=== PATIENT | male | born 1980 | race African-American/Black ===

== ENCOUNTER 2018-05-16 09:26 | Observation (INO) ==
[2018-05-17 12:04] VITALS: BP 118/81
== END 2018-05-17 16:22 | disposition home or self-care (01) ==
LOC: N.EDINP 09:26 → N.ED 09:26 → N.5E 15:33
PROVIDERS: ADMIT Internal Medicine Nephrology; ATTEND Internal Medicine Nephrology

== ENCOUNTER 2018-11-05 22:25 | Inpatient (IN) ==
[2018-11-05] MEDS ORDERED: cefTRIAXone 1,000 MG in SODIUM CHLORIDE 0.9% 100 ML IV STA (22:57)
[2018-11-05] MEDS ORDERED: FUROSEMIDE 100 MG/10 ML VIAL IV STA (22:57)
[2018-11-05] MEDS ORDERED: ONDANSETRON 4 MG/2 ML VIAL IV STA (22:57)
[2018-11-05] MEDS ORDERED: MORPHINE 4 MG/1 ML VIAL IV STA (22:57)
[2018-11-05] MEDS ORDERED: methylPREDNISolone SOD SUC 125 MG/2 ML VIAL IV STA (22:57)
[2018-11-05] MEDS ORDERED: NITROGLYCERIN 2% OINT 1 INCH/GM PACK TOP STA (22:57)
[2018-11-05] MEDS ORDERED: ASPIRIN 325 MG TABLET PO STA (22:57)
[2018-11-05] MEDS ORDERED: DILTIAZEM 50 MG/10 ML VIAL IV STA (22:59)
[2018-11-05] MEDS ORDERED: ALBUTEROL 2.5 MG/3 ML NEB RESP TX SCH (23:00)
[2018-11-05 23:35] LABS: ABG Base Excess 4.2 MMOL/L (-2.5-2.5); ABG HCO3 28.1 MMOL/L (20-26); ABG Oxygen Saturation 95.8 % (95-100); ABG PCO2 43.1 MM HG (35-48); ABG PH 7.435 (7.35-7.45); ABG PO2 77.5 MM HG (80-95); ABG TCO2 25.7 MMOL/L (23-27); Pt O2 Delivery Device Room Air
[2018-11-05 23:38] LABS: PT Patient Result 10.5 SECS
[2018-11-05 23:41] LABS: Basophils # 0.1 10*3/uL (0.0-0.2); Basophils % 0.3 % (0.0-0.8); Immature Granulocytes % 1.2 %; Immature Granulocytes Absolute 0.17 #; Lymphocytes # 1.7 10*3/uL (1.4-4.0); Lymphocytes % 11.8 % (21.2-54.2); Mean Corpuscular HGB Conc 29.4 GM/DL (32-36); Mean Corpuscular Hemoglobin 22 PG (27-34); Mean Corpuscular Volume 75.3 FL (87-102); Mean Platelet Volume 10.1 FL (9.6-12.0); Monocytes # 1.3 10*3/uL (0.11-0.8); Monocytes % 8.5 % (1.7-12.7); Neutrophils # 11.4 10*3/uL (1.4-7.4); Neutrophils % 78.2 % (38.7-73.9); Platelet Count 289 T/CUMM (130-400); Red Blood Count 4.97 MC/CUMM (3.8-5.5); Red Cell Distribution Width 18.4 % (9.3-17.3); White Blood Count 14.6 T/CUMM (4-12)
[2018-11-05] MEDS ORDERED: DILTIAZEM 25 MG/5 ML VIAL IV ONE (23:42)
[2018-11-05 23:43] LABS: Hematocrit 37.4 VOL% (42.0-52.0)
[2018-11-05 23:59] LABS: Alanine Aminotransferase 43 U/L (16-61); Albumin 3.5 G/DL (3.4-5.0); Alkaline Phosphatase 127 U/L (45-117); Aspartate Amino Transferase 19 U/L (0-37); Bilirubin,Total < 0.39 MG/DL (0.2-1.0); Blood Urea Nitrogen 11 MG/DL (7-18); Calcium 8.5 MG/DL (8.5-10.1); Glucose 101 MG/DL (74-106); Osmolality,Calculated 284.8 MOS/KG (273-304); Potassium 3.4 MMOL/L (3.5-5.1); Sodium 144 MMOL/L (136-145)
[2018-11-06] MEDS ORDERED: MAGNESIUM SULF RIDER 2 GM in PREMIX 1 EACH IV STA (00:06)
[2018-11-06] MEDS ORDERED: guaiFENesin/DM ER 600-30 MG TABLET PO PRN (00:17)
[2018-11-06] MEDS ORDERED: NICOTINE 21 MG/24 HR PATCH TRANSDERM PRN (00:17)
[2018-11-06] MEDS ORDERED: MAGNESIUM SULF RIDER 4 GM in PREMIX 1 EACH IV PRN (00:17)
[2018-11-06] MEDS ORDERED: MAGNESIUM SULF RIDER 2 GM in PREMIX 1 EACH IV PRN (00:17)
[2018-11-06] MEDS ORDERED: ACETAMINOPHEN 325 MG TABLET PO PRN (00:17)
[2018-11-06 00:53] LABS: Apearance,Urine CLEAR (Clear); Bilirubin,Urine Negative (Negative); Blood, Urine Negative (Negative); Glucose,Urine (UA) Negative (Negative); Ketones,Urine Negative (Negative); Nitrite,Urine Negative (Negative); Protein,Urine Negative; RBC,Urine <1 /HPF (0-4); Urine Color Straw (Yellow); Urine Specific Gravity 1.008 (1.001-1.035); Urine Urobilinogen < 2.0 EU/DL (0.2-1.0); WBC,Urine <1 /HPF (0-6)
[2018-11-06] MEDS ORDERED: NON-FORMULARY MEDICATION (Albuterol Inhaler 2 PUFF) INH PRN ×2 (02:18)
[2018-11-06] MEDS ORDERED: MINERAL OIL/PETROLATUM OPH OINT 3.5 GM TUBE BOTH EYES PRN (02:18)
[2018-11-06] MEDS: hydrALAZINE 20 MG/1 ML VIAL IV PRN (02:50)
[2018-11-06] MEDS: POTASSIUM CHLORIDE 20 MEQ TABLET PO PRN ×3 (02:50→06:31)
[2018-11-06] MEDS: LEVOFLOXACIN INJ 750 MG in PREMIX 1 EACH IV SCH (03:10)
[2018-11-06] MEDS: MORPHINE IR 15 MG TABLET PO PRN (03:33)
[2018-11-06] MEDS: ALBUTEROL/IPRATROPIUM 3 ML NEB RESP TX SCH ×6 (03:47→23:37)
[2018-11-06 04:45] LABS: Barbiturates Screen,Urine Negative (Negative); Benzodiazepines Screen,Urine Negative (Negative); Cannabinoid Screen,Urine Positive (Negative); Opiate Screen,Urine Positive (Negative); Phencyclidine Screen,Urine Negative (Negative)
[2018-11-06 05:38] LABS: Calcium 8.6 MG/DL (8.5-10.1); Osmolality,Calculated 279.5 MOS/KG (273-304); Potassium 3.4 MMOL/L (3.5-5.1)
[2018-11-06 05:57] LABS: Basophils % 0.1 % (0.0-0.8); Hematocrit 39.4 VOL% (42.0-52.0); Immature Granulocytes % 1.2 %; Immature Granulocytes Absolute 0.16 #; Lymphocytes # 1.3 10*3/uL (1.4-4.0); Lymphocytes % 9.7 % (21.2-54.2); Mean Corpuscular HGB Conc 29.7 GM/DL (32-36); Mean Corpuscular Hemoglobin 22 PG (27-34); Mean Corpuscular Volume 74.6 FL (87-102); Mean Platelet Volume 10.7 FL (9.6-12.0); Monocytes # 0.3 10*3/uL (0.11-0.8); Monocytes % 1.8 % (1.7-12.7); Neutrophils % 87.2 % (38.7-73.9); Platelet Count 294 T/CUMM (130-400); Red Blood Count 5.28 MC/CUMM (3.8-5.5); Red Cell Distribution Width 18.8 % (9.3-17.3); White Blood Count 13.8 T/CUMM (4-12)
[2018-11-06 06:01] LABS: Hemoglobin 11.7 GM/DL (14.0-18.0)
[2018-11-06] MEDS ORDERED: methylPREDNISolone SOD SUC 40 MG/1 ML VIAL IV SCH (08:00)
[2018-11-06] MEDS ORDERED: DILTIAZEM CD 120 MG CAPSULE PO SCH (09:00)
[2018-11-06] MEDS ORDERED: LOSARTAN 50 MG TABLET PO SCH (09:00)
[2018-11-06] MEDS ORDERED: CARVEDILOL 12.5 MG TABLET PO SCH (09:00)
[2018-11-06] MEDS ORDERED: NON-FORMULARY MEDICATION (Budesonide/Formoterol 160-4.5 [Symbicort 160-4.5] 2 PUFF) INH SCH (09:00)
[2018-11-06] MEDS ORDERED: IBUPROFEN 600 MG TABLET PO SCH (09:00)
[2018-11-06] MEDS ORDERED: ENOXAPARIN 40 MG/0.4 ML SYRINGE SUBCUT SCH (09:00)
[2018-11-06] MEDS: SENNA 8.6 MG TABLET PO SCH (10:04)
[2018-11-06] MEDS: FERROUS SULFATE 325 MG TABLET PO SCH ×3 (10:05→21:18)
[2018-11-06] MEDS: MORPHINE ER 30 MG TABLET PO SCH ×3 (10:05→21:19)
[2018-11-06] MEDS: DULoxetine 30 MG CAPSULE PO SCH (10:05)
[2018-11-06] MEDS: COLCHICINE 0.6 MG TABLET PO SCH ×2 (10:05→21:19)
[2018-11-06] MEDS: MONTELUKAST 10 MG TABLET PO SCH (10:05)
[2018-11-06] MEDS: fentaNYL 100 MCG/HR PATCH TRANSDERM SCH (10:06)
[2018-11-06] MEDS: GABAPENTIN 300 MG CAPSULE PO SCH ×3 (10:09→21:18)
[2018-11-06] MEDS: methylPREDNISolone SOD SUC 40 MG/1 ML VIAL IV SCH ×3 (10:10→23:54)
[2018-11-06] MEDS: FUROSEMIDE 40 MG/4 ML VIAL IV SCH ×2 (10:10→15:11)
[2018-11-06] MEDS: PANTOPRAZOLE 40 MG TABLET PO SCH (10:10)
[2018-11-06] MEDS: LOSARTAN/HCTZ 50-12.5 MG TABLET PO SCH (10:10)
[2018-11-06] MEDS: hydrALAZINE 25 MG TABLET PO SCH ×3 (10:10→21:19)
[2018-11-06] MEDS ORDERED: DILTIAZEM CD 120 MG CAPSULE PO ONE (10:41)
[2018-11-06 11:02] LABS: % Iron Saturation 6.3 % (18-50); Ferritin 15.8 ng/ml (26-388)
[2018-11-06] MEDS: BUDESONIDE 0.5 MG/2 ML NEB RESP TX SCH ×2 (11:56→19:07)
[2018-11-06] MEDS ORDERED: cefTRIAXone 1,000 MG in SYRINGE 1 EACH IV SCH (12:00)
[2018-11-06 12:39] LABS: Basophils % 0.2 % (0.0-0.8); NRBC # 0.02 10*3/uL
[2018-11-06 12:43] LABS: Hematocrit 40.1 VOL% (42.0-52.0); Immature Granulocytes % 1.6 %; Immature Granulocytes Absolute 0.23 #; Lymphocytes # 1.4 10*3/uL (1.4-4.0); Lymphocytes % 9.2 % (21.2-54.2); Mean Corpuscular HGB Conc 29.9 GM/DL (32-36); Mean Corpuscular Hemoglobin 22 PG (27-34); Mean Corpuscular Volume 74.4 FL (87-102); Mean Platelet Volume 10.5 FL (9.6-12.0); Monocytes # 0.4 10*3/uL (0.11-0.8); Neutrophils # 12.7 10*3/uL (1.4-7.4); Platelet Count 307 T/CUMM (130-400); Red Blood Count 5.39 MC/CUMM (3.8-5.5); White Blood Count 14.7 T/CUMM (4-12)
[2018-11-06 12:44] LABS: Folate 5.5 NG/ML (5.4-24.0); Vitamin B12 300 PG/ML (211-911)
[2018-11-06] MEDS: ASPIRIN EC 81 MG TABLET PO SCH (12:54)
[2018-11-06 13:52] LABS: Sedimentation Rate-Westergren 8 MM/HR (0-15)
[2018-11-06] MEDS: RIVAROXABAN 20 MG TABLET PO SCH (16:02)
[2018-11-07] MEDS: ALBUTEROL/IPRATROPIUM 3 ML NEB RESP TX SCH ×6 (03:28→23:10)
[2018-11-07] MEDS: LEVOFLOXACIN INJ 750 MG in PREMIX 1 EACH IV SCH (03:30)
[2018-11-07] MEDS: diphenhydrAMINE CAP 25 MG CAPSULE PO PRN (03:50)
[2018-11-07 04:54] LABS: Calcium 8.2 MG/DL (8.5-10.1); Potassium 3.7 MMOL/L (3.5-5.1)
[2018-11-07 04:59] LABS: Risk Ratio 2.95; VLDL CHOLESTEROL 28.8 MG/DL
[2018-11-07] MEDS: POTASSIUM CHLORIDE 20 MEQ TABLET PO PRN (05:10)
[2018-11-07 05:50] LABS: Basophils % 0.1 % (0.0-0.8); Immature Granulocytes % 1.7 %; Immature Granulocytes Absolute 0.35 #; Lymphocytes # 2.1 10*3/uL (1.4-4.0); Lymphocytes % 10.1 % (21.2-54.2); Mean Corpuscular HGB Conc 28.8 GM/DL (32-36); Mean Corpuscular Hemoglobin 22 PG (27-34); Mean Corpuscular Volume 75.8 FL (87-102); Mean Platelet Volume 10.7 FL (9.6-12.0); Monocytes # 1.1 10*3/uL (0.11-0.8); Monocytes % 5.2 % (1.7-12.7); NRBC # 0.02 10*3/uL; Neutrophils # 17.4 10*3/uL (1.4-7.4); Neutrophils % 82.9 % (38.7-73.9); Platelet Count 346 T/CUMM (130-400); Red Blood Count 5.41 MC/CUMM (3.8-5.5); Red Cell Distribution Width 19.7 % (9.3-17.3)
[2018-11-07 05:52] LABS: Hemoglobin 11.8 GM/DL (14.0-18.0)
[2018-11-07 05:55] LABS: Lymphocytes 14 % (20-55); Platelet Estimate Normal; Segmented Neutrophils 84 % (50-85); Total Cells Counted 100
[2018-11-07 05:56] LABS: Anisocytosis 1+; Microcytosis 1+
[2018-11-07] MEDS: BUDESONIDE 0.5 MG/2 ML NEB RESP TX SCH ×2 (07:30→20:29)
[2018-11-07] MEDS: FUROSEMIDE 40 MG/4 ML VIAL IV SCH ×2 (09:07→16:16)
[2018-11-07] MEDS: methylPREDNISolone SOD SUC 40 MG/1 ML VIAL IV SCH ×2 (09:08→16:17)
[2018-11-07] MEDS: DILTIAZEM CD 240 MG CAPSULE PO SCH (09:09)
[2018-11-07] MEDS: hydrALAZINE 25 MG TABLET PO SCH ×3 (09:09→21:29)
[2018-11-07] MEDS: ASPIRIN EC 81 MG TABLET PO SCH (09:09)
[2018-11-07] MEDS: COLCHICINE 0.6 MG TABLET PO SCH ×2 (09:09→21:30)
[2018-11-07] MEDS: LOSARTAN/HCTZ 50-12.5 MG TABLET PO SCH (09:10)
[2018-11-07] MEDS: MONTELUKAST 10 MG TABLET PO SCH (09:10)
[2018-11-07] MEDS: SENNA 8.6 MG TABLET PO SCH (09:10)
[2018-11-07] MEDS: MORPHINE ER 30 MG TABLET PO SCH ×3 (09:10→21:29)
[2018-11-07] MEDS: FERROUS SULFATE 325 MG TABLET PO SCH ×3 (09:10→21:30)
[2018-11-07] MEDS: GABAPENTIN 300 MG CAPSULE PO SCH ×3 (09:10→21:29)
[2018-11-07] MEDS: PANTOPRAZOLE 40 MG TABLET PO SCH (09:10)
[2018-11-07] MEDS: DULoxetine 30 MG CAPSULE PO SCH (09:10)
[2018-11-07] MEDS: LOSARTAN 50 MG TABLET PO SCH (11:39)
[2018-11-07] MEDS: RIVAROXABAN 20 MG TABLET PO SCH (16:17)
[2018-11-08] MEDS: methylPREDNISolone SOD SUC 40 MG/1 ML VIAL IV SCH ×3 (00:20→16:05)
[2018-11-08] MEDS: ALBUTEROL/IPRATROPIUM 3 ML NEB RESP TX SCH ×6 (03:05→23:15)
[2018-11-08] MEDS: LEVOFLOXACIN INJ 750 MG in PREMIX 1 EACH IV SCH (04:00)
[2018-11-08] MEDS: diphenhydrAMINE CAP 25 MG CAPSULE PO PRN ×2 (05:21→22:14)
[2018-11-08 05:40] LABS: Calcium 7.4 MG/DL (8.5-10.1); Osmolality,Calculated 284.5 MOS/KG (273-304); Potassium 3.6 MMOL/L (3.5-5.1)
[2018-11-08 05:46] LABS: Basophils % 0.1 % (0.0-0.8); Hematocrit 40.3 VOL% (42.0-52.0); Hemoglobin 11.7 GM/DL (14.0-18.0); Immature Granulocytes % 2.9 %; Lymphocytes # 1.5 10*3/uL (1.4-4.0); Lymphocytes % 7.5 % (21.2-54.2); Mean Corpuscular Hemoglobin 22 PG (27-34); Mean Corpuscular Volume 75.3 FL (87-102); Mean Platelet Volume 10.3 FL (9.6-12.0); Monocytes # 0.9 10*3/uL (0.11-0.8); Monocytes % 4.2 % (1.7-12.7); NRBC # 0.02 10*3/uL; Neutrophils # 17.5 10*3/uL (1.4-7.4); Neutrophils % 85.3 % (38.7-73.9); Platelet Count 347 T/CUMM (130-400); Red Blood Count 5.35 MC/CUMM (3.8-5.5); Red Cell Distribution Width 19.4 % (9.3-17.3); White Blood Count 20.5 T/CUMM (4-12)
[2018-11-08 06:09] LABS: Lymphocytes 6 % (20-55); Segmented Neutrophils 91 % (50-85); Total Cells Counted 100
[2018-11-08 06:10] LABS: Hypochromasia 1+; Microcytosis 1+; Platelet Estimate Normal
[2018-11-08] MEDS: POTASSIUM CHLORIDE 20 MEQ TABLET PO PRN ×2 (06:11→08:56)
[2018-11-08] MEDS: BUDESONIDE 0.5 MG/2 ML NEB RESP TX SCH ×2 (08:19→20:05)
[2018-11-08] MEDS: MONTELUKAST 10 MG TABLET PO SCH (08:55)
[2018-11-08] MEDS: LOSARTAN 50 MG TABLET PO SCH (08:55)
[2018-11-08] MEDS: GABAPENTIN 300 MG CAPSULE PO SCH ×3 (08:55→22:10)
[2018-11-08] MEDS: COLCHICINE 0.6 MG TABLET PO SCH ×2 (08:55→22:10)
[2018-11-08] MEDS: PANTOPRAZOLE 40 MG TABLET PO SCH (08:56)
[2018-11-08] MEDS: FERROUS SULFATE 325 MG TABLET PO SCH ×3 (08:56→22:10)
[2018-11-08] MEDS: DILTIAZEM CD 240 MG CAPSULE PO SCH (08:56)
[2018-11-08] MEDS: hydrALAZINE 25 MG TABLET PO SCH ×3 (08:57→22:11)
[2018-11-08] MEDS: DULoxetine 30 MG CAPSULE PO SCH (08:57)
[2018-11-08] MEDS: ASPIRIN EC 81 MG TABLET PO SCH (08:57)
[2018-11-08] MEDS: MORPHINE ER 30 MG TABLET PO SCH ×3 (08:57→22:10)
[2018-11-08] MEDS: SENNA 8.6 MG TABLET PO SCH (08:58)
[2018-11-08] MEDS: NYSTATIN 500,000 UNIT/5 ML UDCUP SWISH/SWAL SCH ×4 (09:00→22:10)
[2018-11-08] MEDS: RIVAROXABAN 20 MG TABLET PO SCH (17:32)
[2018-11-09] MEDS: methylPREDNISolone SOD SUC 40 MG/1 ML VIAL IV SCH ×3 (00:33→16:33)
[2018-11-09] MEDS: ALBUTEROL/IPRATROPIUM 3 ML NEB RESP TX SCH ×5 (02:58→19:19)
[2018-11-09] MEDS: LEVOFLOXACIN INJ 750 MG in PREMIX 1 EACH IV SCH (04:00)
[2018-11-09] MEDS: diphenhydrAMINE CAP 25 MG CAPSULE PO PRN ×2 (04:00→18:35)
[2018-11-09 04:15] LABS: Basophils % 0.1 % (0.0-0.8); Hemoglobin 11.7 GM/DL (14.0-18.0); Immature Granulocytes % 2.4 %; Immature Granulocytes Absolute 0.43 #; Lymphocytes % 5.7 % (21.2-54.2); Mean Corpuscular HGB Conc 29.5 GM/DL (32-36); Mean Corpuscular Hemoglobin 22 PG (27-34); Mean Platelet Volume 10.3 FL (9.6-12.0); Monocytes # 0.7 10*3/uL (0.11-0.8); Monocytes % 4.1 % (1.7-12.7); Neutrophils # 15.4 10*3/uL (1.4-7.4); Neutrophils % 87.7 % (38.7-73.9); Platelet Count 356 T/CUMM (130-400); Red Blood Count 5.29 MC/CUMM (3.8-5.5); Red Cell Distribution Width 19.5 % (9.3-17.3); White Blood Count 17.6 T/CUMM (4-12)
[2018-11-09 04:18] LABS: Hematocrit 39.7 VOL% (42.0-52.0)
[2018-11-09 04:37] LABS: Calcium 7.7 MG/DL (8.5-10.1); Osmolality,Calculated 284.7 MOS/KG (273-304); Potassium 4.1 MMOL/L (3.5-5.1)
[2018-11-09] MEDS: MORPHINE IR 15 MG TABLET PO PRN (05:58)
[2018-11-09] MEDS: BUDESONIDE 0.5 MG/2 ML NEB RESP TX SCH ×2 (08:16→19:19)
[2018-11-09] MEDS: COLCHICINE 0.6 MG TABLET PO SCH (08:25)
[2018-11-09] MEDS: FERROUS SULFATE 325 MG TABLET PO SCH ×3 (08:25→21:16)
[2018-11-09] MEDS: LOSARTAN 50 MG TABLET PO SCH (08:25)
[2018-11-09] MEDS: DULoxetine 30 MG CAPSULE PO SCH (08:25)
[2018-11-09] MEDS: ASPIRIN EC 81 MG TABLET PO SCH (08:26)
[2018-11-09] MEDS: hydrALAZINE 25 MG TABLET PO SCH ×3 (08:26→21:18)
[2018-11-09] MEDS: DILTIAZEM CD 240 MG CAPSULE PO SCH (08:26)
[2018-11-09] MEDS: GABAPENTIN 300 MG CAPSULE PO SCH ×3 (08:26→21:17)
[2018-11-09] MEDS: PANTOPRAZOLE 40 MG TABLET PO SCH (08:26)
[2018-11-09] MEDS: SENNA 8.6 MG TABLET PO SCH (08:26)
[2018-11-09] MEDS: MONTELUKAST 10 MG TABLET PO SCH ×2 (08:26→21:16)
[2018-11-09] MEDS: NYSTATIN 500,000 UNIT/5 ML UDCUP SWISH/SWAL SCH ×4 (08:26→21:16)
[2018-11-09] MEDS: MORPHINE ER 30 MG TABLET PO SCH ×3 (08:26→21:17)
[2018-11-09] MEDS: fentaNYL 100 MCG/HR PATCH TRANSDERM SCH (08:32)
[2018-11-09] MEDS: RIVAROXABAN 20 MG TABLET PO SCH (16:33)
[2018-11-09] MEDS: guaiFENesin/DM ER 600-30 MG TABLET PO SCH (21:16)
[2018-11-10] MEDS: ALBUTEROL/IPRATROPIUM 3 ML NEB RESP TX SCH ×6 (00:54→20:16)
[2018-11-10] MEDS: methylPREDNISolone SOD SUC 40 MG/1 ML VIAL IV SCH ×3 (02:43→16:25)
[2018-11-10] MEDS: LEVOFLOXACIN INJ 750 MG in PREMIX 1 EACH IV SCH (03:03)
[2018-11-10 05:09] LABS: Basophils % 0.1 % (0.0-0.8); Hemoglobin 11.4 GM/DL (14.0-18.0); Immature Granulocytes % 2.8 %; Immature Granulocytes Absolute 0.47 #; Lymphocytes % 5.6 % (21.2-54.2); Mean Corpuscular HGB Conc 29.2 GM/DL (32-36); Mean Corpuscular Hemoglobin 22 PG (27-34); Mean Corpuscular Volume 75.6 FL (87-102); Mean Platelet Volume 10.3 FL (9.6-12.0); Monocytes # 0.6 10*3/uL (0.11-0.8); Monocytes % 3.7 % (1.7-12.7); Neutrophils # 14.8 10*3/uL (1.4-7.4); Neutrophils % 87.8 % (38.7-73.9); Platelet Count 343 T/CUMM (130-400); Red Blood Count 5.16 MC/CUMM (3.8-5.5); Red Cell Distribution Width 19.2 % (9.3-17.3); White Blood Count 16.8 T/CUMM (4-12)
[2018-11-10 05:23] LABS: Calcium 7.8 MG/DL (8.5-10.1); Osmolality,Calculated 282.5 MOS/KG (273-304); Potassium 4.1 MMOL/L (3.5-5.1)
[2018-11-10] MEDS: BUDESONIDE 0.5 MG/2 ML NEB RESP TX SCH ×2 (07:46→20:16)
[2018-11-10] MEDS: COLCHICINE 0.6 MG TABLET PO SCH (08:39)
[2018-11-10] MEDS: FERROUS SULFATE 325 MG TABLET PO SCH ×3 (08:39→22:21)
[2018-11-10] MEDS: GABAPENTIN 300 MG CAPSULE PO SCH ×2 (08:39→22:21)
[2018-11-10] MEDS: hydrALAZINE 25 MG TABLET PO SCH ×3 (08:40→22:20)
[2018-11-10] MEDS: SENNA 8.6 MG TABLET PO SCH (08:40)
[2018-11-10] MEDS: DILTIAZEM CD 240 MG CAPSULE PO SCH (08:40)
[2018-11-10] MEDS: PANTOPRAZOLE 40 MG TABLET PO SCH (08:40)
[2018-11-10] MEDS: LOSARTAN 50 MG TABLET PO SCH (08:40)
[2018-11-10] MEDS: ASPIRIN EC 81 MG TABLET PO SCH (08:40)
[2018-11-10] MEDS: MORPHINE ER 30 MG TABLET PO SCH ×3 (08:40→22:21)
[2018-11-10] MEDS: MONTELUKAST 10 MG TABLET PO SCH ×2 (08:40→22:21)
[2018-11-10] MEDS: DULoxetine 30 MG CAPSULE PO SCH (08:40)
[2018-11-10] MEDS: guaiFENesin/DM ER 600-30 MG TABLET PO SCH ×3 (08:40→22:21)
[2018-11-10] MEDS: NYSTATIN 500,000 UNIT/5 ML UDCUP SWISH/SWAL SCH ×4 (08:41→22:21)
[2018-11-10] MEDS ORDERED: ALBUTEROL 2.5 MG/3 ML NEB RESP TX PRN (12:00)
[2018-11-10] MEDS: ACETYLCYSTEINE 20% 800 MG/4 ML VIAL RESP TX SCH (15:18)
[2018-11-10] MEDS: RIVAROXABAN 20 MG TABLET PO SCH (16:25)
[2018-11-10] MEDS: LUBIPROSTONE 24 MCG CAPSULE PO SCH (22:20)
[2018-11-10] MEDS: DOXYCYCLINE HYCLATE 100 MG CAPSULE PO SCH (22:22)
[2018-11-11] MEDS: ALBUTEROL/IPRATROPIUM 3 ML NEB RESP TX SCH ×7 (00:09→22:30)
[2018-11-11] MEDS: ACETYLCYSTEINE 20% 800 MG/4 ML VIAL RESP TX SCH ×4 (00:09→22:39)
[2018-11-11] MEDS: FLUTICASONE/SALMETEROL 500-50 DISKUS 14 DOSE INH SCH ×3 (01:03→21:56)
[2018-11-11] MEDS: methylPREDNISolone SOD SUC 40 MG/1 ML VIAL IV SCH ×3 (01:03→17:22)
[2018-11-11 05:21] LABS: Calcium 8.3 MG/DL (8.5-10.1); Osmolality,Calculated 282.1 MOS/KG (273-304); Potassium 4.4 MMOL/L (3.5-5.1)
[2018-11-11 05:56] LABS: Basophils % 0.1 % (0.0-0.8); Hematocrit 38.5 VOL% (42.0-52.0); Hemoglobin 11.3 GM/DL (14.0-18.0); Immature Granulocytes % 2.9 %; Immature Granulocytes Absolute 0.45 #; Lymphocytes # 0.8 10*3/uL (1.4-4.0); Lymphocytes % 5.1 % (21.2-54.2); Mean Corpuscular HGB Conc 29.4 GM/DL (32-36); Mean Corpuscular Hemoglobin 22 PG (27-34); Mean Corpuscular Volume 75.9 FL (87-102); Mean Platelet Volume 10.8 FL (9.6-12.0); Monocytes # 0.6 10*3/uL (0.11-0.8); Monocytes % 3.7 % (1.7-12.7); Neutrophils # 13.7 10*3/uL (1.4-7.4); Neutrophils % 88.2 % (38.7-73.9); Platelet Count 314 T/CUMM (130-400); Red Blood Count 5.07 MC/CUMM (3.8-5.5); Red Cell Distribution Width 19.8 % (9.3-17.3); White Blood Count 15.6 T/CUMM (4-12)
[2018-11-11 06:02] LABS: Platelet Estimate Normal
[2018-11-11 06:03] LABS: Hypochromasia Slight
[2018-11-11] MEDS: BUDESONIDE 0.5 MG/2 ML NEB RESP TX SCH ×2 (07:28→19:40)
[2018-11-11] MEDS ORDERED: hydrALAZINE 25 MG TABLET PO ONE (09:27)
[2018-11-11] MEDS: FUROSEMIDE 40 MG TABLET PO SCH (09:29)
[2018-11-11] MEDS: NYSTATIN 500,000 UNIT/5 ML UDCUP SWISH/SWAL SCH ×4 (09:29→21:55)
[2018-11-11] MEDS: GABAPENTIN 300 MG CAPSULE PO SCH ×2 (09:29→21:56)
[2018-11-11] MEDS: SENNA 8.6 MG TABLET PO SCH (09:29)
[2018-11-11] MEDS: COLCHICINE 0.6 MG TABLET PO SCH (09:30)
[2018-11-11] MEDS: FERROUS SULFATE 325 MG TABLET PO SCH ×3 (09:30→21:56)
[2018-11-11] MEDS: DOXYCYCLINE HYCLATE 100 MG CAPSULE PO SCH ×2 (09:30→21:55)
[2018-11-11] MEDS: DILTIAZEM CD 240 MG CAPSULE PO SCH (09:30)
[2018-11-11] MEDS: ASPIRIN EC 81 MG TABLET PO SCH (09:30)
[2018-11-11] MEDS: LOSARTAN 50 MG TABLET PO SCH (09:30)
[2018-11-11] MEDS: MONTELUKAST 10 MG TABLET PO SCH ×2 (09:30→21:55)
[2018-11-11] MEDS: LUBIPROSTONE 24 MCG CAPSULE PO SCH ×2 (09:30→21:56)
[2018-11-11] MEDS: DULoxetine 30 MG CAPSULE PO SCH (09:30)
[2018-11-11] MEDS: PANTOPRAZOLE 40 MG TABLET PO SCH (09:31)
[2018-11-11] MEDS: MORPHINE ER 30 MG TABLET PO SCH ×3 (09:31→21:56)
[2018-11-11] MEDS: guaiFENesin/DM ER 600-30 MG TABLET PO SCH ×2 (09:31→14:22)
[2018-11-11] MEDS: RIVAROXABAN 20 MG TABLET PO SCH (17:22)
[2018-11-12] MEDS: methylPREDNISolone SOD SUC 40 MG/1 ML VIAL IV SCH ×4 (00:10→17:33)
[2018-11-12] MEDS: ALBUTEROL/IPRATROPIUM 3 ML NEB RESP TX SCH ×6 (02:39→23:48)
[2018-11-12 06:38] LABS: Calcium 8.4 MG/DL (8.5-10.1); Osmolality,Calculated 282.1 MOS/KG (273-304); Potassium 4.2 MMOL/L (3.5-5.1)
[2018-11-12 06:58] LABS: Basophils % 0.1 % (0.0-0.8); Hematocrit 37.3 VOL% (42.0-52.0); Immature Granulocytes Absolute 0.45 #; Lymphocytes # 0.7 10*3/uL (1.4-4.0); Lymphocytes % 4.4 % (21.2-54.2); Mean Corpuscular HGB Conc 29.2 GM/DL (32-36); Mean Corpuscular Hemoglobin 22 PG (27-34); Mean Corpuscular Volume 76.1 FL (87-102); Mean Platelet Volume 10.1 FL (9.6-12.0); Monocytes # 0.5 10*3/uL (0.11-0.8); Monocytes % 3.4 % (1.7-12.7); Neutrophils # 13.2 10*3/uL (1.4-7.4); Neutrophils % 89.1 % (38.7-73.9); Platelet Count 262 T/CUMM (130-400); Red Cell Distribution Width 19.7 % (9.3-17.3); White Blood Count 14.8 T/CUMM (4-12)
[2018-11-12 06:59] LABS: Hemoglobin 10.9 GM/DL (14.0-18.0)
[2018-11-12 07:08] LABS: Band Neutrophils 3 % (0-10); Lymphocytes 10 % (20-55); Platelet Estimate Normal; Segmented Neutrophils 81 % (50-85); Total Cells Counted 100
[2018-11-12 07:09] LABS: Anisocytosis 1+
[2018-11-12] MEDS: hydrALAZINE 25 MG TABLET PO SCH (08:02)
[2018-11-12] MEDS: BUDESONIDE 0.5 MG/2 ML NEB RESP TX SCH ×2 (08:34→21:16)
[2018-11-12] MEDS: ACETYLCYSTEINE 20% 800 MG/4 ML VIAL RESP TX SCH ×3 (08:40→23:48)
[2018-11-12] MEDS: DULoxetine 30 MG CAPSULE PO SCH (09:03)
[2018-11-12] MEDS: COLCHICINE 0.6 MG TABLET PO SCH (09:03)
[2018-11-12] MEDS: NYSTATIN 500,000 UNIT/5 ML UDCUP SWISH/SWAL SCH ×4 (09:03→22:16)
[2018-11-12] MEDS: FERROUS SULFATE 325 MG TABLET PO SCH ×3 (09:04→22:18)
[2018-11-12] MEDS: PANTOPRAZOLE 40 MG TABLET PO SCH (09:04)
[2018-11-12] MEDS: DOXYCYCLINE HYCLATE 100 MG CAPSULE PO SCH ×2 (09:04→22:20)
[2018-11-12] MEDS: LOSARTAN 50 MG TABLET PO SCH (09:04)
[2018-11-12] MEDS: SENNA 8.6 MG TABLET PO SCH (09:04)
[2018-11-12] MEDS: MORPHINE ER 30 MG TABLET PO SCH ×3 (09:04→22:17)
[2018-11-12] MEDS: FUROSEMIDE 40 MG TABLET PO SCH (09:05)
[2018-11-12] MEDS: GABAPENTIN 300 MG CAPSULE PO SCH ×2 (09:05→22:17)
[2018-11-12] MEDS: DILTIAZEM CD 240 MG CAPSULE PO SCH (09:05)
[2018-11-12] MEDS: ASPIRIN EC 81 MG TABLET PO SCH (09:05)
[2018-11-12] MEDS: MONTELUKAST 10 MG TABLET PO SCH ×2 (09:05→22:17)
[2018-11-12] MEDS: FLUTICASONE/SALMETEROL 500-50 DISKUS 14 DOSE INH SCH ×2 (09:06→22:18)
[2018-11-12] MEDS: LUBIPROSTONE 24 MCG CAPSULE PO SCH ×2 (09:21→22:18)
[2018-11-12] MEDS: fentaNYL 100 MCG/HR PATCH TRANSDERM SCH (10:04)
[2018-11-12] MEDS: RIVAROXABAN 20 MG TABLET PO SCH (17:25)
[2018-11-13] MEDS: methylPREDNISolone SOD SUC 40 MG/1 ML VIAL IV SCH ×4 (01:20→17:16)
[2018-11-13] MEDS: ALBUTEROL/IPRATROPIUM 3 ML NEB RESP TX SCH ×4 (02:58→14:55)
[2018-11-13 05:20] LABS: Basophils % 0.1 % (0.0-0.8); Eosinophils % 0.1 % (0.00-10.9); Hematocrit 38.5 VOL% (42.0-52.0); Immature Granulocytes % 3.3 %; Immature Granulocytes Absolute 0.59 #; Lymphocytes # 0.8 10*3/uL (1.4-4.0); Lymphocytes % 4.2 % (21.2-54.2); Mean Corpuscular HGB Conc 30.1 GM/DL (32-36); Mean Corpuscular Hemoglobin 22 PG (27-34); Mean Corpuscular Volume 74.2 FL (87-102); Mean Platelet Volume 9.9 FL (9.6-12.0); Monocytes # 0.9 10*3/uL (0.11-0.8); Monocytes % 4.9 % (1.7-12.7); Neutrophils # 15.8 10*3/uL (1.4-7.4); Neutrophils % 87.4 % (38.7-73.9); Platelet Count 244 T/CUMM (130-400); Red Blood Count 5.19 MC/CUMM (3.8-5.5); Red Cell Distribution Width 19.7 % (9.3-17.3); White Blood Count 18.1 T/CUMM (4-12)
[2018-11-13 05:21] LABS: Hemoglobin 11.6 GM/DL (14.0-18.0)
[2018-11-13 05:22] LABS: Calcium 8.1 MG/DL (8.5-10.1); Osmolality,Calculated 278.4 MOS/KG (273-304); Potassium 4.3 MMOL/L (3.5-5.1)
[2018-11-13 05:26] LABS: Anisocytosis 1+; Hypochromasia 1+; Lymphocytes 5 % (20-55); Segmented Neutrophils 90 % (50-85); Total Cells Counted 100
[2018-11-13 05:27] LABS: Platelet Estimate Adequate; Target Cells Few
[2018-11-13] MEDS: BUDESONIDE 0.5 MG/2 ML NEB RESP TX SCH ×2 (07:18→19:59)
[2018-11-13] MEDS: ACETYLCYSTEINE 20% 800 MG/4 ML VIAL RESP TX SCH ×3 (07:18→23:05)
[2018-11-13] MEDS: hydrALAZINE 20 MG/1 ML VIAL IV PRN (09:30)
[2018-11-13] MEDS: GABAPENTIN 300 MG CAPSULE PO SCH ×2 (09:31→20:57)
[2018-11-13] MEDS: DULoxetine 30 MG CAPSULE PO SCH (09:31)
[2018-11-13] MEDS: FUROSEMIDE 40 MG TABLET PO SCH (09:31)
[2018-11-13] MEDS: FERROUS SULFATE 325 MG TABLET PO SCH ×3 (09:31→20:59)
[2018-11-13] MEDS: LOSARTAN 50 MG TABLET PO SCH (09:32)
[2018-11-13] MEDS: PANTOPRAZOLE 40 MG TABLET PO SCH (09:32)
[2018-11-13] MEDS: DILTIAZEM CD 240 MG CAPSULE PO SCH (09:32)
[2018-11-13] MEDS: FLUTICASONE/SALMETEROL 500-50 DISKUS 14 DOSE INH SCH ×2 (09:34→22:16)
[2018-11-13] MEDS: ASPIRIN EC 81 MG TABLET PO SCH (10:18)
[2018-11-13] MEDS: COLCHICINE 0.6 MG TABLET PO SCH (10:18)
[2018-11-13] MEDS: MONTELUKAST 10 MG TABLET PO SCH ×2 (10:18→20:59)
[2018-11-13] MEDS: MORPHINE ER 30 MG TABLET PO SCH ×3 (10:19→22:16)
[2018-11-13] MEDS: DOXYCYCLINE HYCLATE 100 MG CAPSULE PO SCH ×2 (10:19→20:59)
[2018-11-13] MEDS: LUBIPROSTONE 24 MCG CAPSULE PO SCH ×2 (10:19→20:59)
[2018-11-13] MEDS: SENNA 8.6 MG TABLET PO SCH (10:19)
[2018-11-13] MEDS: NYSTATIN 500,000 UNIT/5 ML UDCUP SWISH/SWAL SCH ×4 (10:38→20:59)
[2018-11-13] MEDS: diphenhydrAMINE CAP 25 MG CAPSULE PO SCH ×2 (11:41→20:59)
[2018-11-13] MEDS: amLODIPine 10 MG TABLET PO SCH (11:45)
[2018-11-13] MEDS: RIVAROXABAN 20 MG TABLET PO SCH (17:16)
[2018-11-13] MEDS: ARFORMOTEROL 15 MCG/2 ML NEB RESP TX SCH (19:59)
[2018-11-14] MEDS: BUDESONIDE/FORMOTEROL 160-4.5 INHALER 6 GM INH SCH ×3 (01:30→21:44)
[2018-11-14] MEDS: methylPREDNISolone SOD SUC 40 MG/1 ML VIAL IV SCH ×3 (01:30→21:39)
[2018-11-14 05:27] LABS: Basophils % 0.1 % (0.0-0.8); Hematocrit 37.7 VOL% (42.0-52.0); Hemoglobin 11.3 GM/DL (14.0-18.0); Immature Granulocytes % 3.5 %; Immature Granulocytes Absolute 0.65 #; Lymphocytes # 1.1 10*3/uL (1.4-4.0); Mean Corpuscular Hemoglobin 22 PG (27-34); Mean Corpuscular Volume 74.8 FL (87-102); Mean Platelet Volume 10.3 FL (9.6-12.0); Monocytes # 1.2 10*3/uL (0.11-0.8); Monocytes % 6.3 % (1.7-12.7); Neutrophils # 15.5 10*3/uL (1.4-7.4); Neutrophils % 84.1 % (38.7-73.9); Platelet Count 270 T/CUMM (130-400); Red Blood Count 5.04 MC/CUMM (3.8-5.5); Red Cell Distribution Width 19.9 % (9.3-17.3); White Blood Count 18.4 T/CUMM (4-12)
[2018-11-14 05:56] LABS: Calcium 8.6 MG/DL (8.5-10.1); Osmolality,Calculated 273.5 MOS/KG (273-304); Potassium 4.5 MMOL/L (3.5-5.1)
[2018-11-14 06:04] LABS: Lymphocytes 13 % (20-55); Platelet Estimate Adequate; Polychromasia Few; Segmented Neutrophils 86 % (50-85); Total Cells Counted 100
[2018-11-14 06:05] LABS: Hypochromasia Slight
[2018-11-14] MEDS: ONDANSETRON 4 MG/2 ML VIAL IV PRN (08:10)
[2018-11-14] MEDS: ALBUTEROL/IPRATROPIUM 3 ML NEB RESP TX PRN (08:27)
[2018-11-14] MEDS: ARFORMOTEROL 15 MCG/2 ML NEB RESP TX SCH ×2 (08:27→19:39)
[2018-11-14] MEDS: BUDESONIDE 0.5 MG/2 ML NEB RESP TX SCH ×2 (08:27→19:39)
[2018-11-14] MEDS: NYSTATIN 500,000 UNIT/5 ML UDCUP SWISH/SWAL SCH ×4 (09:13→21:44)
[2018-11-14] MEDS: PANTOPRAZOLE 40 MG TABLET PO SCH (09:13)
[2018-11-14] MEDS: DILTIAZEM CD 240 MG CAPSULE PO SCH (09:13)
[2018-11-14] MEDS: amLODIPine 10 MG TABLET PO SCH (09:13)
[2018-11-14] MEDS: FERROUS SULFATE 325 MG TABLET PO SCH ×3 (09:14→21:36)
[2018-11-14] MEDS: DOXYCYCLINE HYCLATE 100 MG CAPSULE PO SCH ×2 (09:14→21:38)
[2018-11-14] MEDS: FUROSEMIDE 40 MG TABLET PO SCH (09:14)
[2018-11-14] MEDS: LUBIPROSTONE 24 MCG CAPSULE PO SCH ×2 (09:14→21:35)
[2018-11-14] MEDS: ASPIRIN EC 81 MG TABLET PO SCH (09:14)
[2018-11-14] MEDS: GABAPENTIN 300 MG CAPSULE PO SCH ×2 (09:14→21:37)
[2018-11-14] MEDS: COLCHICINE 0.6 MG TABLET PO SCH (09:14)
[2018-11-14] MEDS: LOSARTAN 50 MG TABLET PO SCH (09:14)
[2018-11-14] MEDS: diphenhydrAMINE CAP 25 MG CAPSULE PO SCH ×2 (09:14→21:36)
[2018-11-14] MEDS: MONTELUKAST 10 MG TABLET PO SCH ×2 (09:14→21:37)
[2018-11-14] MEDS: DULoxetine 30 MG CAPSULE PO SCH (09:14)
[2018-11-14] MEDS: SENNA 8.6 MG TABLET PO SCH (09:15)
[2018-11-14] MEDS: FLUTICASONE/SALMETEROL 500-50 DISKUS 14 DOSE INH SCH ×2 (09:16→21:44)
[2018-11-14] MEDS: MORPHINE ER 30 MG TABLET PO SCH ×3 (09:18→21:37)
[2018-11-14] MEDS: ACETYLCYSTEINE 20% 800 MG/4 ML VIAL RESP TX SCH ×2 (12:27→16:04)
[2018-11-14] MEDS: RIVAROXABAN 20 MG TABLET PO SCH (17:48)
[2018-11-15] MEDS: ACETYLCYSTEINE 20% 800 MG/4 ML VIAL RESP TX SCH ×3 (00:15→14:46)
[2018-11-15] MEDS: ALBUTEROL/IPRATROPIUM 3 ML NEB RESP TX PRN ×2 (04:07→07:38)
[2018-11-15 06:29] LABS: Basophils % 0.2 % (0.0-0.8); Hematocrit 37.1 VOL% (42.0-52.0); Immature Granulocytes % 4.2 %; Immature Granulocytes Absolute 0.75 #; Lymphocytes % 5.4 % (21.2-54.2); Mean Corpuscular HGB Conc 29.6 GM/DL (32-36); Mean Corpuscular Hemoglobin 22 PG (27-34); Mean Corpuscular Volume 75.1 FL (87-102); Mean Platelet Volume 10.1 FL (9.6-12.0); Monocytes # 1.2 10*3/uL (0.11-0.8); Monocytes % 6.9 % (1.7-12.7); Neutrophils % 83.3 % (38.7-73.9); Platelet Count 237 T/CUMM (130-400); Red Blood Count 4.94 MC/CUMM (3.8-5.5); Red Cell Distribution Width 19.7 % (9.3-17.3); White Blood Count 17.9 T/CUMM (4-12)
[2018-11-15 06:30] LABS: Osmolality,Calculated 280.2 MOS/KG (273-304); Potassium 4.4 MMOL/L (3.5-5.1)
[2018-11-15] MEDS: ARFORMOTEROL 15 MCG/2 ML NEB RESP TX SCH ×2 (07:37→19:44)
[2018-11-15] MEDS: BUDESONIDE 0.5 MG/2 ML NEB RESP TX SCH ×2 (07:38→19:44)
[2018-11-15] MEDS: ASPIRIN EC 81 MG TABLET PO SCH (08:14)
[2018-11-15] MEDS: FLUTICASONE/SALMETEROL 500-50 DISKUS 14 DOSE INH SCH ×2 (08:14→21:29)
[2018-11-15] MEDS: methylPREDNISolone SOD SUC 40 MG/1 ML VIAL IV SCH ×2 (08:14→21:25)
[2018-11-15] MEDS: BUDESONIDE/FORMOTEROL 160-4.5 INHALER 6 GM INH SCH ×2 (08:14→21:29)
[2018-11-15] MEDS: NYSTATIN 500,000 UNIT/5 ML UDCUP SWISH/SWAL SCH ×4 (08:14→21:25)
[2018-11-15] MEDS: DULoxetine 30 MG CAPSULE PO SCH (08:15)
[2018-11-15] MEDS: LOSARTAN 50 MG TABLET PO SCH (08:15)
[2018-11-15] MEDS: GABAPENTIN 300 MG CAPSULE PO SCH ×2 (08:15→21:26)
[2018-11-15] MEDS: SENNA 8.6 MG TABLET PO SCH (08:15)
[2018-11-15] MEDS: DOXYCYCLINE HYCLATE 100 MG CAPSULE PO SCH ×2 (08:15→21:26)
[2018-11-15] MEDS: diphenhydrAMINE CAP 25 MG CAPSULE PO SCH ×2 (08:15→21:26)
[2018-11-15] MEDS: amLODIPine 10 MG TABLET PO SCH (08:15)
[2018-11-15] MEDS: COLCHICINE 0.6 MG TABLET PO SCH (08:15)
[2018-11-15] MEDS: MONTELUKAST 10 MG TABLET PO SCH ×2 (08:15→21:26)
[2018-11-15] MEDS: LUBIPROSTONE 24 MCG CAPSULE PO SCH ×2 (08:16→21:26)
[2018-11-15] MEDS: PANTOPRAZOLE 40 MG TABLET PO SCH (08:16)
[2018-11-15] MEDS: MORPHINE ER 30 MG TABLET PO SCH ×3 (08:16→21:26)
[2018-11-15] MEDS: FERROUS SULFATE 325 MG TABLET PO SCH ×3 (08:16→21:26)
[2018-11-15] MEDS: FUROSEMIDE 40 MG TABLET PO SCH (08:16)
[2018-11-15] MEDS: DILTIAZEM CD 240 MG CAPSULE PO SCH (08:16)
[2018-11-15] MEDS: fentaNYL 100 MCG/HR PATCH TRANSDERM SCH (08:19)
[2018-11-15 08:23] LABS: Lymphocytes 3 % (20-55); Platelet Estimate Normal; Polychromasia Slight; Segmented Neutrophils 93 % (50-85); Total Cells Counted 100
[2018-11-15] MEDS: RIVAROXABAN 20 MG TABLET PO SCH (16:00)
[2018-11-15] MEDS: ONDANSETRON 4 MG/2 ML VIAL IV PRN (21:39)
[2018-11-16] MEDS: ACETYLCYSTEINE 20% 800 MG/4 ML VIAL RESP TX SCH ×3 (01:16→15:06)
[2018-11-16 06:04] LABS: Basophils % 0.2 % (0.0-0.8); Hematocrit 38.7 VOL% (42.0-52.0); Hemoglobin 11.4 GM/DL (14.0-18.0); Immature Granulocytes % 4.5 %; Immature Granulocytes Absolute 0.98 #; Lymphocytes % 4.7 % (21.2-54.2); Mean Corpuscular HGB Conc 29.5 GM/DL (32-36); Mean Corpuscular Hemoglobin 22 PG (27-34); Mean Corpuscular Volume 75.9 FL (87-102); Mean Platelet Volume 10.9 FL (9.6-12.0); Monocytes # 1.3 10*3/uL (0.11-0.8); Monocytes % 5.8 % (1.7-12.7); Neutrophils # 18.6 10*3/uL (1.4-7.4); Neutrophils % 84.8 % (38.7-73.9); Platelet Count 236 T/CUMM (130-400); Red Cell Distribution Width 19.6 % (9.3-17.3); White Blood Count 21.9 T/CUMM (4-12)
[2018-11-16 06:10] LABS: Albumin 3.3 G/DL (3.4-5.0); Calcium 8.3 MG/DL (8.5-10.1); Calcium 8.4 MG/DL (8.5-10.1); Osmolality,Calculated 276.5 MOS/KG (273-304); Osmolality,Calculated 278.4 MOS/KG (273-304); Potassium 4.2 MMOL/L (3.5-5.1); Potassium 4.3 MMOL/L (3.5-5.1); Total Protein 6.9 G/DL (6.4-8.3)
[2018-11-16 06:31] LABS: Band Neutrophils 2 % (0-10); Hypochromasia 1+; Lymphocytes 10 % (20-55); Microcytosis 1+; Segmented Neutrophils 85 % (50-85); Target Cells Slight; Total Cells Counted 100
[2018-11-16 06:32] LABS: Platelet Estimate Normal
[2018-11-16] MEDS ORDERED: MEPERIDINE 50 MG/1 ML VIAL IM ONE (07:00)
[2018-11-16] MEDS ORDERED: GLYCOPYRROLATE 0.4 MG/2 ML VIAL IM ONE (07:00)
[2018-11-16] MEDS ORDERED: PROMETHAZINE 25 MG/1 ML VIAL IM ONE (07:00)
[2018-11-16] MEDS ORDERED: MIDAZOLAM 2 MG/2 ML VIAL ONE (07:04)
[2018-11-16] MEDS ORDERED: LIDOCAINE 2% VISCOUS 100 ML BOTTLE SWISH/SPIT ONE (07:30)
[2018-11-16] MEDS ORDERED: LIDOCAINE 2% 20 ML VIAL RESP TX ONE (07:30)
[2018-11-16] MEDS ORDERED: LIDOCAINE 1% 20 ML VIAL MISC INJ ONE (07:30)
[2018-11-16] MEDS ORDERED: MIDAZOLAM 2 MG/2 ML VIAL IV ONE (07:30)
[2018-11-16] MEDS: ARFORMOTEROL 15 MCG/2 ML NEB RESP TX SCH ×2 (07:40→19:35)
[2018-11-16] MEDS: BUDESONIDE 0.5 MG/2 ML NEB RESP TX SCH ×2 (07:40→19:35)
[2018-11-16] MEDS: ALBUTEROL/IPRATROPIUM 3 ML NEB RESP TX PRN (07:40)
[2018-11-16] MEDS: PIPERACILLIN/TAZOBACTAM 3,375 MG in SODIUM CHLORIDE 0.9% 100 ML IV SCH ×2 (09:14→15:45)
[2018-11-16] MEDS: methylPREDNISolone SOD SUC 40 MG/1 ML VIAL IV SCH ×2 (09:14→21:29)
[2018-11-16] MEDS: FUROSEMIDE 40 MG TABLET PO SCH (11:21)
[2018-11-16] MEDS: GABAPENTIN 300 MG CAPSULE PO SCH ×2 (11:21→21:25)
[2018-11-16] MEDS: FERROUS SULFATE 325 MG TABLET PO SCH ×3 (11:21→21:26)
[2018-11-16] MEDS: diphenhydrAMINE CAP 25 MG CAPSULE PO SCH ×2 (11:21→21:26)
[2018-11-16] MEDS: SENNA 8.6 MG TABLET PO SCH (11:21)
[2018-11-16] MEDS: DULoxetine 30 MG CAPSULE PO SCH (11:21)
[2018-11-16] MEDS: LOSARTAN 50 MG TABLET PO SCH (11:22)
[2018-11-16] MEDS: LUBIPROSTONE 24 MCG CAPSULE PO SCH ×2 (11:22→21:27)
[2018-11-16] MEDS: COLCHICINE 0.6 MG TABLET PO SCH (11:22)
[2018-11-16] MEDS: amLODIPine 10 MG TABLET PO SCH (11:22)
[2018-11-16] MEDS: MONTELUKAST 10 MG TABLET PO SCH ×2 (11:22→21:26)
[2018-11-16] MEDS: DILTIAZEM CD 240 MG CAPSULE PO SCH (11:22)
[2018-11-16] MEDS: ASPIRIN EC 81 MG TABLET PO SCH (11:23)
[2018-11-16] MEDS: PANTOPRAZOLE 40 MG TABLET PO SCH (11:23)
[2018-11-16] MEDS: MORPHINE ER 30 MG TABLET PO SCH ×3 (11:23→21:26)
[2018-11-16] MEDS: FLUTICASONE/SALMETEROL 500-50 DISKUS 14 DOSE INH SCH ×2 (11:27→21:15)
[2018-11-16] MEDS: BUDESONIDE/FORMOTEROL 160-4.5 INHALER 6 GM INH SCH ×2 (11:28→21:31)
[2018-11-16] MEDS: NYSTATIN 500,000 UNIT/5 ML UDCUP SWISH/SWAL SCH ×4 (11:35→21:27)
[2018-11-16] MEDS ORDERED: DILTIAZEM CD 120 MG CAPSULE PO ONE (15:21)
[2018-11-16] MEDS: RIVAROXABAN 20 MG TABLET PO SCH (17:15)
[2018-11-16] MEDS: ONDANSETRON 4 MG/2 ML VIAL IV PRN (21:25)
[2018-11-17] MEDS: PIPERACILLIN/TAZOBACTAM 3,375 MG in SODIUM CHLORIDE 0.9% 100 ML IV SCH ×3 (00:32→15:41)
[2018-11-17] MEDS: ACETYLCYSTEINE 20% 800 MG/4 ML VIAL RESP TX SCH ×2 (01:14→07:28)
[2018-11-17 05:24] LABS: Calcium 8.2 MG/DL (8.5-10.1); Osmolality,Calculated 277.5 MOS/KG (273-304); Potassium 4.5 MMOL/L (3.5-5.1)
[2018-11-17 05:38] LABS: Albumin 3.4 G/DL (3.4-5.0); Bilirubin,Total 0.6 MG/DL (0.2-1.0); Calcium 7.9 MG/DL (8.5-10.1); Osmolality,Calculated 275.7 MOS/KG (273-304); Potassium 4.4 MMOL/L (3.5-5.1); Total Protein 6.9 G/DL (6.4-8.3)
[2018-11-17 05:39] LABS: Basophils # 0.1 10*3/uL (0.0-0.2); Basophils % 0.2 % (0.0-0.8); Hematocrit 37.7 VOL% (42.0-52.0); Lymphocytes # 0.9 10*3/uL (1.4-4.0); Lymphocytes % 4.2 % (21.2-54.2); Mean Corpuscular HGB Conc 28.9 GM/DL (32-36); Mean Corpuscular Hemoglobin 22 PG (27-34); Mean Corpuscular Volume 75.9 FL (87-102); Mean Platelet Volume 11.2 FL (9.6-12.0); Monocytes # 1.4 10*3/uL (0.11-0.8); Monocytes % 6.1 % (1.7-12.7); Neutrophils # 18.8 10*3/uL (1.4-7.4); Neutrophils % 84.5 % (38.7-73.9); Platelet Count 244 T/CUMM (130-400); Red Blood Count 4.97 MC/CUMM (3.8-5.5); Red Cell Distribution Width 19.8 % (9.3-17.3); White Blood Count 22.2 T/CUMM (4-12)
[2018-11-17 05:40] LABS: Hemoglobin 10.9 GM/DL (14.0-18.0)
[2018-11-17 05:50] LABS: Band Neutrophils 1 % (0-10); Hypochromasia 1+; Lymphocytes 4 % (20-55); Microcytosis Slight; Platelet Estimate Adequate; Segmented Neutrophils 89 % (50-85); Total Cells Counted 100
[2018-11-17] MEDS: ARFORMOTEROL 15 MCG/2 ML NEB RESP TX SCH ×2 (07:28→19:37)
[2018-11-17] MEDS: BUDESONIDE 0.5 MG/2 ML NEB RESP TX SCH ×2 (07:28→19:40)
[2018-11-17] MEDS ORDERED: methylPREDNISolone SOD SUC 40 MG/1 ML VIAL IV SCH (08:30)
[2018-11-17] MEDS: NYSTATIN 500,000 UNIT/5 ML UDCUP SWISH/SWAL SCH ×4 (09:30→21:33)
[2018-11-17] MEDS: diphenhydrAMINE CAP 25 MG CAPSULE PO SCH ×2 (09:31→20:49)
[2018-11-17] MEDS: FERROUS SULFATE 325 MG TABLET PO SCH ×3 (09:31→20:48)
[2018-11-17] MEDS: DULoxetine 30 MG CAPSULE PO SCH (09:31)
[2018-11-17] MEDS: predniSONE 20 MG TABLET PO SCH (09:31)
[2018-11-17] MEDS: FUROSEMIDE 40 MG TABLET PO SCH (09:31)
[2018-11-17] MEDS: GABAPENTIN 300 MG CAPSULE PO SCH ×2 (09:31→20:48)
[2018-11-17] MEDS: SENNA 8.6 MG TABLET PO SCH (09:31)
[2018-11-17] MEDS: MORPHINE ER 30 MG TABLET PO SCH ×3 (09:31→20:49)
[2018-11-17] MEDS: ASPIRIN EC 81 MG TABLET PO SCH (09:32)
[2018-11-17] MEDS: COLCHICINE 0.6 MG TABLET PO SCH (09:32)
[2018-11-17] MEDS: DILTIAZEM CD 180 MG CAPSULE PO SCH (09:32)
[2018-11-17] MEDS: MONTELUKAST 10 MG TABLET PO SCH ×2 (09:32→20:49)
[2018-11-17] MEDS: LUBIPROSTONE 24 MCG CAPSULE PO SCH ×2 (09:32→20:48)
[2018-11-17] MEDS: PANTOPRAZOLE 40 MG TABLET PO SCH (09:32)
[2018-11-17] MEDS: SODIUM CHLORIDE 0.9% 1,000 ML IV SCH (09:37)
[2018-11-17] MEDS: FLUTICASONE/SALMETEROL 500-50 DISKUS 14 DOSE INH SCH ×2 (11:12→20:44)
[2018-11-17] MEDS: LOSARTAN 50 MG TABLET PO SCH (12:28)
[2018-11-17] MEDS: ONDANSETRON 4 MG/2 ML VIAL IV PRN (15:48)
[2018-11-17] MEDS: RIVAROXABAN 20 MG TABLET PO SCH (17:36)
[2018-11-18] MEDS: PIPERACILLIN/TAZOBACTAM 3,375 MG in SODIUM CHLORIDE 0.9% 100 ML IV SCH ×3 (00:22→15:00)
[2018-11-18 05:15] LABS: Basophils % 0.2 % (0.0-0.8); Hematocrit 34.1 VOL% (42.0-52.0); Immature Granulocytes % 4.7 %; Immature Granulocytes Absolute 1.01 #; Lymphocytes # 1.4 10*3/uL (1.4-4.0); Lymphocytes % 6.3 % (21.2-54.2); Mean Corpuscular HGB Conc 29.9 GM/DL (32-36); Mean Corpuscular Hemoglobin 23 PG (27-34); Mean Corpuscular Volume 75.6 FL (87-102); Mean Platelet Volume 10.5 FL (9.6-12.0); Monocytes # 1.8 10*3/uL (0.11-0.8); Monocytes % 8.6 % (1.7-12.7); Neutrophils # 17.3 10*3/uL (1.4-7.4); Neutrophils % 80.2 % (38.7-73.9); Platelet Count 197 T/CUMM (130-400); Red Blood Count 4.51 MC/CUMM (3.8-5.5); Red Cell Distribution Width 19.4 % (9.3-17.3); White Blood Count 21.5 T/CUMM (4-12)
[2018-11-18 05:16] LABS: Hemoglobin 10.2 GM/DL (14.0-18.0)
[2018-11-18 05:18] LABS: Bilirubin,Total 0.5 MG/DL (0.2-1.0); Calcium 7.8 MG/DL (8.5-10.1); Osmolality,Calculated 277.5 MOS/KG (273-304); Potassium 3.9 MMOL/L (3.5-5.1); Total Protein 6.2 G/DL (6.4-8.3)
[2018-11-18 05:21] LABS: Calcium 7.7 MG/DL (8.5-10.1); Osmolality,Calculated 280.2 MOS/KG (273-304); Potassium 3.9 MMOL/L (3.5-5.1)
[2018-11-18 05:25] LABS: Hypochromasia Slight; Lymphocytes 13 % (20-55); Platelet Estimate Adequate; Segmented Neutrophils 85 % (50-85); Total Cells Counted 100
[2018-11-18] MEDS: BUDESONIDE 0.5 MG/2 ML NEB RESP TX SCH ×2 (07:02→20:11)
[2018-11-18] MEDS: ARFORMOTEROL 15 MCG/2 ML NEB RESP TX SCH ×2 (07:02→20:11)
[2018-11-18] MEDS: FERROUS SULFATE 325 MG TABLET PO SCH ×3 (08:35→21:27)
[2018-11-18] MEDS: GABAPENTIN 300 MG CAPSULE PO SCH ×2 (08:35→21:28)
[2018-11-18] MEDS: LUBIPROSTONE 24 MCG CAPSULE PO SCH ×2 (08:35→21:27)
[2018-11-18] MEDS: diphenhydrAMINE CAP 25 MG CAPSULE PO SCH ×2 (08:35→21:29)
[2018-11-18] MEDS: DILTIAZEM CD 180 MG CAPSULE PO SCH (08:35)
[2018-11-18] MEDS: DULoxetine 30 MG CAPSULE PO SCH (08:35)
[2018-11-18] MEDS: PANTOPRAZOLE 40 MG TABLET PO SCH (08:35)
[2018-11-18] MEDS: FUROSEMIDE 40 MG TABLET PO SCH (08:35)
[2018-11-18] MEDS: LOSARTAN 50 MG TABLET PO SCH (08:36)
[2018-11-18] MEDS: predniSONE 20 MG TABLET PO SCH (08:36)
[2018-11-18] MEDS: MONTELUKAST 10 MG TABLET PO SCH ×2 (08:36→21:28)
[2018-11-18] MEDS: ASPIRIN EC 81 MG TABLET PO SCH (08:36)
[2018-11-18] MEDS: MORPHINE ER 30 MG TABLET PO SCH ×3 (08:36→21:28)
[2018-11-18] MEDS: COLCHICINE 0.6 MG TABLET PO SCH (08:36)
[2018-11-18] MEDS: SENNA 8.6 MG TABLET PO SCH (08:36)
[2018-11-18] MEDS: fentaNYL 100 MCG/HR PATCH TRANSDERM SCH (08:36)
[2018-11-18] MEDS: NYSTATIN 500,000 UNIT/5 ML UDCUP SWISH/SWAL SCH ×3 (08:38→17:44)
[2018-11-18] MEDS: FLUTICASONE/SALMETEROL 500-50 DISKUS 14 DOSE INH SCH ×2 (08:40→21:30)
[2018-11-18] MEDS: SODIUM CHLORIDE 0.9% 1,000 ML IV SCH ×2 (14:59→15:01)
[2018-11-18] MEDS ORDERED: LOPERAMIDE 2 MG CAPSULE PO PRN (17:15)
[2018-11-18] MEDS: RIVAROXABAN 20 MG TABLET PO SCH (17:40)
[2018-11-18] MEDS: AMOXICILLIN/CLAV 875 MG TABLET PO SCH (17:40)
[2018-11-18] MEDS: CLOTRIMAZOLE 10 MG TROCHE PO SCH (21:29)
[2018-11-18] MEDS: LACTOBACILLUS RHAMNOSUS GG CAPSULE PO SCH (21:29)
[2018-11-19] MEDS ORDERED: MORPHINE 10 MG/1 ML VIAL IV ONE ×2 (04:04→04:30)
[2018-11-19 04:34] LABS: Basophils % 0.2 % (0.0-0.8); Eosinophils % 0.1 % (0.00-10.9); Hematocrit 35.2 VOL% (42.0-52.0); Hemoglobin 10.4 GM/DL (14.0-18.0); Immature Granulocytes % 4.5 %; Lymphocytes # 2.8 10*3/uL (1.4-4.0); Lymphocytes % 14.2 % (21.2-54.2); Mean Corpuscular HGB Conc 29.5 GM/DL (32-36); Mean Corpuscular Hemoglobin 22 PG (27-34); Mean Corpuscular Volume 75.9 FL (87-102); Mean Platelet Volume 10.3 FL (9.6-12.0); Monocytes # 1.9 10*3/uL (0.11-0.8); Monocytes % 9.5 % (1.7-12.7); Neutrophils # 14.4 10*3/uL (1.4-7.4); Neutrophils % 71.5 % (38.7-73.9); Platelet Count 183 T/CUMM (130-400); Red Blood Count 4.64 MC/CUMM (3.8-5.5); Red Cell Distribution Width 19.6 % (9.3-17.3); White Blood Count 20.1 T/CUMM (4-12)
[2018-11-19 05:01] LABS: Calcium 7.4 MG/DL (8.5-10.1); Osmolality,Calculated 272.5 MOS/KG (273-304); Potassium 3.9 MMOL/L (3.5-5.1)
[2018-11-19 05:04] LABS: Band Neutrophils 1 % (0-10); Lymphocytes 15 % (20-55); Segmented Neutrophils 77 % (50-85); Total Cells Counted 100
[2018-11-19] MEDS: AMOXICILLIN/CLAV 875 MG TABLET PO SCH (05:04)
[2018-11-19 05:06] LABS: Anisocytosis 1+; Hypochromasia 1+
[2018-11-19 05:07] LABS: Platelet Estimate Adequate; Target Cells Few
[2018-11-19] MEDS: BUDESONIDE 0.5 MG/2 ML NEB RESP TX SCH (07:18)
[2018-11-19] MEDS: ARFORMOTEROL 15 MCG/2 ML NEB RESP TX SCH (07:18)
[2018-11-19] MEDS: LOSARTAN 50 MG TABLET PO SCH (08:13)
[2018-11-19] MEDS: FERROUS SULFATE 325 MG TABLET PO SCH ×2 (08:14→15:24)
[2018-11-19] MEDS: MONTELUKAST 10 MG TABLET PO SCH (08:14)
[2018-11-19] MEDS: predniSONE 20 MG TABLET PO SCH (08:14)
[2018-11-19] MEDS: COLCHICINE 0.6 MG TABLET PO SCH (08:14)
[2018-11-19] MEDS: LUBIPROSTONE 24 MCG CAPSULE PO SCH (08:14)
[2018-11-19] MEDS: GABAPENTIN 300 MG CAPSULE PO SCH (08:14)
[2018-11-19] MEDS: LACTOBACILLUS RHAMNOSUS GG CAPSULE PO SCH (08:14)
[2018-11-19] MEDS: DILTIAZEM CD 180 MG CAPSULE PO SCH (08:14)
[2018-11-19] MEDS: CLOTRIMAZOLE 10 MG TROCHE PO SCH ×2 (08:14→13:50)
[2018-11-19] MEDS: diphenhydrAMINE CAP 25 MG CAPSULE PO SCH (08:14)
[2018-11-19] MEDS: FUROSEMIDE 40 MG TABLET PO SCH (08:15)
[2018-11-19] MEDS: DULoxetine 30 MG CAPSULE PO SCH (08:15)
[2018-11-19] MEDS: SENNA 8.6 MG TABLET PO SCH (08:15)
[2018-11-19] MEDS: MORPHINE ER 30 MG TABLET PO SCH ×2 (08:16→15:17)
[2018-11-19] MEDS: PANTOPRAZOLE 40 MG TABLET PO SCH (08:16)
[2018-11-19] MEDS: ASPIRIN EC 81 MG TABLET PO SCH (08:16)
[2018-11-19] MEDS: FLUTICASONE/SALMETEROL 500-50 DISKUS 14 DOSE INH SCH (08:17)
[2018-11-19 17:12] VITALS: BP 141/87
== END 2018-11-19 16:00 | disposition home or self-care (01) | DRG 202 ==
LOC: N.ED 22:25 → N.EDINP 11-06 00:09 → SUATTDRO 11-06 00:09 → N.TELEN 11-06 01:53 → N.5E 11-13 15:42
PROVIDERS: ADMIT Internal Medicine Cardiovascular Disease; ATTEND Internal Medicine

== ENCOUNTER 2019-01-24 18:42 | Inpatient (IN) ==
[2019-01-24] MEDS ORDERED: MAGNESIUM SULF RIDER 1 GM in PREMIX 1 EACH IV STA (19:04)
[2019-01-24] MEDS ORDERED: ALBUTEROL NEB SOLN 5 MG/ML 20 ML/BOTTLE CONT NEB STA (19:08)
[2019-01-24] MEDS ORDERED: methylPREDNISolone SOD SUC 125 MG/2 ML VIAL IV STA (19:10)
[2019-01-24 19:35] LABS: Allen Test Positive
[2019-01-24] MEDS ORDERED: KETOROLAC 30 MG/1 ML VIAL IV STA (19:36)
[2019-01-24 19:40] LABS: ABG Base Excess 3.5 MMOL/L (-2.5-2.5); ABG HCO3 27.5 MMOL/L (20-26); ABG Oxygen Saturation 97.7 % (95-100); ABG PCO2 39.5 MM HG (35-48); ABG PH 7.453 (7.35-7.45); ABG PO2 90.7 MM HG (80-95); ABG TCO2 24.3 MMOL/L (23-27)
[2019-01-24 19:55] LABS: Osmolality,Calculated 281.1 MOS/KG (273-304); Potassium 3.1 MMOL/L (3.5-5.1)
[2019-01-24 19:59] LABS: Basophils # 0.1 10*3/uL (0.0-0.2); Basophils % 0.6 % (0.0-0.8); Eosinophils # 0.2 10*3/uL (0.0-0.87); Hematocrit 39.5 VOL% (42.0-52.0); Hemoglobin 11.7 GM/DL (14.0-18.0); Immature Granulocytes Absolute 0.09 #; Lymphocytes # 1.7 10*3/uL (1.4-4.0); Lymphocytes % 19.4 % (21.2-54.2); Mean Corpuscular HGB Conc 29.6 GM/DL (32-36); Mean Corpuscular Hemoglobin 24 PG (27-34); Mean Corpuscular Volume 79.8 FL (87-102); Mean Platelet Volume 9.9 FL (9.6-12.0); Monocytes # 1.2 10*3/uL (0.11-0.8); Monocytes % 13.1 % (1.7-12.7); NRBC # 0.02 10*3/uL; Neutrophils # 5.7 10*3/uL (1.4-7.4); Neutrophils % 63.9 % (38.7-73.9); Platelet Count 193 T/CUMM (130-400); Red Blood Count 4.95 MC/CUMM (3.8-5.5); Red Cell Distribution Width 18.2 % (9.3-17.3)
[2019-01-24] MEDS ORDERED: FUROSEMIDE 40 MG/4 ML VIAL IV STA (20:06)
[2019-01-24] MEDS ORDERED: hydrALAZINE 20 MG/1 ML VIAL IV STA (20:08)
[2019-01-24] MEDS ORDERED: DILTIAZEM 60 MG TABLET PO STA (20:08)
[2019-01-24] MEDS ORDERED: NITROGLYCERIN SL 0.4 MG TABLET SL STA (20:11)
[2019-01-24] MEDS ORDERED: MORPHINE 4 MG/1 ML VIAL IV STA (20:16)
[2019-01-24] MEDS ORDERED: ALBUTEROL 2.5 MG/3 ML NEB RESP TX PRN (21:24)
[2019-01-24] MEDS ORDERED: NICOTINE 21 MG/24 HR PATCH TRANSDERM PRN (21:24)
[2019-01-24] MEDS ORDERED: DILTIAZEM 50 MG/10 ML VIAL IV STA ×2 (21:24→22:12)
[2019-01-24] MEDS ORDERED: BISACODYL 5 MG TABLET PO PRN (21:24)
[2019-01-24] MEDS ORDERED: MORPHINE 4 MG/1 ML VIAL IV PRN (21:24)
[2019-01-24] MEDS ORDERED: guaiFENesin/DM ER 600-30 MG TABLET PO PRN (21:24)
[2019-01-24 22:05] LABS: Risk Ratio 3.29; Thyroid Stimulating Hormone 0.505 uIU/ml (0.358-3.74); VLDL CHOLESTEROL 34.6 MG/DL
[2019-01-25] MEDS ORDERED: ALBUTEROL 2.5 MG/3 ML NEB RESP TX PRN (00:09)
[2019-01-25] MEDS: ALBUTEROL/IPRATROPIUM 3 ML NEB RESP TX SCH ×5 (00:29→22:59)
[2019-01-25] MEDS: ZALEPLON 5 MG CAPSULE PO PRN ×2 (01:20→21:06)
[2019-01-25] MEDS: MORPHINE IR 15 MG TABLET PO PRN ×2 (01:49→06:27)
[2019-01-25] MEDS ORDERED: LISINOPRIL 10 MG TABLET PO STA (03:28)
[2019-01-25] MEDS ORDERED: hydrALAZINE 20 MG/1 ML VIAL IV STA (03:29)
[2019-01-25 04:14] LABS: NRBC # 0.03 10*3/uL; Neutrophils # 8.5 10*3/uL (1.4-7.4)
[2019-01-25 04:26] LABS: Basophils % 0.3 % (0.0-0.8); Hemoglobin 12.7 GM/DL (14.0-18.0); Immature Granulocytes % 1.1 %; Immature Granulocytes Absolute 0.11 #; Lymphocytes % 10.2 % (21.2-54.2); Mean Corpuscular HGB Conc 30.2 GM/DL (32-36); Mean Corpuscular Hemoglobin 24 PG (27-34); Mean Corpuscular Volume 79.1 FL (87-102); Mean Platelet Volume 10.2 FL (9.6-12.0); Monocytes # 0.1 10*3/uL (0.11-0.8); Monocytes % 1.1 % (1.7-12.7); Neutrophils % 87.3 % (38.7-73.9); Platelet Count 259 T/CUMM (130-400); Red Blood Count 5.31 MC/CUMM (3.8-5.5); Red Cell Distribution Width 18.4 % (9.3-17.3); White Blood Count 9.8 T/CUMM (4-12)
[2019-01-25 04:33] LABS: Calcium 8.7 MG/DL (8.5-10.1); Osmolality,Calculated 280.5 MOS/KG (273-304); Potassium 3.1 MMOL/L (3.5-5.1)
[2019-01-25] MEDS: ACETAMINOPHEN 325 MG TABLET PO PRN (06:18)
[2019-01-25] MEDS ORDERED: FUROSEMIDE 40 MG/4 ML VIAL IV SCH (08:00)
[2019-01-25] MEDS: FUROSEMIDE 40 MG/4 ML VIAL IV SCH ×2 (08:41→15:02)
[2019-01-25] MEDS: POTASSIUM CHLORIDE 20 MEQ TABLET PO PRN ×2 (08:48→15:03)
[2019-01-25] MEDS ORDERED: LOSARTAN 50 MG TABLET PO SCH (09:00)
[2019-01-25] MEDS ORDERED: methylPREDNISolone SOD SUC 40 MG/1 ML VIAL IV SCH (09:00)
[2019-01-25] MEDS ORDERED: RIVAROXABAN 20 MG TABLET PO SCH (09:00)
[2019-01-25] MEDS ORDERED: DILTIAZEM CD 300 MG CAPSULE PO SCH (09:00)
[2019-01-25] MEDS ORDERED: DILTIAZEM 30 MG TABLET PO PRN (11:05)
[2019-01-25] MEDS ORDERED: MAGNESIUM SULF RIDER 4 GM in PREMIX 1 EACH IV PRN (11:06)
[2019-01-25] MEDS: DILTIAZEM CD 180 MG CAPSULE PO SCH (11:31)
[2019-01-25] MEDS: MORPHINE ER 30 MG TABLET PO SCH ×3 (11:32→21:06)
[2019-01-25] MEDS: GABAPENTIN 300 MG CAPSULE PO SCH ×3 (11:33→21:06)
[2019-01-25] MEDS: ALLOPURINOL 100 MG TABLET PO SCH (11:33)
[2019-01-25] MEDS: PANTOPRAZOLE 40 MG TABLET PO SCH (11:33)
[2019-01-25] MEDS: FERROUS SULFATE 325 MG TABLET PO SCH (11:33)
[2019-01-25] MEDS: DULoxetine 30 MG CAPSULE PO SCH (11:33)
[2019-01-25] MEDS: POTASSIUM CHLORIDE 20 MEQ TABLET PO SCH ×2 (11:33→21:06)
[2019-01-25] MEDS: LACTOBACILLUS RHAMNOSUS GG CAPSULE PO SCH ×2 (11:34→21:06)
[2019-01-25 11:41] LABS: CKMB % 2.5 %; Troponin I 0.03 NG/ML (0.00-0.045)
[2019-01-25] MEDS: diphenhydrAMINE CAP 25 MG CAPSULE PO PRN (11:45)
[2019-01-25] MEDS: MONTELUKAST 10 MG TABLET PO SCH (12:01)
[2019-01-25 12:15] LABS: Barbiturates Screen,Urine Negative (Negative); Benzodiazepines Screen,Urine Negative (Negative); Cannabinoid Screen,Urine Positive (Negative); Opiate Screen,Urine Positive (Negative); Phencyclidine Screen,Urine Negative (Negative)
[2019-01-25] MEDS ORDERED: INFLUENZA VIRUS VACCINE 0.5 ML SYRINGE IM ONE (13:06)
[2019-01-25 13:53] LABS: CKMB % 2.5 %; Troponin I 0.032 NG/ML (0.00-0.045)
[2019-01-25] MEDS: PROMETHAZINE 25 MG TABLET PO PRN (15:03)
[2019-01-25] MEDS: MAGNESIUM SULF RIDER 2 GM in PREMIX 1 EACH IV PRN (15:04)
[2019-01-25] MEDS ORDERED: hydrALAZINE 20 MG/1 ML VIAL IV PRN (15:40)
[2019-01-25] MEDS: RIVAROXABAN 20 MG TABLET PO SCH (18:11)
[2019-01-25] MEDS: DOXAZOSIN 1 MG TABLET PO SCH (21:06)
[2019-01-25] MEDS: methylPREDNISolone SOD SUC 40 MG/1 ML VIAL IV SCH (21:07)
[2019-01-26] MEDS: ALBUTEROL/IPRATROPIUM 3 ML NEB RESP TX SCH ×6 (02:47→22:36)
[2019-01-26] MEDS: MORPHINE IR 15 MG TABLET PO PRN ×2 (03:35→14:33)
[2019-01-26] MEDS: methylPREDNISolone SOD SUC 40 MG/1 ML VIAL IV SCH ×3 (04:30→20:40)
[2019-01-26 05:45] LABS: Calcium 8.3 MG/DL (8.5-10.1); Calcium 8.4 MG/DL (8.5-10.1); Osmolality,Calculated 283.8 MOS/KG (273-304); Osmolality,Calculated 285.8 MOS/KG (273-304); Potassium 3.7 MMOL/L (3.5-5.1); Potassium 3.9 MMOL/L (3.5-5.1)
[2019-01-26 06:35] LABS: Basophils % 0.1 % (0.0-0.8); Immature Granulocytes Absolute 0.17 #; Lymphocytes # 1.8 10*3/uL (1.4-4.0); Lymphocytes % 10.8 % (21.2-54.2); Mean Corpuscular HGB Conc 28.6 GM/DL (32-36); Mean Corpuscular Hemoglobin 24 PG (27-34); Mean Corpuscular Volume 82.4 FL (87-102); Mean Platelet Volume 10.6 FL (9.6-12.0); Monocytes # 0.8 10*3/uL (0.11-0.8); Monocytes % 4.9 % (1.7-12.7); Neutrophils # 13.6 10*3/uL (1.4-7.4); Neutrophils % 83.2 % (38.7-73.9); Platelet Count 259 T/CUMM (130-400); Red Blood Count 5.22 MC/CUMM (3.8-5.5); Red Cell Distribution Width 19.5 % (9.3-17.3); White Blood Count 16.4 T/CUMM (4-12)
[2019-01-26 06:37] LABS: Hemoglobin 12.3 GM/DL (14.0-18.0)
[2019-01-26 06:45] LABS: Platelet Estimate Normal
[2019-01-26 06:46] LABS: Polychromasia Few
[2019-01-26] MEDS: PANTOPRAZOLE 40 MG TABLET PO SCH (09:19)
[2019-01-26] MEDS: DOXAZOSIN 1 MG TABLET PO SCH (09:20)
[2019-01-26] MEDS: POTASSIUM CHLORIDE 20 MEQ TABLET PO SCH ×2 (09:20→20:42)
[2019-01-26] MEDS: FERROUS SULFATE 325 MG TABLET PO SCH (09:21)
[2019-01-26] MEDS: DULoxetine 30 MG CAPSULE PO SCH (09:21)
[2019-01-26] MEDS: MORPHINE ER 30 MG TABLET PO SCH ×3 (09:22→20:41)
[2019-01-26] MEDS: ALLOPURINOL 100 MG TABLET PO SCH (09:22)
[2019-01-26] MEDS: GABAPENTIN 300 MG CAPSULE PO SCH ×3 (09:22→20:42)
[2019-01-26] MEDS: DILTIAZEM CD 180 MG CAPSULE PO SCH (09:22)
[2019-01-26] MEDS: LACTOBACILLUS RHAMNOSUS GG CAPSULE PO SCH ×2 (09:23→20:41)
[2019-01-26] MEDS: FUROSEMIDE 40 MG/4 ML VIAL IV SCH (11:03)
[2019-01-26] MEDS: diphenhydrAMINE CAP 25 MG CAPSULE PO PRN (11:06)
[2019-01-26] MEDS: BUDESONIDE 0.5 MG/2 ML NEB RESP TX SCH ×2 (11:15→19:30)
[2019-01-26] MEDS: BUDESONIDE/FORMOTEROL 160-4.5 INHALER 6 GM INH SCH ×2 (12:49→20:43)
[2019-01-26] MEDS: MONTELUKAST 10 MG TABLET PO SCH (12:50)
[2019-01-26] MEDS: RIVAROXABAN 20 MG TABLET PO SCH (16:26)
[2019-01-26] MEDS: miSOPROStol 200 MCG TABLET PO SCH ×2 (16:27→20:41)
[2019-01-26] MEDS: RIVAROXABAN 15 MG TABLET PO SCH (17:48)
[2019-01-26] MEDS: TAMSULOSIN 0.4 MG CAPSULE PO SCH (17:52)
[2019-01-27] MEDS: ALBUTEROL/IPRATROPIUM 3 ML NEB RESP TX SCH ×7 (02:48→23:17)
[2019-01-27] MEDS: ONDANSETRON 4 MG/2 ML VIAL IV PRN ×2 (03:45→18:23)
[2019-01-27] MEDS: methylPREDNISolone SOD SUC 40 MG/1 ML VIAL IV SCH ×3 (03:46→23:31)
[2019-01-27 05:10] LABS: Calcium 7.5 MG/DL (8.5-10.1); Osmolality,Calculated 287.4 MOS/KG (273-304); Potassium 4.4 MMOL/L (3.5-5.1); Uric Acid 12.1 MG/DL (3.5-7.2)
[2019-01-27 05:50] LABS: Basophils % 0.2 % (0.0-0.8); Hematocrit 38.8 VOL% (42.0-52.0); Immature Granulocytes % 1.2 %; Immature Granulocytes Absolute 0.22 #; Lymphocytes # 1.1 10*3/uL (1.4-4.0); Lymphocytes % 5.7 % (21.2-54.2); Mean Corpuscular HGB Conc 29.1 GM/DL (32-36); Mean Corpuscular Hemoglobin 24 PG (27-34); Mean Platelet Volume 10.2 FL (9.6-12.0); Monocytes # 0.6 10*3/uL (0.11-0.8); Monocytes % 3.3 % (1.7-12.7); Neutrophils # 16.7 10*3/uL (1.4-7.4); Neutrophils % 89.6 % (38.7-73.9); Platelet Count 248 T/CUMM (130-400); Red Blood Count 4.73 MC/CUMM (3.8-5.5); Red Cell Distribution Width 19.8 % (9.3-17.3); White Blood Count 18.7 T/CUMM (4-12)
[2019-01-27 05:56] LABS: Hemoglobin 11.3 GM/DL (14.0-18.0)
[2019-01-27 05:59] LABS: Hypochromasia 1+; Microcytosis 1+; Platelet Estimate Normal
[2019-01-27] MEDS: BUDESONIDE 0.5 MG/2 ML NEB RESP TX SCH ×2 (07:25→20:24)
[2019-01-27] MEDS ORDERED: ALLOPURINOL 100 MG TABLET PO SCH (08:22)
[2019-01-27] MEDS ORDERED: MORPHINE ER 30 MG TABLET PO SCH (09:00)
[2019-01-27] MEDS ORDERED: fentaNYL 100 MCG/HR PATCH TRANSDERM SCH (09:00)
[2019-01-27] MEDS: miSOPROStol 200 MCG TABLET PO SCH ×4 (09:03→23:32)
[2019-01-27] MEDS: TAMSULOSIN 0.4 MG CAPSULE PO SCH (09:04)
[2019-01-27] MEDS: FERROUS SULFATE 325 MG TABLET PO SCH (09:04)
[2019-01-27] MEDS: DILTIAZEM CD 180 MG CAPSULE PO SCH (09:04)
[2019-01-27] MEDS: LACTOBACILLUS RHAMNOSUS GG CAPSULE PO SCH ×2 (09:05→23:32)
[2019-01-27] MEDS: hydrALAZINE 25 MG TABLET PO SCH ×2 (09:05→15:47)
[2019-01-27] MEDS: PANTOPRAZOLE 40 MG TABLET PO SCH (09:05)
[2019-01-27] MEDS: POTASSIUM CHLORIDE 20 MEQ TABLET PO SCH (09:05)
[2019-01-27] MEDS: DULoxetine 30 MG CAPSULE PO SCH (09:06)
[2019-01-27] MEDS: BUDESONIDE/FORMOTEROL 160-4.5 INHALER 6 GM INH SCH ×2 (09:15→23:32)
[2019-01-27] MEDS ORDERED: LIDOCAINE 2% TOP JELLY 20 ML VIAL INTRAURETH ONE (09:33)
[2019-01-27 10:17] LABS: Creatinine,Urine Random 229 MG/DL; Total Protein,Urine Random 23 MG/DL; Urea Nitrogen, Urine Random 397 MG/DL
[2019-01-27] MEDS: hydrOXYzine HCL 25 MG TABLET PO PRN (11:20)
[2019-01-27] MEDS: CALCIUM ACETATE 667 MG CAPSULE PO SCH ×2 (12:04→17:00)
[2019-01-27] MEDS: MONTELUKAST 10 MG TABLET PO SCH (12:04)
[2019-01-27] MEDS: ACETAMINOPHEN 325 MG TABLET PO PRN (12:11)
[2019-01-27] MEDS ORDERED: AZITHROMYCIN INJ 500 MG in SODIUM CHLORIDE 0.9% 250 ML IV SCH (16:30)
[2019-01-27] MEDS: RIVAROXABAN 15 MG TABLET PO SCH (17:00)
[2019-01-27] MEDS ORDERED: NALOXONE 0.4 MG/ML VIAL IV ONE ×3 (17:08→23:43)
[2019-01-27 17:22] LABS: ABG Base Excess -6.7 MMOL/L (-2.5-2.5); ABG HCO3 18.8 MMOL/L (20-26); ABG Oxygen Saturation 89.8 % (95-100); ABG PO2 73.7 MM HG (80-95); ABG TCO2 22.9 MMOL/L (23-27)
[2019-01-27 17:29] LABS: ABG PH 7.125 (7.35-7.45)
[2019-01-27 17:30] LABS: ABG PCO2 74.2 MM HG (35-48)
[2019-01-27 17:55] LABS: ABG Base Excess -7.6 MMOL/L (-2.5-2.5); ABG HCO3 18.3 MMOL/L (20-26); ABG PCO2 57.9 MM HG (35-48)
[2019-01-27 17:57] LABS: ABG PH 7.181 (7.35-7.45)
[2019-01-27] MEDS ORDERED: NALOXONE 0.4 MG/ML VIAL IV PRN (18:04)
[2019-01-27] MEDS ORDERED: SODIUM BICARBONATE 50 MEQ/50 ML VIAL IV ONE (22:23)
[2019-01-27 22:29] LABS: ABG Base Excess -6.9 MMOL/L (-2.5-2.5); ABG HCO3 18.8 MMOL/L (20-26); ABG PCO2 63.2 MM HG (35-48); ABG TCO2 21.2 MMOL/L (23-27); Allen Test Positive; Pt O2 Delivery Device BIPAP
[2019-01-27 22:31] LABS: ABG PH 7.166 (7.35-7.45)
[2019-01-28] MEDS ORDERED: PHENYLEPHRINE DRIP 40 MG/250 ML PREMIX IV ONE (01:16)
[2019-01-28] MEDS: PHENYLEPHRINE DRIP 40 MG/250 ML PREMIX IV PRN ×2 (01:21→05:28)
[2019-01-28] MEDS ORDERED: SODIUM BICARBONATE 50 MEQ/50 ML VIAL IV ONE (02:18)
[2019-01-28] MEDS ORDERED: NALOXONE 0.4 MG/ML VIAL IV ONE (02:18)
[2019-01-28] MEDS: ALBUTEROL/IPRATROPIUM 3 ML NEB RESP TX SCH ×6 (03:15→23:40)
[2019-01-28 04:54] LABS: Albumin 3.5 G/DL (3.4-5.0); Calcium 6.3 MG/DL (8.5-10.1); Osmolality,Calculated 292.7 MOS/KG (273-304)
[2019-01-28 04:58] LABS: ABG Base Excess -6.3 MMOL/L (-2.5-2.5); ABG HCO3 19.2 MMOL/L (20-26); ABG Oxygen Saturation 95.8 % (95-100); ABG PCO2 70.5 MM HG (35-48); ABG PH 7.143 (7.35-7.45); ABG TCO2 22.7 MMOL/L (23-27)
[2019-01-28 05:08] LABS: Basophils % 0.1 % (0.0-0.8); Hematocrit 36.8 VOL% (42.0-52.0); Hemoglobin 10.4 GM/DL (14.0-18.0); Immature Granulocytes % 1.1 %; Immature Granulocytes Absolute 0.21 #; Lymphocytes % 5.5 % (21.2-54.2); Mean Corpuscular HGB Conc 28.3 GM/DL (32-36); Mean Corpuscular Hemoglobin 24 PG (27-34); Mean Platelet Volume 10.4 FL (9.6-12.0); Monocytes # 0.8 10*3/uL (0.11-0.8); Monocytes % 4.1 % (1.7-12.7); Neutrophils # 16.4 10*3/uL (1.4-7.4); Neutrophils % 89.2 % (38.7-73.9); Platelet Count 229 T/CUMM (130-400); Red Blood Count 4.38 MC/CUMM (3.8-5.5); Red Cell Distribution Width 20.1 % (9.3-17.3); White Blood Count 18.4 T/CUMM (4-12)
[2019-01-28] MEDS ORDERED: SODIUM CHLORIDE 0.9% 500 ML IV ONE ×2 (05:34→07:19)
[2019-01-28] MEDS ORDERED: SODIUM POLYSTYRENE SULFATE 15 GM/60 ML BOTTLE PO ONE (06:02)
[2019-01-28] MEDS ORDERED: ETOMIDATE 20 MG/10 ML VIAL IV ONE (06:04)
[2019-01-28] MEDS ORDERED: ROCURONIUM 100 MG/10 ML VIAL IV ONE (06:12)
[2019-01-28] MEDS: PROPOFOL 1,000 MG/100 ML BOTTLE IV SCH ×5 (06:30→22:15)
[2019-01-28 06:38] LABS: Hypochromasia 1+; Microcytosis 1+; Polychromasia Slight
[2019-01-28 06:39] LABS: Platelet Estimate Normal; Target Cells Slight
[2019-01-28] MEDS: BUDESONIDE 0.5 MG/2 ML NEB RESP TX SCH ×2 (07:11→20:10)
[2019-01-28] MEDS ORDERED: PHENYLEPHRINE INJ 160 MG in SODIUM CHLORIDE 0.9% 234 ML IV PRN (07:14)
[2019-01-28 07:20] LABS: Apearance,Urine Cloudy (Clear); Urine Color Yellow (Yellow)
[2019-01-28 07:21] LABS: Bilirubin,Urine Negative (Negative); Blood, Urine Negative (Negative); Glucose,Urine (UA) Negative (Negative); Ketones,Urine Negative (Negative); Nitrite,Urine Negative (Negative); Protein,Urine Negative; RBC,Urine 3 /HPF (0-4); Urine Specific Gravity 1.013 (1.001-1.035); Urine Urobilinogen < 2.0 EU/DL (0.2-1.0); WBC,Urine 4 /HPF (0-6)
[2019-01-28 07:22] LABS: Bacteria,Urine Occasional /HPF (Few); Hyaline Casts,Urine 116 /LPF (0-3); Mucus,Urine Occasional /LPF (Occasional)
[2019-01-28] MEDS: SODIUM BICARB INJ 100 MEQ in DEXTROSE 5% 1,000 ML IV SCH ×2 (07:22→15:41)
[2019-01-28] MEDS: NOREPINEPHRINE 16 MG in SODIUM CHLORIDE 0.9% 234 ML IV PRN ×2 (08:10→21:27)
[2019-01-28 08:43] LABS: ABG Base Excess -5.9 MMOL/L (-2.5-2.5); ABG HCO3 19.6 MMOL/L (20-26); ABG PCO2 40.2 MM HG (35-48); ABG PH 7.305 (7.35-7.45); ABG TCO2 18.3 MMOL/L (23-27)
[2019-01-28 10:43] LABS: Hepatitis A Ab IgM Quant 0.17 Index; Hepatitis A Ab IgM Result Negative (Negative); Hepatitis B Core IgM Quant 0.25 Index; Hepatitis B Core IgM Result Negative (Negative); Hepatitis B Surface Ag Quant 0.19 Index; Hepatitis B Surface Ag Result Negative (Negative); Hepatitis C Virus Ab Quant 0.05 Index; Hepatitis C Virus Ab Result Negative (Negative)
[2019-01-28] MEDS: methylPREDNISolone SOD SUC 40 MG/1 ML VIAL IV SCH ×2 (10:55→21:50)
[2019-01-28] MEDS: HYDROmorphone 2 MG/1 ML VIAL IV PRN ×2 (11:01→14:26)
[2019-01-28] MEDS ORDERED: GLUCAGON 1 MG VIAL IM PRN (11:15)
[2019-01-28] MEDS ORDERED: DEXTROSE 50% 25 GM/50 ML SYRINGE IV PRN (11:15)
[2019-01-28] MEDS: HEPARIN 5,000 UNIT/1 ML VIAL SUBCUT SCH ×3 (11:36→21:56)
[2019-01-28] MEDS: PIPERACILLIN/TAZOBACTAM 3,375 MG in SODIUM CHLORIDE 0.9% 100 ML IV SCH ×2 (11:37→18:46)
[2019-01-28] MEDS: PANTOPRAZOLE 40 MG VIAL IV SCH (11:45)
[2019-01-28] MEDS: BUDESONIDE/FORMOTEROL 160-4.5 INHALER 6 GM INH SCH ×2 (11:52→21:59)
[2019-01-28] MEDS: TAMSULOSIN 0.4 MG CAPSULE PO SCH (11:54)
[2019-01-28] MEDS: INSULIN REGULAR 100 UNIT/ML SUBCUT SCH ×2 (13:05→18:09)
[2019-01-28] MEDS: miSOPROStol 200 MCG TABLET PO SCH ×4 (15:17→21:54)
[2019-01-28] MEDS: CALCIUM ACETATE 667 MG CAPSULE PO SCH ×3 (15:17→18:10)
[2019-01-28] MEDS: LACTOBACILLUS RHAMNOSUS GG CAPSULE PO SCH ×2 (15:18→21:55)
[2019-01-28] MEDS: ALLOPURINOL 100 MG TABLET PO SCH ×2 (15:19→21:55)
[2019-01-28] MEDS: MONTELUKAST 10 MG TABLET PO SCH (15:20)
[2019-01-28] MEDS ORDERED: HEPARIN 10,000 UNIT/10 ML VIAL IV SCH (16:00)
[2019-01-29] MEDS: SODIUM BICARB INJ 100 MEQ in DEXTROSE 5% 1,000 ML IV SCH ×4 (00:41→19:35)
[2019-01-29] MEDS: INSULIN REGULAR 100 UNIT/ML SUBCUT SCH ×4 (00:55→18:15)
[2019-01-29] MEDS: PROPOFOL 1,000 MG/100 ML BOTTLE IV SCH ×9 (01:15→23:01)
[2019-01-29] MEDS: HYDROmorphone 2 MG/1 ML VIAL IV PRN ×6 (01:36→22:28)
[2019-01-29] MEDS: ALBUTEROL/IPRATROPIUM 3 ML NEB RESP TX SCH ×6 (03:55→23:06)
[2019-01-29 05:11] LABS: Basophils % 0.1 % (0.0-0.8); Hematocrit 32.7 VOL% (42.0-52.0); Hemoglobin 10.1 GM/DL (14.0-18.0); Lymphocytes # 0.8 10*3/uL (1.4-4.0); Lymphocytes % 7.3 % (21.2-54.2); Mean Corpuscular HGB Conc 30.9 GM/DL (32-36); Mean Corpuscular Hemoglobin 24 PG (27-34); Mean Corpuscular Volume 77.9 FL (87-102); Mean Platelet Volume 10.1 FL (9.6-12.0); Monocytes # 0.6 10*3/uL (0.11-0.8); Monocytes % 5.4 % (1.7-12.7); Neutrophils # 8.9 10*3/uL (1.4-7.4); Neutrophils % 86.2 % (38.7-73.9); Platelet Count 182 T/CUMM (130-400); Red Cell Distribution Width 19.3 % (9.3-17.3); White Blood Count 10.3 T/CUMM (4-12)
[2019-01-29 05:12] LABS: ABG Base Excess 2.1 MMOL/L (-2.5-2.5); ABG HCO3 26.3 MMOL/L (20-26); ABG Oxygen Saturation 99.4 % (95-100); ABG PH 7.407 (7.35-7.45); ABG TCO2 24.5 MMOL/L (23-27)
[2019-01-29 05:57] LABS: Albumin 2.9 G/DL (3.4-5.0); Calcium 6.6 MG/DL (8.5-10.1); Osmolality,Calculated 290.5 MOS/KG (273-304); Potassium 3.7 MMOL/L (3.5-5.1)
[2019-01-29 06:08] LABS: Prealbumin 32.3 MG/DL (20-40)
[2019-01-29] MEDS: PIPERACILLIN/TAZOBACTAM 3,375 MG in SODIUM CHLORIDE 0.9% 100 ML IV SCH ×2 (06:15→18:14)
[2019-01-29] MEDS: HEPARIN 5,000 UNIT/1 ML VIAL SUBCUT SCH ×3 (06:15→21:53)
[2019-01-29] MEDS ORDERED: PROMETHAZINE 25 MG/1 ML VIAL IM ONE (07:00)
[2019-01-29] MEDS ORDERED: MEPERIDINE 50 MG/1 ML VIAL IM ONE (07:00)
[2019-01-29] MEDS ORDERED: GLYCOPYRROLATE 0.4 MG/2 ML VIAL IM ONE (07:00)
[2019-01-29] MEDS ORDERED: LIDOCAINE 2% 20 ML VIAL RESP TX ONE (07:30)
[2019-01-29] MEDS ORDERED: LIDOCAINE 1% 20 ML VIAL MISC INJ ONE (07:30)
[2019-01-29] MEDS ORDERED: LIDOCAINE 2% VISCOUS 100 ML BOTTLE SWISH/SPIT ONE (07:30)
[2019-01-29] MEDS ORDERED: MIDAZOLAM 2 MG/2 ML VIAL IV ONE (07:30)
[2019-01-29] MEDS: BUDESONIDE 0.5 MG/2 ML NEB RESP TX SCH ×2 (08:11→19:42)
[2019-01-29] MEDS ORDERED: LACTULOSE 20 GM/30 ML UDCUP PO ONE (09:00)
[2019-01-29] MEDS: PANTOPRAZOLE 40 MG VIAL IV SCH (09:43)
[2019-01-29] MEDS: methylPREDNISolone SOD SUC 40 MG/1 ML VIAL IV SCH (09:44)
[2019-01-29] MEDS: LACTOBACILLUS RHAMNOSUS GG CAPSULE PO SCH ×2 (09:51→21:53)
[2019-01-29] MEDS: ALLOPURINOL 100 MG TABLET PO SCH ×2 (09:52→21:53)
[2019-01-29] MEDS: TAMSULOSIN 0.4 MG CAPSULE PO SCH (09:53)
[2019-01-29] MEDS: BUDESONIDE/FORMOTEROL 160-4.5 INHALER 6 GM INH SCH ×2 (10:42→21:53)
[2019-01-29] MEDS: MONTELUKAST 10 MG TABLET PO SCH (14:17)
[2019-01-30] MEDS: INSULIN REGULAR 100 UNIT/ML SUBCUT SCH ×3 (00:56→12:42)
[2019-01-30] MEDS: PROPOFOL 1,000 MG/100 ML BOTTLE IV SCH ×3 (00:56→06:08)
[2019-01-30] MEDS: SODIUM BICARB INJ 100 MEQ in DEXTROSE 5% 1,000 ML IV SCH ×4 (02:28→20:47)
[2019-01-30] MEDS: ALBUTEROL/IPRATROPIUM 3 ML NEB RESP TX SCH ×6 (03:10→23:15)
[2019-01-30] MEDS: HYDROmorphone 2 MG/1 ML VIAL IV PRN ×5 (03:35→21:50)
[2019-01-30 04:21] LABS: ABG Base Excess 7.1 MMOL/L (-2.5-2.5); ABG HCO3 32.2 MMOL/L (20-26); ABG Oxygen Saturation 97.4 % (95-100); ABG PCO2 48.4 MM HG (35-48); ABG PH 7.441 (7.35-7.45); ABG PO2 107.6 MM HG (80-95); ABG TCO2 33.7 MMOL/L (23-27)
[2019-01-30 04:31] LABS: Basophils % 0.1 % (0.0-0.8); Hematocrit 33.6 VOL% (42.0-52.0); Hemoglobin 10.1 GM/DL (14.0-18.0); Immature Granulocytes % 1.5 %; Immature Granulocytes Absolute 0.17 #; Lymphocytes # 1.3 10*3/uL (1.4-4.0); Lymphocytes % 11.6 % (21.2-54.2); Mean Corpuscular HGB Conc 30.1 GM/DL (32-36); Mean Corpuscular Hemoglobin 24 PG (27-34); Mean Corpuscular Volume 78.1 FL (87-102); Monocytes # 1.2 10*3/uL (0.11-0.8); Monocytes % 11.1 % (1.7-12.7); Neutrophils # 8.4 10*3/uL (1.4-7.4); Neutrophils % 75.7 % (38.7-73.9); Platelet Count 163 T/CUMM (130-400); Red Cell Distribution Width 19.2 % (9.3-17.3)
[2019-01-30 05:02] LABS: Calcium 7.5 MG/DL (8.5-10.1); Osmolality,Calculated 303.7 MOS/KG (273-304); Potassium 3.5 MMOL/L (3.5-5.1)
[2019-01-30 05:06] LABS: Albumin 3.2 G/DL (3.4-5.0); Calcium 7.3 MG/DL (8.5-10.1); Osmolality,Calculated 300.8 MOS/KG (273-304); Potassium 3.4 MMOL/L (3.5-5.1)
[2019-01-30] MEDS: BUDESONIDE 0.5 MG/2 ML NEB RESP TX SCH ×2 (06:41→19:30)
[2019-01-30] MEDS: HEPARIN 5,000 UNIT/1 ML VIAL SUBCUT SCH ×3 (06:45→21:56)
[2019-01-30] MEDS: methylPREDNISolone SOD SUC 40 MG/1 ML VIAL IV SCH (08:34)
[2019-01-30] MEDS: PANTOPRAZOLE 40 MG VIAL IV SCH (08:35)
[2019-01-30] MEDS: PIPERACILLIN/TAZOBACTAM 3,375 MG in SODIUM CHLORIDE 0.9% 100 ML IV SCH ×3 (08:39→20:27)
[2019-01-30] MEDS: TAMSULOSIN 0.4 MG CAPSULE PO SCH (08:42)
[2019-01-30] MEDS: LACTOBACILLUS RHAMNOSUS GG CAPSULE PO SCH ×2 (08:45→21:56)
[2019-01-30] MEDS: ALLOPURINOL 100 MG TABLET PO SCH ×2 (08:45→21:56)
[2019-01-30] MEDS: BUDESONIDE/FORMOTEROL 160-4.5 INHALER 6 GM INH SCH ×2 (09:19→21:56)
[2019-01-30] MEDS: MONTELUKAST 10 MG TABLET PO SCH (15:35)
[2019-01-30] MEDS: SIMETHICONE CHEW 125 MG TABLET PO PRN (20:51)
[2019-01-31] MEDS: ALBUTEROL/IPRATROPIUM 3 ML NEB RESP TX SCH ×6 (02:35→23:41)
[2019-01-31] MEDS: HYDROmorphone 2 MG/1 ML VIAL IV PRN ×6 (03:23→23:10)
[2019-01-31 06:00] LABS: Albumin 3.2 G/DL (3.4-5.0); Calcium 8.2 MG/DL (8.5-10.1); Osmolality,Calculated 299.8 MOS/KG (273-304); Potassium 3.8 MMOL/L (3.5-5.1)
[2019-01-31 06:01] LABS: Calcium 8.2 MG/DL (8.5-10.1); Osmolality,Calculated 299.8 MOS/KG (273-304); Potassium 3.8 MMOL/L (3.5-5.1)
[2019-01-31 06:15] LABS: Basophils % 0.3 % (0.0-0.8); Hematocrit 37.3 VOL% (42.0-52.0); Immature Granulocytes Absolute 0.36 #; Lymphocytes # 2.5 10*3/uL (1.4-4.0); Lymphocytes % 20.4 % (21.2-54.2); Mean Corpuscular HGB Conc 29.5 GM/DL (32-36); Mean Corpuscular Hemoglobin 24 PG (27-34); Mean Corpuscular Volume 80.2 FL (87-102); Mean Platelet Volume 10.2 FL (9.6-12.0); Monocytes # 1.8 10*3/uL (0.11-0.8); Monocytes % 14.6 % (1.7-12.7); Neutrophils # 7.5 10*3/uL (1.4-7.4); Neutrophils % 61.7 % (38.7-73.9); Platelet Count 163 T/CUMM (130-400); Red Blood Count 4.65 MC/CUMM (3.8-5.5); White Blood Count 12.2 T/CUMM (4-12)
[2019-01-31] MEDS: HEPARIN 5,000 UNIT/1 ML VIAL SUBCUT SCH ×3 (06:18→23:50)
[2019-01-31] MEDS: BUDESONIDE 0.5 MG/2 ML NEB RESP TX SCH ×2 (06:42→18:55)
[2019-01-31] MEDS: PIPERACILLIN/TAZOBACTAM 3,375 MG in SODIUM CHLORIDE 0.9% 100 ML IV SCH (08:07)
[2019-01-31] MEDS: ALLOPURINOL 100 MG TABLET PO SCH ×2 (08:09→20:42)
[2019-01-31] MEDS: LACTOBACILLUS RHAMNOSUS GG CAPSULE PO SCH ×2 (08:09→20:41)
[2019-01-31] MEDS: TAMSULOSIN 0.4 MG CAPSULE PO SCH (08:09)
[2019-01-31] MEDS: ONDANSETRON 4 MG/2 ML VIAL IV PRN ×3 (08:21→18:14)
[2019-01-31] MEDS: methylPREDNISolone SOD SUC 40 MG/1 ML VIAL IV SCH (08:21)
[2019-01-31] MEDS: PANTOPRAZOLE 40 MG VIAL IV SCH (08:23)
[2019-01-31] MEDS: SIMETHICONE CHEW 125 MG TABLET PO PRN ×2 (08:48→18:29)
[2019-01-31] MEDS ORDERED: hydrALAZINE 25 MG TABLET PO SCH (09:30)
[2019-01-31] MEDS: ISOSORBIDE DINITRATE 20 MG TABLET PO SCH ×2 (10:30→20:42)
[2019-01-31] MEDS: BUDESONIDE/FORMOTEROL 160-4.5 INHALER 6 GM INH SCH ×2 (10:30→20:42)
[2019-01-31] MEDS: MONTELUKAST 10 MG TABLET PO SCH (13:23)
[2019-01-31] MEDS: DOXYCYCLINE HYCLATE 100 MG CAPSULE PO SCH (20:41)
[2019-02-01] MEDS: ALBUTEROL/IPRATROPIUM 3 ML NEB RESP TX SCH ×6 (03:26→23:36)
[2019-02-01] MEDS: BUDESONIDE 0.5 MG/2 ML NEB RESP TX SCH ×2 (06:54→19:20)
[2019-02-01] MEDS: HEPARIN 5,000 UNIT/1 ML VIAL SUBCUT SCH ×3 (07:24→22:16)
[2019-02-01 07:39] LABS: Prealbumin 34.1 MG/DL (20-40)
[2019-02-01 07:45] LABS: Calcium 8.5 MG/DL (8.5-10.1); Osmolality,Calculated 290.1 MOS/KG (273-304); Potassium 4.1 MMOL/L (3.5-5.1)
[2019-02-01] MEDS: PANTOPRAZOLE 40 MG VIAL IV SCH (08:33)
[2019-02-01] MEDS: methylPREDNISolone SOD SUC 40 MG/1 ML VIAL IV SCH (08:33)
[2019-02-01] MEDS: ISOSORBIDE DINITRATE 20 MG TABLET PO SCH ×2 (08:33→20:41)
[2019-02-01] MEDS: DOXYCYCLINE HYCLATE 100 MG CAPSULE PO SCH ×2 (08:33→20:45)
[2019-02-01] MEDS: ALLOPURINOL 100 MG TABLET PO SCH ×2 (08:34→20:41)
[2019-02-01] MEDS: FLUCONAZOLE 100 MG TABLET PO SCH (08:34)
[2019-02-01] MEDS: LACTOBACILLUS RHAMNOSUS GG CAPSULE PO SCH ×2 (08:34→20:41)
[2019-02-01] MEDS: BUDESONIDE/FORMOTEROL 160-4.5 INHALER 6 GM INH SCH ×2 (08:34→20:42)
[2019-02-01] MEDS: TAMSULOSIN 0.4 MG CAPSULE PO SCH (08:34)
[2019-02-01] MEDS: HYDROmorphone 2 MG/1 ML VIAL IV PRN ×5 (08:35→23:16)
[2019-02-01] MEDS ORDERED: LOSARTAN 50 MG TABLET PO SCH (09:00)
[2019-02-01] MEDS ORDERED: LISINOPRIL 10 MG TABLET PO SCH (09:30)
[2019-02-01] MEDS: SIMETHICONE CHEW 125 MG TABLET PO PRN ×2 (10:00→20:40)
[2019-02-01] MEDS: MONTELUKAST 10 MG TABLET PO SCH (12:54)
[2019-02-01] MEDS ORDERED: hydrALAZINE 20 MG/1 ML VIAL IV PRN (15:52)
[2019-02-02] MEDS: ALBUTEROL/IPRATROPIUM 3 ML NEB RESP TX SCH ×6 (03:44→23:11)
[2019-02-02] MEDS: HEPARIN 5,000 UNIT/1 ML VIAL SUBCUT SCH ×3 (06:04→22:09)
[2019-02-02] MEDS: HYDROmorphone 2 MG/1 ML VIAL IV PRN ×6 (06:04→22:16)
[2019-02-02] MEDS: BUDESONIDE 0.5 MG/2 ML NEB RESP TX SCH ×2 (07:05→19:28)
[2019-02-02] MEDS ORDERED: LOSARTAN 50 MG TABLET PO SCH (09:00)
[2019-02-02 09:28] LABS: Albumin 3.6 G/DL (3.4-5.0); Calcium 8.5 MG/DL (8.5-10.1); Osmolality,Calculated 281.5 MOS/KG (273-304); Potassium 4.6 MMOL/L (3.5-5.1)
[2019-02-02 09:34] LABS: Uric Acid 3.2 MG/DL (3.5-7.2)
[2019-02-02] MEDS: TAMSULOSIN 0.4 MG CAPSULE PO SCH (09:41)
[2019-02-02] MEDS: LACTOBACILLUS RHAMNOSUS GG CAPSULE PO SCH ×2 (09:41→20:15)
[2019-02-02] MEDS: FLUCONAZOLE 100 MG TABLET PO SCH (09:41)
[2019-02-02] MEDS: PANTOPRAZOLE 40 MG VIAL IV SCH (09:42)
[2019-02-02] MEDS: BUDESONIDE/FORMOTEROL 160-4.5 INHALER 6 GM INH SCH ×2 (09:42→20:16)
[2019-02-02] MEDS: ISOSORBIDE DINITRATE 20 MG TABLET PO SCH ×2 (09:42→20:15)
[2019-02-02] MEDS: methylPREDNISolone SOD SUC 40 MG/1 ML VIAL IV SCH (09:42)
[2019-02-02] MEDS: ALLOPURINOL 100 MG TABLET PO SCH ×2 (09:42→20:15)
[2019-02-02] MEDS: DOXYCYCLINE HYCLATE 100 MG CAPSULE PO SCH ×2 (09:42→20:15)
[2019-02-02] MEDS: OLMESARTAN 20 MG TABLET PO SCH (09:43)
[2019-02-02] MEDS: DILTIAZEM CD 120 MG CAPSULE PO SCH (09:43)
[2019-02-02] MEDS: MONTELUKAST 10 MG TABLET PO SCH (12:10)
[2019-02-02] MEDS: ERGOCALCIFEROL 50,000 UNIT CAPSULE PO SCH (14:17)
[2019-02-02] MEDS: ZINC OXIDE PASTE 113 GM TUBE TOP SCH ×2 (15:15→20:16)
[2019-02-03] MEDS: HYDROmorphone 2 MG/1 ML VIAL IV PRN ×8 (00:22→20:48)
[2019-02-03] MEDS: ALBUTEROL/IPRATROPIUM 3 ML NEB RESP TX SCH ×6 (04:22→23:49)
[2019-02-03 04:25] LABS: Basophils % 0.1 % (0.0-0.8); Eosinophils % 0.1 % (0.00-10.9); Hematocrit 36.3 VOL% (42.0-52.0); Hemoglobin 10.9 GM/DL (14.0-18.0); Immature Granulocytes % 2.9 %; Immature Granulocytes Absolute 0.48 #; Lymphocytes # 3.6 10*3/uL (1.4-4.0); Lymphocytes % 21.6 % (21.2-54.2); Mean Corpuscular Hemoglobin 24 PG (27-34); Mean Corpuscular Volume 80.5 FL (87-102); Mean Platelet Volume 9.8 FL (9.6-12.0); Monocytes # 1.7 10*3/uL (0.11-0.8); Monocytes % 10.2 % (1.7-12.7); Neutrophils # 10.8 10*3/uL (1.4-7.4); Neutrophils % 65.1 % (38.7-73.9); Platelet Count 192 T/CUMM (130-400); Red Blood Count 4.51 MC/CUMM (3.8-5.5); White Blood Count 16.5 T/CUMM (4-12)
[2019-02-03 04:54] LABS: Calcium 8.6 MG/DL (8.5-10.1); Potassium 4.6 MMOL/L (3.5-5.1)
[2019-02-03] MEDS: HEPARIN 5,000 UNIT/1 ML VIAL SUBCUT SCH ×3 (06:24→23:30)
[2019-02-03] MEDS: hydrOXYzine HCL 25 MG TABLET PO PRN (06:27)
[2019-02-03] MEDS: BUDESONIDE 0.5 MG/2 ML NEB RESP TX SCH ×2 (07:08→19:46)
[2019-02-03] MEDS: PANTOPRAZOLE 40 MG VIAL IV SCH (09:46)
[2019-02-03] MEDS: methylPREDNISolone SOD SUC 40 MG/1 ML VIAL IV SCH (09:47)
[2019-02-03] MEDS: DOXYCYCLINE HYCLATE 100 MG CAPSULE PO SCH ×2 (09:48→20:48)
[2019-02-03] MEDS: ISOSORBIDE DINITRATE 20 MG TABLET PO SCH ×2 (09:48→20:48)
[2019-02-03] MEDS: TAMSULOSIN 0.4 MG CAPSULE PO SCH (09:48)
[2019-02-03] MEDS: FLUCONAZOLE 100 MG TABLET PO SCH (09:48)
[2019-02-03] MEDS: LACTOBACILLUS RHAMNOSUS GG CAPSULE PO SCH ×2 (09:48→20:48)
[2019-02-03] MEDS: ALLOPURINOL 100 MG TABLET PO SCH ×2 (09:49→20:48)
[2019-02-03] MEDS: BUDESONIDE/FORMOTEROL 160-4.5 INHALER 6 GM INH SCH ×2 (10:15→20:52)
[2019-02-03] MEDS: ZINC OXIDE PASTE 113 GM TUBE TOP SCH ×2 (10:16→21:06)
[2019-02-03] MEDS: DILTIAZEM CD 120 MG CAPSULE PO SCH (11:56)
[2019-02-03] MEDS: ONDANSETRON 4 MG/2 ML VIAL IV PRN (12:51)
[2019-02-03] MEDS: MONTELUKAST 10 MG TABLET PO SCH (14:16)
[2019-02-03] MEDS ORDERED: hydrALAZINE 25 MG TABLET PO SCH (15:00)
[2019-02-03] MEDS: OLMESARTAN 20 MG TABLET PO SCH (17:02)
[2019-02-04] MEDS: ALBUTEROL/IPRATROPIUM 3 ML NEB RESP TX SCH ×5 (03:53→20:09)
[2019-02-04] MEDS: HYDROmorphone 2 MG/1 ML VIAL IV PRN ×6 (04:06→20:49)
[2019-02-04 04:35] LABS: Albumin 3.3 G/DL (3.4-5.0); Calcium 8.8 MG/DL (8.5-10.1); Osmolality,Calculated 277.2 MOS/KG (273-304); Potassium 4.8 MMOL/L (3.5-5.1)
[2019-02-04] MEDS: BUDESONIDE 0.5 MG/2 ML NEB RESP TX SCH ×2 (06:44→20:09)
[2019-02-04] MEDS: HEPARIN 5,000 UNIT/1 ML VIAL SUBCUT SCH ×3 (06:56→22:14)
[2019-02-04] MEDS: DILTIAZEM CD 120 MG CAPSULE PO SCH (09:03)
[2019-02-04] MEDS: ALLOPURINOL 100 MG TABLET PO SCH ×2 (09:03→20:49)
[2019-02-04] MEDS: ISOSORBIDE DINITRATE 20 MG TABLET PO SCH ×2 (09:03→20:39)
[2019-02-04] MEDS: TAMSULOSIN 0.4 MG CAPSULE PO SCH (09:03)
[2019-02-04] MEDS: DOXYCYCLINE HYCLATE 100 MG CAPSULE PO SCH ×2 (09:03→20:39)
[2019-02-04] MEDS: OLMESARTAN 20 MG TABLET PO SCH (09:04)
[2019-02-04] MEDS: FLUCONAZOLE 100 MG TABLET PO SCH (09:04)
[2019-02-04] MEDS: LACTOBACILLUS RHAMNOSUS GG CAPSULE PO SCH ×2 (09:04→20:38)
[2019-02-04] MEDS: ONDANSETRON 4 MG/2 ML VIAL IV PRN (09:07)
[2019-02-04] MEDS: PANTOPRAZOLE 40 MG VIAL IV SCH (09:10)
[2019-02-04] MEDS: methylPREDNISolone SOD SUC 40 MG/1 ML VIAL IV SCH (09:13)
[2019-02-04] MEDS: BUDESONIDE/FORMOTEROL 160-4.5 INHALER 6 GM INH SCH ×2 (10:45→20:40)
[2019-02-04] MEDS: ZINC OXIDE PASTE 113 GM TUBE TOP SCH ×2 (10:46→20:41)
[2019-02-04] MEDS: MONTELUKAST 10 MG TABLET PO SCH (12:59)
[2019-02-04] MEDS: hydrOXYzine HCL 25 MG TABLET PO PRN (22:19)
[2019-02-05] MEDS: ALBUTEROL/IPRATROPIUM 3 ML NEB RESP TX SCH ×7 (00:28→23:22)
[2019-02-05] MEDS: HYDROmorphone 2 MG/1 ML VIAL IV PRN ×6 (00:44→20:34)
[2019-02-05 05:40] LABS: Basophils # 0.1 10*3/uL (0.0-0.2); Basophils % 0.3 % (0.0-0.8); Immature Granulocytes Absolute 1.18 #; Lymphocytes # 3.7 10*3/uL (1.4-4.0); Lymphocytes % 12.7 % (21.2-54.2); Mean Corpuscular HGB Conc 29.4 GM/DL (32-36); Mean Corpuscular Hemoglobin 24 PG (27-34); Mean Corpuscular Volume 81.2 FL (87-102); Mean Platelet Volume 10.2 FL (9.6-12.0); Monocytes # 2.3 10*3/uL (0.11-0.8); Neutrophils # 21.9 10*3/uL (1.4-7.4); Platelet Count 211 T/CUMM (130-400); Red Blood Count 4.52 MC/CUMM (3.8-5.5); Red Cell Distribution Width 18.5 % (9.3-17.3); White Blood Count 29.2 T/CUMM (4-12)
[2019-02-05] MEDS: HEPARIN 5,000 UNIT/1 ML VIAL SUBCUT SCH ×3 (05:51→22:02)
[2019-02-05 06:04] LABS: Hematocrit 36.6 VOL% (42.0-52.0)
[2019-02-05 06:05] LABS: Hemoglobin 10.8 GM/DL (14.0-18.0)
[2019-02-05 06:06] LABS: Albumin 3.7 G/DL (3.4-5.0); Calcium 8.8 MG/DL (8.5-10.1); Potassium 4.7 MMOL/L (3.5-5.1)
[2019-02-05 06:12] LABS: Band Neutrophils 1 % (0-10); Hypochromasia 1+; Lymphocytes 7 % (20-55); Platelet Estimate Adequate; Segmented Neutrophils 87 % (50-85); Total Cells Counted 100
[2019-02-05] MEDS: BUDESONIDE 0.5 MG/2 ML NEB RESP TX SCH ×2 (07:40→19:10)
[2019-02-05] MEDS: MAGNESIUM SULF RIDER 2 GM in PREMIX 1 EACH IV PRN (08:01)
[2019-02-05] MEDS: methylPREDNISolone SOD SUC 40 MG/1 ML VIAL IV SCH (08:45)
[2019-02-05] MEDS: DOXYCYCLINE HYCLATE 100 MG CAPSULE PO SCH ×2 (08:46→20:35)
[2019-02-05] MEDS: TAMSULOSIN 0.4 MG CAPSULE PO SCH (08:46)
[2019-02-05] MEDS: PANTOPRAZOLE 40 MG VIAL IV SCH (08:46)
[2019-02-05] MEDS: ALLOPURINOL 100 MG TABLET PO SCH (08:47)
[2019-02-05] MEDS: ISOSORBIDE DINITRATE 20 MG TABLET PO SCH (08:47)
[2019-02-05] MEDS: DILTIAZEM CD 120 MG CAPSULE PO SCH (08:47)
[2019-02-05] MEDS: hydrOXYzine HCL 25 MG TABLET PO PRN (08:47)
[2019-02-05] MEDS: FLUCONAZOLE 100 MG TABLET PO SCH (08:47)
[2019-02-05] MEDS: LACTOBACILLUS RHAMNOSUS GG CAPSULE PO SCH ×2 (08:48→20:35)
[2019-02-05] MEDS: ZINC OXIDE PASTE 113 GM TUBE TOP SCH ×2 (08:49→20:35)
[2019-02-05] MEDS: BUDESONIDE/FORMOTEROL 160-4.5 INHALER 6 GM INH SCH ×2 (08:49→20:35)
[2019-02-05] MEDS: OLMESARTAN 20 MG TABLET PO SCH (09:50)
[2019-02-05] MEDS: DILTIAZEM CD 180 MG CAPSULE PO SCH (11:13)
[2019-02-05] MEDS ORDERED: MAGNESIUM HYDROXIDE SUSP 30 ML UDCUP PO PRN (11:17)
[2019-02-05] MEDS: PROMETHAZINE 25 MG TABLET PO PRN ×2 (12:39→19:50)
[2019-02-05] MEDS: BISACODYL 5 MG TABLET PO SCH (13:23)
[2019-02-05] MEDS: MONTELUKAST 10 MG TABLET PO SCH (13:24)
[2019-02-05 13:38] LABS: Apearance,Urine Slightly Hazy (Clear); Bacteria,Urine Occasional /HPF (Few); Bilirubin,Urine Negative (Negative); Blood, Urine Large mg/dL (Negative); Calcium Oxalate Crystals,Urine Occasional /HPF (Few); Glucose,Urine (UA) 50 mg/dL (Negative); Ketones,Urine Negative (Negative); Mucus,Urine Occasional /LPF (Occasional); Nitrite,Urine Negative (Negative); Protein,Urine Negative; RBC,Urine 132 /HPF (0-4); Urine Color Yellow (Yellow); Urine Specific Gravity 1.012 (1.001-1.035); Urine Urobilinogen < 2.0 EU/DL (0.2-1.0); WBC,Urine 70 /HPF (0-6)
[2019-02-05] MEDS: POLYETHYLENE GLYCOL POWDER 17 GM PACK PO SCH (20:34)
[2019-02-05] MEDS: DOCUSATE SODIUM 100 MG CAPSULE PO SCH (20:35)
[2019-02-06] MEDS: HYDROmorphone 2 MG/1 ML VIAL IV PRN ×3 (01:45→09:52)
[2019-02-06] MEDS: ALBUTEROL/IPRATROPIUM 3 ML NEB RESP TX SCH ×5 (02:53→19:34)
[2019-02-06 05:11] LABS: Albumin 3.7 G/DL (3.4-5.0); Calcium 8.5 MG/DL (8.5-10.1); Osmolality,Calculated 291.7 MOS/KG (273-304)
[2019-02-06 05:38] LABS: Basophils # 0.1 10*3/uL (0.0-0.2); Basophils % 0.3 % (0.0-0.8); Hematocrit 35.9 VOL% (42.0-52.0); Hemoglobin 10.5 GM/DL (14.0-18.0); Immature Granulocytes % 4.3 %; Immature Granulocytes Absolute 1.19 #; Lymphocytes # 2.6 10*3/uL (1.4-4.0); Lymphocytes % 9.5 % (21.2-54.2); Mean Corpuscular HGB Conc 29.2 GM/DL (32-36); Mean Corpuscular Hemoglobin 24 PG (27-34); Mean Corpuscular Volume 82.2 FL (87-102); Mean Platelet Volume 10.1 FL (9.6-12.0); Monocytes # 1.9 10*3/uL (0.11-0.8); Monocytes % 6.8 % (1.7-12.7); Neutrophils # 21.7 10*3/uL (1.4-7.4); Neutrophils % 79.1 % (38.7-73.9); Platelet Count 202 T/CUMM (130-400); Red Blood Count 4.37 MC/CUMM (3.8-5.5); Red Cell Distribution Width 18.7 % (9.3-17.3); White Blood Count 27.5 T/CUMM (4-12)
[2019-02-06] MEDS: HEPARIN 5,000 UNIT/1 ML VIAL SUBCUT SCH ×3 (05:43→23:40)
[2019-02-06] MEDS: PROMETHAZINE 25 MG TABLET PO PRN (06:24)
[2019-02-06] MEDS: hydrOXYzine HCL 25 MG TABLET PO PRN (06:27)
[2019-02-06 06:38] LABS: Lymphocytes 7 % (20-55); Platelet Estimate Adequate; Segmented Neutrophils 87 % (50-85); Total Cells Counted 100
[2019-02-06 06:39] LABS: Anisocytosis 1+; Hypochromasia Slight; Macrocytosis Slight; Microcytosis Slight
[2019-02-06] MEDS: BUDESONIDE 0.5 MG/2 ML NEB RESP TX SCH (07:04)
[2019-02-06] MEDS ORDERED: LINACLOTIDE 145 MCG CAPSULE PO SCH ×2 (07:30→15:32)
[2019-02-06] MEDS: methylPREDNISolone SOD SUC 40 MG/1 ML VIAL IV SCH (08:47)
[2019-02-06] MEDS: FLUCONAZOLE 100 MG TABLET PO SCH (08:47)
[2019-02-06] MEDS: ALLOPURINOL 100 MG TABLET PO SCH (08:48)
[2019-02-06] MEDS: PANTOPRAZOLE 40 MG VIAL IV SCH (08:48)
[2019-02-06] MEDS: DOXYCYCLINE HYCLATE 100 MG CAPSULE PO SCH ×2 (08:48→20:37)
[2019-02-06] MEDS: LACTOBACILLUS RHAMNOSUS GG CAPSULE PO SCH ×2 (08:49→20:37)
[2019-02-06] MEDS: DILTIAZEM CD 180 MG CAPSULE PO SCH (08:49)
[2019-02-06] MEDS: LOSARTAN 25 MG TABLET PO SCH (08:49)
[2019-02-06] MEDS: TAMSULOSIN 0.4 MG CAPSULE PO SCH (08:49)
[2019-02-06] MEDS: DOCUSATE SODIUM 100 MG CAPSULE PO SCH ×2 (08:49→20:38)
[2019-02-06] MEDS: ZINC OXIDE PASTE 113 GM TUBE TOP SCH ×2 (08:50→20:45)
[2019-02-06] MEDS: BUDESONIDE/FORMOTEROL 160-4.5 INHALER 6 GM INH SCH ×2 (08:50→20:43)
[2019-02-06] MEDS: POLYETHYLENE GLYCOL POWDER 17 GM PACK PO SCH ×2 (08:50→20:38)
[2019-02-06] MEDS: BISACODYL 5 MG TABLET PO SCH (08:50)
[2019-02-06] MEDS ORDERED: LACTULOSE 20 GM/30 ML UDCUP PO SCH (10:30)
[2019-02-06] MEDS: guaiFENesin/CODEINE 5 ML LIQUID PO SCH ×3 (11:41→20:37)
[2019-02-06] MEDS: prednisoLONE 15 MG/5 ML ORAL.SYR PO SCH (11:41)
[2019-02-06] MEDS: MORPHINE ER 30 MG TABLET PO SCH ×2 (13:46→23:39)
[2019-02-06] MEDS: MONTELUKAST 10 MG TABLET PO SCH (20:37)
[2019-02-07] MEDS: guaiFENesin/CODEINE 5 ML LIQUID PO SCH ×6 (00:04→19:21)
[2019-02-07] MEDS: ALBUTEROL/IPRATROPIUM 3 ML NEB RESP TX SCH ×4 (00:11→18:45)
[2019-02-07] MEDS: hydrOXYzine HCL 25 MG TABLET PO PRN ×3 (04:26→21:13)
[2019-02-07] MEDS: PROMETHAZINE 25 MG TABLET PO PRN ×2 (04:26→21:13)
[2019-02-07 05:26] LABS: Albumin 3.3 G/DL (3.4-5.0); Calcium 8.5 MG/DL (8.5-10.1); Potassium 4.9 MMOL/L (3.5-5.1)
[2019-02-07 05:54] LABS: Basophils # 0.1 10*3/uL (0.0-0.2); Basophils % 0.2 % (0.0-0.8); Hematocrit 35.1 VOL% (42.0-52.0); Hemoglobin 10.2 GM/DL (14.0-18.0); Immature Granulocytes % 4.8 %; Mean Corpuscular HGB Conc 29.1 GM/DL (32-36); Mean Corpuscular Hemoglobin 24 PG (27-34); Mean Corpuscular Volume 82.2 FL (87-102); Monocytes # 1.6 10*3/uL (0.11-0.8); Monocytes % 6.2 % (1.7-12.7); Neutrophils # 20.3 10*3/uL (1.4-7.4); Neutrophils % 80.8 % (38.7-73.9); Platelet Count 184 T/CUMM (130-400); Red Blood Count 4.27 MC/CUMM (3.8-5.5); Red Cell Distribution Width 18.8 % (9.3-17.3); White Blood Count 25.1 T/CUMM (4-12)
[2019-02-07 06:16] LABS: Lymphocytes 8 % (20-55); Platelet Estimate Adequate; Segmented Neutrophils 87 % (50-85); Total Cells Counted 100
[2019-02-07 06:17] LABS: Anisocytosis 1+; Hypochromasia Slight
[2019-02-07] MEDS: HEPARIN 5,000 UNIT/1 ML VIAL SUBCUT SCH ×2 (06:45→15:16)
[2019-02-07] MEDS: ACETAMINOPHEN 325 MG TABLET PO PRN ×3 (06:48→21:19)
[2019-02-07] MEDS: LOSARTAN 25 MG TABLET PO SCH (10:09)
[2019-02-07] MEDS: DOCUSATE SODIUM 100 MG CAPSULE PO SCH ×2 (10:09→21:07)
[2019-02-07] MEDS: DILTIAZEM CD 180 MG CAPSULE PO SCH (10:09)
[2019-02-07] MEDS: LACTOBACILLUS RHAMNOSUS GG CAPSULE PO SCH ×2 (10:11→21:07)
[2019-02-07] MEDS: ZINC OXIDE PASTE 113 GM TUBE TOP SCH (10:11)
[2019-02-07] MEDS: ALLOPURINOL 100 MG TABLET PO SCH (10:12)
[2019-02-07] MEDS: MONTELUKAST 10 MG TABLET PO SCH ×2 (10:13→21:06)
[2019-02-07] MEDS: FLUCONAZOLE 100 MG TABLET PO SCH (10:13)
[2019-02-07] MEDS: PANTOPRAZOLE 40 MG TABLET PO SCH (10:13)
[2019-02-07] MEDS: POLYETHYLENE GLYCOL POWDER 17 GM PACK PO SCH ×2 (10:14→21:07)
[2019-02-07] MEDS: BISACODYL 5 MG TABLET PO SCH (10:14)
[2019-02-07] MEDS: DOXYCYCLINE HYCLATE 100 MG CAPSULE PO SCH ×2 (10:14→21:06)
[2019-02-07] MEDS: prednisoLONE 15 MG/5 ML ORAL.SYR PO SCH (10:15)
[2019-02-07] MEDS: BUDESONIDE/FORMOTEROL 160-4.5 INHALER 6 GM INH SCH (10:17)
[2019-02-07] MEDS: oxyCODONE IR 5 MG TABLET PO PRN ×2 (11:30→19:20)
[2019-02-07] MEDS: TAMSULOSIN 0.4 MG CAPSULE PO SCH ×2 (13:27→21:06)
[2019-02-07] MEDS: MORPHINE ER 30 MG TABLET PO SCH (15:15)
[2019-02-08] MEDS: ALBUTEROL/IPRATROPIUM 3 ML NEB RESP TX SCH ×4 (00:20→19:48)
[2019-02-08] MEDS: guaiFENesin/CODEINE 5 ML LIQUID PO SCH ×7 (00:49→22:51)
[2019-02-08] MEDS: MORPHINE ER 30 MG TABLET PO SCH ×2 (00:50→12:45)
[2019-02-08] MEDS: BUDESONIDE/FORMOTEROL 160-4.5 INHALER 6 GM INH SCH ×3 (00:51→21:19)
[2019-02-08] MEDS: ZINC OXIDE PASTE 113 GM TUBE TOP SCH ×3 (00:51→21:05)
[2019-02-08] MEDS: HEPARIN 5,000 UNIT/1 ML VIAL SUBCUT SCH ×4 (00:55→22:51)
[2019-02-08] MEDS: oxyCODONE IR 5 MG TABLET PO PRN ×4 (04:36→21:17)
[2019-02-08] MEDS: hydrOXYzine HCL 25 MG TABLET PO PRN ×2 (04:43→21:18)
[2019-02-08 06:05] LABS: Albumin 3.3 G/DL (3.4-5.0); Basophils % 0.1 % (0.0-0.8); Calcium 8.4 MG/DL (8.5-10.1); Hemoglobin 10.7 GM/DL (14.0-18.0); Immature Granulocytes % 2.3 %; Immature Granulocytes Absolute 0.45 #; Lymphocytes # 2.4 10*3/uL (1.4-4.0); Lymphocytes % 12.5 % (21.2-54.2); Mean Corpuscular HGB Conc 29.7 GM/DL (32-36); Mean Corpuscular Hemoglobin 24 PG (27-34); Mean Corpuscular Volume 82.2 FL (87-102); Mean Platelet Volume 9.8 FL (9.6-12.0); Monocytes # 1.3 10*3/uL (0.11-0.8); Monocytes % 6.7 % (1.7-12.7); Neutrophils % 78.4 % (38.7-73.9); Osmolality,Calculated 283.8 MOS/KG (273-304); Platelet Count 161 T/CUMM (130-400); Potassium 4.3 MMOL/L (3.5-5.1); Red Blood Count 4.38 MC/CUMM (3.8-5.5); White Blood Count 19.2 T/CUMM (4-12)
[2019-02-08 06:18] LABS: Hypochromasia 1+; Microcytosis Slight; Platelet Estimate Adequate
[2019-02-08] MEDS: prednisoLONE 15 MG/5 ML ORAL.SYR PO SCH (08:28)
[2019-02-08] MEDS: PROMETHAZINE 25 MG TABLET PO PRN (08:29)
[2019-02-08] MEDS: LACTOBACILLUS RHAMNOSUS GG CAPSULE PO SCH ×2 (08:29→21:18)
[2019-02-08] MEDS: LOSARTAN 25 MG TABLET PO SCH (08:29)
[2019-02-08] MEDS: PANTOPRAZOLE 40 MG TABLET PO SCH (08:29)
[2019-02-08] MEDS: BISACODYL 5 MG TABLET PO SCH (08:29)
[2019-02-08] MEDS: ALLOPURINOL 100 MG TABLET PO SCH (08:29)
[2019-02-08] MEDS: MONTELUKAST 10 MG TABLET PO SCH ×2 (08:29→21:03)
[2019-02-08] MEDS: DOCUSATE SODIUM 100 MG CAPSULE PO SCH ×2 (08:29→21:03)
[2019-02-08] MEDS: FLUCONAZOLE 100 MG TABLET PO SCH (08:29)
[2019-02-08] MEDS: DILTIAZEM CD 180 MG CAPSULE PO SCH (08:29)
[2019-02-08] MEDS: POLYETHYLENE GLYCOL POWDER 17 GM PACK PO SCH ×2 (08:30→21:04)
[2019-02-08] MEDS: LINACLOTIDE 145 MCG CAPSULE PO SCH (08:30)
[2019-02-08] MEDS: ACETAMINOPHEN 325 MG TABLET PO PRN (15:38)
[2019-02-08] MEDS: AMPICILLIN 500 MG CAPSULE PO SCH ×2 (15:38→21:03)
[2019-02-08] MEDS: ONDANSETRON 4 MG/2 ML VIAL IV PRN (19:32)
[2019-02-08] MEDS: TAMSULOSIN 0.4 MG CAPSULE PO SCH (21:03)
[2019-02-09] MEDS: MORPHINE ER 30 MG TABLET PO SCH ×2 (00:31→11:56)
[2019-02-09] MEDS: ALBUTEROL/IPRATROPIUM 3 ML NEB RESP TX SCH ×6 (01:26→23:25)
[2019-02-09] MEDS: oxyCODONE IR 5 MG TABLET PO PRN ×4 (02:35→21:13)
[2019-02-09] MEDS: ONDANSETRON 4 MG/2 ML VIAL IV PRN ×2 (02:38→21:19)
[2019-02-09] MEDS: guaiFENesin/CODEINE 5 ML LIQUID PO SCH ×5 (03:16→21:12)
[2019-02-09] MEDS: hydrOXYzine HCL 25 MG TABLET PO PRN ×2 (03:19→10:33)
[2019-02-09] MEDS: HEPARIN 5,000 UNIT/1 ML VIAL SUBCUT SCH ×3 (05:42→21:36)
[2019-02-09 05:50] LABS: Uric Acid 4.8 MG/DL (3.5-7.2)
[2019-02-09 05:52] LABS: Albumin 3.4 G/DL (3.4-5.0); Calcium 8.2 MG/DL (8.5-10.1); Osmolality,Calculated 287.7 MOS/KG (273-304); Potassium 4.2 MMOL/L (3.5-5.1)
[2019-02-09 05:55] LABS: Basophils % 0.1 % (0.0-0.8); Eosinophils % 0.1 % (0.00-10.9); Hematocrit 34.1 VOL% (42.0-52.0); Hemoglobin 10.1 GM/DL (14.0-18.0); Immature Granulocytes % 1.3 %; Lymphocytes # 2.6 10*3/uL (1.4-4.0); Lymphocytes % 17.3 % (21.2-54.2); Mean Corpuscular HGB Conc 29.6 GM/DL (32-36); Mean Corpuscular Hemoglobin 24 PG (27-34); Mean Corpuscular Volume 82.2 FL (87-102); Mean Platelet Volume 10.1 FL (9.6-12.0); Monocytes # 1.2 10*3/uL (0.11-0.8); Monocytes % 7.8 % (1.7-12.7); Neutrophils # 10.9 10*3/uL (1.4-7.4); Neutrophils % 73.4 % (38.7-73.9); Platelet Count 155 T/CUMM (130-400); Red Blood Count 4.15 MC/CUMM (3.8-5.5); Red Cell Distribution Width 18.7 % (9.3-17.3); White Blood Count 14.9 T/CUMM (4-12)
[2019-02-09 05:57] LABS: Hypochromasia 1+; Microcytosis 1+; Platelet Estimate Adequate; Polychromasia Slight
[2019-02-09] MEDS: LINACLOTIDE 145 MCG CAPSULE PO SCH (08:06)
[2019-02-09] MEDS: PROMETHAZINE 25 MG TABLET PO PRN (08:06)
[2019-02-09] MEDS: AMPICILLIN 500 MG CAPSULE PO SCH ×3 (09:30→21:20)
[2019-02-09] MEDS: DOCUSATE SODIUM 100 MG CAPSULE PO SCH ×2 (09:30→21:13)
[2019-02-09] MEDS: MONTELUKAST 10 MG TABLET PO SCH ×2 (09:30→21:13)
[2019-02-09] MEDS: BISACODYL 5 MG TABLET PO SCH (09:30)
[2019-02-09] MEDS: ALLOPURINOL 100 MG TABLET PO SCH (09:30)
[2019-02-09] MEDS: LOSARTAN 25 MG TABLET PO SCH (09:30)
[2019-02-09] MEDS: DILTIAZEM CD 180 MG CAPSULE PO SCH (09:31)
[2019-02-09] MEDS: prednisoLONE 15 MG/5 ML ORAL.SYR PO SCH (09:31)
[2019-02-09] MEDS: LACTOBACILLUS RHAMNOSUS GG CAPSULE PO SCH ×2 (09:31→21:12)
[2019-02-09] MEDS: PANTOPRAZOLE 40 MG TABLET PO SCH (09:31)
[2019-02-09] MEDS: POLYETHYLENE GLYCOL POWDER 17 GM PACK PO SCH ×2 (09:32→21:13)
[2019-02-09] MEDS: BUDESONIDE/FORMOTEROL 160-4.5 INHALER 6 GM INH SCH ×2 (09:32→21:16)
[2019-02-09] MEDS: THEOPHYLLINE ER (24 HR) 400 MG CAPSULE PO SCH (10:29)
[2019-02-09] MEDS: ZINC OXIDE PASTE 113 GM TUBE TOP SCH ×2 (11:58→21:16)
[2019-02-09] MEDS: ERGOCALCIFEROL 50,000 UNIT CAPSULE PO SCH (13:54)
[2019-02-09] MEDS: ACETAMINOPHEN 325 MG TABLET PO PRN ×2 (13:54→21:36)
[2019-02-09] MEDS: TAMSULOSIN 0.4 MG CAPSULE PO SCH (21:12)
[2019-02-10] MEDS: guaiFENesin/CODEINE 5 ML LIQUID PO SCH ×6 (00:52→19:03)
[2019-02-10] MEDS: hydrOXYzine HCL 25 MG TABLET PO PRN (01:01)
[2019-02-10] MEDS: MORPHINE ER 30 MG TABLET PO SCH ×2 (01:01→13:06)
[2019-02-10] MEDS: ALBUTEROL/IPRATROPIUM 3 ML NEB RESP TX SCH ×6 (03:10→23:48)
[2019-02-10 05:40] LABS: Basophils % 0.1 % (0.0-0.8); Hematocrit 33.9 VOL% (42.0-52.0); Hemoglobin 10.1 GM/DL (14.0-18.0); Immature Granulocytes % 1.8 %; Immature Granulocytes Absolute 0.31 #; Lymphocytes % 17.2 % (21.2-54.2); Mean Corpuscular HGB Conc 29.8 GM/DL (32-36); Mean Corpuscular Hemoglobin 24 PG (27-34); Mean Corpuscular Volume 80.3 FL (87-102); Mean Platelet Volume 10.2 FL (9.6-12.0); Monocytes # 1.2 10*3/uL (0.11-0.8); Monocytes % 6.6 % (1.7-12.7); Neutrophils # 12.9 10*3/uL (1.4-7.4); Neutrophils % 74.3 % (38.7-73.9); Platelet Count 154 T/CUMM (130-400); Red Blood Count 4.22 MC/CUMM (3.8-5.5); Red Cell Distribution Width 18.7 % (9.3-17.3); White Blood Count 17.4 T/CUMM (4-12)
[2019-02-10 05:57] LABS: Albumin 3.4 G/DL (3.4-5.0); Calcium 8.5 MG/DL (8.5-10.1); Osmolality,Calculated 279.8 MOS/KG (273-304); Potassium 3.9 MMOL/L (3.5-5.1)
[2019-02-10] MEDS: HEPARIN 5,000 UNIT/1 ML VIAL SUBCUT SCH ×2 (06:01→16:25)
[2019-02-10] MEDS: FLUTICASONE 50 MCG NASAL SPRAY 16 GM BOTTLE BOTH NARES SCH ×2 (08:20→21:32)
[2019-02-10] MEDS: AMPICILLIN 500 MG CAPSULE PO SCH ×3 (08:21→21:32)
[2019-02-10] MEDS: BUDESONIDE/FORMOTEROL 160-4.5 INHALER 6 GM INH SCH ×2 (08:21→21:30)
[2019-02-10] MEDS: THEOPHYLLINE ER (24 HR) 400 MG CAPSULE PO SCH (08:22)
[2019-02-10] MEDS: prednisoLONE 15 MG/5 ML ORAL.SYR PO SCH (08:22)
[2019-02-10] MEDS: BISACODYL 5 MG TABLET PO SCH (08:23)
[2019-02-10] MEDS: DILTIAZEM CD 180 MG CAPSULE PO SCH (08:24)
[2019-02-10] MEDS: PANTOPRAZOLE 40 MG TABLET PO SCH (08:24)
[2019-02-10] MEDS: ALLOPURINOL 100 MG TABLET PO SCH (08:25)
[2019-02-10] MEDS: PROMETHAZINE 25 MG TABLET PO PRN (08:26)
[2019-02-10] MEDS: LACTOBACILLUS RHAMNOSUS GG CAPSULE PO SCH ×2 (08:26→21:32)
[2019-02-10] MEDS: DOCUSATE SODIUM 100 MG CAPSULE PO SCH ×2 (08:26→21:31)
[2019-02-10] MEDS: LOSARTAN 25 MG TABLET PO SCH (08:26)
[2019-02-10] MEDS: MONTELUKAST 10 MG TABLET PO SCH ×2 (08:26→21:31)
[2019-02-10] MEDS: oxyCODONE IR 5 MG TABLET PO PRN ×3 (08:27→21:30)
[2019-02-10] MEDS: POLYETHYLENE GLYCOL POWDER 17 GM PACK PO SCH ×2 (08:28→21:32)
[2019-02-10] MEDS: LINACLOTIDE 145 MCG CAPSULE PO SCH (08:28)
[2019-02-10] MEDS: ZINC OXIDE PASTE 113 GM TUBE TOP SCH ×2 (08:32→21:32)
[2019-02-10] MEDS: ACETAMINOPHEN 325 MG TABLET PO PRN (16:32)
[2019-02-10] MEDS: TAMSULOSIN 0.4 MG CAPSULE PO SCH (21:32)
[2019-02-11] MEDS: MORPHINE ER 30 MG TABLET PO SCH (00:08)
[2019-02-11] MEDS: HEPARIN 5,000 UNIT/1 ML VIAL SUBCUT SCH ×4 (00:09→22:29)
[2019-02-11] MEDS: guaiFENesin/CODEINE 5 ML LIQUID PO SCH ×3 (00:09→08:00)
[2019-02-11] MEDS: hydrOXYzine HCL 25 MG TABLET PO PRN (00:12)
[2019-02-11] MEDS: ALBUTEROL/IPRATROPIUM 3 ML NEB RESP TX SCH ×6 (03:10→23:06)
[2019-02-11] MEDS: PROMETHAZINE 25 MG TABLET PO PRN (04:34)
[2019-02-11] MEDS: oxyCODONE IR 5 MG TABLET PO PRN (04:34)
[2019-02-11] MEDS: ACETAMINOPHEN 325 MG TABLET PO PRN ×2 (07:24→21:23)
[2019-02-11] MEDS: LINACLOTIDE 145 MCG CAPSULE PO SCH (07:24)
[2019-02-11] MEDS: ONDANSETRON 4 MG/2 ML VIAL IV PRN (07:30)
[2019-02-11] MEDS ORDERED: guaiFENesin/CODEINE 5 ML LIQUID PO PRN (08:00)
[2019-02-11] MEDS: POLYETHYLENE GLYCOL POWDER 17 GM PACK PO SCH ×2 (09:27→21:23)
[2019-02-11] MEDS: BUDESONIDE/FORMOTEROL 160-4.5 INHALER 6 GM INH SCH ×2 (09:28→21:23)
[2019-02-11] MEDS: FLUTICASONE 50 MCG NASAL SPRAY 16 GM BOTTLE BOTH NARES SCH ×2 (09:28→21:23)
[2019-02-11] MEDS: prednisoLONE 15 MG/5 ML ORAL.SYR PO SCH (09:28)
[2019-02-11] MEDS: LOSARTAN 25 MG TABLET PO SCH (09:29)
[2019-02-11] MEDS: MONTELUKAST 10 MG TABLET PO SCH ×2 (09:29→21:22)
[2019-02-11] MEDS: LACTOBACILLUS RHAMNOSUS GG CAPSULE PO SCH ×2 (09:29→21:23)
[2019-02-11] MEDS: AMPICILLIN 500 MG CAPSULE PO SCH ×3 (09:29→21:22)
[2019-02-11] MEDS: BISACODYL 5 MG TABLET PO SCH (09:29)
[2019-02-11] MEDS: ALLOPURINOL 100 MG TABLET PO SCH (09:30)
[2019-02-11] MEDS: THEOPHYLLINE ER (24 HR) 400 MG CAPSULE PO SCH (09:30)
[2019-02-11] MEDS: PANTOPRAZOLE 40 MG TABLET PO SCH (09:30)
[2019-02-11] MEDS: ZINC OXIDE PASTE 113 GM TUBE TOP SCH ×2 (09:30→21:28)
[2019-02-11] MEDS: DILTIAZEM CD 180 MG CAPSULE PO SCH (09:40)
[2019-02-11] MEDS: oxyCODONE/ACETAMINOPHEN 5-325 MG TABLET PO PRN ×3 (09:40→22:29)
[2019-02-11] MEDS: DOCUSATE SODIUM 100 MG CAPSULE PO SCH ×2 (09:40→21:22)
[2019-02-11 11:21] LABS: Calcium 8.4 MG/DL (8.5-10.1); Potassium 3.8 MMOL/L (3.5-5.1)
[2019-02-11] MEDS: TAMSULOSIN 0.4 MG CAPSULE PO SCH (21:22)
[2019-02-12] MEDS: ALBUTEROL/IPRATROPIUM 3 ML NEB RESP TX SCH ×3 (02:33→11:00)
[2019-02-12 05:05] LABS: Calcium 8.3 MG/DL (8.5-10.1); Osmolality,Calculated 280.8 MOS/KG (273-304); Potassium 3.6 MMOL/L (3.5-5.1)
[2019-02-12] MEDS: HEPARIN 5,000 UNIT/1 ML VIAL SUBCUT SCH (06:16)
[2019-02-12] MEDS: oxyCODONE/ACETAMINOPHEN 5-325 MG TABLET PO PRN ×2 (06:16→12:14)
[2019-02-12] MEDS: PROMETHAZINE 25 MG TABLET PO PRN (06:17)
[2019-02-12] MEDS: LINACLOTIDE 145 MCG CAPSULE PO SCH (08:23)
[2019-02-12] MEDS: LACTOBACILLUS RHAMNOSUS GG CAPSULE PO SCH (09:27)
[2019-02-12] MEDS: BISACODYL 5 MG TABLET PO SCH (09:27)
[2019-02-12] MEDS: PANTOPRAZOLE 40 MG TABLET PO SCH (09:27)
[2019-02-12] MEDS: ALLOPURINOL 100 MG TABLET PO SCH (09:28)
[2019-02-12] MEDS: prednisoLONE 15 MG/5 ML ORAL.SYR PO SCH (09:29)
[2019-02-12] MEDS: DOCUSATE SODIUM 100 MG CAPSULE PO SCH (09:30)
[2019-02-12] MEDS: ACETAMINOPHEN 325 MG TABLET PO PRN (09:30)
[2019-02-12] MEDS: DILTIAZEM CD 180 MG CAPSULE PO SCH (09:31)
[2019-02-12] MEDS: AMPICILLIN 500 MG CAPSULE PO SCH (09:31)
[2019-02-12] MEDS: LOSARTAN 25 MG TABLET PO SCH (09:33)
[2019-02-12] MEDS: MONTELUKAST 10 MG TABLET PO SCH (09:33)
[2019-02-12] MEDS: POLYETHYLENE GLYCOL POWDER 17 GM PACK PO SCH (09:35)
[2019-02-12] MEDS: ZINC OXIDE PASTE 113 GM TUBE TOP SCH (09:35)
[2019-02-12] MEDS: FLUTICASONE 50 MCG NASAL SPRAY 16 GM BOTTLE BOTH NARES SCH (09:35)
[2019-02-12] MEDS: THEOPHYLLINE ER (24 HR) 400 MG CAPSULE PO SCH (09:37)
[2019-02-12 11:39] VITALS: BP 109/69
[2019-02-12] MEDS: BUDESONIDE/FORMOTEROL 160-4.5 INHALER 6 GM INH SCH (12:13)
== END 2019-02-12 13:57 | disposition home or self-care (01) | DRG 208 ==
LOC: N.ED 18:42 → N.EDINP 21:24 → SUATTDRO 21:24 → N.TELEN 01-25 08:30 → N.CC 01-27 20:16 → N.2E 02-04 17:05
PROVIDERS: ADMIT Hospitalist; ATTEND Hospitalist

== ENCOUNTER 2019-03-17 21:46 | Inpatient (IN) ==
[2019-03-17 22:20] LABS: Basophils # 0.1 10*3/uL (0.0-0.2); Basophils % 0.6 % (0.0-0.8); Eosinophils # 0.2 10*3/uL (0.0-0.87); Eosinophils % 2.2 % (0.00-10.9); Hematocrit 39.7 VOL% (42.0-52.0); Hemoglobin 11.8 GM/DL (14.0-18.0); Immature Granulocytes % 0.8 %; Immature Granulocytes Absolute 0.07 #; Lymphocytes # 2.7 10*3/uL (1.4-4.0); Lymphocytes % 30.8 % (21.2-54.2); Mean Corpuscular HGB Conc 29.7 GM/DL (32-36); Mean Corpuscular Volume 82.5 FL (87-102); Monocytes % 12.6 % (1.7-12.7); NRBC # 0.05 10*3/uL; Platelet Count 344 T/CUMM (130-400); Red Blood Count 4.81 MC/CUMM (3.8-5.5); Red Cell Distribution Width 19.5 % (9.3-17.3); White Blood Count 8.8 T/CUMM (4-12)
[2019-03-17 22:33] LABS: Albumin 4.2 G/DL (3.4-5.0); Bilirubin,Total 0.4 MG/DL (0.2-1.0); Calcium 9.4 MG/DL (8.5-10.1); Osmolality,Calculated 277.4 MOS/KG (273-304)
[2019-03-17] MEDS ORDERED: FUROSEMIDE 100 MG/10 ML VIAL IV STA (22:48)
[2019-03-17] MEDS ORDERED: ASPIRIN 325 MG TABLET PO STA (22:48)
[2019-03-17] MEDS ORDERED: NITROGLYCERIN 2% OINT 1 INCH/GM PACK TOP STA (22:48)
[2019-03-17] MEDS ORDERED: MORPHINE 4 MG/1 ML VIAL IV STA (22:48)
[2019-03-17] MEDS ORDERED: ONDANSETRON 4 MG/2 ML VIAL IV STA (22:48)
[2019-03-17] MEDS ORDERED: methylPREDNISolone SOD SUC 125 MG/2 ML VIAL IV STA (22:48)
[2019-03-17] MEDS ORDERED: MAGNESIUM SULF RIDER 2 GM in PREMIX 1 EACH IV STA (22:48)
[2019-03-17] MEDS ORDERED: ALBUTEROL 2.5 MG/3 ML NEB RESP TX SCH (23:00)
[2019-03-18] MEDS ORDERED: POTASSIUM CHLORIDE 20 MEQ TABLET PO STA (00:28)
[2019-03-18 02:32] LABS: Apearance,Urine CLEAR (Clear); Bilirubin,Urine Negative (Negative); Blood, Urine Negative (Negative); Glucose,Urine (UA) Negative (Negative); Ketones,Urine Negative (Negative); Mucus,Urine Occasional /LPF (Occasional); Nitrite,Urine Negative (Negative); Protein,Urine Negative; RBC,Urine <1 /HPF (0-4); Urine Color Straw (Yellow); Urine Specific Gravity 1.008 (1.001-1.035); Urine Urobilinogen < 2.0 EU/DL (0.2-1.0); WBC,Urine <1 /HPF (0-6)
[2019-03-18] MEDS ORDERED: ACETAMINOPHEN 325 MG TABLET PO PRN (03:46)
[2019-03-18] MEDS ORDERED: MORPHINE 4 MG/1 ML VIAL IV PRN (03:46)
[2019-03-18] MEDS ORDERED: SIMETHICONE CHEW 125 MG TABLET PO PRN (03:58)
[2019-03-18] MEDS ORDERED: ENOXAPARIN 40 MG/0.4 ML SYRINGE SUBCUT SCH (04:00)
[2019-03-18] MEDS: methylPREDNISolone SOD SUC 125 MG/2 ML VIAL IV SCH ×4 (04:30→21:29)
[2019-03-18] MEDS: LEVALBUTEROL 0.63 MG/3 ML NEB RESP TX PRN ×2 (05:12→23:25)
[2019-03-18 08:04] LABS: Albumin 3.8 G/DL (3.4-5.0); Bilirubin,Total 0.4 MG/DL (0.2-1.0); Calcium 8.8 MG/DL (8.5-10.1); Osmolality,Calculated 281.4 MOS/KG (273-304); Total Protein 7.7 G/DL (6.4-8.3)
[2019-03-18 08:05] LABS: Basophils % 0.2 % (0.0-0.8); Hematocrit 38.1 VOL% (42.0-52.0); Hemoglobin 11.3 GM/DL (14.0-18.0); Immature Granulocytes % 1.1 %; Lymphocytes # 0.9 10*3/uL (1.4-4.0); Lymphocytes % 10.1 % (21.2-54.2); Mean Corpuscular HGB Conc 29.7 GM/DL (32-36); Mean Corpuscular Volume 83.9 FL (87-102); Mean Platelet Volume 9.8 FL (9.6-12.0); Monocytes % 0.9 % (1.7-12.7); NRBC # 0.03 10*3/uL; Neutrophils % 87.7 % (38.7-73.9); Platelet Count 347 T/CUMM (130-400); Red Blood Count 4.54 MC/CUMM (3.8-5.5); Red Cell Distribution Width 19.5 % (9.3-17.3)
[2019-03-18] MEDS ORDERED: ERGOCALCIFEROL 50,000 UNIT CAPSULE PO SCH (09:00)
[2019-03-18] MEDS ORDERED: AMPICILLIN 500 MG CAPSULE PO SCH (09:00)
[2019-03-18] MEDS: LEVALBUTEROL 1.25 MG/3 ML NEB RESP TX SCH ×3 (09:01→18:57)
[2019-03-18] MEDS: DOCUSATE SODIUM 100 MG CAPSULE PO SCH ×2 (09:10→21:29)
[2019-03-18] MEDS: ALLOPURINOL 100 MG TABLET PO SCH (09:10)
[2019-03-18] MEDS: FERROUS SULFATE 325 MG TABLET PO SCH (09:10)
[2019-03-18] MEDS: BUDESONIDE/FORMOTEROL 160-4.5 INHALER 6 GM INH SCH ×2 (09:10→21:38)
[2019-03-18] MEDS: DILTIAZEM CD 180 MG CAPSULE PO SCH (09:10)
[2019-03-18] MEDS: RIVAROXABAN 20 MG TABLET PO SCH (09:10)
[2019-03-18] MEDS: oxyCODONE/ACETAMINOPHEN 5-325 MG TABLET PO SCH ×3 (09:10→21:29)
[2019-03-18] MEDS: PANTOPRAZOLE 40 MG TABLET PO SCH (09:10)
[2019-03-18] MEDS: LINACLOTIDE 145 MCG CAPSULE PO SCH (09:10)
[2019-03-18] MEDS: FUROSEMIDE 40 MG TABLET PO SCH (09:10)
[2019-03-18] MEDS: LOSARTAN 25 MG TABLET PO SCH (09:10)
[2019-03-18] MEDS: THEOPHYLLINE ER (24 HR) 400 MG CAPSULE PO SCH (09:10)
[2019-03-18] MEDS: DULoxetine 30 MG CAPSULE PO SCH (09:10)
[2019-03-18] MEDS: LACTOBACILLUS RHAMNOSUS GG CAPSULE PO SCH ×2 (09:10→17:31)
[2019-03-18] MEDS: MONTELUKAST 10 MG TABLET PO SCH (12:37)
[2019-03-18] MEDS ORDERED: METOPROLOL TARTRATE 5 MG/5 ML VIAL IV PRN (16:17)
[2019-03-18] MEDS: ONDANSETRON 4 MG/2 ML VIAL IV PRN (17:28)
[2019-03-18] MEDS: TAMSULOSIN 0.4 MG CAPSULE PO SCH (21:29)
[2019-03-19] MEDS: LEVALBUTEROL 1.25 MG/3 ML NEB RESP TX SCH ×4 (02:00→18:50)
[2019-03-19] MEDS: methylPREDNISolone SOD SUC 125 MG/2 ML VIAL IV SCH ×3 (04:03→20:26)
[2019-03-19 07:33] LABS: Basophils % 0.2 % (0.0-0.8); Hematocrit 36.8 VOL% (42.0-52.0); Hemoglobin 10.8 GM/DL (14.0-18.0); Immature Granulocytes % 1.8 %; Immature Granulocytes Absolute 0.36 #; Lymphocytes # 1.4 10*3/uL (1.4-4.0); Lymphocytes % 6.9 % (21.2-54.2); Mean Corpuscular HGB Conc 29.3 GM/DL (32-36); Mean Corpuscular Volume 84.8 FL (87-102); Mean Platelet Volume 9.9 FL (9.6-12.0); Monocytes % 5.6 % (1.7-12.7); Neutrophils % 85.5 % (38.7-73.9); Platelet Count 367 T/CUMM (130-400); Red Blood Count 4.34 MC/CUMM (3.8-5.5); Red Cell Distribution Width 19.4 % (9.3-17.3)
[2019-03-19 07:47] LABS: Calcium 9.1 MG/DL (8.5-10.1); Osmolality,Calculated 275.2 MOS/KG (273-304)
[2019-03-19 07:50] LABS: Anisocytosis 1+; Hypochromasia 1+; Microcytosis 1+; Platelet Estimate Normal; Spherocytes Slight
[2019-03-19] MEDS: THEOPHYLLINE ER (24 HR) 400 MG CAPSULE PO SCH (09:01)
[2019-03-19] MEDS: DILTIAZEM CD 180 MG CAPSULE PO SCH ×2 (09:01→20:36)
[2019-03-19] MEDS: DULoxetine 30 MG CAPSULE PO SCH (09:01)
[2019-03-19] MEDS: LACTOBACILLUS RHAMNOSUS GG CAPSULE PO SCH ×2 (09:02→16:43)
[2019-03-19] MEDS: ALLOPURINOL 100 MG TABLET PO SCH (09:02)
[2019-03-19] MEDS: FERROUS SULFATE 325 MG TABLET PO SCH (09:02)
[2019-03-19] MEDS: oxyCODONE/ACETAMINOPHEN 5-325 MG TABLET PO SCH ×3 (09:02→20:25)
[2019-03-19] MEDS: PANTOPRAZOLE 40 MG TABLET PO SCH (09:02)
[2019-03-19] MEDS: FUROSEMIDE 40 MG TABLET PO SCH (09:03)
[2019-03-19] MEDS: RIVAROXABAN 20 MG TABLET PO SCH (09:03)
[2019-03-19] MEDS: LOSARTAN 25 MG TABLET PO SCH (09:03)
[2019-03-19] MEDS: BUDESONIDE/FORMOTEROL 160-4.5 INHALER 6 GM INH SCH ×2 (09:07→20:27)
[2019-03-19] MEDS: DOCUSATE SODIUM 100 MG CAPSULE PO SCH ×3 (09:14→20:44)
[2019-03-19] MEDS: LINACLOTIDE 145 MCG CAPSULE PO SCH (09:57)
[2019-03-19] MEDS: MONTELUKAST 10 MG TABLET PO SCH (12:11)
[2019-03-19] MEDS: ONDANSETRON 4 MG/2 ML VIAL IV PRN ×2 (12:19→20:36)
[2019-03-19] MEDS: TAMSULOSIN 0.4 MG CAPSULE PO SCH (20:26)
[2019-03-20] MEDS: LEVALBUTEROL 1.25 MG/3 ML NEB RESP TX SCH ×4 (00:47→19:50)
[2019-03-20] MEDS: ONDANSETRON 4 MG/2 ML VIAL IV PRN ×3 (04:37→20:13)
[2019-03-20] MEDS ORDERED: diphenhydrAMINE CAP 50 MG CAPSULE PO ONE (05:32)
[2019-03-20] MEDS: methylPREDNISolone SOD SUC 125 MG/2 ML VIAL IV SCH ×3 (06:05→20:13)
[2019-03-20 07:21] LABS: Basophils % 0.1 % (0.0-0.8); Hematocrit 37.3 VOL% (42.0-52.0); Hemoglobin 11.1 GM/DL (14.0-18.0); Immature Granulocytes % 2.6 %; Immature Granulocytes Absolute 0.59 #; Lymphocytes # 1.5 10*3/uL (1.4-4.0); Lymphocytes % 6.6 % (21.2-54.2); Mean Corpuscular HGB Conc 29.8 GM/DL (32-36); Mean Corpuscular Volume 84.4 FL (87-102); Mean Platelet Volume 9.8 FL (9.6-12.0); Monocytes % 3.6 % (1.7-12.7); NRBC # 0.02 10*3/uL; Neutrophils % 87.1 % (38.7-73.9); Platelet Count 385 T/CUMM (130-400); Red Blood Count 4.42 MC/CUMM (3.8-5.5); Red Cell Distribution Width 19.4 % (9.3-17.3); White Blood Count 22.5 T/CUMM (4-12)
[2019-03-20 07:45] LABS: Anisocytosis 1+; Band Neutrophils 6 % (0-10); Lymphocytes 9 % (20-55); Platelet Estimate Normal; Segmented Neutrophils 80 % (50-85); Total Cells Counted 100
[2019-03-20 07:46] LABS: Macrocytosis Slight; Poikilocytosis Slight; Polychromasia Slight
[2019-03-20] MEDS: THEOPHYLLINE ER (24 HR) 400 MG CAPSULE PO SCH (08:46)
[2019-03-20] MEDS: LINACLOTIDE 145 MCG CAPSULE PO SCH (08:46)
[2019-03-20] MEDS: DULoxetine 30 MG CAPSULE PO SCH (08:46)
[2019-03-20] MEDS: LACTOBACILLUS RHAMNOSUS GG CAPSULE PO SCH ×2 (08:47→18:41)
[2019-03-20] MEDS: PANTOPRAZOLE 40 MG TABLET PO SCH (08:47)
[2019-03-20] MEDS: FERROUS SULFATE 325 MG TABLET PO SCH (08:47)
[2019-03-20] MEDS: DILTIAZEM CD 180 MG CAPSULE PO SCH ×2 (08:47→20:13)
[2019-03-20] MEDS: oxyCODONE/ACETAMINOPHEN 5-325 MG TABLET PO SCH ×3 (08:47→20:14)
[2019-03-20] MEDS: FUROSEMIDE 40 MG TABLET PO SCH (08:47)
[2019-03-20] MEDS: RIVAROXABAN 20 MG TABLET PO SCH (08:48)
[2019-03-20] MEDS: LOSARTAN 25 MG TABLET PO SCH (08:48)
[2019-03-20] MEDS: ALLOPURINOL 100 MG TABLET PO SCH (08:48)
[2019-03-20] MEDS: BUDESONIDE/FORMOTEROL 160-4.5 INHALER 6 GM INH SCH ×2 (08:51→20:12)
[2019-03-20] MEDS: DOCUSATE SODIUM 100 MG CAPSULE PO SCH (08:51)
[2019-03-20] MEDS: AZITHROMYCIN 250 MG TABLET PO SCH (10:21)
[2019-03-20] MEDS: MONTELUKAST 10 MG TABLET PO SCH (14:23)
[2019-03-20] MEDS ORDERED: ALBUTEROL 2.5 MG/3 ML NEB RESP TX PRN (15:00)
[2019-03-20] MEDS: TAMSULOSIN 0.4 MG CAPSULE PO SCH (20:13)
[2019-03-20] MEDS: THEOPHYLLINE ER (24 HR) 300 MG CAPSULE PO SCH (20:16)
[2019-03-21] MEDS: LEVALBUTEROL 1.25 MG/3 ML NEB RESP TX SCH ×4 (01:25→19:05)
[2019-03-21] MEDS: DOCUSATE SODIUM 100 MG CAPSULE PO SCH ×3 (06:25→23:22)
[2019-03-21] MEDS: methylPREDNISolone SOD SUC 125 MG/2 ML VIAL IV SCH ×3 (06:47→21:19)
[2019-03-21 08:04] LABS: Basophils % 0.1 % (0.0-0.8); Hematocrit 34.5 VOL% (42.0-52.0); Hemoglobin 10.4 GM/DL (14.0-18.0); Immature Granulocytes % 3.1 %; Immature Granulocytes Absolute 0.54 #; Lymphocytes # 1.1 10*3/uL (1.4-4.0); Lymphocytes % 6.5 % (21.2-54.2); Mean Corpuscular HGB Conc 30.1 GM/DL (32-36); Mean Corpuscular Volume 83.3 FL (87-102); NRBC # 0.02 10*3/uL; Neutrophils % 86.3 % (38.7-73.9); Platelet Count 316 T/CUMM (130-400); Red Blood Count 4.14 MC/CUMM (3.8-5.5); Red Cell Distribution Width 19.3 % (9.3-17.3); White Blood Count 17.6 T/CUMM (4-12)
[2019-03-21 08:28] LABS: Anisocytosis 1+; Band Neutrophils 7 % (0-10); Lymphocytes 7 % (20-55); Platelet Estimate Normal; Segmented Neutrophils 81 % (50-85); Total Cells Counted 100
[2019-03-21] MEDS: FUROSEMIDE 40 MG TABLET PO SCH (08:36)
[2019-03-21] MEDS: RIVAROXABAN 20 MG TABLET PO SCH (08:37)
[2019-03-21] MEDS: oxyCODONE/ACETAMINOPHEN 5-325 MG TABLET PO SCH ×3 (08:37→21:16)
[2019-03-21] MEDS: LOSARTAN 25 MG TABLET PO SCH (08:37)
[2019-03-21] MEDS: DILTIAZEM CD 180 MG CAPSULE PO SCH ×2 (08:37→21:17)
[2019-03-21] MEDS: DULoxetine 30 MG CAPSULE PO SCH (08:37)
[2019-03-21] MEDS: ASPIRIN EC 81 MG TABLET PO SCH (08:37)
[2019-03-21] MEDS: LACTOBACILLUS RHAMNOSUS GG CAPSULE PO SCH ×2 (08:37→16:03)
[2019-03-21] MEDS: FERROUS SULFATE 325 MG TABLET PO SCH (08:37)
[2019-03-21] MEDS: PANTOPRAZOLE 40 MG TABLET PO SCH ×2 (08:38→10:27)
[2019-03-21] MEDS: BUDESONIDE/FORMOTEROL 160-4.5 INHALER 6 GM INH SCH ×2 (08:38→21:15)
[2019-03-21 08:44] LABS: Osmolality,Calculated 283.1 MOS/KG (273-304)
[2019-03-21] MEDS: ALLOPURINOL 100 MG TABLET PO SCH (08:45)
[2019-03-21] MEDS: THEOPHYLLINE ER (24 HR) 300 MG CAPSULE PO SCH ×2 (08:45→23:34)
[2019-03-21] MEDS: AZITHROMYCIN 250 MG TABLET PO SCH (08:46)
[2019-03-21] MEDS: ONDANSETRON 4 MG/2 ML VIAL IV PRN ×3 (08:49→21:26)
[2019-03-21] MEDS: LINACLOTIDE 145 MCG CAPSULE PO SCH (08:54)
[2019-03-21] MEDS ORDERED: THEOPHYLLINE ER (24 HR) 300 MG CAPSULE PO SCH (09:00)
[2019-03-21] MEDS: FLUTICASONE 50 MCG NASAL SPRAY 16 GM BOTTLE BOTH NARES SCH (12:50)
[2019-03-21] MEDS: FEBUXOSTAT 80 MG TABLET PO SCH (12:50)
[2019-03-21] MEDS: diphenhydrAMINE CAP 50 MG CAPSULE PO PRN ×2 (12:50→21:26)
[2019-03-21] MEDS: MONTELUKAST 10 MG TABLET PO SCH (12:51)
[2019-03-21] MEDS ORDERED: DEXTROSE 50% 25 GM/50 ML SYRINGE IV PRN (14:00)
[2019-03-21] MEDS ORDERED: GLUCAGON 1 MG VIAL IM PRN (14:00)
[2019-03-21] MEDS ORDERED: INSULIN GLARGINE 100 UNIT/ML SUBCUT SCH (21:00)
[2019-03-21] MEDS: TAMSULOSIN 0.4 MG CAPSULE PO SCH (21:18)
[2019-03-21] MEDS: INSULIN LISPRO 100 UNIT/ML SUBCUT SCH (21:25)
[2019-03-22] MEDS: LEVALBUTEROL 1.25 MG/3 ML NEB RESP TX SCH ×2 (00:20→07:51)
[2019-03-22] MEDS: diphenhydrAMINE CAP 50 MG CAPSULE PO PRN (05:15)
[2019-03-22] MEDS: methylPREDNISolone SOD SUC 125 MG/2 ML VIAL IV SCH ×3 (05:16→12:04)
[2019-03-22] MEDS: ONDANSETRON 4 MG/2 ML VIAL IV PRN ×2 (05:16→11:46)
[2019-03-22 05:59] LABS: Basophils % 0.2 % (0.0-0.8); Eosinophils % 0.1 % (0.00-10.9); Hematocrit 34.7 VOL% (42.0-52.0); Hemoglobin 10.4 GM/DL (14.0-18.0); Immature Granulocytes % 3.4 %; Immature Granulocytes Absolute 0.57 #; Lymphocytes # 1.3 10*3/uL (1.4-4.0); Lymphocytes % 7.6 % (21.2-54.2); Mean Platelet Volume 10.1 FL (9.6-12.0); Monocytes % 4.5 % (1.7-12.7); NRBC # 0.02 10*3/uL; Neutrophils % 84.2 % (38.7-73.9); Platelet Count 294 T/CUMM (130-400); Red Blood Count 4.13 MC/CUMM (3.8-5.5); Red Cell Distribution Width 18.9 % (9.3-17.3); White Blood Count 16.6 T/CUMM (4-12)
[2019-03-22 06:20] LABS: Osmolality,Calculated 283.2 MOS/KG (273-304)
[2019-03-22 06:25] LABS: Anisocytosis 1+; Lymphocytes 9 % (20-55); Nucleated Red Blood Cells 1 (0-5); Segmented Neutrophils 88 % (50-85); Total Cells Counted 100
[2019-03-22 06:26] LABS: Microcytosis 1+; Stomatocytes Slight
[2019-03-22 06:27] LABS: Polychromasia Slight
[2019-03-22 06:28] LABS: Hypochromasia Slight
[2019-03-22 06:29] LABS: Platelet Estimate Normal
[2019-03-22] MEDS: INSULIN LISPRO 100 UNIT/ML SUBCUT SCH (09:37)
[2019-03-22] MEDS: FLUTICASONE 50 MCG NASAL SPRAY 16 GM BOTTLE BOTH NARES SCH (09:38)
[2019-03-22] MEDS: BUDESONIDE/FORMOTEROL 160-4.5 INHALER 6 GM INH SCH (09:38)
[2019-03-22] MEDS: AZITHROMYCIN 250 MG TABLET PO SCH (09:39)
[2019-03-22] MEDS: DULoxetine 30 MG CAPSULE PO SCH (09:39)
[2019-03-22] MEDS: PANTOPRAZOLE 40 MG TABLET PO SCH ×2 (09:39→09:41)
[2019-03-22] MEDS: LINACLOTIDE 145 MCG CAPSULE PO SCH (09:39)
[2019-03-22] MEDS: oxyCODONE/ACETAMINOPHEN 5-325 MG TABLET PO SCH (09:39)
[2019-03-22] MEDS: LACTOBACILLUS RHAMNOSUS GG CAPSULE PO SCH (09:39)
[2019-03-22] MEDS: FUROSEMIDE 40 MG TABLET PO SCH (09:40)
[2019-03-22] MEDS: FERROUS SULFATE 325 MG TABLET PO SCH (09:40)
[2019-03-22] MEDS: DOCUSATE SODIUM 100 MG CAPSULE PO SCH (09:40)
[2019-03-22] MEDS: DILTIAZEM CD 180 MG CAPSULE PO SCH (09:40)
[2019-03-22] MEDS: ASPIRIN EC 81 MG TABLET PO SCH (09:40)
[2019-03-22] MEDS: RIVAROXABAN 20 MG TABLET PO SCH (09:41)
[2019-03-22] MEDS: FEBUXOSTAT 80 MG TABLET PO SCH (11:47)
[2019-03-22] MEDS: THEOPHYLLINE ER (24 HR) 300 MG CAPSULE PO SCH (11:48)
[2019-03-22] MEDS: MONTELUKAST 10 MG TABLET PO SCH ×2 (11:48→12:04)
[2019-03-22 11:52] VITALS: BP 133/84
== END 2019-03-22 12:37 | disposition home or self-care (01) | DRG 190 ==
LOC: N.EDINP 21:46 → N.ED 21:46 → N.2E 03-18 11:09
PROVIDERS: ADMIT Internal Medicine; ATTEND Internal Medicine

== ENCOUNTER 2019-03-25 07:48 | Inpatient (IN) ==
[2019-03-25] MEDS ORDERED: LOPERAMIDE 2 MG CAPSULE PO STA (08:12)
[2019-03-25] MEDS ORDERED: SODIUM CHLORIDE 0.9% 1,000 ML IV STA (08:12)
[2019-03-25] MEDS ORDERED: ONDANSETRON ODT 4 MG TABLET PO STA (08:12)
[2019-03-25] MEDS ORDERED: DILTIAZEM 50 MG/10 ML VIAL IV STA (08:23)
[2019-03-25] MEDS ORDERED: NYSTATIN 500,000 UNIT/5 ML UDCUP SWISH/SWAL STA (08:24)
[2019-03-25] MEDS ORDERED: DILTIAZEM INJ 100 MG in SODIUM CHLORIDE 0.9% 100 ML IV SCH (08:30)
[2019-03-25] MEDS ORDERED: dilTIAZem Drip 125 MG/125 ML PREMIX IV ONE (08:42)
[2019-03-25] MEDS ORDERED: HYDROmorphone 2 MG/1 ML VIAL IV STA (08:45)
[2019-03-25] MEDS ORDERED: HYDROmorphone 2 MG/1 ML VIAL ONE (08:46)
[2019-03-25 08:47] LABS: Basophils % 0.2 % (0.0-0.8); Hemoglobin 12.9 GM/DL (14.0-18.0); Immature Granulocytes % 2.1 %; Immature Granulocytes Absolute 0.36 #; Lymphocytes # 1.3 10*3/uL (1.4-4.0); Lymphocytes % 7.7 % (21.2-54.2); Mean Corpuscular HGB Conc 30.7 GM/DL (32-36); Mean Corpuscular Volume 80.5 FL (87-102); Mean Platelet Volume 9.5 FL (9.6-12.0); Monocytes % 14.4 % (1.7-12.7); Neutrophils % 75.6 % (38.7-73.9); Platelet Count 231 T/CUMM (130-400); Red Blood Count 5.22 MC/CUMM (3.8-5.5); Red Cell Distribution Width 19.1 % (9.3-17.3); White Blood Count 16.8 T/CUMM (4-12)
[2019-03-25] MEDS ORDERED: PIPERACILLIN/TAZOBACTAM 3,375 MG in SODIUM CHLORIDE 0.9% 100 ML IV STA (09:03)
[2019-03-25 09:05] LABS: Albumin 3.4 G/DL (3.4-5.0); Bilirubin,Total 0.6 MG/DL (0.2-1.0); Calcium 8.4 MG/DL (8.5-10.1); Osmolality,Calculated 266.5 MOS/KG (273-304); Total Protein 6.9 G/DL (6.4-8.3)
[2019-03-25] MEDS ORDERED: ACETAMINOPHEN 500 MG TABLET PO STA (09:05)
[2019-03-25] MEDS ORDERED: ACETAMINOPHEN 500 MG TABLET ONE (09:05)
[2019-03-25] MEDS ORDERED: POTASSIUM CHLORIDE 20 MEQ TABLET PO STA (10:02)
[2019-03-25 10:22] LABS: Barbiturates Screen,Urine Negative (Negative); Benzodiazepines Screen,Urine Negative (Negative); Cannabinoid Screen,Urine Positive (Negative); Opiate Screen,Urine Positive (Negative); Phencyclidine Screen,Urine Negative (Negative)
[2019-03-25 10:23] LABS: Apearance,Urine CLEAR (Clear); Bilirubin,Urine Negative (Negative); Blood, Urine Negative (Negative); Glucose,Urine (UA) Negative (Negative); Ketones,Urine Negative (Negative); Mucus,Urine Occasional /LPF (Occasional); Nitrite,Urine Negative (Negative); Protein,Urine 30 MG/DL; RBC,Urine <1 /HPF (0-4); Sperm,Urine Occasional /HPF (Negative); Urine Color Yellow (Yellow); Urine Urobilinogen < 2.0 EU/DL (0.2-1.0); WBC,Urine 5 /HPF (0-6)
[2019-03-25] MEDS ORDERED: ACETAMINOPHEN 325 MG TABLET PO PRN (11:52)
[2019-03-25] MEDS ORDERED: ZALEPLON 5 MG CAPSULE PO PRN (11:52)
[2019-03-25] MEDS ORDERED: PROMETHAZINE 25 MG/1 ML VIAL IM PRN (11:52)
[2019-03-25] MEDS ORDERED: SIMETHICONE CHEW 125 MG TABLET PO PRN (11:56)
[2019-03-25] MEDS: MONTELUKAST 10 MG TABLET PO SCH (13:10)
[2019-03-25] MEDS: ERGOCALCIFEROL 50,000 UNIT CAPSULE PO SCH (13:10)
[2019-03-25] MEDS: SODIUM CHLORIDE 0.45% 1,000 ML IV SCH (13:10)
[2019-03-25] MEDS ORDERED: VANCOMYCIN INJ 2,500 MG in SODIUM CHLORIDE 0.9% 500 ML IV SCH (14:00)
[2019-03-25] MEDS: ALBUTEROL 2.5 MG/3 ML NEB RESP TX SCH ×2 (14:11→18:55)
[2019-03-25] MEDS: oxyCODONE/ACETAMINOPHEN 5-325 MG TABLET PO SCH ×2 (14:53→21:26)
[2019-03-25] MEDS ORDERED: dilTIAZem Drip 125 MG/125 ML PREMIX IV SCH ×2 (16:30→17:00)
[2019-03-25] MEDS: PIPERACILLIN/TAZOBACTAM 3,375 MG in SODIUM CHLORIDE 0.9% 100 ML IV SCH (17:47)
[2019-03-25] MEDS: TAMSULOSIN 0.4 MG CAPSULE PO SCH (21:26)
[2019-03-25] MEDS: DOCUSATE SODIUM 100 MG CAPSULE PO SCH (21:36)
[2019-03-25] MEDS: ALUMINUM/MAGNES/SIMETH MAX STR 30 ML UDCUP PO PRN (21:55)
[2019-03-25] MEDS: BUDESONIDE/FORMOTEROL 160-4.5 INHALER 6 GM INH SCH (21:55)
[2019-03-26] MEDS: ALBUTEROL 2.5 MG/3 ML NEB RESP TX SCH ×4 (01:05→20:13)
[2019-03-26] MEDS: dilTIAZem Drip 125 MG/125 ML PREMIX IV SCH (01:07)
[2019-03-26] MEDS: PIPERACILLIN/TAZOBACTAM 3,375 MG in SODIUM CHLORIDE 0.9% 100 ML IV SCH ×3 (02:33→17:50)
[2019-03-26 07:11] LABS: Basophils % 0.1 % (0.0-0.8); Eosinophils % 0.1 % (0.00-10.9); Hematocrit 37.8 VOL% (42.0-52.0); Hemoglobin 11.3 GM/DL (14.0-18.0); Immature Granulocytes % 1.6 %; Immature Granulocytes Absolute 0.26 #; Lymphocytes # 1.5 10*3/uL (1.4-4.0); Lymphocytes % 9.6 % (21.2-54.2); Mean Corpuscular HGB Conc 29.9 GM/DL (32-36); Mean Corpuscular Volume 83.4 FL (87-102); Mean Platelet Volume 10.3 FL (9.6-12.0); Neutrophils % 72.6 % (38.7-73.9); Red Blood Count 4.53 MC/CUMM (3.8-5.5); Red Cell Distribution Width 18.9 % (9.3-17.3)
[2019-03-26 07:18] LABS: Platelet Count 177 T/CUMM (130-400)
[2019-03-26 07:34] LABS: Band Neutrophils 2 % (0-10); Hypochromasia 1+; Lymphocytes 12 % (20-55); Platelet Estimate Adequate; Segmented Neutrophils 77 % (50-85); Total Cells Counted 100
[2019-03-26 07:35] LABS: Microcytosis Slight
[2019-03-26 07:43] LABS: Albumin 2.9 G/DL (3.4-5.0); Bilirubin,Total 0.6 MG/DL (0.2-1.0); Calcium 8.4 MG/DL (8.5-10.1); Osmolality,Calculated 265.5 MOS/KG (273-304); Risk Ratio 3.15; Total Protein 6.6 G/DL (6.4-8.3); VLDL CHOLESTEROL 37.8 MG/DL
[2019-03-26] MEDS ORDERED: FUROSEMIDE 40 MG TABLET PO SCH (09:00)
[2019-03-26] MEDS: DILTIAZEM CD 180 MG CAPSULE PO SCH (10:05)
[2019-03-26] MEDS: prednisoLONE 15 MG/5 ML ORAL.SYR PO SCH (10:35)
[2019-03-26] MEDS: DULoxetine 30 MG CAPSULE PO SCH (10:36)
[2019-03-26] MEDS: POTASSIUM CHLORIDE 20 MEQ TABLET PO PRN ×2 (10:38→16:41)
[2019-03-26] MEDS: FEBUXOSTAT 80 MG TABLET PO SCH (10:39)
[2019-03-26] MEDS: THEOPHYLLINE ER (24 HR) 400 MG CAPSULE PO SCH (10:39)
[2019-03-26] MEDS: PANTOPRAZOLE 40 MG TABLET PO SCH (10:39)
[2019-03-26] MEDS: FERROUS SULFATE 325 MG TABLET PO SCH (10:39)
[2019-03-26] MEDS: ASPIRIN EC 81 MG TABLET PO SCH (10:39)
[2019-03-26] MEDS: RIVAROXABAN 20 MG TABLET PO SCH (10:39)
[2019-03-26] MEDS: oxyCODONE/ACETAMINOPHEN 5-325 MG TABLET PO SCH ×3 (10:40→23:07)
[2019-03-26] MEDS: BUDESONIDE/FORMOTEROL 160-4.5 INHALER 6 GM INH SCH ×2 (10:41→23:21)
[2019-03-26] MEDS: FLUTICASONE 50 MCG NASAL SPRAY 16 GM BOTTLE BOTH NARES SCH (10:41)
[2019-03-26] MEDS: ONDANSETRON 4 MG/2 ML VIAL IV PRN ×2 (10:42→16:42)
[2019-03-26] MEDS: DOCUSATE SODIUM 100 MG CAPSULE PO SCH ×2 (10:48→23:07)
[2019-03-26] MEDS: LINACLOTIDE 145 MCG CAPSULE PO SCH (10:49)
[2019-03-26] MEDS ORDERED: POTASSIUM CHLORIDE 20 MEQ TABLET PO ONE (11:03)
[2019-03-26] MEDS: NYSTATIN 500,000 UNIT/5 ML UDCUP SWISH/SWAL SCH ×3 (13:51→23:10)
[2019-03-26] MEDS: MONTELUKAST 10 MG TABLET PO SCH (14:16)
[2019-03-26] MEDS: SODIUM CHLORIDE 0.45% 1,000 ML IV SCH (17:51)
[2019-03-26] MEDS: TAMSULOSIN 0.4 MG CAPSULE PO SCH (23:07)
[2019-03-26] MEDS: NAFCILLIN 2,000 MG in SODIUM CHLORIDE 0.9% 100 ML IV SCH (23:10)
[2019-03-27] MEDS: ALBUTEROL 2.5 MG/3 ML NEB RESP TX SCH ×4 (01:10→19:00)
[2019-03-27] MEDS: diphenhydrAMINE CAP 25 MG CAPSULE PO PRN ×3 (01:18→21:29)
[2019-03-27] MEDS: ONDANSETRON 4 MG/2 ML VIAL IV PRN ×3 (01:27→21:29)
[2019-03-27] MEDS: NAFCILLIN 2,000 MG in SODIUM CHLORIDE 0.9% 100 ML IV SCH ×6 (01:33→21:18)
[2019-03-27 05:05] LABS: Basophils % 0.1 % (0.0-0.8); Hematocrit 32.3 VOL% (42.0-52.0); Hemoglobin 9.9 GM/DL (14.0-18.0); Immature Granulocytes % 2.1 %; Immature Granulocytes Absolute 0.35 #; Lymphocytes # 1.1 10*3/uL (1.4-4.0); Lymphocytes % 6.5 % (21.2-54.2); Mean Corpuscular HGB Conc 30.7 GM/DL (32-36); Mean Corpuscular Volume 81.4 FL (87-102); Mean Platelet Volume 10.6 FL (9.6-12.0); Monocytes % 12.2 % (1.7-12.7); Neutrophils % 79.1 % (38.7-73.9); Platelet Count 155 T/CUMM (130-400); Red Blood Count 3.97 MC/CUMM (3.8-5.5); Red Cell Distribution Width 18.3 % (9.3-17.3); White Blood Count 16.8 T/CUMM (4-12)
[2019-03-27 05:34] LABS: Albumin 2.7 G/DL (3.4-5.0); Bilirubin,Total 0.5 MG/DL (0.2-1.0); Calcium 8.5 MG/DL (8.5-10.1); Osmolality,Calculated 268.4 MOS/KG (273-304); Total Protein 6.3 G/DL (6.4-8.3)
[2019-03-27] MEDS: dilTIAZem Drip 125 MG/125 ML PREMIX IV SCH (09:29)
[2019-03-27] MEDS: LINACLOTIDE 145 MCG CAPSULE PO SCH (09:30)
[2019-03-27] MEDS: FERROUS SULFATE 325 MG TABLET PO SCH (09:30)
[2019-03-27] MEDS: NYSTATIN 500,000 UNIT/5 ML UDCUP SWISH/SWAL SCH ×4 (09:31→21:18)
[2019-03-27] MEDS: prednisoLONE 15 MG/5 ML ORAL.SYR PO SCH (09:31)
[2019-03-27] MEDS: oxyCODONE/ACETAMINOPHEN 5-325 MG TABLET PO SCH ×3 (09:31→21:16)
[2019-03-27] MEDS: DILTIAZEM CD 180 MG CAPSULE PO SCH (09:32)
[2019-03-27] MEDS: PANTOPRAZOLE 40 MG TABLET PO SCH (09:33)
[2019-03-27] MEDS: RIVAROXABAN 20 MG TABLET PO SCH (09:33)
[2019-03-27] MEDS: DULoxetine 30 MG CAPSULE PO SCH (09:33)
[2019-03-27] MEDS: THEOPHYLLINE ER (24 HR) 400 MG CAPSULE PO SCH (09:33)
[2019-03-27] MEDS: BUDESONIDE/FORMOTEROL 160-4.5 INHALER 6 GM INH SCH ×2 (09:34→21:37)
[2019-03-27] MEDS: DOCUSATE SODIUM 100 MG CAPSULE PO SCH ×2 (09:34→20:02)
[2019-03-27] MEDS: ASPIRIN EC 81 MG TABLET PO SCH (09:34)
[2019-03-27] MEDS: FLUTICASONE 50 MCG NASAL SPRAY 16 GM BOTTLE BOTH NARES SCH (09:34)
[2019-03-27] MEDS: POTASSIUM CHLORIDE 20 MEQ TABLET PO PRN ×2 (09:37→13:05)
[2019-03-27] MEDS: FEBUXOSTAT 80 MG TABLET PO SCH (09:38)
[2019-03-27] MEDS: MONTELUKAST 10 MG TABLET PO SCH (13:05)
[2019-03-27] MEDS: SODIUM CHLORIDE 0.45% 1,000 ML IV SCH ×2 (13:10→13:11)
[2019-03-27] MEDS: ALUMINUM/MAGNES/SIMETH MAX STR 30 ML UDCUP PO PRN (18:12)
[2019-03-27] MEDS ORDERED: NITROGLYCERIN SL 0.4 MG TABLET SL ONE (18:20)
[2019-03-27] MEDS ORDERED: NITROGLYCERIN SL 0.4 MG TABLET SL PRN (18:26)
[2019-03-27] MEDS ORDERED: MORPHINE 4 MG/1 ML VIAL IV PRN (18:27)
[2019-03-27] MEDS: TAMSULOSIN 0.4 MG CAPSULE PO SCH (21:16)
[2019-03-28] MEDS: ALBUTEROL 2.5 MG/3 ML NEB RESP TX SCH ×4 (01:14→19:21)
[2019-03-28] MEDS: NAFCILLIN 2,000 MG in SODIUM CHLORIDE 0.9% 100 ML IV SCH ×6 (01:14→20:04)
[2019-03-28] MEDS: SODIUM CHLORIDE 0.45% 1,000 ML IV SCH ×3 (01:48→20:04)
[2019-03-28 05:15] LABS: Basophils % 0.1 % (0.0-0.8); Hematocrit 30.5 VOL% (42.0-52.0); Hemoglobin 9.2 GM/DL (14.0-18.0); Immature Granulocytes % 2.7 %; Immature Granulocytes Absolute 0.42 #; Lymphocytes # 1.7 10*3/uL (1.4-4.0); Lymphocytes % 10.7 % (21.2-54.2); Mean Corpuscular HGB Conc 30.2 GM/DL (32-36); Mean Corpuscular Volume 82.4 FL (87-102); Mean Platelet Volume 10.7 FL (9.6-12.0); Monocytes % 7.9 % (1.7-12.7); Neutrophils % 78.6 % (38.7-73.9); Platelet Count 163 T/CUMM (130-400); Red Cell Distribution Width 18.7 % (9.3-17.3); White Blood Count 15.6 T/CUMM (4-12)
[2019-03-28 05:28] LABS: Albumin 2.5 G/DL (3.4-5.0); Bilirubin,Total 0.7 MG/DL (0.2-1.0); Calcium 8.5 MG/DL (8.5-10.1); Osmolality,Calculated 273.1 MOS/KG (273-304); Total Protein 6.1 G/DL (6.4-8.3)
[2019-03-28] MEDS: prednisoLONE 15 MG/5 ML ORAL.SYR PO SCH (08:27)
[2019-03-28] MEDS: PANTOPRAZOLE 40 MG TABLET PO SCH (08:29)
[2019-03-28] MEDS: POTASSIUM CHLORIDE 20 MEQ TABLET PO PRN ×3 (08:29→13:46)
[2019-03-28] MEDS: oxyCODONE/ACETAMINOPHEN 5-325 MG TABLET PO SCH ×3 (08:29→20:02)
[2019-03-28] MEDS: FERROUS SULFATE 325 MG TABLET PO SCH (08:30)
[2019-03-28] MEDS: RIVAROXABAN 20 MG TABLET PO SCH (08:30)
[2019-03-28] MEDS: DULoxetine 30 MG CAPSULE PO SCH (08:30)
[2019-03-28] MEDS: FEBUXOSTAT 80 MG TABLET PO SCH (08:31)
[2019-03-28] MEDS: DILTIAZEM CD 180 MG CAPSULE PO SCH (08:31)
[2019-03-28] MEDS: ASPIRIN EC 81 MG TABLET PO SCH (08:31)
[2019-03-28] MEDS: NYSTATIN 500,000 UNIT/5 ML UDCUP SWISH/SWAL SCH ×4 (08:31→20:03)
[2019-03-28] MEDS: BUDESONIDE/FORMOTEROL 160-4.5 INHALER 6 GM INH SCH ×2 (08:41→20:05)
[2019-03-28] MEDS: FLUTICASONE 50 MCG NASAL SPRAY 16 GM BOTTLE BOTH NARES SCH (08:41)
[2019-03-28] MEDS: ONDANSETRON 4 MG/2 ML VIAL IV PRN ×2 (08:41→20:02)
[2019-03-28] MEDS: DOCUSATE SODIUM 100 MG CAPSULE PO SCH ×2 (08:42→20:02)
[2019-03-28] MEDS: LINACLOTIDE 145 MCG CAPSULE PO SCH (08:42)
[2019-03-28] MEDS: THEOPHYLLINE ER (24 HR) 400 MG CAPSULE PO SCH (09:13)
[2019-03-28] MEDS: dilTIAZem Drip 125 MG/125 ML PREMIX IV SCH (11:23)
[2019-03-28] MEDS ORDERED: POTASSIUM CHLORIDE 20 MEQ TABLET PO ONE (11:32)
[2019-03-28] MEDS: NIFEdipine 10 MG CAPSULE PO PRN (11:44)
[2019-03-28] MEDS: MONTELUKAST 10 MG TABLET PO SCH (13:46)
[2019-03-28] MEDS: TAMSULOSIN 0.4 MG CAPSULE PO SCH (20:03)
[2019-03-28] MEDS: diphenhydrAMINE CAP 25 MG CAPSULE PO PRN (20:03)
[2019-03-29] MEDS: NAFCILLIN 2,000 MG in SODIUM CHLORIDE 0.9% 100 ML IV SCH ×6 (01:15→20:41)
[2019-03-29] MEDS: ALBUTEROL 2.5 MG/3 ML NEB RESP TX SCH ×4 (01:18→19:17)
[2019-03-29 04:35] LABS: Basophils % 0.2 % (0.0-0.8); Hematocrit 31.7 VOL% (42.0-52.0); Hemoglobin 9.6 GM/DL (14.0-18.0); Immature Granulocytes % 4.2 %; Lymphocytes # 2.6 10*3/uL (1.4-4.0); Lymphocytes % 17.8 % (21.2-54.2); Mean Corpuscular HGB Conc 30.3 GM/DL (32-36); Mean Platelet Volume 10.8 FL (9.6-12.0); Monocytes % 10.1 % (1.7-12.7); Neutrophils % 67.7 % (38.7-73.9); Platelet Count 180 T/CUMM (130-400); Red Blood Count 3.82 MC/CUMM (3.8-5.5); Red Cell Distribution Width 19.2 % (9.3-17.3); White Blood Count 14.4 T/CUMM (4-12)
[2019-03-29 04:47] LABS: Alanine Aminotransferase 20 U/L (16-61); Albumin 2.8 G/DL (3.4-5.0); Alkaline Phosphatase 61 U/L (45-117); Aspartate Amino Transferase 7 U/L (0-37); Bilirubin,Total < 0.39 MG/DL (0.2-1.0); Blood Urea Nitrogen 8 MG/DL (7-18); Calcium 8.8 MG/DL (8.5-10.1); Glucose 116 MG/DL (74-106); Osmolality,Calculated 273.7 MOS/KG (273-304); Total Protein 6.8 G/DL (6.4-8.3)
[2019-03-29 04:59] LABS: Band Neutrophils 1 % (0-10); Hypochromasia 1+; Lymphocytes 17 % (20-55); Platelet Estimate Adequate; Segmented Neutrophils 74 % (50-85); Total Cells Counted 100
[2019-03-29] MEDS: ONDANSETRON 4 MG/2 ML VIAL IV PRN ×2 (08:10→17:18)
[2019-03-29] MEDS: ASPIRIN EC 81 MG TABLET PO SCH (08:11)
[2019-03-29] MEDS: FEBUXOSTAT 80 MG TABLET PO SCH (08:11)
[2019-03-29] MEDS: NIFEdipine 10 MG CAPSULE PO PRN ×2 (08:12→20:05)
[2019-03-29] MEDS: DILTIAZEM CD 180 MG CAPSULE PO SCH (08:12)
[2019-03-29] MEDS: DULoxetine 30 MG CAPSULE PO SCH (08:12)
[2019-03-29] MEDS: THEOPHYLLINE ER (24 HR) 400 MG CAPSULE PO SCH (08:12)
[2019-03-29] MEDS: oxyCODONE/ACETAMINOPHEN 5-325 MG TABLET PO SCH ×3 (08:13→20:40)
[2019-03-29] MEDS: FERROUS SULFATE 325 MG TABLET PO SCH (08:13)
[2019-03-29] MEDS: LINACLOTIDE 145 MCG CAPSULE PO SCH (08:13)
[2019-03-29] MEDS: POTASSIUM CHLORIDE 20 MEQ TABLET PO PRN ×2 (08:15→11:00)
[2019-03-29] MEDS: RIVAROXABAN 20 MG TABLET PO SCH (08:15)
[2019-03-29] MEDS: PANTOPRAZOLE 40 MG TABLET PO SCH (08:15)
[2019-03-29] MEDS: NYSTATIN 500,000 UNIT/5 ML UDCUP SWISH/SWAL SCH ×4 (08:16→20:43)
[2019-03-29] MEDS: DOCUSATE SODIUM 100 MG CAPSULE PO SCH ×2 (08:16→20:46)
[2019-03-29] MEDS: BUDESONIDE/FORMOTEROL 160-4.5 INHALER 6 GM INH SCH ×2 (08:17→20:46)
[2019-03-29] MEDS: FLUTICASONE 50 MCG NASAL SPRAY 16 GM BOTTLE BOTH NARES SCH (08:17)
[2019-03-29] MEDS: prednisoLONE 15 MG/5 ML ORAL.SYR PO SCH (08:17)
[2019-03-29] MEDS: MONTELUKAST 10 MG TABLET PO SCH (13:28)
[2019-03-29] MEDS: SODIUM CHLORIDE 0.45% 1,000 ML IV SCH (13:28)
[2019-03-29] MEDS ORDERED: POTASSIUM CHLORIDE 10 MEQ TABLET PO ONE (14:14)
[2019-03-29] MEDS: TAMSULOSIN 0.4 MG CAPSULE PO SCH (20:39)
[2019-03-29] MEDS: diphenhydrAMINE CAP 25 MG CAPSULE PO PRN (23:11)
[2019-03-30] MEDS: ALBUTEROL 2.5 MG/3 ML NEB RESP TX SCH ×4 (00:23→19:37)
[2019-03-30] MEDS: NAFCILLIN 2,000 MG in SODIUM CHLORIDE 0.9% 100 ML IV SCH ×6 (00:42→21:54)
[2019-03-30 04:53] LABS: Calcium 8.9 MG/DL (8.5-10.1); Osmolality,Calculated 273.8 MOS/KG (273-304)
[2019-03-30] MEDS: ONDANSETRON 4 MG/2 ML VIAL IV PRN (07:26)
[2019-03-30] MEDS: NYSTATIN 500,000 UNIT/5 ML UDCUP SWISH/SWAL SCH ×4 (09:00→21:54)
[2019-03-30] MEDS: THEOPHYLLINE ER (24 HR) 400 MG CAPSULE PO SCH (09:00)
[2019-03-30] MEDS: oxyCODONE/ACETAMINOPHEN 5-325 MG TABLET PO SCH ×3 (09:00→21:54)
[2019-03-30] MEDS: FERROUS SULFATE 325 MG TABLET PO SCH (09:00)
[2019-03-30] MEDS: DULoxetine 30 MG CAPSULE PO SCH (09:00)
[2019-03-30] MEDS: RIVAROXABAN 20 MG TABLET PO SCH (09:00)
[2019-03-30] MEDS: PANTOPRAZOLE 40 MG TABLET PO SCH (09:01)
[2019-03-30] MEDS: FEBUXOSTAT 80 MG TABLET PO SCH (09:01)
[2019-03-30] MEDS: DOCUSATE SODIUM 100 MG CAPSULE PO SCH ×2 (09:01→21:53)
[2019-03-30] MEDS: ASPIRIN EC 81 MG TABLET PO SCH (09:01)
[2019-03-30] MEDS: FLUTICASONE 50 MCG NASAL SPRAY 16 GM BOTTLE BOTH NARES SCH (09:02)
[2019-03-30] MEDS: LINACLOTIDE 145 MCG CAPSULE PO SCH (09:02)
[2019-03-30] MEDS: BUDESONIDE/FORMOTEROL 160-4.5 INHALER 6 GM INH SCH ×2 (09:02→21:54)
[2019-03-30] MEDS: DILTIAZEM CD 240 MG CAPSULE PO SCH (09:04)
[2019-03-30] MEDS: prednisoLONE 15 MG/5 ML ORAL.SYR PO SCH (09:13)
[2019-03-30] MEDS ORDERED: hydrALAZINE 20 MG/1 ML VIAL IV PRN (10:28)
[2019-03-30] MEDS: SODIUM CHLORIDE 0.45% 1,000 ML IV SCH ×2 (13:13→13:17)
[2019-03-30] MEDS: LOSARTAN 25 MG TABLET PO SCH ×2 (13:20→21:53)
[2019-03-30] MEDS: MONTELUKAST 10 MG TABLET PO SCH (13:27)
[2019-03-30] MEDS ORDERED: POTASSIUM CHLORIDE 10 MEQ TABLET PO ONE (14:36)
[2019-03-30] MEDS: TAMSULOSIN 0.4 MG CAPSULE PO SCH (21:53)
[2019-03-31] MEDS: NIFEdipine 10 MG CAPSULE PO PRN (00:07)
[2019-03-31] MEDS: ALBUTEROL 2.5 MG/3 ML NEB RESP TX SCH ×4 (00:19→19:01)
[2019-03-31] MEDS: NAFCILLIN 2,000 MG in SODIUM CHLORIDE 0.9% 100 ML IV SCH ×6 (02:00→21:14)
[2019-03-31 06:16] LABS: Calcium 8.7 MG/DL (8.5-10.1); Osmolality,Calculated 280.4 MOS/KG (273-304)
[2019-03-31] MEDS: POTASSIUM CHLORIDE 20 MEQ TABLET PO PRN ×3 (06:27→18:49)
[2019-03-31 09:15] LABS: Basophils % 0.2 % (0.0-0.8); Eosinophils % 0.1 % (0.00-10.9); Hematocrit 33.1 VOL% (42.0-52.0); Hemoglobin 9.8 GM/DL (14.0-18.0); Immature Granulocytes % 4.5 %; Immature Granulocytes Absolute 0.71 #; Lymphocytes # 3.5 10*3/uL (1.4-4.0); Lymphocytes % 21.9 % (21.2-54.2); Mean Corpuscular HGB Conc 29.6 GM/DL (32-36); Mean Platelet Volume 9.2 FL (9.6-12.0); Monocytes % 7.2 % (1.7-12.7); NRBC # 0.03 10*3/uL; Neutrophils % 66.1 % (38.7-73.9); Platelet Count 165 T/CUMM (130-400); Red Blood Count 3.94 MC/CUMM (3.8-5.5); Red Cell Distribution Width 20.1 % (9.3-17.3); White Blood Count 15.9 T/CUMM (4-12)
[2019-03-31 09:36] LABS: Anisocytosis 1+; Band Neutrophils 1 % (0-10); Hypersegmented Neutrophil Few; Lymphocytes 29 % (20-55); Platelet Estimate Normal; Segmented Neutrophils 62 % (50-85); Total Cells Counted 100
[2019-03-31 09:37] LABS: Atypical Lymphocytes Few; Macrocytosis Slight
[2019-03-31] MEDS: SODIUM CHLORIDE 0.45% 1,000 ML IV SCH (10:26)
[2019-03-31] MEDS: LINACLOTIDE 145 MCG CAPSULE PO SCH (10:30)
[2019-03-31] MEDS: DILTIAZEM CD 240 MG CAPSULE PO SCH (10:32)
[2019-03-31] MEDS: DOCUSATE SODIUM 100 MG CAPSULE PO SCH ×3 (10:32→21:12)
[2019-03-31] MEDS: ASPIRIN EC 81 MG TABLET PO SCH (10:32)
[2019-03-31] MEDS: LOSARTAN 25 MG TABLET PO SCH ×2 (10:33→21:11)
[2019-03-31] MEDS: DULoxetine 30 MG CAPSULE PO SCH (10:33)
[2019-03-31] MEDS: FERROUS SULFATE 325 MG TABLET PO SCH (10:33)
[2019-03-31] MEDS: POTASSIUM CHLORIDE 20 MEQ TABLET PO SCH (10:34)
[2019-03-31] MEDS: hydroCHLOROthiazide 25 MG TABLET PO SCH (10:34)
[2019-03-31] MEDS: FLUTICASONE 50 MCG NASAL SPRAY 16 GM BOTTLE BOTH NARES SCH (10:34)
[2019-03-31] MEDS: oxyCODONE/ACETAMINOPHEN 5-325 MG TABLET PO SCH ×3 (10:34→21:12)
[2019-03-31] MEDS: NYSTATIN 500,000 UNIT/5 ML UDCUP SWISH/SWAL SCH ×4 (10:34→21:10)
[2019-03-31] MEDS: prednisoLONE 15 MG/5 ML ORAL.SYR PO SCH (10:35)
[2019-03-31] MEDS: THEOPHYLLINE ER (24 HR) 400 MG CAPSULE PO SCH (10:35)
[2019-03-31] MEDS: BUDESONIDE/FORMOTEROL 160-4.5 INHALER 6 GM INH SCH ×2 (10:35→21:41)
[2019-03-31] MEDS: FEBUXOSTAT 80 MG TABLET PO SCH (10:35)
[2019-03-31] MEDS: PANTOPRAZOLE 40 MG TABLET PO SCH (10:35)
[2019-03-31] MEDS: RIVAROXABAN 20 MG TABLET PO SCH (10:36)
[2019-03-31] MEDS: ONDANSETRON 4 MG/2 ML VIAL IV PRN ×2 (10:45→21:40)
[2019-03-31] MEDS: MONTELUKAST 10 MG TABLET PO SCH (15:14)
[2019-03-31] MEDS: TAMSULOSIN 0.4 MG CAPSULE PO SCH (21:10)
[2019-04-01] MEDS: SODIUM CHLORIDE 0.45% 1,000 ML IV SCH ×3 (00:03→10:19)
[2019-04-01] MEDS: ALBUTEROL/IPRATROPIUM 3 ML NEB RESP TX PRN (00:27)
[2019-04-01] MEDS: ALBUTEROL 2.5 MG/3 ML NEB RESP TX SCH ×4 (00:33→19:51)
[2019-04-01] MEDS: NAFCILLIN 2,000 MG in SODIUM CHLORIDE 0.9% 100 ML IV SCH ×6 (02:39→20:51)
[2019-04-01 04:55] LABS: Basophils % 0.2 % (0.0-0.8); Eosinophils % 0.1 % (0.00-10.9); Hematocrit 33.3 VOL% (42.0-52.0); Immature Granulocytes % 3.8 %; Immature Granulocytes Absolute 0.68 #; Lymphocytes # 2.8 10*3/uL (1.4-4.0); Lymphocytes % 15.3 % (21.2-54.2); Mean Corpuscular Volume 83.3 FL (87-102); Monocytes % 5.4 % (1.7-12.7); NRBC # 0.02 10*3/uL; Neutrophils % 75.2 % (38.7-73.9); Platelet Count 160 T/CUMM (130-400); Red Cell Distribution Width 20.2 % (9.3-17.3); White Blood Count 18.1 T/CUMM (4-12)
[2019-04-01 05:02] LABS: Calcium 8.6 MG/DL (8.5-10.1); Osmolality,Calculated 275.8 MOS/KG (273-304)
[2019-04-01 05:19] LABS: Band Neutrophils 1 % (0-10); Hypochromasia 1+; Lymphocytes 15 % (20-55); Platelet Estimate Adequate; Segmented Neutrophils 80 % (50-85); Total Cells Counted 100
[2019-04-01 05:20] LABS: Macrocytosis Slight
[2019-04-01] MEDS: POTASSIUM CHLORIDE 20 MEQ TABLET PO PRN ×2 (06:09→14:55)
[2019-04-01] MEDS: LINACLOTIDE 145 MCG CAPSULE PO SCH ×2 (10:21→10:45)
[2019-04-01] MEDS: ASPIRIN EC 81 MG TABLET PO SCH (10:23)
[2019-04-01] MEDS: DOCUSATE SODIUM 100 MG CAPSULE PO SCH ×2 (10:24→23:34)
[2019-04-01] MEDS: DILTIAZEM CD 300 MG CAPSULE PO SCH (10:26)
[2019-04-01] MEDS: LOSARTAN 25 MG TABLET PO SCH ×2 (10:28→20:46)
[2019-04-01] MEDS: DULoxetine 30 MG CAPSULE PO SCH (10:28)
[2019-04-01] MEDS: FLUTICASONE 50 MCG NASAL SPRAY 16 GM BOTTLE BOTH NARES SCH (10:29)
[2019-04-01] MEDS: FERROUS SULFATE 325 MG TABLET PO SCH (10:29)
[2019-04-01] MEDS: oxyCODONE/ACETAMINOPHEN 5-325 MG TABLET PO SCH ×3 (10:30→20:47)
[2019-04-01] MEDS: hydroCHLOROthiazide 25 MG TABLET PO SCH (10:30)
[2019-04-01] MEDS: NYSTATIN 500,000 UNIT/5 ML UDCUP SWISH/SWAL SCH ×4 (10:30→20:45)
[2019-04-01] MEDS: prednisoLONE 15 MG/5 ML ORAL.SYR PO SCH (10:34)
[2019-04-01] MEDS: PANTOPRAZOLE 40 MG TABLET PO SCH (10:34)
[2019-04-01] MEDS: BUDESONIDE/FORMOTEROL 160-4.5 INHALER 6 GM INH SCH ×2 (10:34→20:58)
[2019-04-01] MEDS: RIVAROXABAN 20 MG TABLET PO SCH (10:35)
[2019-04-01] MEDS: THEOPHYLLINE ER (24 HR) 400 MG CAPSULE PO SCH (10:35)
[2019-04-01] MEDS: FEBUXOSTAT 80 MG TABLET PO SCH (10:38)
[2019-04-01] MEDS: POTASSIUM CHLORIDE 20 MEQ TABLET PO SCH (11:03)
[2019-04-01] MEDS: ERGOCALCIFEROL 50,000 UNIT CAPSULE PO SCH (11:18)
[2019-04-01] MEDS ORDERED: POTASSIUM CHLORIDE 20 MEQ TABLET PO ONE (11:31)
[2019-04-01] MEDS: MONTELUKAST 10 MG TABLET PO SCH (12:59)
[2019-04-01] MEDS ORDERED: HYDROmorphone 2 MG/1 ML VIAL IM ONE (19:06)
[2019-04-01] MEDS: TAMSULOSIN 0.4 MG CAPSULE PO SCH (20:46)
[2019-04-01] MEDS: diphenhydrAMINE CAP 25 MG CAPSULE PO PRN (21:24)
[2019-04-02] MEDS: ALBUTEROL 2.5 MG/3 ML NEB RESP TX SCH ×4 (00:32→20:48)
[2019-04-02] MEDS: NAFCILLIN 2,000 MG in SODIUM CHLORIDE 0.9% 100 ML IV SCH ×6 (01:39→22:03)
[2019-04-02 03:56] LABS: Basophils % 0.2 % (0.0-0.8); Hematocrit 33.3 VOL% (42.0-52.0); Hemoglobin 9.8 GM/DL (14.0-18.0); Immature Granulocytes % 3.2 %; Immature Granulocytes Absolute 0.52 #; Lymphocytes # 2.6 10*3/uL (1.4-4.0); Lymphocytes % 15.6 % (21.2-54.2); Mean Corpuscular HGB Conc 29.4 GM/DL (32-36); Mean Corpuscular Volume 85.2 FL (87-102); Monocytes % 5.1 % (1.7-12.7); NRBC # 0.02 10*3/uL; Neutrophils % 75.9 % (38.7-73.9); Platelet Count 169 T/CUMM (130-400); Red Blood Count 3.91 MC/CUMM (3.8-5.5); Red Cell Distribution Width 20.5 % (9.3-17.3); White Blood Count 16.4 T/CUMM (4-12)
[2019-04-02 04:14] LABS: Calcium 8.5 MG/DL (8.5-10.1); Osmolality,Calculated 278.7 MOS/KG (273-304)
[2019-04-02 04:36] LABS: Band Neutrophils 1 % (0-10); Lymphocytes 16 % (20-55); Metamyelocytes 1 %; Myelocytes 2 %; Segmented Neutrophils 75 % (50-85); Total Cells Counted 100
[2019-04-02 04:37] LABS: Acanthocytes Few; Anisocytosis 1+; Platelet Estimate Adequate
[2019-04-02] MEDS ORDERED: MAGNESIUM SULF RIDER 4 GM in PREMIX 1 EACH IV PRN (09:39)
[2019-04-02] MEDS ORDERED: MAGNESIUM SULF RIDER 2 GM in PREMIX 1 EACH IV PRN (09:39)
[2019-04-02] MEDS: FLUTICASONE 50 MCG NASAL SPRAY 16 GM BOTTLE BOTH NARES SCH (10:06)
[2019-04-02] MEDS: BUDESONIDE/FORMOTEROL 160-4.5 INHALER 6 GM INH SCH ×2 (10:07→22:06)
[2019-04-02] MEDS: SODIUM CHLORIDE 0.45% 1,000 ML IV SCH ×3 (10:07→19:57)
[2019-04-02] MEDS ORDERED: PROPOFOL 200 MG/20 ML VIAL IV ONE (12:32)
[2019-04-02] MEDS ORDERED: MIDAZOLAM 2 MG/2 ML VIAL ONE (12:33)
[2019-04-02] MEDS ORDERED: ONDANSETRON 4 MG/2 ML VIAL ONE (12:34)
[2019-04-02] MEDS ORDERED: ETOMIDATE 40 MG/20 ML VIAL IV ONE (12:34)
[2019-04-02] MEDS ORDERED: SODIUM CHLORIDE 0.9% 1,000 ML IV SCH (14:30)
[2019-04-02] MEDS: LINACLOTIDE 145 MCG CAPSULE PO SCH (14:56)
[2019-04-02] MEDS: DILTIAZEM CD 300 MG CAPSULE PO SCH (14:57)
[2019-04-02] MEDS: ASPIRIN EC 81 MG TABLET PO SCH (14:57)
[2019-04-02] MEDS: LOSARTAN 25 MG TABLET PO SCH ×2 (14:58→22:01)
[2019-04-02] MEDS: DULoxetine 30 MG CAPSULE PO SCH (14:58)
[2019-04-02] MEDS: DOCUSATE SODIUM 100 MG CAPSULE PO SCH ×2 (14:58→22:07)
[2019-04-02] MEDS: hydroCHLOROthiazide 25 MG TABLET PO SCH (14:59)
[2019-04-02] MEDS: FERROUS SULFATE 325 MG TABLET PO SCH (14:59)
[2019-04-02] MEDS: POTASSIUM CHLORIDE 20 MEQ TABLET PO SCH (14:59)
[2019-04-02] MEDS: NYSTATIN 500,000 UNIT/5 ML UDCUP SWISH/SWAL SCH ×4 (15:00→22:02)
[2019-04-02] MEDS: prednisoLONE 15 MG/5 ML ORAL.SYR PO SCH (15:00)
[2019-04-02] MEDS: THEOPHYLLINE ER (24 HR) 400 MG CAPSULE PO SCH (15:02)
[2019-04-02] MEDS: PANTOPRAZOLE 40 MG TABLET PO SCH (15:02)
[2019-04-02] MEDS: FEBUXOSTAT 80 MG TABLET PO SCH (15:03)
[2019-04-02] MEDS: RIVAROXABAN 20 MG TABLET PO SCH (15:04)
[2019-04-02] MEDS: MONTELUKAST 10 MG TABLET PO SCH (15:10)
[2019-04-02] MEDS: oxyCODONE/ACETAMINOPHEN 5-325 MG TABLET PO SCH ×2 (15:45→22:01)
[2019-04-02] MEDS: TAMSULOSIN 0.4 MG CAPSULE PO SCH (22:00)
[2019-04-03] MEDS: ALBUTEROL 2.5 MG/3 ML NEB RESP TX SCH ×4 (00:12→19:20)
[2019-04-03] MEDS: ONDANSETRON 4 MG/2 ML VIAL IV PRN (01:22)
[2019-04-03] MEDS: NAFCILLIN 2,000 MG in SODIUM CHLORIDE 0.9% 100 ML IV SCH ×5 (02:38→22:00)
[2019-04-03 04:17] LABS: Calcium 8.7 MG/DL (8.5-10.1); Osmolality,Calculated 276.8 MOS/KG (273-304)
[2019-04-03 04:40] LABS: Basophils % 0.2 % (0.0-0.8); Hematocrit 33.2 VOL% (42.0-52.0); Hemoglobin 9.6 GM/DL (14.0-18.0); Immature Granulocytes % 4.4 %; Immature Granulocytes Absolute 0.63 #; Lymphocytes # 1.9 10*3/uL (1.4-4.0); Lymphocytes % 13.5 % (21.2-54.2); Mean Corpuscular HGB Conc 28.9 GM/DL (32-36); Mean Corpuscular Volume 85.3 FL (87-102); Mean Platelet Volume 9.8 FL (9.6-12.0); Monocytes % 5.4 % (1.7-12.7); Neutrophils % 76.5 % (38.7-73.9); Platelet Count 165 T/CUMM (130-400); Red Blood Count 3.89 MC/CUMM (3.8-5.5); Red Cell Distribution Width 20.6 % (9.3-17.3); White Blood Count 14.4 T/CUMM (4-12)
[2019-04-03 06:01] LABS: Anisocytosis 1+; Lymphocytes 17 % (20-55); Segmented Neutrophils 77 % (50-85); Total Cells Counted 100
[2019-04-03 06:02] LABS: Hypochromasia Slight; Platelet Estimate Adequate
[2019-04-03] MEDS: SODIUM CHLORIDE 0.45% 1,000 ML IV SCH ×3 (06:31→23:48)
[2019-04-03] MEDS: DILTIAZEM CD 300 MG CAPSULE PO SCH (10:15)
[2019-04-03] MEDS: NYSTATIN 500,000 UNIT/5 ML UDCUP SWISH/SWAL SCH ×4 (10:15→22:00)
[2019-04-03] MEDS: THEOPHYLLINE ER (24 HR) 400 MG CAPSULE PO SCH (10:16)
[2019-04-03] MEDS: hydroCHLOROthiazide 25 MG TABLET PO SCH (10:17)
[2019-04-03] MEDS: FEBUXOSTAT 80 MG TABLET PO SCH (10:17)
[2019-04-03] MEDS: prednisoLONE 15 MG/5 ML ORAL.SYR PO SCH (10:17)
[2019-04-03] MEDS: LINACLOTIDE 145 MCG CAPSULE PO SCH (10:17)
[2019-04-03] MEDS: PANTOPRAZOLE 40 MG TABLET PO SCH (10:18)
[2019-04-03] MEDS: POTASSIUM CHLORIDE 20 MEQ TABLET PO SCH (10:18)
[2019-04-03] MEDS: RIVAROXABAN 20 MG TABLET PO SCH (10:18)
[2019-04-03] MEDS: DULoxetine 30 MG CAPSULE PO SCH (10:18)
[2019-04-03] MEDS: FERROUS SULFATE 325 MG TABLET PO SCH (10:18)
[2019-04-03] MEDS: DOCUSATE SODIUM 100 MG CAPSULE PO SCH ×2 (10:18→23:46)
[2019-04-03] MEDS: ASPIRIN EC 81 MG TABLET PO SCH (10:18)
[2019-04-03] MEDS: LOSARTAN 25 MG TABLET PO SCH ×2 (10:18→22:00)
[2019-04-03] MEDS: oxyCODONE/ACETAMINOPHEN 5-325 MG TABLET PO SCH ×3 (10:19→23:47)
[2019-04-03] MEDS: BUDESONIDE/FORMOTEROL 160-4.5 INHALER 6 GM INH SCH ×2 (10:19→22:00)
[2019-04-03] MEDS: FLUTICASONE 50 MCG NASAL SPRAY 16 GM BOTTLE BOTH NARES SCH (10:20)
[2019-04-03] MEDS: MONTELUKAST 10 MG TABLET PO SCH (12:48)
[2019-04-03] MEDS: diphenhydrAMINE CAP 25 MG CAPSULE PO PRN (18:40)
[2019-04-03] MEDS: TAMSULOSIN 0.4 MG CAPSULE PO SCH (22:00)
[2019-04-04] MEDS: NAFCILLIN 2,000 MG in SODIUM CHLORIDE 0.9% 100 ML IV SCH ×6 (01:39→20:48)
[2019-04-04] MEDS: diphenhydrAMINE CAP 25 MG CAPSULE PO PRN ×2 (01:40→20:57)
[2019-04-04] MEDS: ALBUTEROL 2.5 MG/3 ML NEB RESP TX SCH ×4 (01:50→19:54)
[2019-04-04] MEDS: SODIUM CHLORIDE 0.45% 1,000 ML IV SCH ×2 (05:54→12:22)
[2019-04-04 06:17] LABS: Calcium 8.9 MG/DL (8.5-10.1); Osmolality,Calculated 277.8 MOS/KG (273-304)
[2019-04-04 07:17] LABS: Basophils # 0.1 10*3/uL (0.0-0.2); Basophils % 0.3 % (0.0-0.8); Eosinophils % 0.1 % (0.00-10.9); Hematocrit 34.2 VOL% (42.0-52.0); Hemoglobin 9.9 GM/DL (14.0-18.0); Immature Granulocytes % 4.3 %; Immature Granulocytes Absolute 0.68 #; Lymphocytes # 3.5 10*3/uL (1.4-4.0); Lymphocytes % 22.4 % (21.2-54.2); Mean Corpuscular HGB Conc 28.9 GM/DL (32-36); Mean Corpuscular Volume 85.5 FL (87-102); Monocytes % 5.9 % (1.7-12.7); Platelet Count 171 T/CUMM (130-400); Red Cell Distribution Width 20.9 % (9.3-17.3); White Blood Count 15.8 T/CUMM (4-12)
[2019-04-04] MEDS: FEBUXOSTAT 80 MG TABLET PO SCH (08:24)
[2019-04-04] MEDS: prednisoLONE 15 MG/5 ML ORAL.SYR PO SCH (08:33)
[2019-04-04] MEDS: hydroCHLOROthiazide 25 MG TABLET PO SCH (08:34)
[2019-04-04] MEDS: LINACLOTIDE 145 MCG CAPSULE PO SCH (08:34)
[2019-04-04] MEDS: POTASSIUM CHLORIDE 20 MEQ TABLET PO SCH (08:34)
[2019-04-04] MEDS: FERROUS SULFATE 325 MG TABLET PO SCH (08:34)
[2019-04-04] MEDS: oxyCODONE/ACETAMINOPHEN 5-325 MG TABLET PO SCH ×3 (08:34→20:44)
[2019-04-04] MEDS: RIVAROXABAN 20 MG TABLET PO SCH (08:34)
[2019-04-04] MEDS: LOSARTAN 25 MG TABLET PO SCH ×2 (08:34→20:44)
[2019-04-04] MEDS: DOCUSATE SODIUM 100 MG CAPSULE PO SCH ×2 (08:35→20:45)
[2019-04-04] MEDS: DILTIAZEM CD 300 MG CAPSULE PO SCH (08:35)
[2019-04-04] MEDS: PANTOPRAZOLE 40 MG TABLET PO SCH (08:35)
[2019-04-04] MEDS: THEOPHYLLINE ER (24 HR) 400 MG CAPSULE PO SCH (08:35)
[2019-04-04] MEDS: DULoxetine 30 MG CAPSULE PO SCH (08:35)
[2019-04-04] MEDS: ASPIRIN EC 81 MG TABLET PO SCH (08:35)
[2019-04-04] MEDS: BUDESONIDE/FORMOTEROL 160-4.5 INHALER 6 GM INH SCH ×2 (08:36→20:49)
[2019-04-04] MEDS: FLUTICASONE 50 MCG NASAL SPRAY 16 GM BOTTLE BOTH NARES SCH (08:36)
[2019-04-04] MEDS: NYSTATIN 500,000 UNIT/5 ML UDCUP SWISH/SWAL SCH ×4 (08:36→20:46)
[2019-04-04] MEDS: ONDANSETRON 4 MG/2 ML VIAL IV PRN ×2 (08:45→21:01)
[2019-04-04 09:19] LABS: Hypochromasia 1+; Microcytosis 3+
[2019-04-04 09:20] LABS: Platelet Estimate Adequate; Spherocytes 2+
[2019-04-04] MEDS: MONTELUKAST 10 MG TABLET PO SCH (12:25)
[2019-04-04] MEDS: NIFEdipine 10 MG CAPSULE PO PRN (16:32)
[2019-04-04] MEDS: TAMSULOSIN 0.4 MG CAPSULE PO SCH (20:43)
[2019-04-05] MEDS: NAFCILLIN 2,000 MG in SODIUM CHLORIDE 0.9% 100 ML IV SCH ×6 (00:29→21:15)
[2019-04-05] MEDS: SODIUM CHLORIDE 0.45% 1,000 ML IV SCH ×2 (01:39→05:51)
[2019-04-05] MEDS: ALBUTEROL/IPRATROPIUM 3 ML NEB RESP TX PRN (01:54)
[2019-04-05] MEDS: ALBUTEROL 2.5 MG/3 ML NEB RESP TX SCH ×4 (01:55→19:28)
[2019-04-05 04:53] LABS: Basophils % 0.2 % (0.0-0.8); Hematocrit 34.7 VOL% (42.0-52.0); Immature Granulocytes % 3.6 %; Immature Granulocytes Absolute 0.57 #; Lymphocytes % 25.1 % (21.2-54.2); Mean Corpuscular HGB Conc 29.1 GM/DL (32-36); Mean Corpuscular Volume 85.7 FL (87-102); Mean Platelet Volume 9.1 FL (9.6-12.0); Monocytes % 5.3 % (1.7-12.7); Neutrophils % 65.8 % (38.7-73.9); Platelet Count 173 T/CUMM (130-400); Red Blood Count 4.05 MC/CUMM (3.8-5.5); Red Cell Distribution Width 20.8 % (9.3-17.3)
[2019-04-05 05:19] LABS: Osmolality,Calculated 279.7 MOS/KG (273-304)
[2019-04-05 05:27] LABS: Hemoglobin 10.1 GM/DL (14.0-18.0)
[2019-04-05 05:40] LABS: Band Neutrophils 2 % (0-10); Hypochromasia Slight; Lymphocytes 17 % (20-55); Microcytosis 1+; Nucleated Red Blood Cells 1 (0-5); Platelet Estimate Adequate; Segmented Neutrophils 77 % (50-85); Total Cells Counted 100
[2019-04-05] MEDS: ONDANSETRON 4 MG/2 ML VIAL IV PRN ×2 (09:13→21:14)
[2019-04-05] MEDS: THEOPHYLLINE ER (24 HR) 400 MG CAPSULE PO SCH (09:13)
[2019-04-05] MEDS: LINACLOTIDE 145 MCG CAPSULE PO SCH (09:14)
[2019-04-05] MEDS: hydroCHLOROthiazide 25 MG TABLET PO SCH (09:14)
[2019-04-05] MEDS: DULoxetine 30 MG CAPSULE PO SCH (09:14)
[2019-04-05] MEDS: DILTIAZEM CD 300 MG CAPSULE PO SCH (09:15)
[2019-04-05] MEDS: FEBUXOSTAT 80 MG TABLET PO SCH (09:15)
[2019-04-05] MEDS: PANTOPRAZOLE 40 MG TABLET PO SCH (09:15)
[2019-04-05] MEDS: LOSARTAN 25 MG TABLET PO SCH ×2 (09:16→21:18)
[2019-04-05] MEDS: oxyCODONE/ACETAMINOPHEN 5-325 MG TABLET PO SCH ×3 (09:16→21:17)
[2019-04-05] MEDS: ASPIRIN EC 81 MG TABLET PO SCH (09:16)
[2019-04-05] MEDS: DOCUSATE SODIUM 100 MG CAPSULE PO SCH ×2 (09:16→21:19)
[2019-04-05] MEDS: POTASSIUM CHLORIDE 20 MEQ TABLET PO SCH (09:16)
[2019-04-05] MEDS: NYSTATIN 500,000 UNIT/5 ML UDCUP SWISH/SWAL SCH ×4 (09:17→21:17)
[2019-04-05] MEDS: RIVAROXABAN 20 MG TABLET PO SCH (09:17)
[2019-04-05] MEDS: FLUTICASONE 50 MCG NASAL SPRAY 16 GM BOTTLE BOTH NARES SCH (09:17)
[2019-04-05] MEDS: FERROUS SULFATE 325 MG TABLET PO SCH (09:17)
[2019-04-05] MEDS: BUDESONIDE/FORMOTEROL 160-4.5 INHALER 6 GM INH SCH ×2 (09:19→21:48)
[2019-04-05] MEDS: prednisoLONE 15 MG/5 ML ORAL.SYR PO SCH (09:19)
[2019-04-05] MEDS: MONTELUKAST 10 MG TABLET PO SCH (12:21)
[2019-04-05] MEDS: diphenhydrAMINE CAP 25 MG CAPSULE PO PRN (18:31)
[2019-04-05] MEDS: TAMSULOSIN 0.4 MG CAPSULE PO SCH (21:18)
[2019-04-06] MEDS: ALBUTEROL 2.5 MG/3 ML NEB RESP TX SCH ×4 (00:44→19:08)
[2019-04-06] MEDS: NAFCILLIN 2,000 MG in SODIUM CHLORIDE 0.9% 100 ML IV SCH ×6 (00:46→20:49)
[2019-04-06] MEDS: SODIUM CHLORIDE 0.45% 1,000 ML IV SCH ×2 (00:46→06:32)
[2019-04-06] MEDS: ONDANSETRON 4 MG/2 ML VIAL IV PRN (07:20)
[2019-04-06] MEDS: DULoxetine 30 MG CAPSULE PO SCH (08:53)
[2019-04-06] MEDS: hydroCHLOROthiazide 25 MG TABLET PO SCH (08:53)
[2019-04-06] MEDS: oxyCODONE/ACETAMINOPHEN 5-325 MG TABLET PO SCH ×3 (08:53→20:44)
[2019-04-06] MEDS: PANTOPRAZOLE 40 MG TABLET PO SCH (08:54)
[2019-04-06] MEDS: FEBUXOSTAT 80 MG TABLET PO SCH (08:54)
[2019-04-06] MEDS: DILTIAZEM CD 300 MG CAPSULE PO SCH (08:54)
[2019-04-06] MEDS: THEOPHYLLINE ER (24 HR) 400 MG CAPSULE PO SCH (08:54)
[2019-04-06] MEDS: POTASSIUM CHLORIDE 20 MEQ TABLET PO SCH (08:55)
[2019-04-06] MEDS: LOSARTAN 25 MG TABLET PO SCH ×2 (08:55→20:46)
[2019-04-06] MEDS: FERROUS SULFATE 325 MG TABLET PO SCH (08:55)
[2019-04-06] MEDS: BUDESONIDE/FORMOTEROL 160-4.5 INHALER 6 GM INH SCH ×2 (08:55→22:23)
[2019-04-06] MEDS: FLUTICASONE 50 MCG NASAL SPRAY 16 GM BOTTLE BOTH NARES SCH (08:55)
[2019-04-06] MEDS: RIVAROXABAN 20 MG TABLET PO SCH (08:55)
[2019-04-06] MEDS: DOCUSATE SODIUM 100 MG CAPSULE PO SCH (08:56)
[2019-04-06] MEDS: ASPIRIN EC 81 MG TABLET PO SCH (08:56)
[2019-04-06] MEDS: NYSTATIN 500,000 UNIT/5 ML UDCUP SWISH/SWAL SCH ×4 (08:56→20:45)
[2019-04-06] MEDS: LINACLOTIDE 145 MCG CAPSULE PO SCH (08:56)
[2019-04-06] MEDS: prednisoLONE 15 MG/5 ML ORAL.SYR PO SCH (08:56)
[2019-04-06] MEDS: MONTELUKAST 10 MG TABLET PO SCH (12:32)
[2019-04-06] MEDS: ALUMINUM/MAGNES/SIMETH MAX STR 30 ML UDCUP PO PRN (20:43)
[2019-04-06] MEDS: TAMSULOSIN 0.4 MG CAPSULE PO SCH (20:45)
[2019-04-06] MEDS: diphenhydrAMINE CAP 25 MG CAPSULE PO PRN (22:25)
[2019-04-07] MEDS: ALBUTEROL 2.5 MG/3 ML NEB RESP TX SCH ×5 (00:22→19:41)
[2019-04-07] MEDS: DOCUSATE SODIUM 100 MG CAPSULE PO SCH ×3 (00:23→21:27)
[2019-04-07] MEDS: SODIUM CHLORIDE 0.45% 1,000 ML IV SCH ×2 (00:50→16:55)
[2019-04-07] MEDS: NAFCILLIN 2,000 MG in SODIUM CHLORIDE 0.9% 100 ML IV SCH ×6 (00:55→23:25)
[2019-04-07] MEDS: ONDANSETRON 4 MG/2 ML VIAL IV PRN (08:02)
[2019-04-07] MEDS: LINACLOTIDE 145 MCG CAPSULE PO SCH (09:18)
[2019-04-07] MEDS: DILTIAZEM CD 300 MG CAPSULE PO SCH (09:19)
[2019-04-07] MEDS: NYSTATIN 500,000 UNIT/5 ML UDCUP SWISH/SWAL SCH ×4 (09:20→21:29)
[2019-04-07] MEDS: ASPIRIN EC 81 MG TABLET PO SCH (09:20)
[2019-04-07] MEDS: RIVAROXABAN 20 MG TABLET PO SCH (09:20)
[2019-04-07] MEDS: LOSARTAN 25 MG TABLET PO SCH ×2 (09:20→21:27)
[2019-04-07] MEDS: FEBUXOSTAT 80 MG TABLET PO SCH (09:20)
[2019-04-07] MEDS: THEOPHYLLINE ER (24 HR) 400 MG CAPSULE PO SCH (09:20)
[2019-04-07] MEDS: prednisoLONE 15 MG/5 ML ORAL.SYR PO SCH (09:21)
[2019-04-07] MEDS: PANTOPRAZOLE 40 MG TABLET PO SCH (09:21)
[2019-04-07] MEDS: DULoxetine 30 MG CAPSULE PO SCH (09:21)
[2019-04-07] MEDS: hydroCHLOROthiazide 25 MG TABLET PO SCH (09:21)
[2019-04-07] MEDS: FERROUS SULFATE 325 MG TABLET PO SCH (09:21)
[2019-04-07] MEDS: POTASSIUM CHLORIDE 20 MEQ TABLET PO SCH (09:21)
[2019-04-07] MEDS: FLUTICASONE 50 MCG NASAL SPRAY 16 GM BOTTLE BOTH NARES SCH (09:22)
[2019-04-07] MEDS: BUDESONIDE/FORMOTEROL 160-4.5 INHALER 6 GM INH SCH ×2 (09:23→23:24)
[2019-04-07] MEDS: oxyCODONE/ACETAMINOPHEN 5-325 MG TABLET PO SCH ×3 (09:27→21:29)
[2019-04-07] MEDS: MONTELUKAST 10 MG TABLET PO SCH (14:50)
[2019-04-07] MEDS: TAMSULOSIN 0.4 MG CAPSULE PO SCH (21:28)
[2019-04-08] MEDS: ALBUTEROL 2.5 MG/3 ML NEB RESP TX SCH ×4 (00:20→19:15)
[2019-04-08] MEDS: NAFCILLIN 2,000 MG in SODIUM CHLORIDE 0.9% 100 ML IV SCH ×6 (03:57→23:15)
[2019-04-08] MEDS: ONDANSETRON 4 MG/2 ML VIAL IV PRN (07:10)
[2019-04-08] MEDS ORDERED: DIAZEPAM 5 MG TABLET PO ONE ×2 (08:00→14:45)
[2019-04-08] MEDS: hydroCHLOROthiazide 25 MG TABLET PO SCH (09:00)
[2019-04-08] MEDS: oxyCODONE/ACETAMINOPHEN 5-325 MG TABLET PO SCH ×3 (09:01→21:26)
[2019-04-08] MEDS: DULoxetine 30 MG CAPSULE PO SCH (09:02)
[2019-04-08] MEDS: FEBUXOSTAT 80 MG TABLET PO SCH (09:03)
[2019-04-08] MEDS: PANTOPRAZOLE 40 MG TABLET PO SCH (09:04)
[2019-04-08] MEDS: RIVAROXABAN 20 MG TABLET PO SCH (09:05)
[2019-04-08] MEDS: prednisoLONE 15 MG/5 ML ORAL.SYR PO SCH (09:05)
[2019-04-08] MEDS: LOSARTAN 25 MG TABLET PO SCH ×2 (09:09→21:28)
[2019-04-08] MEDS: DOCUSATE SODIUM 100 MG CAPSULE PO SCH ×2 (09:09→21:27)
[2019-04-08] MEDS: FERROUS SULFATE 325 MG TABLET PO SCH (09:09)
[2019-04-08] MEDS: ASPIRIN EC 81 MG TABLET PO SCH (09:09)
[2019-04-08] MEDS: NYSTATIN 500,000 UNIT/5 ML UDCUP SWISH/SWAL SCH ×4 (09:10→21:29)
[2019-04-08] MEDS: POTASSIUM CHLORIDE 20 MEQ TABLET PO SCH (09:10)
[2019-04-08] MEDS: LINACLOTIDE 145 MCG CAPSULE PO SCH (09:11)
[2019-04-08] MEDS: FLUTICASONE 50 MCG NASAL SPRAY 16 GM BOTTLE BOTH NARES SCH (09:12)
[2019-04-08] MEDS: BUDESONIDE/FORMOTEROL 160-4.5 INHALER 6 GM INH SCH ×2 (09:12→21:33)
[2019-04-08] MEDS: THEOPHYLLINE ER (24 HR) 400 MG CAPSULE PO SCH (09:15)
[2019-04-08] MEDS: DILTIAZEM CD 300 MG CAPSULE PO SCH (09:15)
[2019-04-08] MEDS: MORPHINE ER 15 MG TABLET PO SCH ×2 (10:37→23:15)
[2019-04-08] MEDS: PREGABALIN 100 MG CAPSULE PO SCH ×2 (10:37→21:27)
[2019-04-08] MEDS ORDERED: HYDROmorphone 2 MG/1 ML VIAL IV ONE ×2 (10:48→14:45)
[2019-04-08] MEDS: ERGOCALCIFEROL 50,000 UNIT CAPSULE PO SCH (12:14)
[2019-04-08] MEDS: MONTELUKAST 10 MG TABLET PO SCH (12:14)
[2019-04-08] MEDS: CARVEDILOL 6.25 MG TABLET PO SCH ×2 (14:18→21:27)
[2019-04-08 15:25] LABS: Basophils # 0.1 10*3/uL (0.0-0.2); Basophils % 0.3 % (0.0-0.8); Calcium 9.3 MG/DL (8.5-10.1); Hematocrit 39.7 VOL% (42.0-52.0); Immature Granulocytes % 2.5 %; Immature Granulocytes Absolute 0.39 #; Lymphocytes # 1.3 10*3/uL (1.4-4.0); Lymphocytes % 8.1 % (21.2-54.2); Mean Corpuscular HGB Conc 28.7 GM/DL (32-36); Mean Corpuscular Volume 85.6 FL (87-102); Mean Platelet Volume 9.8 FL (9.6-12.0); Monocytes % 2.8 % (1.7-12.7); NRBC # 0.05 10*3/uL; Neutrophils % 86.3 % (38.7-73.9); Osmolality,Calculated 278.1 MOS/KG (273-304); Platelet Count 292 T/CUMM (130-400); Red Blood Count 4.64 MC/CUMM (3.8-5.5); Red Cell Distribution Width 21.2 % (9.3-17.3); White Blood Count 15.7 T/CUMM (4-12)
[2019-04-08 15:27] LABS: Hemoglobin 11.4 GM/DL (14.0-18.0)
[2019-04-08] MEDS: TAMSULOSIN 0.4 MG CAPSULE PO SCH (21:28)
[2019-04-08] MEDS: diphenhydrAMINE CAP 25 MG CAPSULE PO PRN (23:22)
[2019-04-09] MEDS: ALBUTEROL 2.5 MG/3 ML NEB RESP TX SCH ×4 (01:43→19:19)
[2019-04-09] MEDS: NAFCILLIN 2,000 MG in SODIUM CHLORIDE 0.9% 100 ML IV SCH ×6 (03:56→22:42)
[2019-04-09] MEDS: POTASSIUM CHLORIDE 20 MEQ TABLET PO PRN (08:46)
[2019-04-09] MEDS: RIVAROXABAN 20 MG TABLET PO SCH (08:47)
[2019-04-09] MEDS: FEBUXOSTAT 80 MG TABLET PO SCH (08:47)
[2019-04-09] MEDS: POTASSIUM CHLORIDE 20 MEQ TABLET PO SCH (08:47)
[2019-04-09] MEDS: DULoxetine 30 MG CAPSULE PO SCH (08:47)
[2019-04-09] MEDS: THEOPHYLLINE ER (24 HR) 400 MG CAPSULE PO SCH (08:48)
[2019-04-09] MEDS: NYSTATIN 500,000 UNIT/5 ML UDCUP SWISH/SWAL SCH ×4 (08:48→21:31)
[2019-04-09] MEDS: ASPIRIN EC 81 MG TABLET PO SCH (08:48)
[2019-04-09] MEDS: LOSARTAN 25 MG TABLET PO SCH ×2 (08:49→21:31)
[2019-04-09] MEDS: hydroCHLOROthiazide 25 MG TABLET PO SCH (08:49)
[2019-04-09] MEDS: PANTOPRAZOLE 40 MG TABLET PO SCH (08:49)
[2019-04-09] MEDS: PREGABALIN 100 MG CAPSULE PO SCH ×2 (08:49→21:31)
[2019-04-09] MEDS: DOCUSATE SODIUM 100 MG CAPSULE PO SCH ×2 (08:49→21:32)
[2019-04-09] MEDS: CARVEDILOL 6.25 MG TABLET PO SCH ×2 (08:49→21:30)
[2019-04-09] MEDS: FERROUS SULFATE 325 MG TABLET PO SCH (08:49)
[2019-04-09] MEDS: LINACLOTIDE 145 MCG CAPSULE PO SCH (08:50)
[2019-04-09] MEDS: oxyCODONE/ACETAMINOPHEN 5-325 MG TABLET PO SCH ×3 (08:51→21:30)
[2019-04-09] MEDS: prednisoLONE 15 MG/5 ML ORAL.SYR PO SCH (09:06)
[2019-04-09] MEDS: DILTIAZEM CD 300 MG CAPSULE PO SCH (09:07)
[2019-04-09] MEDS: BUDESONIDE/FORMOTEROL 160-4.5 INHALER 6 GM INH SCH ×2 (09:07→21:31)
[2019-04-09] MEDS: ONDANSETRON 4 MG/2 ML VIAL IV PRN ×2 (09:11→22:36)
[2019-04-09] MEDS: MORPHINE ER 15 MG TABLET PO SCH ×2 (10:43→22:35)
[2019-04-09] MEDS: FLUTICASONE 50 MCG NASAL SPRAY 16 GM BOTTLE BOTH NARES SCH (12:22)
[2019-04-09] MEDS: MONTELUKAST 10 MG TABLET PO SCH (12:30)
[2019-04-09] MEDS: TAMSULOSIN 0.4 MG CAPSULE PO SCH (21:29)
[2019-04-09] MEDS: diphenhydrAMINE CAP 25 MG CAPSULE PO PRN (22:35)
[2019-04-10] MEDS: ALBUTEROL 2.5 MG/3 ML NEB RESP TX SCH ×4 (00:38→19:50)
[2019-04-10] MEDS: NAFCILLIN 2,000 MG in SODIUM CHLORIDE 0.9% 100 ML IV SCH ×6 (03:40→22:42)
[2019-04-10 04:35] LABS: Albumin 3.2 G/DL (3.4-5.0); Bilirubin,Total 0.4 MG/DL (0.2-1.0); Calcium 8.8 MG/DL (8.5-10.1); Total Protein 6.8 G/DL (6.4-8.3)
[2019-04-10 05:06] LABS: Basophils # 0.1 10*3/uL (0.0-0.2); Basophils % 0.4 % (0.0-0.8); Eosinophils % 0.2 % (0.00-10.9); Hematocrit 36.1 VOL% (42.0-52.0); Hemoglobin 10.8 GM/DL (14.0-18.0); Immature Granulocytes % 2.8 %; Lymphocytes # 3.4 10*3/uL (1.4-4.0); Lymphocytes % 24.1 % (21.2-54.2); Mean Corpuscular HGB Conc 29.9 GM/DL (32-36); Mean Corpuscular Volume 85.3 FL (87-102); Mean Platelet Volume 9.8 FL (9.6-12.0); Monocytes % 9.4 % (1.7-12.7); NRBC # 0.03 10*3/uL; Neutrophils % 63.1 % (38.7-73.9); Platelet Count 279 T/CUMM (130-400); Red Blood Count 4.23 MC/CUMM (3.8-5.5); Red Cell Distribution Width 21.2 % (9.3-17.3); White Blood Count 14.2 T/CUMM (4-12)
[2019-04-10] MEDS: ONDANSETRON 4 MG/2 ML VIAL IV PRN ×3 (06:55→22:40)
[2019-04-10] MEDS: ALUMINUM/MAGNES/SIMETH MAX STR 30 ML UDCUP PO PRN ×2 (07:46→17:04)
[2019-04-10] MEDS: THEOPHYLLINE ER (24 HR) 400 MG CAPSULE PO SCH (09:00)
[2019-04-10] MEDS: DILTIAZEM CD 300 MG CAPSULE PO SCH (09:00)
[2019-04-10] MEDS: prednisoLONE 15 MG/5 ML ORAL.SYR PO SCH (09:00)
[2019-04-10] MEDS: hydroCHLOROthiazide 25 MG TABLET PO SCH (09:00)
[2019-04-10] MEDS: NYSTATIN 500,000 UNIT/5 ML UDCUP SWISH/SWAL SCH ×4 (09:00→21:16)
[2019-04-10] MEDS: oxyCODONE/ACETAMINOPHEN 5-325 MG TABLET PO SCH ×3 (09:01→21:15)
[2019-04-10] MEDS: FERROUS SULFATE 325 MG TABLET PO SCH (09:02)
[2019-04-10] MEDS: RIVAROXABAN 20 MG TABLET PO SCH (09:02)
[2019-04-10] MEDS: POTASSIUM CHLORIDE 20 MEQ TABLET PO SCH (09:02)
[2019-04-10] MEDS: PANTOPRAZOLE 40 MG TABLET PO SCH (09:02)
[2019-04-10] MEDS: DULoxetine 30 MG CAPSULE PO SCH (09:02)
[2019-04-10] MEDS: DOCUSATE SODIUM 100 MG CAPSULE PO SCH ×2 (09:02→21:17)
[2019-04-10] MEDS: PREGABALIN 100 MG CAPSULE PO SCH ×2 (09:03→21:16)
[2019-04-10] MEDS: ASPIRIN EC 81 MG TABLET PO SCH (09:03)
[2019-04-10] MEDS: LOSARTAN 25 MG TABLET PO SCH ×2 (09:03→21:17)
[2019-04-10] MEDS: FEBUXOSTAT 80 MG TABLET PO SCH (09:03)
[2019-04-10] MEDS: CARVEDILOL 6.25 MG TABLET PO SCH ×2 (09:03→21:16)
[2019-04-10] MEDS: POTASSIUM CHLORIDE 20 MEQ TABLET PO PRN ×3 (09:04→13:49)
[2019-04-10] MEDS: BUDESONIDE/FORMOTEROL 160-4.5 INHALER 6 GM INH SCH ×2 (09:07→21:18)
[2019-04-10] MEDS: FLUTICASONE 50 MCG NASAL SPRAY 16 GM BOTTLE BOTH NARES SCH (09:07)
[2019-04-10] MEDS: LINACLOTIDE 145 MCG CAPSULE PO SCH (09:08)
[2019-04-10] MEDS: MORPHINE ER 15 MG TABLET PO SCH ×2 (10:39→22:40)
[2019-04-10] MEDS: MONTELUKAST 10 MG TABLET PO SCH (13:49)
[2019-04-10] MEDS: TAMSULOSIN 0.4 MG CAPSULE PO SCH (21:16)
[2019-04-10] MEDS: diphenhydrAMINE CAP 25 MG CAPSULE PO PRN (22:40)
[2019-04-11] MEDS: ALBUTEROL 2.5 MG/3 ML NEB RESP TX SCH ×4 (00:38→18:52)
[2019-04-11] MEDS: NAFCILLIN 2,000 MG in SODIUM CHLORIDE 0.9% 100 ML IV SCH ×6 (03:35→22:40)
[2019-04-11 05:44] LABS: Albumin 3.4 G/DL (3.4-5.0); Bilirubin,Total 0.6 MG/DL (0.2-1.0); Calcium 8.7 MG/DL (8.5-10.1); Total Protein 6.8 G/DL (6.4-8.3)
[2019-04-11 05:54] LABS: Basophils # 0.1 10*3/uL (0.0-0.2); Basophils % 0.5 % (0.0-0.8); Eosinophils # 0.2 10*3/uL (0.0-0.87); Eosinophils % 2.1 % (0.00-10.9); Hematocrit 35.1 VOL% (42.0-52.0); Immature Granulocytes % 3.5 %; Lymphocytes # 2.9 10*3/uL (1.4-4.0); Mean Corpuscular HGB Conc 28.8 GM/DL (32-36); Mean Corpuscular Volume 85.2 FL (87-102); Mean Platelet Volume 9.5 FL (9.6-12.0); Monocytes % 10.5 % (1.7-12.7); NRBC # 0.05 10*3/uL; Neutrophils % 58.4 % (38.7-73.9); Platelet Count 290 T/CUMM (130-400); Red Blood Count 4.12 MC/CUMM (3.8-5.5); Red Cell Distribution Width 21.2 % (9.3-17.3); White Blood Count 11.5 T/CUMM (4-12)
[2019-04-11 05:58] LABS: Hemoglobin 10.1 GM/DL (14.0-18.0)
[2019-04-11] MEDS: ONDANSETRON 4 MG/2 ML VIAL IV PRN ×2 (06:58→22:38)
[2019-04-11] MEDS: POTASSIUM CHLORIDE 20 MEQ TABLET PO PRN ×2 (07:12→08:07)
[2019-04-11] MEDS: THEOPHYLLINE ER (24 HR) 400 MG CAPSULE PO SCH (08:05)
[2019-04-11] MEDS: PREGABALIN 100 MG CAPSULE PO SCH ×2 (08:06→21:27)
[2019-04-11] MEDS: hydroCHLOROthiazide 25 MG TABLET PO SCH (08:06)
[2019-04-11] MEDS: NYSTATIN 500,000 UNIT/5 ML UDCUP SWISH/SWAL SCH ×4 (08:06→21:23)
[2019-04-11] MEDS: FEBUXOSTAT 80 MG TABLET PO SCH (08:06)
[2019-04-11] MEDS: DILTIAZEM CD 300 MG CAPSULE PO SCH (08:06)
[2019-04-11] MEDS: DULoxetine 30 MG CAPSULE PO SCH (08:06)
[2019-04-11] MEDS: FERROUS SULFATE 325 MG TABLET PO SCH (08:07)
[2019-04-11] MEDS: LOSARTAN 25 MG TABLET PO SCH ×2 (08:07→21:27)
[2019-04-11] MEDS: POTASSIUM CHLORIDE 20 MEQ TABLET PO SCH (08:07)
[2019-04-11] MEDS: CARVEDILOL 6.25 MG TABLET PO SCH ×2 (08:07→21:27)
[2019-04-11] MEDS: RIVAROXABAN 20 MG TABLET PO SCH (08:08)
[2019-04-11] MEDS: PANTOPRAZOLE 40 MG TABLET PO SCH (08:08)
[2019-04-11] MEDS: DOCUSATE SODIUM 100 MG CAPSULE PO SCH ×2 (08:08→23:03)
[2019-04-11] MEDS: ASPIRIN EC 81 MG TABLET PO SCH (08:08)
[2019-04-11] MEDS: oxyCODONE/ACETAMINOPHEN 5-325 MG TABLET PO SCH ×3 (08:08→21:23)
[2019-04-11] MEDS: prednisoLONE 15 MG/5 ML ORAL.SYR PO SCH (08:09)
[2019-04-11] MEDS: BUDESONIDE/FORMOTEROL 160-4.5 INHALER 6 GM INH SCH ×2 (08:10→21:28)
[2019-04-11] MEDS: FLUTICASONE 50 MCG NASAL SPRAY 16 GM BOTTLE BOTH NARES SCH (08:10)
[2019-04-11] MEDS: LINACLOTIDE 145 MCG CAPSULE PO SCH (08:11)
[2019-04-11] MEDS: MORPHINE ER 15 MG TABLET PO SCH ×2 (10:18→23:04)
[2019-04-11] MEDS: MONTELUKAST 10 MG TABLET PO SCH (14:25)
[2019-04-11] MEDS: TAMSULOSIN 0.4 MG CAPSULE PO SCH (21:24)
[2019-04-11] MEDS: diphenhydrAMINE CAP 25 MG CAPSULE PO PRN (22:40)
[2019-04-12] MEDS: ALBUTEROL 2.5 MG/3 ML NEB RESP TX SCH ×4 (00:49→19:59)
[2019-04-12] MEDS: NAFCILLIN 2,000 MG in SODIUM CHLORIDE 0.9% 100 ML IV SCH ×6 (03:30→23:37)
[2019-04-12 05:47] LABS: Basophils # 0.1 10*3/uL (0.0-0.2); Basophils % 0.5 % (0.0-0.8); Eosinophils # 0.2 10*3/uL (0.0-0.87); Eosinophils % 2.2 % (0.00-10.9); Hematocrit 34.2 VOL% (42.0-52.0); Hemoglobin 10.1 GM/DL (14.0-18.0); Immature Granulocytes % 4.6 %; Immature Granulocytes Absolute 0.46 #; Lymphocytes # 2.9 10*3/uL (1.4-4.0); Lymphocytes % 28.6 % (21.2-54.2); Mean Corpuscular HGB Conc 29.5 GM/DL (32-36); Mean Corpuscular Volume 86.4 FL (87-102); Mean Platelet Volume 9.5 FL (9.6-12.0); Monocytes % 10.4 % (1.7-12.7); NRBC # 0.08 10*3/uL; Neutrophils % 53.7 % (38.7-73.9); Platelet Count 273 T/CUMM (130-400); Red Blood Count 3.96 MC/CUMM (3.8-5.5); Red Cell Distribution Width 21.2 % (9.3-17.3)
[2019-04-12 05:56] LABS: Albumin 3.3 G/DL (3.4-5.0); Bilirubin,Total 0.6 MG/DL (0.2-1.0); Calcium 8.8 MG/DL (8.5-10.1); Osmolality,Calculated 276.8 MOS/KG (273-304); Total Protein 6.5 G/DL (6.4-8.3)
[2019-04-12 06:11] LABS: Hypochromasia 1+; Microcytosis 1+; Platelet Estimate Normal; Polychromasia Slight
[2019-04-12] MEDS: diphenhydrAMINE CAP 25 MG CAPSULE PO PRN (06:35)
[2019-04-12] MEDS: POTASSIUM CHLORIDE 20 MEQ TABLET PO PRN ×4 (06:57→14:13)
[2019-04-12] MEDS: POTASSIUM CHLORIDE 20 MEQ TABLET PO SCH (09:30)
[2019-04-12] MEDS: LINACLOTIDE 145 MCG CAPSULE PO SCH (09:32)
[2019-04-12] MEDS: oxyCODONE/ACETAMINOPHEN 5-325 MG TABLET PO SCH ×3 (09:34→20:56)
[2019-04-12] MEDS: FERROUS SULFATE 325 MG TABLET PO SCH (09:34)
[2019-04-12] MEDS: FEBUXOSTAT 80 MG TABLET PO SCH (09:35)
[2019-04-12] MEDS: DILTIAZEM CD 300 MG CAPSULE PO SCH (09:35)
[2019-04-12] MEDS: THEOPHYLLINE ER (24 HR) 400 MG CAPSULE PO SCH (09:36)
[2019-04-12] MEDS: DULoxetine 30 MG CAPSULE PO SCH (09:36)
[2019-04-12] MEDS: DOCUSATE SODIUM 100 MG CAPSULE PO SCH ×2 (09:36→20:55)
[2019-04-12] MEDS: hydroCHLOROthiazide 25 MG TABLET PO SCH (09:37)
[2019-04-12] MEDS: ASPIRIN EC 81 MG TABLET PO SCH (09:37)
[2019-04-12] MEDS: RIVAROXABAN 20 MG TABLET PO SCH (09:37)
[2019-04-12] MEDS: CARVEDILOL 6.25 MG TABLET PO SCH ×2 (09:37→20:55)
[2019-04-12] MEDS: PREGABALIN 100 MG CAPSULE PO SCH ×2 (09:38→20:55)
[2019-04-12] MEDS: NYSTATIN 500,000 UNIT/5 ML UDCUP SWISH/SWAL SCH ×4 (09:38→20:55)
[2019-04-12] MEDS: prednisoLONE 15 MG/5 ML ORAL.SYR PO SCH (09:38)
[2019-04-12] MEDS: PANTOPRAZOLE 40 MG TABLET PO SCH (09:39)
[2019-04-12] MEDS: FLUTICASONE 50 MCG NASAL SPRAY 16 GM BOTTLE BOTH NARES SCH (09:39)
[2019-04-12] MEDS: LOSARTAN 25 MG TABLET PO SCH ×2 (09:39→20:55)
[2019-04-12] MEDS: BUDESONIDE/FORMOTEROL 160-4.5 INHALER 6 GM INH SCH ×2 (09:40→20:55)
[2019-04-12] MEDS: MORPHINE ER 15 MG TABLET PO SCH ×2 (10:39→22:58)
[2019-04-12] MEDS: MONTELUKAST 10 MG TABLET PO SCH (14:13)
[2019-04-12] MEDS: TAMSULOSIN 0.4 MG CAPSULE PO SCH (20:55)
[2019-04-13] MEDS: ALBUTEROL 2.5 MG/3 ML NEB RESP TX SCH ×4 (00:15→19:15)
[2019-04-13] MEDS: NAFCILLIN 2,000 MG in SODIUM CHLORIDE 0.9% 100 ML IV SCH ×6 (03:47→23:29)
[2019-04-13] MEDS: ONDANSETRON 4 MG/2 ML VIAL IV PRN (04:11)
[2019-04-13 06:04] LABS: Basophils # 0.1 10*3/uL (0.0-0.2); Basophils % 0.5 % (0.0-0.8); Eosinophils # 0.2 10*3/uL (0.0-0.87); Eosinophils % 2.4 % (0.00-10.9); Hematocrit 34.3 VOL% (42.0-52.0); Hemoglobin 10.1 GM/DL (14.0-18.0); Immature Granulocytes % 5.6 %; Immature Granulocytes Absolute 0.57 #; Lymphocytes # 2.8 10*3/uL (1.4-4.0); Lymphocytes % 27.1 % (21.2-54.2); Mean Corpuscular HGB Conc 29.4 GM/DL (32-36); Mean Corpuscular Volume 86.6 FL (87-102); Mean Platelet Volume 9.3 FL (9.6-12.0); Monocytes % 10.8 % (1.7-12.7); NRBC # 0.09 10*3/uL; Neutrophils % 53.6 % (38.7-73.9); Platelet Count 269 T/CUMM (130-400); Red Blood Count 3.96 MC/CUMM (3.8-5.5); Red Cell Distribution Width 21.3 % (9.3-17.3); White Blood Count 10.2 T/CUMM (4-12)
[2019-04-13 06:11] LABS: Albumin 3.1 G/DL (3.4-5.0); Bilirubin,Total 0.7 MG/DL (0.2-1.0); Calcium 8.9 MG/DL (8.5-10.1); Osmolality,Calculated 277.7 MOS/KG (273-304); Total Protein 6.5 G/DL (6.4-8.3)
[2019-04-13] MEDS: ALUMINUM/MAGNES/SIMETH MAX STR 30 ML UDCUP PO PRN ×3 (06:12→18:10)
[2019-04-13 06:23] LABS: Eosinophils 3 % (0-10); Hypochromasia 1+; Lymphocytes 33 % (20-55); Microcytosis 1+; Nucleated Red Blood Cells 1 (0-5); Ovalocytes Slight; Platelet Estimate Adequate; Segmented Neutrophils 53 % (50-85); Total Cells Counted 100
[2019-04-13] MEDS ORDERED: POTASSIUM BICARB EFFERVESCENT 25 MEQ TABLET PO ONE (07:49)
[2019-04-13] MEDS: DILTIAZEM CD 300 MG CAPSULE PO SCH (08:32)
[2019-04-13] MEDS: LINACLOTIDE 145 MCG CAPSULE PO SCH (08:34)
[2019-04-13] MEDS: THEOPHYLLINE ER (24 HR) 400 MG CAPSULE PO SCH (08:35)
[2019-04-13] MEDS: FEBUXOSTAT 80 MG TABLET PO SCH (08:35)
[2019-04-13] MEDS: DULoxetine 30 MG CAPSULE PO SCH (08:35)
[2019-04-13] MEDS: FERROUS SULFATE 325 MG TABLET PO SCH (08:36)
[2019-04-13] MEDS: hydroCHLOROthiazide 25 MG TABLET PO SCH (08:37)
[2019-04-13] MEDS: oxyCODONE/ACETAMINOPHEN 5-325 MG TABLET PO SCH ×3 (08:37→22:21)
[2019-04-13] MEDS: POTASSIUM CHLORIDE 20 MEQ TABLET PO SCH (08:37)
[2019-04-13] MEDS: ASPIRIN EC 81 MG TABLET PO SCH (08:38)
[2019-04-13] MEDS: RIVAROXABAN 20 MG TABLET PO SCH (08:39)
[2019-04-13] MEDS: PREGABALIN 100 MG CAPSULE PO SCH ×2 (08:39→22:21)
[2019-04-13] MEDS: DOCUSATE SODIUM 100 MG CAPSULE PO SCH ×2 (08:39→22:21)
[2019-04-13] MEDS: PANTOPRAZOLE 40 MG TABLET PO SCH (08:40)
[2019-04-13] MEDS: LOSARTAN 25 MG TABLET PO SCH ×2 (08:40→22:21)
[2019-04-13] MEDS: CARVEDILOL 6.25 MG TABLET PO SCH ×2 (08:40→22:21)
[2019-04-13] MEDS: NYSTATIN 500,000 UNIT/5 ML UDCUP SWISH/SWAL SCH ×4 (08:41→22:21)
[2019-04-13] MEDS: prednisoLONE 15 MG/5 ML ORAL.SYR PO SCH (08:41)
[2019-04-13] MEDS: BUDESONIDE/FORMOTEROL 160-4.5 INHALER 6 GM INH SCH ×2 (08:47→22:21)
[2019-04-13] MEDS: FLUTICASONE 50 MCG NASAL SPRAY 16 GM BOTTLE BOTH NARES SCH (08:47)
[2019-04-13] MEDS: MORPHINE ER 15 MG TABLET PO SCH ×2 (10:44→23:28)
[2019-04-13] MEDS: MONTELUKAST 10 MG TABLET PO SCH (12:57)
[2019-04-13] MEDS: NIFEdipine 10 MG CAPSULE PO PRN (19:35)
[2019-04-13] MEDS: TAMSULOSIN 0.4 MG CAPSULE PO SCH (22:21)
[2019-04-14] MEDS: ONDANSETRON 4 MG/2 ML VIAL IV PRN ×3 (00:14→19:10)
[2019-04-14] MEDS: diphenhydrAMINE CAP 25 MG CAPSULE PO PRN (00:15)
[2019-04-14] MEDS: ALBUTEROL 2.5 MG/3 ML NEB RESP TX SCH ×4 (01:13→19:46)
[2019-04-14] MEDS: NAFCILLIN 2,000 MG in SODIUM CHLORIDE 0.9% 100 ML IV SCH ×5 (03:17→18:45)
[2019-04-14] MEDS: LINACLOTIDE 145 MCG CAPSULE PO SCH (07:56)
[2019-04-14] MEDS: FERROUS SULFATE 325 MG TABLET PO SCH (09:48)
[2019-04-14] MEDS: DOCUSATE SODIUM 100 MG CAPSULE PO SCH ×2 (09:48→20:35)
[2019-04-14] MEDS: THEOPHYLLINE ER (24 HR) 400 MG CAPSULE PO SCH (09:49)
[2019-04-14] MEDS: POTASSIUM CHLORIDE 20 MEQ TABLET PO SCH (09:49)
[2019-04-14] MEDS: hydroCHLOROthiazide 25 MG TABLET PO SCH (09:49)
[2019-04-14] MEDS: DULoxetine 30 MG CAPSULE PO SCH (09:49)
[2019-04-14] MEDS: DILTIAZEM CD 300 MG CAPSULE PO SCH (09:49)
[2019-04-14] MEDS: FEBUXOSTAT 80 MG TABLET PO SCH (09:50)
[2019-04-14] MEDS: oxyCODONE/ACETAMINOPHEN 5-325 MG TABLET PO SCH ×3 (09:50→20:07)
[2019-04-14] MEDS: ASPIRIN EC 81 MG TABLET PO SCH (09:50)
[2019-04-14] MEDS: NYSTATIN 500,000 UNIT/5 ML UDCUP SWISH/SWAL SCH ×4 (09:50→20:07)
[2019-04-14] MEDS: CARVEDILOL 6.25 MG TABLET PO SCH ×2 (09:50→20:08)
[2019-04-14] MEDS: LOSARTAN 25 MG TABLET PO SCH (09:50)
[2019-04-14] MEDS: PANTOPRAZOLE 40 MG TABLET PO SCH (09:50)
[2019-04-14] MEDS: PREGABALIN 100 MG CAPSULE PO SCH (09:50)
[2019-04-14] MEDS: RIVAROXABAN 20 MG TABLET PO SCH (09:50)
[2019-04-14] MEDS: FLUTICASONE 50 MCG NASAL SPRAY 16 GM BOTTLE BOTH NARES SCH (09:57)
[2019-04-14] MEDS: BUDESONIDE/FORMOTEROL 160-4.5 INHALER 6 GM INH SCH ×2 (09:58→20:08)
[2019-04-14] MEDS: prednisoLONE 15 MG/5 ML ORAL.SYR PO SCH (09:58)
[2019-04-14] MEDS: POTASSIUM CHLORIDE 20 MEQ TABLET PO PRN (11:34)
[2019-04-14] MEDS: MORPHINE ER 15 MG TABLET PO SCH (11:34)
[2019-04-14] MEDS: NIFEdipine 10 MG CAPSULE PO PRN (11:46)
[2019-04-14] MEDS: MONTELUKAST 10 MG TABLET PO SCH (14:41)
[2019-04-14 19:31] VITALS: BP 152/92
[2019-04-14] MEDS: TAMSULOSIN 0.4 MG CAPSULE PO SCH (20:07)
== END 2019-04-14 20:15 | disposition home or self-care (01) | DRG 872 ==
LOC: EDUNIT# → EDBD → N.ED 07:48 → N.EDINP 10:17 → SUATTDRO 10:17 → N.TELES 12:18
PROVIDERS: ADMIT Internal Medicine; ATTEND Internal Medicine

== ENCOUNTER 2019-04-19 10:33 | Observation (INO) ==
[2019-04-19] MEDS ORDERED: ASPIRIN 325 MG TABLET PO STA (11:01)
[2019-04-19] MEDS ORDERED: MORPHINE 4 MG/1 ML VIAL IV STA ×2 (11:01→13:50)
[2019-04-19] MEDS ORDERED: FUROSEMIDE 40 MG/4 ML VIAL IV STA (11:01)
[2019-04-19] MEDS ORDERED: ONDANSETRON 4 MG/2 ML VIAL IV STA ×2 (11:01→13:50)
[2019-04-19] MEDS ORDERED: NITROGLYCERIN 2% OINT 1 INCH/GM PACK TOP STA (11:01)
[2019-04-19 11:32] LABS: Basophils % 0.4 % (0.0-0.8); Eosinophils # 0.1 10*3/uL (0.0-0.87); Eosinophils % 0.6 % (0.00-10.9); Hemoglobin 10.2 GM/DL (14.0-18.0); Immature Granulocytes % 0.6 %; Immature Granulocytes Absolute 0.05 #; Lymphocytes # 1.8 10*3/uL (1.4-4.0); Lymphocytes % 21.9 % (21.2-54.2); Mean Corpuscular Volume 86.1 FL (87-102); Mean Platelet Volume 9.3 FL (9.6-12.0); Monocytes % 9.3 % (1.7-12.7); NRBC # 0.03 10*3/uL; Neutrophils % 67.2 % (38.7-73.9); Platelet Count 185 T/CUMM (130-400); Red Blood Count 3.95 MC/CUMM (3.8-5.5); Red Cell Distribution Width 20.7 % (9.3-17.3); White Blood Count 8.1 T/CUMM (4-12)
[2019-04-19 11:37] LABS: PT Patient Result 11.1 SECS
[2019-04-19 11:44] LABS: Apearance,Urine CLEAR (Clear); Bilirubin,Urine Negative (Negative); Blood, Urine Negative (Negative); Glucose,Urine (UA) Negative (Negative); Ketones,Urine Negative (Negative); Nitrite,Urine Negative (Negative); Protein,Urine Negative; RBC,Urine <1 /HPF (0-4); Urine Color Colorless (Yellow); Urine Specific Gravity 1.002 (1.001-1.035); Urine Urobilinogen < 2.0 EU/DL (0.2-1.0); WBC,Urine <1 /HPF (0-6)
[2019-04-19 11:50] LABS: Alanine Aminotransferase 21 U/L (16-61); Albumin 3.7 G/DL (3.4-5.0); Alkaline Phosphatase 72 U/L (45-117); Aspartate Amino Transferase 12 U/L (0-37); Blood Urea Nitrogen 7 MG/DL (7-18); Calcium 9.2 MG/DL (8.5-10.1); Glucose 115 MG/DL (74-106); Osmolality,Calculated 273.7 MOS/KG (273-304); Total Protein 7.5 G/DL (6.4-8.3); Troponin I 0.033 NG/ML (0.00-0.045)
[2019-04-19 12:08] LABS: Barbiturates Screen,Urine Negative (Negative); Benzodiazepines Screen,Urine Negative (Negative); Cannabinoid Screen,Urine Positive (Negative); Opiate Screen,Urine Negative (Negative); Phencyclidine Screen,Urine Negative (Negative)
[2019-04-19] MEDS ORDERED: hydrALAZINE 20 MG/1 ML VIAL IV STA (13:50)
[2019-04-19] MEDS ORDERED: diphenhydrAMINE CAP 50 MG CAPSULE PO PRN (14:53)
[2019-04-19] MEDS ORDERED: ALBUTEROL 2.5 MG/3 ML NEB RESP TX PRN (14:53)
[2019-04-19] MEDS ORDERED: ALBUTEROL/IPRATROPIUM 3 ML NEB RESP TX PRN (14:53)
[2019-04-19] MEDS ORDERED: SIMETHICONE CHEW 125 MG TABLET PO PRN (14:53)
[2019-04-19] MEDS ORDERED: ENOXAPARIN 30 MG/0.3 ML SYRINGE SUBCUT SCH (15:00)
[2019-04-19] MEDS ORDERED: HYDROmorphone 2 MG/1 ML VIAL IV ONE (16:07)
[2019-04-19] MEDS ORDERED: HYDROmorphone 2 MG/1 ML VIAL ONE (16:08)
[2019-04-19] MEDS: LEVALBUTEROL 1.25 MG/3 ML NEB RESP TX SCH (19:04)
[2019-04-19] MEDS ORDERED: CARVEDILOL 6.25 MG TABLET PO SCH (21:00)
[2019-04-19] MEDS: DOCUSATE SODIUM 100 MG CAPSULE PO SCH (21:42)
[2019-04-19] MEDS: CARVEDILOL 12.5 MG TABLET PO SCH (21:44)
[2019-04-19] MEDS: LOSARTAN 25 MG TABLET PO SCH (21:45)
[2019-04-19] MEDS: PREGABALIN 100 MG CAPSULE PO SCH (21:46)
[2019-04-19] MEDS: LACTOBACILLUS RHAMNOSUS GG CAPSULE PO SCH (21:46)
[2019-04-19] MEDS: TAMSULOSIN 0.4 MG CAPSULE PO SCH (21:46)
[2019-04-19] MEDS: ONDANSETRON 4 MG/2 ML VIAL IV PRN (22:26)
[2019-04-20] MEDS: BUDESONIDE/FORMOTEROL 160-4.5 INHALER 6 GM INH SCH ×3 (01:11→20:53)
[2019-04-20] MEDS: LEVALBUTEROL 1.25 MG/3 ML NEB RESP TX SCH ×4 (01:18→19:48)
[2019-04-20] MEDS: oxyCODONE/ACETAMINOPHEN 5-325 MG TABLET PO PRN ×3 (03:41→23:24)
[2019-04-20 04:34] LABS: Basophils % 0.5 % (0.0-0.8); Eosinophils # 0.2 10*3/uL (0.0-0.87); Eosinophils % 2.8 % (0.00-10.9); Hematocrit 35.8 VOL% (42.0-52.0); Hemoglobin 10.7 GM/DL (14.0-18.0); Immature Granulocytes % 0.6 %; Immature Granulocytes Absolute 0.05 #; Lymphocytes # 2.4 10*3/uL (1.4-4.0); Lymphocytes % 30.8 % (21.2-54.2); Mean Corpuscular HGB Conc 29.9 GM/DL (32-36); Mean Corpuscular Volume 87.5 FL (87-102); Mean Platelet Volume 9.7 FL (9.6-12.0); Monocytes % 11.4 % (1.7-12.7); NRBC # 0.04 10*3/uL; Neutrophils % 53.9 % (38.7-73.9); Platelet Count 202 T/CUMM (130-400); Red Blood Count 4.09 MC/CUMM (3.8-5.5); Red Cell Distribution Width 21.1 % (9.3-17.3); White Blood Count 7.7 T/CUMM (4-12)
[2019-04-20 04:44] LABS: Calcium 9.2 MG/DL (8.5-10.1); Osmolality,Calculated 274.7 MOS/KG (273-304)
[2019-04-20 06:03] LABS: Anisocytosis 1+; Microcytosis 1+
[2019-04-20 06:04] LABS: Polychromasia Few; Stomatocytes Slight
[2019-04-20 06:05] LABS: Platelet Estimate Normal
[2019-04-20] MEDS ORDERED: FUROSEMIDE 40 MG/4 ML VIAL IV SCH (09:00)
[2019-04-20] MEDS ORDERED: DAPTOmycin 500 MG VIAL IV SCH (09:00)
[2019-04-20] MEDS: LINACLOTIDE 145 MCG CAPSULE PO SCH ×2 (09:42→09:53)
[2019-04-20] MEDS: LOSARTAN 25 MG TABLET PO SCH ×2 (09:42→20:44)
[2019-04-20] MEDS: DOCUSATE SODIUM 100 MG CAPSULE PO SCH ×2 (09:42→20:43)
[2019-04-20] MEDS: ASPIRIN EC 81 MG TABLET PO SCH (09:43)
[2019-04-20] MEDS: LACTOBACILLUS RHAMNOSUS GG CAPSULE PO SCH ×2 (09:43→20:43)
[2019-04-20] MEDS: DULoxetine 30 MG CAPSULE PO SCH (09:43)
[2019-04-20] MEDS: THEOPHYLLINE ER (24 HR) 400 MG CAPSULE PO SCH (09:43)
[2019-04-20] MEDS: prednisoLONE 15 MG/5 ML ORAL.SYR PO SCH (09:43)
[2019-04-20] MEDS: DILTIAZEM CD 300 MG CAPSULE PO SCH (09:43)
[2019-04-20] MEDS: PANTOPRAZOLE 40 MG TABLET PO SCH (09:43)
[2019-04-20] MEDS: PREGABALIN 100 MG CAPSULE PO SCH ×2 (09:44→20:44)
[2019-04-20] MEDS: FERROUS SULFATE 325 MG TABLET PO SCH (09:44)
[2019-04-20] MEDS: CARVEDILOL 12.5 MG TABLET PO SCH ×2 (09:44→20:44)
[2019-04-20] MEDS: RIVAROXABAN 20 MG TABLET PO SCH (09:44)
[2019-04-20] MEDS: FLUTICASONE 50 MCG NASAL SPRAY 16 GM BOTTLE BOTH NARES SCH (09:44)
[2019-04-20] MEDS: MORPHINE 4 MG/1 ML VIAL IV PRN ×2 (10:03→17:51)
[2019-04-20] MEDS: FEBUXOSTAT 80 MG TABLET PO SCH (10:04)
[2019-04-20] MEDS: hydroCHLOROthiazide 25 MG TABLET PO SCH (10:04)
[2019-04-20] MEDS ORDERED: REGADENOSON 0.4 MG/5 ML SYRINGE IV ONE (10:38)
[2019-04-20] MEDS: MONTELUKAST 10 MG TABLET PO SCH (12:39)
[2019-04-20] MEDS: ONDANSETRON 4 MG/2 ML VIAL IV PRN (13:01)
[2019-04-20] MEDS: AZITHROMYCIN 250 MG TABLET PO SCH (15:51)
[2019-04-20] MEDS ORDERED: NITROGLYCERIN 2% OINT 1 INCH/GM PACK TOP ONE (17:47)
[2019-04-20] MEDS ORDERED: NITROGLYCERIN 0.1 MG/HR PATCH TRANSDERM ONE (19:00)
[2019-04-20] MEDS: TAMSULOSIN 0.4 MG CAPSULE PO SCH (20:43)
[2019-04-21] MEDS: LEVALBUTEROL 1.25 MG/3 ML NEB RESP TX SCH ×3 (03:21→14:45)
[2019-04-21] MEDS: MORPHINE 4 MG/1 ML VIAL IV PRN ×2 (08:50→16:40)
[2019-04-21] MEDS: prednisoLONE 15 MG/5 ML ORAL.SYR PO SCH (08:50)
[2019-04-21] MEDS: LINACLOTIDE 145 MCG CAPSULE PO SCH (08:51)
[2019-04-21] MEDS: FERROUS SULFATE 325 MG TABLET PO SCH (08:51)
[2019-04-21] MEDS: THEOPHYLLINE ER (24 HR) 400 MG CAPSULE PO SCH (08:51)
[2019-04-21] MEDS: PANTOPRAZOLE 40 MG TABLET PO SCH (08:51)
[2019-04-21] MEDS: FEBUXOSTAT 80 MG TABLET PO SCH (08:51)
[2019-04-21] MEDS: ASPIRIN EC 81 MG TABLET PO SCH (08:52)
[2019-04-21] MEDS: AZITHROMYCIN 250 MG TABLET PO SCH (08:52)
[2019-04-21] MEDS: LOSARTAN 25 MG TABLET PO SCH (08:52)
[2019-04-21] MEDS: DILTIAZEM CD 300 MG CAPSULE PO SCH (08:52)
[2019-04-21] MEDS: CARVEDILOL 12.5 MG TABLET PO SCH (08:52)
[2019-04-21] MEDS: DOCUSATE SODIUM 100 MG CAPSULE PO SCH (08:52)
[2019-04-21] MEDS: DULoxetine 30 MG CAPSULE PO SCH (08:53)
[2019-04-21] MEDS: LACTOBACILLUS RHAMNOSUS GG CAPSULE PO SCH (08:53)
[2019-04-21] MEDS: hydroCHLOROthiazide 25 MG TABLET PO SCH (08:53)
[2019-04-21] MEDS: PREGABALIN 100 MG CAPSULE PO SCH (08:53)
[2019-04-21] MEDS: RIVAROXABAN 20 MG TABLET PO SCH (08:53)
[2019-04-21] MEDS ORDERED: FUROSEMIDE 40 MG TABLET PO SCH (09:00)
[2019-04-21] MEDS: BUDESONIDE/FORMOTEROL 160-4.5 INHALER 6 GM INH SCH (09:27)
[2019-04-21] MEDS: FLUTICASONE 50 MCG NASAL SPRAY 16 GM BOTTLE BOTH NARES SCH (09:27)
[2019-04-21] MEDS: MONTELUKAST 10 MG TABLET PO SCH (13:55)
[2019-04-21] MEDS: oxyCODONE/ACETAMINOPHEN 5-325 MG TABLET PO PRN (13:56)
[2019-04-21 16:10] VITALS: BP 108/56
[2019-04-21] MEDS: ONDANSETRON 4 MG/2 ML VIAL IV PRN (16:40)
[2019-04-22] MEDS ORDERED: ERGOCALCIFEROL 50,000 UNIT CAPSULE PO SCH (09:00)
== END 2019-04-21 18:55 | disposition home or self-care (01) ==
LOC: N.EDINP 10:33 → N.ED 10:33 → SUATTDRO 14:46 → N.TELEN 04-20 00:13
PROVIDERS: ADMIT Internal Medicine; ATTEND Family Medicine

== ENCOUNTER 2019-11-24 08:10 | Inpatient (IN) ==
[2019-11-24] MEDS ORDERED: methylPREDNISolone SOD SUC 125 MG/2 ML VIAL IV STA (08:37)
[2019-11-24] MEDS ORDERED: ALBUTEROL 2.5 MG/3 ML NEB RESP TX SCH (09:00)
[2019-11-24 09:21] LABS: Basophils # 0.1 10*3/uL (0.0-0.2); Basophils % 0.8 % (0.0-0.8); Eosinophils # 0.2 10*3/uL (0.0-0.87); Eosinophils % 1.9 % (0.00-10.9); Hematocrit 42.2 VOL% (42.0-52.0); Hemoglobin 12.9 GM/DL (14.0-18.0); Immature Granulocytes % 0.6 %; Immature Granulocytes Absolute 0.05 #; Lymphocytes % 37.8 % (21.2-54.2); Mean Corpuscular HGB Conc 30.6 GM/DL (32-36); Mean Corpuscular Volume 80.5 FL (87-102); Mean Platelet Volume 10.4 FL (9.6-12.0); Monocytes % 9.5 % (1.7-12.7); Neutrophils % 49.4 % (38.7-73.9); Platelet Count 226 T/CUMM (130-400); Red Blood Count 5.24 MC/CUMM (3.8-5.5); Red Cell Distribution Width 18.1 % (9.3-17.3); White Blood Count 7.9 T/CUMM (4-12)
[2019-11-24 09:29] LABS: INR 0.9; Partial Thromboplastin Time 24.4 SECS (20.8-36.0)
[2019-11-24 09:46] LABS: Alanine Aminotransferase 21 U/L (16-61); Albumin 3.7 G/DL (3.4-5.0); Alkaline Phosphatase 117 U/L (45-117); Aspartate Amino Transferase 11 U/L (0-37); Bilirubin,Total < 0.39 MG/DL (0.2-1.0); Blood Urea Nitrogen 16 MG/DL (7-18); Calcium 8.9 MG/DL (8.5-10.1); Estimated Glom Filtration Rate 139 ML/MIN; Glucose 104 MG/DL (74-106); Osmolality,Calculated 273.8 MOS/KG (273-304); Total Protein 7.7 G/DL (6.4-8.3)
[2019-11-24] MEDS ORDERED: guaiFENesin/DM ER 600-30 MG TABLET PO PRN (11:30)
[2019-11-24] MEDS ORDERED: ACETAMINOPHEN 325 MG TABLET PO PRN (11:30)
[2019-11-24] MEDS ORDERED: ENOXAPARIN 40 MG/0.4 ML SYRINGE SUBCUT SCH (11:30)
[2019-11-24 11:44] LABS: Apearance,Urine CLEAR (Clear); Bilirubin,Urine Negative (Negative); Blood, Urine Negative (Negative); Glucose,Urine (UA) Negative (Negative); Ketones,Urine Negative (Negative); Mucus,Urine Occasional /LPF (Occasional); Nitrite,Urine Negative (Negative); Protein,Urine Negative; RBC,Urine 1 /HPF (0-4); Urine Color Straw (Yellow); Urine Urobilinogen < 2.0 EU/DL (0.2-1.0)
[2019-11-24 12:01] LABS: Barbiturates Screen,Urine Negative (Negative); Benzodiazepines Screen,Urine Negative (Negative); Cannabinoid Screen,Urine Positive (Negative); Opiate Screen,Urine Negative (Negative); Phencyclidine Screen,Urine Negative (Negative)
[2019-11-24] MEDS: methylPREDNISolone SOD SUC 125 MG/2 ML VIAL IV SCH ×2 (13:46→17:33)
[2019-11-24] MEDS ORDERED: MORPHINE 4 MG/1 ML VIAL ONE (14:28)
[2019-11-24] MEDS ORDERED: MORPHINE 4 MG/1 ML VIAL IV STA (14:30)
[2019-11-24] MEDS ORDERED: INFLUENZA VIRUS VACCINE 0.5 ML SYRINGE IM ONE (16:29)
[2019-11-24] MEDS: ALBUTEROL 2.5 MG/3 ML NEB RESP TX PRN ×3 (16:45→22:42)
[2019-11-24] MEDS: BUDESONIDE/FORMOTEROL 160-4.5 INHALER 6 GM INH SCH (21:55)
[2019-11-24] MEDS: LOSARTAN 25 MG TABLET PO SCH (21:55)
[2019-11-24] MEDS: TAMSULOSIN 0.4 MG CAPSULE PO SCH (21:55)
[2019-11-24] MEDS: RIVAROXABAN 20 MG TABLET PO SCH (21:55)
[2019-11-24] MEDS: carvediloL 6.25 MG TABLET PO SCH (21:55)
[2019-11-24] MEDS: FERROUS SULFATE 325 MG TABLET PO SCH (21:55)
[2019-11-24] MEDS: PANTOPRAZOLE 40 MG TABLET PO SCH (22:16)
[2019-11-25] MEDS: oxyCODONE/ACETAMINOPHEN 5-325 MG TABLET PO PRN ×5 (00:39→20:54)
[2019-11-25] MEDS: methylPREDNISolone SOD SUC 125 MG/2 ML VIAL IV SCH ×4 (00:40→20:53)
[2019-11-25] MEDS: ALBUTEROL 2.5 MG/3 ML NEB RESP TX PRN ×2 (02:16→07:34)
[2019-11-25] MEDS ORDERED: cloNIDine 0.1 MG TABLET PO ONE (04:57)
[2019-11-25 06:37] LABS: Basophils % 0.1 % (0.0-0.8); Hematocrit 43.8 VOL% (42.0-52.0); Hemoglobin 13.4 GM/DL (14.0-18.0); Immature Granulocytes % 1.1 %; Immature Granulocytes Absolute 0.16 #; Lymphocytes # 1.9 10*3/uL (1.4-4.0); Lymphocytes % 13.5 % (21.2-54.2); Mean Corpuscular HGB Conc 30.6 GM/DL (32-36); Mean Corpuscular Volume 79.5 FL (87-102); Mean Platelet Volume 10.7 FL (9.6-12.0); Monocytes % 2.1 % (1.7-12.7); Neutrophils % 83.2 % (38.7-73.9); Platelet Count 261 T/CUMM (130-400); Red Blood Count 5.51 MC/CUMM (3.8-5.5); Red Cell Distribution Width 18.6 % (9.3-17.3); White Blood Count 14.3 T/CUMM (4-12)
[2019-11-25 07:19] LABS: Albumin 3.6 G/DL (3.4-5.0); Bilirubin,Total 0.8 MG/DL (0.2-1.0); Calcium 9.2 MG/DL (8.5-10.1); Osmolality,Calculated 280.5 MOS/KG (273-304); Risk Ratio 3.89; Thyroid Stimulating Hormone 0.091 uIU/ml (0.358-3.74); VLDL CHOLESTEROL 19.2 MG/DL
[2019-11-25] MEDS: BUDESONIDE/FORMOTEROL 160-4.5 INHALER 6 GM INH SCH ×2 (09:26→20:53)
[2019-11-25] MEDS: POTASSIUM CHLORIDE 20 MEQ TABLET PO SCH (09:27)
[2019-11-25] MEDS: ASPIRIN EC 81 MG TABLET PO SCH (09:27)
[2019-11-25] MEDS: FUROSEMIDE 40 MG TABLET PO SCH (09:27)
[2019-11-25] MEDS: FERROUS SULFATE 325 MG TABLET PO SCH ×2 (09:27→20:52)
[2019-11-25] MEDS: PREGABALIN 100 MG CAPSULE PO SCH (09:28)
[2019-11-25] MEDS: carvediloL 6.25 MG TABLET PO SCH ×2 (09:28→20:52)
[2019-11-25] MEDS: DULoxetine 30 MG CAPSULE PO SCH (09:28)
[2019-11-25] MEDS: hydroCHLOROthiazide 25 MG TABLET PO SCH (09:28)
[2019-11-25] MEDS: LOSARTAN 25 MG TABLET PO SCH ×2 (09:28→20:52)
[2019-11-25] MEDS: SKIN HEALING OINT (AQUAPHOR) 50 GM TUBE TOP SCH ×2 (12:27→20:57)
[2019-11-25] MEDS: MONTELUKAST 10 MG TABLET PO SCH (12:27)
[2019-11-25] MEDS ORDERED: diphenhydrAMINE CAP 50 MG CAPSULE PO PRN (12:29)
[2019-11-25] MEDS: diphenhydrAMINE CAP 25 MG CAPSULE PO PRN (12:53)
[2019-11-25] MEDS ORDERED: MAGNESIUM SULF RIDER 4 GM in PREMIX 1 EACH IV ONE (14:00)
[2019-11-25] MEDS: ALBUTEROL/IPRATROPIUM 3 ML NEB RESP TX SCH ×2 (14:45→20:00)
[2019-11-25] MEDS: THEOPHYLLINE ER (24 HR) 400 MG CAPSULE PO SCH (17:19)
[2019-11-25] MEDS: COLCHICINE 0.6 MG CAPSULE PO SCH (20:52)
[2019-11-25] MEDS: TAMSULOSIN 0.4 MG CAPSULE PO SCH (20:52)
[2019-11-25] MEDS: PANTOPRAZOLE 40 MG TABLET PO SCH (20:52)
[2019-11-25] MEDS: RIVAROXABAN 20 MG TABLET PO SCH (20:53)
[2019-11-26] MEDS: ALBUTEROL/IPRATROPIUM 3 ML NEB RESP TX SCH ×6 (00:02→20:27)
[2019-11-26] MEDS: ONDANSETRON 4 MG/2 ML VIAL IV PRN ×2 (01:43→14:18)
[2019-11-26] MEDS: methylPREDNISolone SOD SUC 125 MG/2 ML VIAL IV SCH ×4 (03:38→21:17)
[2019-11-26 05:03] LABS: Basophils % 0.1 % (0.0-0.8); Eosinophils % 0.1 % (0.00-10.9); Hematocrit 41.4 VOL% (42.0-52.0); Hemoglobin 12.7 GM/DL (14.0-18.0); Immature Granulocytes % 0.9 %; Immature Granulocytes Absolute 0.15 #; Lymphocytes # 1.8 10*3/uL (1.4-4.0); Lymphocytes % 10.7 % (21.2-54.2); Mean Corpuscular HGB Conc 30.7 GM/DL (32-36); Mean Corpuscular Volume 80.4 FL (87-102); Mean Platelet Volume 10.6 FL (9.6-12.0); Monocytes % 3.8 % (1.7-12.7); Neutrophils % 84.4 % (38.7-73.9); Platelet Count 252 T/CUMM (130-400); Red Blood Count 5.15 MC/CUMM (3.8-5.5); Red Cell Distribution Width 18.5 % (9.3-17.3); White Blood Count 16.8 T/CUMM (4-12)
[2019-11-26 05:36] LABS: Albumin 3.6 G/DL (3.4-5.0); Bilirubin,Total 0.5 MG/DL (0.2-1.0); Calcium 8.7 MG/DL (8.5-10.1); Osmolality,Calculated 273.2 MOS/KG (273-304); Total Protein 7.6 G/DL (6.4-8.3)
[2019-11-26] MEDS: oxyCODONE/ACETAMINOPHEN 5-325 MG TABLET PO PRN ×5 (05:55→22:27)
[2019-11-26] MEDS: diphenhydrAMINE CAP 25 MG CAPSULE PO PRN ×3 (05:55→22:27)
[2019-11-26] MEDS: BUDESONIDE/FORMOTEROL 160-4.5 INHALER 6 GM INH SCH ×2 (08:48→21:29)
[2019-11-26] MEDS: DULoxetine 30 MG CAPSULE PO SCH (08:51)
[2019-11-26] MEDS: POTASSIUM CHLORIDE 20 MEQ TABLET PO SCH (08:51)
[2019-11-26] MEDS: carvediloL 6.25 MG TABLET PO SCH ×2 (08:52→21:19)
[2019-11-26] MEDS: FERROUS SULFATE 325 MG TABLET PO SCH ×2 (08:52→21:19)
[2019-11-26] MEDS: THEOPHYLLINE ER (24 HR) 400 MG CAPSULE PO SCH (08:52)
[2019-11-26] MEDS: FUROSEMIDE 40 MG TABLET PO SCH (08:52)
[2019-11-26] MEDS: ASPIRIN EC 81 MG TABLET PO SCH (08:53)
[2019-11-26] MEDS: PREGABALIN 100 MG CAPSULE PO SCH (08:53)
[2019-11-26] MEDS: hydroCHLOROthiazide 25 MG TABLET PO SCH (08:53)
[2019-11-26] MEDS: LOSARTAN 25 MG TABLET PO SCH ×2 (08:53→21:19)
[2019-11-26] MEDS: FEBUXOSTAT 80 MG TABLET PO SCH (08:54)
[2019-11-26] MEDS: COLCHICINE 0.6 MG CAPSULE PO SCH ×2 (08:55→21:19)
[2019-11-26] MEDS: SKIN HEALING OINT (AQUAPHOR) 50 GM TUBE TOP SCH ×2 (09:01→21:21)
[2019-11-26] MEDS: MONTELUKAST 10 MG TABLET PO SCH (14:05)
[2019-11-26] MEDS: TAMSULOSIN 0.4 MG CAPSULE PO SCH (21:17)
[2019-11-26] MEDS: PANTOPRAZOLE 40 MG TABLET PO SCH (21:19)
[2019-11-26] MEDS: RIVAROXABAN 20 MG TABLET PO SCH (21:19)
[2019-11-27] MEDS: oxyCODONE/ACETAMINOPHEN 5-325 MG TABLET PO PRN ×5 (02:46→21:22)
[2019-11-27] MEDS: methylPREDNISolone SOD SUC 125 MG/2 ML VIAL IV SCH ×2 (02:47→08:51)
[2019-11-27] MEDS: ALBUTEROL/IPRATROPIUM 3 ML NEB RESP TX SCH ×7 (04:06→23:35)
[2019-11-27 04:27] LABS: Basophils % 0.1 % (0.0-0.8); Hematocrit 43.5 VOL% (42.0-52.0); Hemoglobin 13.2 GM/DL (14.0-18.0); Immature Granulocytes % 1.1 %; Immature Granulocytes Absolute 0.18 #; Lymphocytes # 1.4 10*3/uL (1.4-4.0); Lymphocytes % 8.8 % (21.2-54.2); Mean Corpuscular HGB Conc 30.3 GM/DL (32-36); Mean Corpuscular Volume 80.7 FL (87-102); Mean Platelet Volume 10.6 FL (9.6-12.0); Monocytes % 4.5 % (1.7-12.7); Neutrophils % 85.5 % (38.7-73.9); Platelet Count 253 T/CUMM (130-400); Red Blood Count 5.39 MC/CUMM (3.8-5.5); Red Cell Distribution Width 18.6 % (9.3-17.3); White Blood Count 15.7 T/CUMM (4-12)
[2019-11-27 04:51] LABS: Albumin 3.7 G/DL (3.4-5.0); Bilirubin,Total 1.2 MG/DL (0.2-1.0); Calcium 8.3 MG/DL (8.5-10.1); Osmolality,Calculated 272.5 MOS/KG (273-304); Total Protein 7.7 G/DL (6.4-8.3)
[2019-11-27] MEDS: FUROSEMIDE 40 MG TABLET PO SCH (08:50)
[2019-11-27] MEDS: POTASSIUM CHLORIDE 20 MEQ TABLET PO SCH (08:50)
[2019-11-27] MEDS: PREGABALIN 100 MG CAPSULE PO SCH (08:50)
[2019-11-27] MEDS: hydroCHLOROthiazide 25 MG TABLET PO SCH (08:50)
[2019-11-27] MEDS: carvediloL 6.25 MG TABLET PO SCH ×2 (08:51→21:21)
[2019-11-27] MEDS: DULoxetine 30 MG CAPSULE PO SCH (08:51)
[2019-11-27] MEDS: COLCHICINE 0.6 MG CAPSULE PO SCH ×2 (08:51→21:22)
[2019-11-27] MEDS: LOSARTAN 25 MG TABLET PO SCH ×2 (08:51→21:22)
[2019-11-27] MEDS: FERROUS SULFATE 325 MG TABLET PO SCH ×2 (08:51→21:21)
[2019-11-27] MEDS: ASPIRIN EC 81 MG TABLET PO SCH (08:51)
[2019-11-27] MEDS: ONDANSETRON 4 MG/2 ML VIAL IV PRN ×2 (08:52→21:18)
[2019-11-27] MEDS: FEBUXOSTAT 80 MG TABLET PO SCH (08:58)
[2019-11-27] MEDS: BUDESONIDE/FORMOTEROL 160-4.5 INHALER 6 GM INH SCH ×2 (08:58→21:27)
[2019-11-27] MEDS: THEOPHYLLINE ER (24 HR) 400 MG CAPSULE PO SCH (08:58)
[2019-11-27] MEDS: SKIN HEALING OINT (AQUAPHOR) 50 GM TUBE TOP SCH ×2 (10:21→21:27)
[2019-11-27] MEDS: POTASSIUM CHLORIDE 20 MEQ TABLET PO PRN ×3 (10:54→19:01)
[2019-11-27] MEDS: MONTELUKAST 10 MG TABLET PO SCH (13:01)
[2019-11-27] MEDS: SODIUM CHLORIDE 3% 4 ML NEB RESP TX SCH ×2 (13:37→21:07)
[2019-11-27] MEDS: predniSONE 20 MG TABLET PO SCH (14:02)
[2019-11-27] MEDS: DOXYCYCLINE HYCLATE 100 MG CAPSULE PO SCH ×2 (14:02→21:21)
[2019-11-27] MEDS: TAMSULOSIN 0.4 MG CAPSULE PO SCH (21:21)
[2019-11-27] MEDS: PANTOPRAZOLE 40 MG TABLET PO SCH (21:22)
[2019-11-27] MEDS: RIVAROXABAN 20 MG TABLET PO SCH (21:22)
[2019-11-28] MEDS: ALBUTEROL/IPRATROPIUM 3 ML NEB RESP TX SCH ×6 (03:35→23:03)
[2019-11-28] MEDS: oxyCODONE/ACETAMINOPHEN 5-325 MG TABLET PO PRN ×5 (03:50→21:26)
[2019-11-28 05:11] LABS: Basophils % 0.1 % (0.0-0.8); Hematocrit 45.5 VOL% (42.0-52.0); Immature Granulocytes % 1.1 %; Immature Granulocytes Absolute 0.16 #; Lymphocytes # 1.9 10*3/uL (1.4-4.0); Lymphocytes % 13.5 % (21.2-54.2); Mean Corpuscular HGB Conc 30.8 GM/DL (32-36); Mean Corpuscular Volume 80.4 FL (87-102); Mean Platelet Volume 10.2 FL (9.6-12.0); Monocytes % 10.4 % (1.7-12.7); Neutrophils % 74.9 % (38.7-73.9); Platelet Count 271 T/CUMM (130-400); Red Blood Count 5.66 MC/CUMM (3.8-5.5); Red Cell Distribution Width 18.3 % (9.3-17.3); White Blood Count 14.2 T/CUMM (4-12)
[2019-11-28 05:29] LABS: Calcium 8.6 MG/DL (8.5-10.1); Osmolality,Calculated 269.5 MOS/KG (273-304)
[2019-11-28] MEDS: SODIUM CHLORIDE 3% 4 ML NEB RESP TX SCH ×2 (07:27→19:43)
[2019-11-28] MEDS: carvediloL 6.25 MG TABLET PO SCH ×2 (08:51→21:24)
[2019-11-28] MEDS: predniSONE 20 MG TABLET PO SCH (08:51)
[2019-11-28] MEDS: DOXYCYCLINE HYCLATE 100 MG CAPSULE PO SCH ×2 (08:51→21:23)
[2019-11-28] MEDS: DULoxetine 30 MG CAPSULE PO SCH (08:51)
[2019-11-28] MEDS: COLCHICINE 0.6 MG CAPSULE PO SCH ×2 (08:52→21:23)
[2019-11-28] MEDS: LOSARTAN 25 MG TABLET PO SCH ×2 (08:52→21:24)
[2019-11-28] MEDS: FERROUS SULFATE 325 MG TABLET PO SCH ×2 (08:52→21:24)
[2019-11-28] MEDS: guaiFENesin/DM ER 600-30 MG TABLET PO SCH ×2 (08:52→21:23)
[2019-11-28] MEDS: hydroCHLOROthiazide 25 MG TABLET PO SCH (08:52)
[2019-11-28] MEDS: FUROSEMIDE 40 MG TABLET PO SCH (08:52)
[2019-11-28] MEDS: ASPIRIN EC 81 MG TABLET PO SCH (08:52)
[2019-11-28] MEDS: POTASSIUM CHLORIDE 20 MEQ TABLET PO SCH (08:53)
[2019-11-28] MEDS: PREGABALIN 100 MG CAPSULE PO SCH (08:54)
[2019-11-28] MEDS: diphenhydrAMINE CAP 25 MG CAPSULE PO PRN ×2 (08:54→17:49)
[2019-11-28] MEDS: BUDESONIDE/FORMOTEROL 160-4.5 INHALER 6 GM INH SCH ×2 (08:57→21:23)
[2019-11-28] MEDS: POTASSIUM CHLORIDE 20 MEQ TABLET PO PRN ×3 (08:57→15:01)
[2019-11-28] MEDS: THEOPHYLLINE ER (24 HR) 400 MG CAPSULE PO SCH (08:58)
[2019-11-28] MEDS: FEBUXOSTAT 80 MG TABLET PO SCH (08:58)
[2019-11-28] MEDS: SKIN HEALING OINT (AQUAPHOR) 50 GM TUBE TOP SCH ×2 (08:59→21:25)
[2019-11-28] MEDS: MONTELUKAST 10 MG TABLET PO SCH (13:19)
[2019-11-28] MEDS: methylPREDNISolone SOD SUC 125 MG/2 ML VIAL IV SCH ×2 (15:01→22:48)
[2019-11-28] MEDS: ONDANSETRON 4 MG/2 ML VIAL IV PRN ×2 (17:42→21:25)
[2019-11-28] MEDS: TAMSULOSIN 0.4 MG CAPSULE PO SCH (21:23)
[2019-11-28] MEDS: PANTOPRAZOLE 40 MG TABLET PO SCH (21:24)
[2019-11-28] MEDS: RIVAROXABAN 20 MG TABLET PO SCH (21:25)
[2019-11-28] MEDS: FLUTICASONE 50 MCG NASAL SPRAY 16 GM BOTTLE BOTH NARES SCH (22:30)
[2019-11-29] MEDS: ALBUTEROL/IPRATROPIUM 3 ML NEB RESP TX SCH ×6 (03:04→23:29)
[2019-11-29] MEDS: oxyCODONE/ACETAMINOPHEN 5-325 MG TABLET PO PRN ×4 (04:57→21:22)
[2019-11-29 05:06] LABS: Basophils % 0.1 % (0.0-0.8); Hematocrit 46.8 VOL% (42.0-52.0); Hemoglobin 14.5 GM/DL (14.0-18.0); Immature Granulocytes % 1.3 %; Immature Granulocytes Absolute 0.16 #; Lymphocytes # 1.3 10*3/uL (1.4-4.0); Lymphocytes % 10.7 % (21.2-54.2); Mean Corpuscular Volume 80.1 FL (87-102); Mean Platelet Volume 10.1 FL (9.6-12.0); Monocytes % 3.9 % (1.7-12.7); Platelet Count 255 T/CUMM (130-400); Red Blood Count 5.84 MC/CUMM (3.8-5.5); Red Cell Distribution Width 18.5 % (9.3-17.3); White Blood Count 12.2 T/CUMM (4-12)
[2019-11-29 05:27] LABS: Calcium 8.3 MG/DL (8.5-10.1); Osmolality,Calculated 275.4 MOS/KG (273-304)
[2019-11-29] MEDS: methylPREDNISolone SOD SUC 125 MG/2 ML VIAL IV SCH ×2 (06:39→17:08)
[2019-11-29] MEDS ORDERED: MIDAZOLAM 2 MG/2 ML VIAL ONE (08:08)
[2019-11-29] MEDS: SODIUM CHLORIDE 3% 4 ML NEB RESP TX SCH ×2 (09:00→23:29)
[2019-11-29] MEDS: carvediloL 6.25 MG TABLET PO SCH ×2 (10:43→21:23)
[2019-11-29] MEDS: LOSARTAN 25 MG TABLET PO SCH ×2 (10:46→21:23)
[2019-11-29] MEDS: NYSTATIN 500,000 UNIT/5 ML UDCUP SWISH/SWAL SCH ×4 (10:46→21:22)
[2019-11-29] MEDS: DOXYCYCLINE HYCLATE 100 MG CAPSULE PO SCH ×2 (10:46→21:23)
[2019-11-29] MEDS: diphenhydrAMINE CAP 25 MG CAPSULE PO PRN (10:47)
[2019-11-29] MEDS: POTASSIUM CHLORIDE 20 MEQ TABLET PO SCH (10:48)
[2019-11-29] MEDS: hydroCHLOROthiazide 25 MG TABLET PO SCH (10:51)
[2019-11-29] MEDS: FEBUXOSTAT 80 MG TABLET PO SCH (10:51)
[2019-11-29] MEDS: ASPIRIN EC 81 MG TABLET PO SCH (10:52)
[2019-11-29] MEDS: guaiFENesin/DM ER 600-30 MG TABLET PO SCH ×2 (10:52→21:22)
[2019-11-29] MEDS: DULoxetine 30 MG CAPSULE PO SCH (10:52)
[2019-11-29] MEDS: FUROSEMIDE 40 MG TABLET PO SCH (10:52)
[2019-11-29] MEDS: COLCHICINE 0.6 MG CAPSULE PO SCH ×2 (10:52→21:22)
[2019-11-29] MEDS: PREGABALIN 100 MG CAPSULE PO SCH (10:53)
[2019-11-29] MEDS: THEOPHYLLINE ER (24 HR) 400 MG CAPSULE PO SCH (10:53)
[2019-11-29] MEDS: BUDESONIDE/FORMOTEROL 160-4.5 INHALER 6 GM INH SCH ×2 (10:54→21:24)
[2019-11-29] MEDS: FERROUS SULFATE 325 MG TABLET PO SCH ×2 (10:56→21:23)
[2019-11-29] MEDS: FLUTICASONE 50 MCG NASAL SPRAY 16 GM BOTTLE BOTH NARES SCH (10:56)
[2019-11-29] MEDS: SKIN HEALING OINT (AQUAPHOR) 50 GM TUBE TOP SCH ×2 (10:56→21:23)
[2019-11-29] MEDS: ONDANSETRON 4 MG/2 ML VIAL IV PRN ×2 (10:58→17:15)
[2019-11-29] MEDS: MONTELUKAST 10 MG TABLET PO SCH (14:00)
[2019-11-29] MEDS: RIVAROXABAN 20 MG TABLET PO SCH (21:21)
[2019-11-29] MEDS: PANTOPRAZOLE 40 MG TABLET PO SCH (21:22)
[2019-11-29] MEDS: TAMSULOSIN 0.4 MG CAPSULE PO SCH (21:23)
[2019-11-30] MEDS: ONDANSETRON 4 MG/2 ML VIAL IV PRN ×4 (00:15→20:14)
[2019-11-30] MEDS: methylPREDNISolone SOD SUC 125 MG/2 ML VIAL IV SCH ×2 (00:15→08:59)
[2019-11-30] MEDS: oxyCODONE/ACETAMINOPHEN 5-325 MG TABLET PO PRN ×3 (02:02→12:54)
[2019-11-30] MEDS: ALBUTEROL/IPRATROPIUM 3 ML NEB RESP TX SCH ×6 (03:25→23:45)
[2019-11-30 05:57] LABS: Calcium 8.4 MG/DL (8.5-10.1); Osmolality,Calculated 270.9 MOS/KG (273-304)
[2019-11-30] MEDS: SODIUM CHLORIDE 3% 4 ML NEB RESP TX SCH ×2 (08:00→19:19)
[2019-11-30] MEDS: NYSTATIN 500,000 UNIT/5 ML UDCUP SWISH/SWAL SCH ×4 (08:55→21:27)
[2019-11-30] MEDS: ASPIRIN EC 81 MG TABLET PO SCH (08:55)
[2019-11-30] MEDS: DULoxetine 30 MG CAPSULE PO SCH (08:56)
[2019-11-30] MEDS: guaiFENesin/DM ER 600-30 MG TABLET PO SCH ×2 (08:56→21:27)
[2019-11-30] MEDS: DOXYCYCLINE HYCLATE 100 MG CAPSULE PO SCH ×2 (08:56→21:27)
[2019-11-30] MEDS: hydroCHLOROthiazide 25 MG TABLET PO SCH (08:57)
[2019-11-30] MEDS: LOSARTAN 25 MG TABLET PO SCH ×2 (08:57→21:27)
[2019-11-30] MEDS: COLCHICINE 0.6 MG CAPSULE PO SCH ×2 (08:57→21:27)
[2019-11-30] MEDS: POTASSIUM CHLORIDE 20 MEQ TABLET PO SCH (08:58)
[2019-11-30] MEDS: diphenhydrAMINE CAP 25 MG CAPSULE PO PRN ×2 (08:58→16:04)
[2019-11-30] MEDS: PREGABALIN 100 MG CAPSULE PO SCH (08:58)
[2019-11-30] MEDS: FUROSEMIDE 40 MG TABLET PO SCH (08:58)
[2019-11-30] MEDS: FERROUS SULFATE 325 MG TABLET PO SCH ×2 (08:58→21:27)
[2019-11-30] MEDS: carvediloL 6.25 MG TABLET PO SCH ×2 (08:58→21:27)
[2019-11-30] MEDS: BUDESONIDE/FORMOTEROL 160-4.5 INHALER 6 GM INH SCH ×2 (08:59→21:25)
[2019-11-30] MEDS: FLUTICASONE 50 MCG NASAL SPRAY 16 GM BOTTLE BOTH NARES SCH (08:59)
[2019-11-30] MEDS: FEBUXOSTAT 80 MG TABLET PO SCH (09:05)
[2019-11-30] MEDS: THEOPHYLLINE ER (24 HR) 400 MG CAPSULE PO SCH (09:05)
[2019-11-30] MEDS: SKIN HEALING OINT (AQUAPHOR) 50 GM TUBE TOP SCH ×2 (09:55→21:27)
[2019-11-30] MEDS ORDERED: SIMETHICONE CHEW 125 MG TABLET PO PRN (11:37)
[2019-11-30] MEDS: MONTELUKAST 10 MG TABLET PO SCH (12:54)
[2019-11-30] MEDS: methylPREDNISolone SOD SUC 40 MG/1 ML VIAL IV SCH (16:04)
[2019-11-30] MEDS: TAMSULOSIN 0.4 MG CAPSULE PO SCH (21:27)
[2019-11-30] MEDS: DOCUSATE SODIUM 100 MG CAPSULE PO SCH (21:27)
[2019-11-30] MEDS: PANTOPRAZOLE 40 MG TABLET PO SCH (21:27)
[2019-11-30] MEDS: RIVAROXABAN 20 MG TABLET PO SCH (21:27)
[2019-11-30] MEDS ORDERED: PROMETHAZINE 25 MG/1 ML VIAL IM ONE (22:11)
[2019-12-01] MEDS: methylPREDNISolone SOD SUC 40 MG/1 ML VIAL IV SCH ×2 (03:02→16:24)
[2019-12-01] MEDS: ALBUTEROL/IPRATROPIUM 3 ML NEB RESP TX SCH ×6 (03:50→23:20)
[2019-12-01] MEDS: oxyCODONE/ACETAMINOPHEN 5-325 MG TABLET PO PRN ×5 (04:31→21:58)
[2019-12-01] MEDS: ONDANSETRON 4 MG/2 ML VIAL IV PRN ×4 (04:35→16:27)
[2019-12-01 05:37] LABS: Basophils % 0.2 % (0.0-0.8); Hematocrit 48.7 VOL% (42.0-52.0); Hemoglobin 15.3 GM/DL (14.0-18.0); Lymphocytes # 1.9 10*3/uL (1.4-4.0); Lymphocytes % 9.7 % (21.2-54.2); Mean Corpuscular HGB Conc 31.4 GM/DL (32-36); Mean Corpuscular Volume 79.2 FL (87-102); Mean Platelet Volume 9.6 FL (9.6-12.0); Monocytes % 7.1 % (1.7-12.7); Platelet Count 283 T/CUMM (130-400); Red Blood Count 6.15 MC/CUMM (3.8-5.5); Red Cell Distribution Width 18.8 % (9.3-17.3); White Blood Count 19.4 T/CUMM (4-12)
[2019-12-01 05:47] LABS: Calcium 8.7 MG/DL (8.5-10.1); Osmolality,Calculated 270.9 MOS/KG (273-304)
[2019-12-01] MEDS: SODIUM CHLORIDE 3% 4 ML NEB RESP TX SCH ×2 (07:02→20:16)
[2019-12-01] MEDS: POTASSIUM CHLORIDE 20 MEQ TABLET PO SCH (08:24)
[2019-12-01] MEDS: FEBUXOSTAT 80 MG TABLET PO SCH (08:24)
[2019-12-01] MEDS: FERROUS SULFATE 325 MG TABLET PO SCH ×2 (08:24→21:02)
[2019-12-01] MEDS: NYSTATIN 500,000 UNIT/5 ML UDCUP SWISH/SWAL SCH ×4 (08:24→21:00)
[2019-12-01] MEDS: DOCUSATE SODIUM 100 MG CAPSULE PO SCH ×2 (08:24→21:01)
[2019-12-01] MEDS: carvediloL 6.25 MG TABLET PO SCH ×2 (08:24→21:01)
[2019-12-01] MEDS: LOSARTAN 25 MG TABLET PO SCH ×2 (08:25→21:02)
[2019-12-01] MEDS: FUROSEMIDE 40 MG TABLET PO SCH (08:25)
[2019-12-01] MEDS: COLCHICINE 0.6 MG CAPSULE PO SCH ×2 (08:25→22:37)
[2019-12-01] MEDS: ASPIRIN EC 81 MG TABLET PO SCH (08:25)
[2019-12-01] MEDS: DULoxetine 30 MG CAPSULE PO SCH (08:25)
[2019-12-01] MEDS: LINACLOTIDE 145 MCG CAPSULE PO SCH (08:25)
[2019-12-01] MEDS: DOXYCYCLINE HYCLATE 100 MG CAPSULE PO SCH (08:25)
[2019-12-01] MEDS: THEOPHYLLINE ER (24 HR) 400 MG CAPSULE PO SCH (08:25)
[2019-12-01] MEDS: hydroCHLOROthiazide 25 MG TABLET PO SCH (08:25)
[2019-12-01] MEDS: PREGABALIN 100 MG CAPSULE PO SCH (08:26)
[2019-12-01] MEDS: SKIN HEALING OINT (AQUAPHOR) 50 GM TUBE TOP SCH ×2 (08:26→22:00)
[2019-12-01] MEDS: FLUTICASONE 50 MCG NASAL SPRAY 16 GM BOTTLE BOTH NARES SCH (08:26)
[2019-12-01] MEDS: guaiFENesin/DM ER 600-30 MG TABLET PO SCH ×2 (08:26→21:05)
[2019-12-01] MEDS: BUDESONIDE/FORMOTEROL 160-4.5 INHALER 6 GM INH SCH ×2 (08:26→20:57)
[2019-12-01] MEDS: MONTELUKAST 10 MG TABLET PO SCH (12:12)
[2019-12-01] MEDS: cephALEXin 500 MG CAPSULE PO SCH ×2 (16:24→21:02)
[2019-12-01] MEDS: POTASSIUM CHLORIDE 20 MEQ TABLET PO PRN (16:47)
[2019-12-01] MEDS: PANTOPRAZOLE 40 MG TABLET PO SCH (21:01)
[2019-12-01] MEDS: RIVAROXABAN 20 MG TABLET PO SCH (21:01)
[2019-12-01] MEDS: TAMSULOSIN 0.4 MG CAPSULE PO SCH (21:01)
[2019-12-02] MEDS: ALBUTEROL/IPRATROPIUM 3 ML NEB RESP TX SCH ×5 (03:10→19:19)
[2019-12-02] MEDS: methylPREDNISolone SOD SUC 40 MG/1 ML VIAL IV SCH ×2 (03:25→15:29)
[2019-12-02] MEDS: oxyCODONE/ACETAMINOPHEN 5-325 MG TABLET PO PRN ×2 (03:27→08:08)
[2019-12-02 05:25] LABS: Basophils % 0.2 % (0.0-0.8); Eosinophils % 0.1 % (0.00-10.9); Hematocrit 49.3 VOL% (42.0-52.0); Hemoglobin 15.7 GM/DL (14.0-18.0); Immature Granulocytes % 1.4 %; Immature Granulocytes Absolute 0.27 #; Lymphocytes # 2.5 10*3/uL (1.4-4.0); Lymphocytes % 12.8 % (21.2-54.2); Mean Corpuscular HGB Conc 31.8 GM/DL (32-36); Mean Corpuscular Volume 78.5 FL (87-102); Mean Platelet Volume 9.6 FL (9.6-12.0); Monocytes % 8.5 % (1.7-12.7); Platelet Count 285 T/CUMM (130-400); Red Blood Count 6.28 MC/CUMM (3.8-5.5); Red Cell Distribution Width 18.6 % (9.3-17.3); White Blood Count 19.8 T/CUMM (4-12)
[2019-12-02 06:01] LABS: Calcium 8.5 MG/DL (8.5-10.1); Osmolality,Calculated 266.9 MOS/KG (273-304)
[2019-12-02] MEDS: SODIUM CHLORIDE 3% 4 ML NEB RESP TX SCH ×2 (07:14→19:19)
[2019-12-02] MEDS: FLUTICASONE 50 MCG NASAL SPRAY 16 GM BOTTLE BOTH NARES SCH (08:07)
[2019-12-02] MEDS: BUDESONIDE/FORMOTEROL 160-4.5 INHALER 6 GM INH SCH ×2 (08:07→20:40)
[2019-12-02] MEDS: THEOPHYLLINE ER (24 HR) 400 MG CAPSULE PO SCH (08:08)
[2019-12-02] MEDS: DOCUSATE SODIUM 100 MG CAPSULE PO SCH ×2 (08:08→20:41)
[2019-12-02] MEDS: guaiFENesin/DM ER 600-30 MG TABLET PO SCH ×2 (08:09→20:41)
[2019-12-02] MEDS: LOSARTAN 25 MG TABLET PO SCH ×2 (08:09→20:41)
[2019-12-02] MEDS: DULoxetine 30 MG CAPSULE PO SCH (08:09)
[2019-12-02] MEDS: cephALEXin 500 MG CAPSULE PO SCH ×4 (08:09→20:42)
[2019-12-02] MEDS: PREGABALIN 100 MG CAPSULE PO SCH (08:09)
[2019-12-02] MEDS: FUROSEMIDE 40 MG TABLET PO SCH (08:09)
[2019-12-02] MEDS: carvediloL 6.25 MG TABLET PO SCH ×2 (08:09→20:42)
[2019-12-02] MEDS: FERROUS SULFATE 325 MG TABLET PO SCH ×2 (08:10→20:41)
[2019-12-02] MEDS: hydroCHLOROthiazide 25 MG TABLET PO SCH (08:10)
[2019-12-02] MEDS: COLCHICINE 0.6 MG CAPSULE PO SCH ×2 (08:10→20:41)
[2019-12-02] MEDS: ASPIRIN EC 81 MG TABLET PO SCH (08:10)
[2019-12-02] MEDS: FEBUXOSTAT 80 MG TABLET PO SCH (08:10)
[2019-12-02] MEDS: NYSTATIN 500,000 UNIT/5 ML UDCUP SWISH/SWAL SCH ×4 (08:11→20:42)
[2019-12-02] MEDS: LINACLOTIDE 145 MCG CAPSULE PO SCH (08:11)
[2019-12-02] MEDS: ONDANSETRON 4 MG/2 ML VIAL IV PRN ×2 (08:15→15:38)
[2019-12-02] MEDS ORDERED: SODIUM CHLORIDE 0.9% 1,000 ML IV SCH (08:30)
[2019-12-02] MEDS: SKIN HEALING OINT (AQUAPHOR) 50 GM TUBE TOP SCH ×2 (09:54→21:46)
[2019-12-02] MEDS: POTASSIUM CHLORIDE 20 MEQ TABLET PO SCH (13:39)
[2019-12-02] MEDS: MONTELUKAST 10 MG TABLET PO SCH (13:39)
[2019-12-02] MEDS ORDERED: HydrOXYzine PAMOATE 25 MG CAPSULE PO PRN (14:03)
[2019-12-02] MEDS: ACETAMINOPHEN 325 MG TABLET PO PRN (15:29)
[2019-12-02] MEDS: diphenhydrAMINE CAP 25 MG CAPSULE PO PRN (15:38)
[2019-12-02] MEDS: SODIUM CHLORIDE 0.9% 1,000 ML IV SCH (15:40)
[2019-12-02] MEDS: PANTOPRAZOLE 40 MG TABLET PO SCH (20:41)
[2019-12-02] MEDS: TAMSULOSIN 0.4 MG CAPSULE PO SCH (20:42)
[2019-12-02] MEDS: RIVAROXABAN 20 MG TABLET PO SCH (20:42)
[2019-12-03] MEDS: ALBUTEROL/IPRATROPIUM 3 ML NEB RESP TX SCH ×4 (00:20→11:26)
[2019-12-03] MEDS: ONDANSETRON 4 MG/2 ML VIAL IV PRN ×2 (03:05→10:53)
[2019-12-03] MEDS: methylPREDNISolone SOD SUC 40 MG/1 ML VIAL IV SCH (03:07)
[2019-12-03] MEDS: SODIUM CHLORIDE 0.9% 1,000 ML IV SCH (04:53)
[2019-12-03 05:12] LABS: Basophils % 0.2 % (0.0-0.8); Hematocrit 50.2 VOL% (42.0-52.0); Hemoglobin 15.9 GM/DL (14.0-18.0); Immature Granulocytes % 1.7 %; Immature Granulocytes Absolute 0.31 #; Lymphocytes # 3.3 10*3/uL (1.4-4.0); Lymphocytes % 17.3 % (21.2-54.2); Mean Corpuscular HGB Conc 31.7 GM/DL (32-36); Mean Corpuscular Volume 78.7 FL (87-102); Mean Platelet Volume 9.6 FL (9.6-12.0); Monocytes % 9.1 % (1.7-12.7); Neutrophils % 71.7 % (38.7-73.9); Platelet Count 288 T/CUMM (130-400); Red Blood Count 6.38 MC/CUMM (3.8-5.5); Red Cell Distribution Width 18.6 % (9.3-17.3); White Blood Count 18.8 T/CUMM (4-12)
[2019-12-03 05:33] LABS: Calcium 8.5 MG/DL (8.5-10.1); Osmolality,Calculated 268.8 MOS/KG (273-304)
[2019-12-03 05:43] LABS: Free T4 (Free Thyroxine) 1.22 NG/DL (0.76-1.46)
[2019-12-03] MEDS: SODIUM CHLORIDE 3% 4 ML NEB RESP TX SCH (07:31)
[2019-12-03] MEDS: PREGABALIN 100 MG CAPSULE PO SCH (08:44)
[2019-12-03] MEDS: FERROUS SULFATE 325 MG TABLET PO SCH (08:44)
[2019-12-03] MEDS: ASPIRIN EC 81 MG TABLET PO SCH (08:44)
[2019-12-03] MEDS: DULoxetine 30 MG CAPSULE PO SCH (08:44)
[2019-12-03] MEDS: hydroCHLOROthiazide 25 MG TABLET PO SCH (08:44)
[2019-12-03] MEDS: ACETAMINOPHEN 325 MG TABLET PO PRN (08:44)
[2019-12-03] MEDS: THEOPHYLLINE ER (24 HR) 400 MG CAPSULE PO SCH (08:44)
[2019-12-03] MEDS: POTASSIUM CHLORIDE 20 MEQ TABLET PO SCH (08:45)
[2019-12-03] MEDS: guaiFENesin/DM ER 600-30 MG TABLET PO SCH (08:45)
[2019-12-03] MEDS: carvediloL 6.25 MG TABLET PO SCH (08:45)
[2019-12-03] MEDS: LINACLOTIDE 145 MCG CAPSULE PO SCH (08:45)
[2019-12-03] MEDS: FEBUXOSTAT 80 MG TABLET PO SCH (08:45)
[2019-12-03] MEDS: LOSARTAN 25 MG TABLET PO SCH (08:45)
[2019-12-03] MEDS: DOCUSATE SODIUM 100 MG CAPSULE PO SCH (08:45)
[2019-12-03] MEDS: NYSTATIN 500,000 UNIT/5 ML UDCUP SWISH/SWAL SCH (08:46)
[2019-12-03] MEDS: cephALEXin 500 MG CAPSULE PO SCH (08:46)
[2019-12-03] MEDS: FUROSEMIDE 40 MG TABLET PO SCH (08:46)
[2019-12-03] MEDS: FLUTICASONE 50 MCG NASAL SPRAY 16 GM BOTTLE BOTH NARES SCH (08:47)
[2019-12-03] MEDS: BUDESONIDE/FORMOTEROL 160-4.5 INHALER 6 GM INH SCH (08:47)
[2019-12-03] MEDS: SKIN HEALING OINT (AQUAPHOR) 50 GM TUBE TOP SCH (08:47)
[2019-12-03] MEDS: COLCHICINE 0.6 MG CAPSULE PO SCH (08:54)
[2019-12-03 12:03] VITALS: BP 126/82
[2019-12-03] MEDS ORDERED: PREGABALIN 100 MG CAPSULE PO SCH (21:00)
== END 2019-12-03 13:06 | disposition home or self-care (01) | DRG 202 ==
LOC: N.ED 08:10 → SUATTDRO 11:30 → N.EDINP 11:30 → N.2E 14:38
PROVIDERS: ADMIT Internal Medicine; ATTEND Internal Medicine Cardiovascular Disease

== ENCOUNTER 2020-05-19 09:09 | Inpatient (IN) ==
[2020-05-20] MEDS ORDERED: AMITRIPTYLINE 25 MG TABLET PO PRN (05:41)
[2020-05-20] MEDS ORDERED: guaiFENesin/DM ER 600-30 MG TABLET PO PRN (05:43)
[2020-05-20] MEDS ORDERED: GLUCAGON 1 MG VIAL IM PRN (05:43)
[2020-05-20] MEDS ORDERED: CALCIUM CARBONATE CHEW 500 MG TABLET PO PRN (05:43)
[2020-05-20] MEDS ORDERED: diphenhydrAMINE CAP 25 MG CAPSULE PO PRN (05:43)
[2020-05-20] MEDS ORDERED: ONDANSETRON 4 MG/2 ML VIAL IV PRN (05:43)
[2020-05-20] MEDS ORDERED: ALUMINUM/MAGNES/SIMETH MAX STR 30 ML UDCUP PO PRN (05:43)
[2020-05-20] MEDS ORDERED: NICOTINE 21 MG/24 HR PATCH TRANSDERM PRN (05:43)
[2020-05-20] MEDS ORDERED: DEXTROSE 50% 25 GM/50 ML VIAL IV PRN (05:43)
[2020-05-20] MEDS ORDERED: SIMETHICONE CHEW 125 MG TABLET PO PRN (05:43)
[2020-05-20] MEDS: ceFAZolin 1,000 MG in SYRINGE 1 EACH IV SCH ×3 (06:37→18:10)
[2020-05-20 07:12] LABS: Basophils % 0.5 % (0.0-0.8); Eosinophils # 0.3 10*3/uL (0.0-0.87); Eosinophils % 5.1 % (0.00-10.9); Hematocrit 25.9 VOL% (42.0-52.0); Hemoglobin 7.8 GM/DL (14.0-18.0); Immature Granulocytes Absolute 0.06 #; Lymphocytes # 1.7 10*3/uL (1.4-4.0); Lymphocytes % 27.7 % (21.2-54.2); Mean Corpuscular HGB Conc 30.1 GM/DL (32-36); Mean Corpuscular Volume 85.2 FL (87-102); Mean Platelet Volume 9.6 FL (9.6-12.0); Monocytes % 11.9 % (1.7-12.7); Neutrophils % 53.8 % (38.7-73.9); Platelet Count 166 T/CUMM (130-400); Red Blood Count 3.04 MC/CUMM (3.8-5.5); Red Cell Distribution Width 16.9 % (9.3-17.3); White Blood Count 6.2 T/CUMM (4-12)
[2020-05-20 07:38] LABS: Alanine Aminotransferase 10 U/L (16-61); Albumin 3.2 G/DL (3.4-5.0); Alkaline Phosphatase 98 U/L (45-117); Aspartate Amino Transferase 12 U/L (0-37); Bilirubin,Total < 0.39 MG/DL (0.2-1.0); Blood Urea Nitrogen 16 MG/DL (7-18); Calcium 8.4 MG/DL (8.5-10.1); Estimated Glom Filtration Rate 133 ML/MIN; Glucose 96 MG/DL (74-106); HDL Cholesterol 34 MG/DL (40-60); Osmolality,Calculated 279.4 MOS/KG (273-304); Risk Ratio 4.15; Total Protein 7.1 G/DL (6.4-8.3); Triglycerides 160 MG/DL (2-150)
[2020-05-20] MEDS ORDERED: hydrALAZINE 25 MG TABLET PO SCH (09:00)
[2020-05-20] MEDS: DILTIAZEM CD 180 MG CAPSULE PO SCH (09:57)
[2020-05-20] MEDS: RIVAROXABAN 20 MG TABLET PO SCH (09:57)
[2020-05-20] MEDS: DOCUSATE SODIUM 100 MG CAPSULE PO SCH ×2 (09:58→20:30)
[2020-05-20] MEDS: GABAPENTIN 400 MG CAPSULE PO SCH ×3 (09:58→20:30)
[2020-05-20] MEDS: PANTOPRAZOLE 40 MG TABLET PO SCH (09:58)
[2020-05-20] MEDS: hydrALAZINE 25 MG TABLET PO SCH ×2 (15:53→20:30)
[2020-05-20] MEDS: ALBUTEROL/IPRATROPIUM 3 ML NEB RESP TX PRN (17:25)
[2020-05-20] MEDS: TAMSULOSIN 0.4 MG CAPSULE PO SCH (20:30)
[2020-05-20] MEDS: ZALEPLON 5 MG CAPSULE PO PRN (21:27)
[2020-05-20] MEDS: MORPHINE 4 MG/1 ML VIAL IV PRN (21:28)
[2020-05-21] MEDS: ceFAZolin 1,000 MG in SYRINGE 1 EACH IV SCH ×4 (00:11→17:23)
[2020-05-21] MEDS: hydrALAZINE 20 MG/1 ML VIAL IV PRN (04:33)
[2020-05-21] MEDS: MORPHINE 4 MG/1 ML VIAL IV PRN ×4 (04:42→22:11)
[2020-05-21 05:54] LABS: Calcium 8.4 MG/DL (8.5-10.1); Osmolality,Calculated 282.1 MOS/KG (273-304)
[2020-05-21] MEDS: DOCUSATE SODIUM 100 MG CAPSULE PO SCH ×2 (09:17→20:37)
[2020-05-21] MEDS: RIVAROXABAN 20 MG TABLET PO SCH (09:18)
[2020-05-21] MEDS: DILTIAZEM CD 180 MG CAPSULE PO SCH (09:18)
[2020-05-21] MEDS: GABAPENTIN 400 MG CAPSULE PO SCH ×3 (09:19→20:36)
[2020-05-21] MEDS: PANTOPRAZOLE 40 MG TABLET PO SCH (09:19)
[2020-05-21] MEDS: FLUTICASONE 50 MCG NASAL SPRAY 16 GM BOTTLE BOTH NARES SCH (09:20)
[2020-05-21] MEDS: hydrALAZINE 25 MG TABLET PO SCH ×2 (09:25→15:13)
[2020-05-21] MEDS: FLUTICASONE/SALMETEROL 250-50 DISKUS 14 DOSE INH SCH (09:25)
[2020-05-21] MEDS: ACETAMINOPHEN 325 MG TABLET PO PRN (10:45)
[2020-05-21] MEDS: ALBUTEROL/IPRATROPIUM 3 ML NEB RESP TX PRN ×2 (11:05→19:47)
[2020-05-21] MEDS: fentaNYL 100 MCG/HR PATCH TRANSDERM SCH (12:54)
[2020-05-21] MEDS: ZALEPLON 5 MG CAPSULE PO PRN (20:36)
[2020-05-21] MEDS: TAMSULOSIN 0.4 MG CAPSULE PO SCH (20:37)
[2020-05-22] MEDS: ceFAZolin 1,000 MG in SYRINGE 1 EACH IV SCH ×2 (00:22→05:40)
[2020-05-22] MEDS: hydrALAZINE 20 MG/1 ML VIAL IV PRN (02:14)
[2020-05-22] MEDS: MORPHINE 4 MG/1 ML VIAL IV PRN ×2 (02:18→08:18)
[2020-05-22 05:25] LABS: Basophils % 0.5 % (0.0-0.8); Eosinophils # 0.3 10*3/uL (0.0-0.87); Eosinophils % 4.5 % (0.00-10.9); Hematocrit 27.1 VOL% (42.0-52.0); Hemoglobin 8.5 GM/DL (14.0-18.0); Immature Granulocytes % 0.5 %; Immature Granulocytes Absolute 0.03 #; Lymphocytes # 1.8 10*3/uL (1.4-4.0); Lymphocytes % 27.2 % (21.2-54.2); Mean Corpuscular HGB Conc 31.4 GM/DL (32-36); Mean Corpuscular Volume 82.1 FL (87-102); Mean Platelet Volume 10.4 FL (9.6-12.0); Monocytes % 11.4 % (1.7-12.7); NRBC # 0.02 10*3/uL; Neutrophils % 55.9 % (38.7-73.9); Platelet Count 178 T/CUMM (130-400); Red Cell Distribution Width 16.7 % (9.3-17.3); White Blood Count 6.5 T/CUMM (4-12)
[2020-05-22 06:22] LABS: Calcium 8.7 MG/DL (8.5-10.1); Osmolality,Calculated 279.3 MOS/KG (273-304)
[2020-05-22 06:33] LABS: Folate 6.5 NG/ML (5.4-24.0); Vitamin B12 254 PG/ML (211-911)
[2020-05-22 06:39] LABS: % Iron Saturation 16.1 % (18-50)
[2020-05-22 07:31] LABS: Sedimentation Rate-Westergren 51 MM/HR (0-15)
[2020-05-22] MEDS: PANTOPRAZOLE 40 MG TABLET PO SCH (08:19)
[2020-05-22] MEDS: GABAPENTIN 400 MG CAPSULE PO SCH ×3 (08:19→20:30)
[2020-05-22] MEDS: DOCUSATE SODIUM 100 MG CAPSULE PO SCH ×2 (08:20→20:30)
[2020-05-22] MEDS: RIVAROXABAN 20 MG TABLET PO SCH (08:20)
[2020-05-22] MEDS: DILTIAZEM CD 180 MG CAPSULE PO SCH (08:20)
[2020-05-22] MEDS: FLUTICASONE 50 MCG NASAL SPRAY 16 GM BOTTLE BOTH NARES SCH (08:20)
[2020-05-22] MEDS: FLUTICASONE/SALMETEROL 250-50 DISKUS 14 DOSE INH SCH (08:21)
[2020-05-22] MEDS ORDERED: ALBUTEROL/IPRATROPIUM 3 ML NEB RESP TX SCH (09:30)
[2020-05-22] MEDS: ALBUTEROL/IPRATROPIUM 3 ML NEB RESP TX SCH ×2 (10:06→13:23)
[2020-05-22] MEDS ORDERED: CHOLECALCIFEROL 1,000 UNIT TABLET PO ONE (10:06)
[2020-05-22] MEDS: oxyCODONE IR 5 MG TABLET PO PRN ×2 (10:19→20:30)
[2020-05-22] MEDS: POLYETHYLENE GLYCOL POWDER 17 GM PACK PO SCH (10:19)
[2020-05-22 12:43] LABS: Hemoglobin A1 (Alkaline) 97.1 % (96.5-98.5); Hemoglobin A2 (Alkaline) 2.9 % (1.5-3.5)
[2020-05-22] MEDS: MENTHOL/ZINC OXIDE OINT 71 GM JAR TOP SCH ×2 (13:50→20:45)
[2020-05-22] MEDS: ACETAMINOPHEN 325 MG TABLET PO PRN (13:53)
[2020-05-22] MEDS: ceFAZolin 2,000 MG in PREMIX 1 EACH IV SCH ×2 (13:53→21:18)
[2020-05-22] MEDS: predniSONE 20 MG TABLET PO SCH (15:42)
[2020-05-22] MEDS: HYDROmorphone 2 MG/1 ML VIAL IV PRN ×2 (17:13→22:22)
[2020-05-22] MEDS ORDERED: ALBUTEROL 1.25 MG/3 ML NEB RESP TX SCH (19:00)
[2020-05-22] MEDS: ALBUTEROL 1.25 MG/3 ML NEB RESP TX SCH (19:06)
[2020-05-22] MEDS: TAMSULOSIN 0.4 MG CAPSULE PO SCH (20:30)
[2020-05-22] MEDS: LOSARTAN 50 MG TABLET PO SCH (20:30)
[2020-05-22] MEDS: MELATONIN 3 MG TABLET PO PRN (22:23)
[2020-05-23] MEDS: hydrALAZINE 20 MG/1 ML VIAL IV PRN ×2 (00:07→22:44)
[2020-05-23] MEDS: ALBUTEROL 1.25 MG/3 ML NEB RESP TX SCH ×4 (00:40→18:40)
[2020-05-23] MEDS: HYDROmorphone 2 MG/1 ML VIAL IV PRN ×4 (02:38→20:45)
[2020-05-23] MEDS: oxyCODONE IR 5 MG TABLET PO PRN (04:55)
[2020-05-23] MEDS: ceFAZolin 2,000 MG in PREMIX 1 EACH IV SCH ×3 (05:08→22:50)
[2020-05-23 06:57] LABS: Basophils % 0.4 % (0.0-0.8); Hematocrit 28.6 VOL% (42.0-52.0); Hemoglobin 8.7 GM/DL (14.0-18.0); Immature Granulocytes % 0.8 %; Immature Granulocytes Absolute 0.06 #; Lymphocytes # 1.2 10*3/uL (1.4-4.0); Lymphocytes % 15.3 % (21.2-54.2); Mean Corpuscular HGB Conc 30.4 GM/DL (32-36); Mean Corpuscular Volume 81.9 FL (87-102); Mean Platelet Volume 10.2 FL (9.6-12.0); Monocytes % 9.6 % (1.7-12.7); Neutrophils % 73.9 % (38.7-73.9); Platelet Count 211 T/CUMM (130-400); Red Blood Count 3.49 MC/CUMM (3.8-5.5); Red Cell Distribution Width 16.8 % (9.3-17.3)
[2020-05-23 07:14] LABS: Alanine Aminotransferase 12 U/L (16-61); Albumin 3.3 G/DL (3.4-5.0); Alkaline Phosphatase 105 U/L (45-117); Aspartate Amino Transferase 13 U/L (0-37); Bilirubin,Total < 0.39 MG/DL (0.2-1.0); Blood Urea Nitrogen 15 MG/DL (7-18); Calcium 8.7 MG/DL (8.5-10.1); Estimated Glom Filtration Rate 131 ML/MIN; Glucose 134 MG/DL (74-106); Osmolality,Calculated 275.8 MOS/KG (273-304); Total Protein 7.8 G/DL (6.4-8.3)
[2020-05-23] MEDS: predniSONE 20 MG TABLET PO SCH (10:01)
[2020-05-23] MEDS: LOSARTAN 50 MG TABLET PO SCH ×2 (10:01→20:44)
[2020-05-23] MEDS: DILTIAZEM CD 180 MG CAPSULE PO SCH (10:01)
[2020-05-23] MEDS: DOCUSATE SODIUM 100 MG CAPSULE PO SCH ×2 (10:01→20:44)
[2020-05-23] MEDS: METHOCARBAMOL 750 MG TABLET PO PRN (10:02)
[2020-05-23] MEDS: GABAPENTIN 400 MG CAPSULE PO SCH ×3 (10:02→20:44)
[2020-05-23] MEDS: FLUTICASONE 50 MCG NASAL SPRAY 16 GM BOTTLE BOTH NARES SCH (10:02)
[2020-05-23] MEDS: MENTHOL/ZINC OXIDE OINT 71 GM JAR TOP SCH (10:02)
[2020-05-23] MEDS: POLYETHYLENE GLYCOL POWDER 17 GM PACK PO SCH (10:02)
[2020-05-23] MEDS: RIVAROXABAN 20 MG TABLET PO SCH (10:02)
[2020-05-23] MEDS: PANTOPRAZOLE 40 MG TABLET PO SCH (11:40)
[2020-05-23] MEDS: ACETAMINOPHEN 325 MG TABLET PO PRN (16:53)
[2020-05-23] MEDS: TAMSULOSIN 0.4 MG CAPSULE PO SCH (20:43)
[2020-05-23] MEDS: MONTELUKAST 10 MG TABLET PO SCH (22:53)
[2020-05-23] MEDS: MELATONIN 3 MG TABLET PO PRN (23:34)
[2020-05-24] MEDS: ALBUTEROL 1.25 MG/3 ML NEB RESP TX SCH ×4 (00:43→20:34)
[2020-05-24] MEDS: MENTHOL/ZINC OXIDE OINT 71 GM JAR TOP SCH ×3 (02:22→20:35)
[2020-05-24] MEDS: HYDROmorphone 2 MG/1 ML VIAL IV PRN ×4 (04:18→20:37)
[2020-05-24] MEDS: ACETAMINOPHEN 325 MG TABLET PO PRN ×2 (04:31→22:56)
[2020-05-24 06:09] LABS: Basophils # 0.1 10*3/uL (0.0-0.2); Basophils % 0.5 % (0.0-0.8); Eosinophils % 0.3 % (0.00-10.9); Hematocrit 32.1 VOL% (42.0-52.0); Hemoglobin 9.5 GM/DL (14.0-18.0); Immature Granulocytes % 0.6 %; Immature Granulocytes Absolute 0.06 #; Lymphocytes # 3.1 10*3/uL (1.4-4.0); Lymphocytes % 29.8 % (21.2-54.2); Mean Corpuscular HGB Conc 29.6 GM/DL (32-36); Mean Platelet Volume 9.6 FL (9.6-12.0); Monocytes % 9.8 % (1.7-12.7); Platelet Count 247 T/CUMM (130-400); Red Blood Count 3.82 MC/CUMM (3.8-5.5); Red Cell Distribution Width 17.1 % (9.3-17.3); White Blood Count 10.3 T/CUMM (4-12)
[2020-05-24] MEDS: ceFAZolin 2,000 MG in PREMIX 1 EACH IV SCH ×3 (06:25→22:48)
[2020-05-24 06:50] LABS: Albumin 3.8 G/DL (3.4-5.0); Bilirubin,Total 0.5 MG/DL (0.2-1.0); Calcium 9.1 MG/DL (8.5-10.1); Osmolality,Calculated 277.7 MOS/KG (273-304); Total Protein 8.6 G/DL (6.4-8.3)
[2020-05-24] MEDS: PANTOPRAZOLE 40 MG TABLET PO SCH (09:09)
[2020-05-24] MEDS: LOSARTAN 50 MG TABLET PO SCH ×2 (09:09→20:33)
[2020-05-24] MEDS: DOCUSATE SODIUM 100 MG CAPSULE PO SCH ×2 (09:09→20:34)
[2020-05-24] MEDS: DILTIAZEM CD 180 MG CAPSULE PO SCH (09:10)
[2020-05-24] MEDS: predniSONE 20 MG TABLET PO SCH (09:10)
[2020-05-24] MEDS: GABAPENTIN 400 MG CAPSULE PO SCH ×3 (09:10→20:34)
[2020-05-24] MEDS: FLUTICASONE 50 MCG NASAL SPRAY 16 GM BOTTLE BOTH NARES SCH (09:11)
[2020-05-24] MEDS: POLYETHYLENE GLYCOL POWDER 17 GM PACK PO SCH (09:11)
[2020-05-24] MEDS: RIVAROXABAN 20 MG TABLET PO SCH (09:17)
[2020-05-24] MEDS: oxyCODONE IR 5 MG TABLET PO PRN ×2 (12:28→18:10)
[2020-05-24] MEDS: fentaNYL 100 MCG/HR PATCH TRANSDERM SCH (12:29)
[2020-05-24] MEDS: METHOCARBAMOL 750 MG TABLET PO PRN ×2 (12:39→22:47)
[2020-05-24] MEDS: MONTELUKAST 10 MG TABLET PO SCH (20:33)
[2020-05-24] MEDS: TAMSULOSIN 0.4 MG CAPSULE PO SCH (20:34)
[2020-05-25] MEDS: HYDROmorphone 2 MG/1 ML VIAL IV PRN ×3 (01:28→14:41)
[2020-05-25] MEDS: MELATONIN 3 MG TABLET PO PRN (01:29)
[2020-05-25] MEDS: ALBUTEROL 1.25 MG/3 ML NEB RESP TX SCH ×4 (01:50→18:11)
[2020-05-25] MEDS: oxyCODONE IR 5 MG TABLET PO PRN ×3 (04:37→18:05)
[2020-05-25 06:23] LABS: Basophils % 0.4 % (0.0-0.8); Eosinophils % 0.4 % (0.00-10.9); Hematocrit 30.4 VOL% (42.0-52.0); Immature Granulocytes % 0.5 %; Immature Granulocytes Absolute 0.05 #; Lymphocytes # 2.9 10*3/uL (1.4-4.0); Lymphocytes % 29.6 % (21.2-54.2); Mean Corpuscular HGB Conc 29.6 GM/DL (32-36); Mean Corpuscular Volume 85.2 FL (87-102); Mean Platelet Volume 10.1 FL (9.6-12.0); Monocytes % 10.5 % (1.7-12.7); Neutrophils % 58.6 % (38.7-73.9); Platelet Count 206 T/CUMM (130-400); Red Blood Count 3.57 MC/CUMM (3.8-5.5); Red Cell Distribution Width 17.1 % (9.3-17.3); White Blood Count 9.7 T/CUMM (4-12)
[2020-05-25 06:45] LABS: Albumin 3.5 G/DL (3.4-5.0); Bilirubin,Total 0.5 MG/DL (0.2-1.0); Calcium 8.4 MG/DL (8.5-10.1); Osmolality,Calculated 276.8 MOS/KG (273-304); Total Protein 7.9 G/DL (6.4-8.3)
[2020-05-25] MEDS: ceFAZolin 2,000 MG in PREMIX 1 EACH IV SCH ×3 (06:45→21:34)
[2020-05-25] MEDS: RIVAROXABAN 20 MG TABLET PO SCH (09:22)
[2020-05-25] MEDS: predniSONE 20 MG TABLET PO SCH (09:22)
[2020-05-25] MEDS: LOSARTAN 50 MG TABLET PO SCH ×2 (09:22→20:33)
[2020-05-25] MEDS: DOCUSATE SODIUM 100 MG CAPSULE PO SCH ×2 (09:22→20:33)
[2020-05-25] MEDS: PANTOPRAZOLE 40 MG TABLET PO SCH (09:22)
[2020-05-25] MEDS: GABAPENTIN 400 MG CAPSULE PO SCH ×3 (09:22→20:33)
[2020-05-25] MEDS: DILTIAZEM CD 180 MG CAPSULE PO SCH (09:22)
[2020-05-25] MEDS: FLUTICASONE 50 MCG NASAL SPRAY 16 GM BOTTLE BOTH NARES SCH (09:25)
[2020-05-25] MEDS: POLYETHYLENE GLYCOL POWDER 17 GM PACK PO SCH (09:25)
[2020-05-25] MEDS: MENTHOL/ZINC OXIDE OINT 71 GM JAR TOP SCH ×2 (09:25→20:35)
[2020-05-25] MEDS: METHOCARBAMOL 750 MG TABLET PO PRN ×2 (11:29→18:05)
[2020-05-25] MEDS: TAMSULOSIN 0.4 MG CAPSULE PO SCH (20:33)
[2020-05-25] MEDS: MONTELUKAST 10 MG TABLET PO SCH (20:33)
[2020-05-26] MEDS: oxyCODONE IR 5 MG TABLET PO PRN (00:27)
[2020-05-26] MEDS: ALBUTEROL 1.25 MG/3 ML NEB RESP TX SCH ×4 (02:25→18:34)
[2020-05-26 05:52] LABS: Basophils % 0.4 % (0.0-0.8); Eosinophils % 0.4 % (0.00-10.9); Hematocrit 29.7 VOL% (42.0-52.0); Immature Granulocytes % 0.4 %; Immature Granulocytes Absolute 0.04 #; Lymphocytes # 2.7 10*3/uL (1.4-4.0); Lymphocytes % 27.7 % (21.2-54.2); Mean Corpuscular HGB Conc 30.3 GM/DL (32-36); Mean Corpuscular Volume 83.2 FL (87-102); Mean Platelet Volume 10.2 FL (9.6-12.0); Neutrophils % 59.1 % (38.7-73.9); Red Blood Count 3.57 MC/CUMM (3.8-5.5); Red Cell Distribution Width 16.8 % (9.3-17.3); White Blood Count 9.7 T/CUMM (4-12)
[2020-05-26 05:53] LABS: Platelet Count 120 T/CUMM (130-400)
[2020-05-26 06:09] LABS: Hypochromasia 1+; Microcytosis 1+
[2020-05-26] MEDS: METHOCARBAMOL 750 MG TABLET PO PRN (06:31)
[2020-05-26] MEDS: HYDROmorphone 2 MG/1 ML VIAL IV PRN ×2 (06:31→17:28)
[2020-05-26] MEDS: ceFAZolin 2,000 MG in PREMIX 1 EACH IV SCH ×3 (06:31→21:20)
[2020-05-26 06:33] LABS: Alanine Aminotransferase 14 U/L (16-61); Albumin 3.6 G/DL (3.4-5.0); Alkaline Phosphatase 107 U/L (45-117); Aspartate Amino Transferase 10 U/L (0-37); Bilirubin,Total < 0.39 MG/DL (0.2-1.0); Blood Urea Nitrogen 18 MG/DL (7-18); Calcium 8.7 MG/DL (8.5-10.1); Estimated Glom Filtration Rate 142 ML/MIN; Glucose 104 MG/DL (74-106); Osmolality,Calculated 278.5 MOS/KG (273-304); Total Protein 7.8 G/DL (6.4-8.3)
[2020-05-26] MEDS: MENTHOL/ZINC OXIDE OINT 71 GM JAR TOP SCH ×2 (08:42→20:50)
[2020-05-26] MEDS: LOSARTAN 50 MG TABLET PO SCH ×2 (08:43→20:48)
[2020-05-26] MEDS: DILTIAZEM CD 180 MG CAPSULE PO SCH (08:43)
[2020-05-26] MEDS: RIVAROXABAN 20 MG TABLET PO SCH (08:43)
[2020-05-26] MEDS: predniSONE 20 MG TABLET PO SCH (08:43)
[2020-05-26] MEDS: POLYETHYLENE GLYCOL POWDER 17 GM PACK PO SCH (08:43)
[2020-05-26] MEDS: DOCUSATE SODIUM 100 MG CAPSULE PO SCH ×2 (08:44→20:48)
[2020-05-26] MEDS: GABAPENTIN 400 MG CAPSULE PO SCH ×3 (08:44→20:48)
[2020-05-26] MEDS: PANTOPRAZOLE 40 MG TABLET PO SCH (08:47)
[2020-05-26] MEDS: FLUTICASONE 50 MCG NASAL SPRAY 16 GM BOTTLE BOTH NARES SCH (08:48)
[2020-05-26] MEDS: oxyCODONE/ACETAMINOPHEN 5-325 MG TABLET PO PRN ×2 (10:22→16:01)
[2020-05-26] MEDS: ACETAMINOPHEN 325 MG TABLET PO PRN (16:11)
[2020-05-26] MEDS: TAMSULOSIN 0.4 MG CAPSULE PO SCH (20:48)
[2020-05-26] MEDS: MONTELUKAST 10 MG TABLET PO SCH (20:48)
[2020-05-27] MEDS: ALBUTEROL 1.25 MG/3 ML NEB RESP TX SCH ×2 (00:50→07:30)
[2020-05-27] MEDS: HYDROmorphone 2 MG/1 ML VIAL IV PRN ×2 (05:47→17:39)
[2020-05-27] MEDS: ceFAZolin 2,000 MG in PREMIX 1 EACH IV SCH ×3 (05:59→21:45)
[2020-05-27] MEDS: METHOCARBAMOL 750 MG TABLET PO PRN (06:00)
[2020-05-27] MEDS: ACETAMINOPHEN 325 MG TABLET PO PRN ×2 (06:00→15:10)
[2020-05-27 06:22] LABS: Basophils % 0.4 % (0.0-0.8); Eosinophils % 0.3 % (0.00-10.9); Hematocrit 31.2 VOL% (42.0-52.0); Hemoglobin 9.3 GM/DL (14.0-18.0); Immature Granulocytes % 0.7 %; Immature Granulocytes Absolute 0.07 #; Lymphocytes # 3.4 10*3/uL (1.4-4.0); Lymphocytes % 34.3 % (21.2-54.2); Mean Corpuscular HGB Conc 29.8 GM/DL (32-36); Mean Corpuscular Volume 84.8 FL (87-102); Mean Platelet Volume 9.7 FL (9.6-12.0); Monocytes % 10.2 % (1.7-12.7); Neutrophils % 54.1 % (38.7-73.9); Platelet Count 208 T/CUMM (130-400); Red Blood Count 3.68 MC/CUMM (3.8-5.5); Red Cell Distribution Width 16.8 % (9.3-17.3)
[2020-05-27 06:56] LABS: Alanine Aminotransferase 14 U/L (16-61); Albumin 3.4 G/DL (3.4-5.0); Alkaline Phosphatase 108 U/L (45-117); Aspartate Amino Transferase 9 U/L (0-37); Bilirubin,Total < 0.39 MG/DL (0.2-1.0); Blood Urea Nitrogen 18 MG/DL (7-18); Calcium 8.7 MG/DL (8.5-10.1); Estimated Glom Filtration Rate 129 ML/MIN; Glucose 109 MG/DL (74-106); Osmolality,Calculated 279.5 MOS/KG (273-304); Total Protein 7.7 G/DL (6.4-8.3)
[2020-05-27] MEDS: RIVAROXABAN 20 MG TABLET PO SCH (09:38)
[2020-05-27] MEDS: PANTOPRAZOLE 40 MG TABLET PO SCH (09:38)
[2020-05-27] MEDS: GABAPENTIN 400 MG CAPSULE PO SCH ×3 (09:38→21:42)
[2020-05-27] MEDS: MENTHOL/ZINC OXIDE OINT 71 GM JAR TOP SCH ×2 (09:38→21:53)
[2020-05-27] MEDS: oxyCODONE/ACETAMINOPHEN 5-325 MG TABLET PO PRN ×3 (09:38→21:56)
[2020-05-27] MEDS: FLUTICASONE 50 MCG NASAL SPRAY 16 GM BOTTLE BOTH NARES SCH (09:38)
[2020-05-27] MEDS: LOSARTAN 50 MG TABLET PO SCH ×2 (09:38→21:42)
[2020-05-27] MEDS: DILTIAZEM CD 180 MG CAPSULE PO SCH (09:38)
[2020-05-27] MEDS: DOCUSATE SODIUM 100 MG CAPSULE PO SCH ×2 (09:38→21:42)
[2020-05-27] MEDS: predniSONE 20 MG TABLET PO SCH (09:38)
[2020-05-27] MEDS: POLYETHYLENE GLYCOL POWDER 17 GM PACK PO SCH (10:25)
[2020-05-27] MEDS ORDERED: ALBUTEROL 1.25 MG/3 ML NEB RESP TX PRN (10:43)
[2020-05-27] MEDS: ALBUTEROL/IPRATROPIUM 3 ML NEB RESP TX SCH ×2 (13:06→19:13)
[2020-05-27] MEDS: MONTELUKAST 10 MG TABLET PO SCH (21:41)
[2020-05-27] MEDS: TAMSULOSIN 0.4 MG CAPSULE PO SCH (21:42)
[2020-05-28] MEDS: ALBUTEROL/IPRATROPIUM 3 ML NEB RESP TX SCH ×4 (00:06→19:17)
[2020-05-28] MEDS: HYDROmorphone 2 MG/1 ML VIAL IV PRN (06:25)
[2020-05-28] MEDS: ceFAZolin 2,000 MG in PREMIX 1 EACH IV SCH ×3 (06:29→21:39)
[2020-05-28] MEDS: DILTIAZEM CD 180 MG CAPSULE PO SCH (08:27)
[2020-05-28] MEDS: LOSARTAN 50 MG TABLET PO SCH ×2 (08:27→21:35)
[2020-05-28] MEDS: predniSONE 20 MG TABLET PO SCH (08:27)
[2020-05-28] MEDS: RIVAROXABAN 20 MG TABLET PO SCH (08:27)
[2020-05-28] MEDS: DOCUSATE SODIUM 100 MG CAPSULE PO SCH ×2 (08:27→21:35)
[2020-05-28] MEDS: PANTOPRAZOLE 40 MG TABLET PO SCH (08:27)
[2020-05-28] MEDS: MENTHOL/ZINC OXIDE OINT 71 GM JAR TOP SCH ×2 (08:28→21:35)
[2020-05-28] MEDS: POLYETHYLENE GLYCOL POWDER 17 GM PACK PO SCH (08:28)
[2020-05-28] MEDS: GABAPENTIN 400 MG CAPSULE PO SCH ×3 (08:28→21:35)
[2020-05-28] MEDS: FLUTICASONE 50 MCG NASAL SPRAY 16 GM BOTTLE BOTH NARES SCH (08:28)
[2020-05-28] MEDS: oxyCODONE/ACETAMINOPHEN 5-325 MG TABLET PO PRN ×3 (08:55→23:20)
[2020-05-28] MEDS: oxyCODONE ER 20 MG TABLET PO SCH ×2 (10:44→21:36)
[2020-05-28] MEDS: TAMSULOSIN 0.4 MG CAPSULE PO SCH (21:35)
[2020-05-28] MEDS: MONTELUKAST 10 MG TABLET PO SCH (21:36)
[2020-05-28] MEDS: METHOCARBAMOL 750 MG TABLET PO PRN (23:19)
[2020-05-29] MEDS: ALBUTEROL/IPRATROPIUM 3 ML NEB RESP TX SCH ×4 (00:42→19:39)
[2020-05-29] MEDS: ceFAZolin 2,000 MG in PREMIX 1 EACH IV SCH ×2 (06:01→15:12)
[2020-05-29] MEDS: oxyCODONE/ACETAMINOPHEN 5-325 MG TABLET PO PRN ×3 (06:04→18:33)
[2020-05-29] MEDS: RIVAROXABAN 20 MG TABLET PO SCH (08:55)
[2020-05-29] MEDS: LOSARTAN 50 MG TABLET PO SCH ×2 (08:56→21:59)
[2020-05-29] MEDS: FLUTICASONE 50 MCG NASAL SPRAY 16 GM BOTTLE BOTH NARES SCH (08:56)
[2020-05-29] MEDS: DOCUSATE SODIUM 100 MG CAPSULE PO SCH ×2 (08:56→21:59)
[2020-05-29] MEDS: DILTIAZEM CD 180 MG CAPSULE PO SCH (08:56)
[2020-05-29] MEDS: GABAPENTIN 400 MG CAPSULE PO SCH ×3 (08:57→22:00)
[2020-05-29] MEDS: oxyCODONE ER 20 MG TABLET PO SCH ×2 (08:57→21:59)
[2020-05-29] MEDS: MENTHOL/ZINC OXIDE OINT 71 GM JAR TOP SCH (08:57)
[2020-05-29] MEDS: predniSONE 20 MG TABLET PO SCH (08:58)
[2020-05-29] MEDS: PANTOPRAZOLE 40 MG TABLET PO SCH (08:58)
[2020-05-29] MEDS: METHOCARBAMOL 750 MG TABLET PO PRN ×2 (09:36→18:34)
[2020-05-29] MEDS: POLYETHYLENE GLYCOL POWDER 17 GM PACK PO SCH (13:24)
[2020-05-29] MEDS: MELATONIN 3 MG TABLET PO PRN (21:57)
[2020-05-29] MEDS: TAMSULOSIN 0.4 MG CAPSULE PO SCH (21:59)
[2020-05-29] MEDS: MONTELUKAST 10 MG TABLET PO SCH (22:00)
[2020-05-29] MEDS: ACETAMINOPHEN 325 MG TABLET PO PRN (22:06)
[2020-05-29] MEDS: PROMETHAZINE 25 MG TABLET PO PRN (22:06)
[2020-05-30] MEDS: ALBUTEROL/IPRATROPIUM 3 ML NEB RESP TX SCH ×4 (00:10→19:52)
[2020-05-30] MEDS: ceFAZolin 2,000 MG in PREMIX 1 EACH IV SCH ×4 (01:16→23:04)
[2020-05-30] MEDS: oxyCODONE/ACETAMINOPHEN 5-325 MG TABLET PO PRN ×4 (01:17→18:51)
[2020-05-30] MEDS: MENTHOL/ZINC OXIDE OINT 71 GM JAR TOP SCH ×2 (01:22→10:10)
[2020-05-30] MEDS: ACETAMINOPHEN 325 MG TABLET PO PRN ×2 (06:06→20:53)
[2020-05-30] MEDS: DILTIAZEM CD 180 MG CAPSULE PO SCH (10:08)
[2020-05-30] MEDS: DOCUSATE SODIUM 100 MG CAPSULE PO SCH ×2 (10:08→20:53)
[2020-05-30] MEDS: RIVAROXABAN 20 MG TABLET PO SCH (10:08)
[2020-05-30] MEDS: LOSARTAN 50 MG TABLET PO SCH ×2 (10:09→20:52)
[2020-05-30] MEDS: oxyCODONE ER 20 MG TABLET PO SCH ×2 (10:09→20:53)
[2020-05-30] MEDS: GABAPENTIN 400 MG CAPSULE PO SCH ×3 (10:09→20:53)
[2020-05-30] MEDS: FLUTICASONE 50 MCG NASAL SPRAY 16 GM BOTTLE BOTH NARES SCH (10:10)
[2020-05-30] MEDS: CHOLECALCIFEROL 1,000 UNIT TABLET PO SCH (10:10)
[2020-05-30] MEDS: PANTOPRAZOLE 40 MG TABLET PO SCH (10:10)
[2020-05-30] MEDS: CYANOCOBALAMIN 500 MCG TABLET PO SCH (10:10)
[2020-05-30 10:50] LABS: Basophils # 0.1 10*3/uL (0.0-0.2); Basophils % 0.7 % (0.0-0.8); Eosinophils % 0.4 % (0.00-10.9); Hematocrit 32.8 VOL% (42.0-52.0); Hemoglobin 9.7 GM/DL (14.0-18.0); Immature Granulocytes % 0.6 %; Immature Granulocytes Absolute 0.06 #; Lymphocytes # 4.1 10*3/uL (1.4-4.0); Lymphocytes % 39.5 % (21.2-54.2); Mean Corpuscular HGB Conc 29.6 GM/DL (32-36); Mean Corpuscular Volume 84.8 FL (87-102); Monocytes % 10.6 % (1.7-12.7); Neutrophils % 48.2 % (38.7-73.9); Platelet Count 221 T/CUMM (130-400); Red Blood Count 3.87 MC/CUMM (3.8-5.5); Red Cell Distribution Width 16.5 % (9.3-17.3); White Blood Count 10.3 T/CUMM (4-12)
[2020-05-30 11:08] LABS: Eosinophils 1 % (0-10); Lymphocytes 46 % (20-55); Platelet Estimate Adequate; Segmented Neutrophils 40 % (50-85); Total Cells Counted 100
[2020-05-30 11:09] LABS: Atypical Lymphocytes Few; Hypochromasia 1+; Microcytosis 1+
[2020-05-30 11:10] LABS: Alanine Aminotransferase 18 U/L (16-61); Albumin 3.7 G/DL (3.4-5.0); Alkaline Phosphatase 111 U/L (45-117); Aspartate Amino Transferase 13 U/L (0-37); Bilirubin,Total < 0.39 MG/DL (0.2-1.0); Blood Urea Nitrogen 21 MG/DL (7-18); Calcium 8.7 MG/DL (8.5-10.1); Estimated Glom Filtration Rate 117 ML/MIN; Glucose 111 MG/DL (74-106); Osmolality,Calculated 276.8 MOS/KG (273-304); Total Protein 7.9 G/DL (6.4-8.3)
[2020-05-30] MEDS ORDERED: POTASSIUM CHLORIDE 20 MEQ TABLET PO ONE (12:30)
[2020-05-30] MEDS ORDERED: DILTIAZEM 60 MG TABLET PO ONE (13:00)
[2020-05-30] MEDS: METHOCARBAMOL 750 MG TABLET PO PRN ×2 (13:05→20:52)
[2020-05-30] MEDS: POLYETHYLENE GLYCOL POWDER 17 GM PACK PO SCH (15:27)
[2020-05-30 15:59] LABS: Apearance,Urine CLEAR (Clear); Bilirubin,Urine Negative (Negative); Blood, Urine Negative (Negative); Glucose,Urine (UA) Negative (Negative); Hyaline Casts,Urine 1 /LPF (0-3); Ketones,Urine Negative (Negative); Mucus,Urine Occasional /LPF (Occasional); Nitrite,Urine Negative (Negative); Protein,Urine Negative; RBC,Urine 1 /HPF (0-4); Squamous Epithelial Cell,Urine Occasional /HPF (0-10); Urine Color Yellow (Yellow); Urine Specific Gravity 1.016 (1.001-1.035); Urine Urobilinogen < 2.0 EU/DL (0.2-1.0); WBC,Urine 1 /HPF (0-6)
[2020-05-30] MEDS: TAMSULOSIN 0.4 MG CAPSULE PO SCH (20:52)
[2020-05-30] MEDS: ZALEPLON 5 MG CAPSULE PO PRN (20:53)
[2020-05-30] MEDS: MONTELUKAST 10 MG TABLET PO SCH (20:53)
[2020-05-31] MEDS: oxyCODONE/ACETAMINOPHEN 5-325 MG TABLET PO PRN ×2 (00:50→08:11)
[2020-05-31] MEDS: PROMETHAZINE 25 MG TABLET PO PRN (00:50)
[2020-05-31] MEDS: MENTHOL/ZINC OXIDE OINT 71 GM JAR TOP SCH ×2 (02:53→09:59)
[2020-05-31] MEDS: ALBUTEROL/IPRATROPIUM 3 ML NEB RESP TX SCH ×2 (02:57→07:22)
[2020-05-31] MEDS: METHOCARBAMOL 750 MG TABLET PO PRN (05:09)
[2020-05-31] MEDS: ceFAZolin 2,000 MG in PREMIX 1 EACH IV SCH (05:10)
[2020-05-31] MEDS ORDERED: DILTIAZEM CD 240 MG CAPSULE PO SCH (09:00)
[2020-05-31] MEDS ORDERED: predniSONE 20 MG TABLET PO SCH (09:00)
[2020-05-31 09:02] LABS: Calcium 8.6 MG/DL (8.5-10.1); Osmolality,Calculated 275.7 MOS/KG (273-304)
[2020-05-31] MEDS: oxyCODONE ER 20 MG TABLET PO SCH (09:58)
[2020-05-31] MEDS: CHOLECALCIFEROL 1,000 UNIT TABLET PO SCH (09:58)
[2020-05-31] MEDS: DOCUSATE SODIUM 100 MG CAPSULE PO SCH (09:58)
[2020-05-31] MEDS: RIVAROXABAN 20 MG TABLET PO SCH (09:58)
[2020-05-31] MEDS: LOSARTAN 50 MG TABLET PO SCH (09:58)
[2020-05-31] MEDS: PANTOPRAZOLE 40 MG TABLET PO SCH (09:59)
[2020-05-31] MEDS: CYANOCOBALAMIN 500 MCG TABLET PO SCH (09:59)
[2020-05-31] MEDS: POLYETHYLENE GLYCOL POWDER 17 GM PACK PO SCH (09:59)
[2020-05-31] MEDS: FLUTICASONE 50 MCG NASAL SPRAY 16 GM BOTTLE BOTH NARES SCH (09:59)
[2020-05-31] MEDS: GABAPENTIN 400 MG CAPSULE PO SCH ×2 (09:59→15:34)
[2020-05-31 11:27] VITALS: BP 122/43
[2020-05-31] MEDS: ACETAMINOPHEN 325 MG TABLET PO PRN (11:38)
== END 2020-05-31 15:21 | disposition home or self-care (01) | DRG 548 ==
LOC: SUATTDRO 05-20 04:10 → N.3E 05-20 04:10
PROVIDERS: ADMIT Internal Medicine; ATTEND Internal Medicine

== ENCOUNTER 2020-09-20 19:35 | Observation (INO) ==
[2020-09-20] MEDS ORDERED: ONDANSETRON 4 MG/2 ML VIAL IV STA (20:41)
[2020-09-20] MEDS ORDERED: methylPREDNISolone SOD SUC 125 MG/2 ML VIAL IV STA (20:41)
[2020-09-20] MEDS ORDERED: SODIUM CHLORIDE 0.9% 1,000 ML IV STA (20:41)
[2020-09-20 20:56] LABS: Basophils # 0.1 10*3/uL (0.0-0.2); Basophils % 0.7 % (0.0-0.8); Eosinophils # 0.2 10*3/uL (0.0-0.87); Hematocrit 44.3 VOL% (42.0-52.0); Hemoglobin 13.7 GM/DL (14.0-18.0); Immature Granulocytes % 0.5 %; Immature Granulocytes Absolute 0.04 #; Lymphocytes # 3.3 10*3/uL (1.4-4.0); Lymphocytes % 38.9 % (21.2-54.2); Mean Corpuscular HGB Conc 30.9 GM/DL (32-36); Mean Corpuscular Volume 75.9 FL (87-102); Mean Platelet Volume 9.4 FL (9.6-12.0); Monocytes % 10.5 % (1.7-12.7); Neutrophils % 47.4 % (38.7-73.9); Platelet Count 396 T/CUMM (130-400); Red Blood Count 5.84 MC/CUMM (3.8-5.5); Red Cell Distribution Width 19.9 % (9.3-17.3); White Blood Count 8.5 T/CUMM (4-12)
[2020-09-20 21:07] LABS: Bilirubin,Total 0.4 MG/DL (0.2-1.0); Calcium 9.4 MG/DL (8.5-10.1); Osmolality,Calculated 272.8 MOS/KG (273-304); Total Protein 8.5 G/DL (6.4-8.3)
[2020-09-20 21:20] LABS: Anisocytosis 1+; Eosinophils 1 % (0-10); Lymphocytes 45 % (20-55); Platelet Estimate Adequate; Segmented Neutrophils 49 % (50-85); Total Cells Counted 100
[2020-09-20] MEDS ORDERED: ALBUTEROL/IPRATROPIUM 3 ML NEB RESP TX STA (21:49)
[2020-09-20] MEDS ORDERED: POLYETHYLENE GLYCOL POWDER 17 GM PACK PO PRN (22:38)
[2020-09-20] MEDS ORDERED: PROMETHAZINE 25 MG TABLET PO PRN (22:38)
[2020-09-20] MEDS ORDERED: guaiFENesin/DM ER 600-30 MG TABLET PO PRN (22:43)
[2020-09-20] MEDS ORDERED: DEXTROSE 50% 25 GM/50 ML VIAL IV PRN (22:43)
[2020-09-20] MEDS ORDERED: ACETAMINOPHEN 325 MG TABLET PO PRN (22:43)
[2020-09-20] MEDS ORDERED: diphenhydrAMINE CAP 25 MG CAPSULE PO PRN (22:43)
[2020-09-20] MEDS ORDERED: ONDANSETRON 4 MG/2 ML VIAL IV PRN (22:43)
[2020-09-20] MEDS ORDERED: hydrALAZINE 20 MG/1 ML VIAL IV PRN (22:43)
[2020-09-20] MEDS ORDERED: NICOTINE 21 MG/24 HR PATCH TRANSDERM PRN (22:43)
[2020-09-20] MEDS ORDERED: MORPHINE 4 MG/1 ML VIAL IV PRN (22:43)
[2020-09-20] MEDS ORDERED: GLUCAGON 1 MG VIAL IM PRN (22:43)
[2020-09-20] MEDS ORDERED: LACTULOSE 20 GM/30 ML UDCUP PO PRN (22:43)
[2020-09-20] MEDS ORDERED: ALBUTEROL 2.5 MG/3 ML NEB RESP TX PRN (22:43)
[2020-09-21] MEDS: ALBUTEROL/IPRATROPIUM 3 ML NEB RESP TX SCH ×4 (01:00→18:56)
[2020-09-21] MEDS ORDERED: MELATONIN 3 MG TABLET PO PRN (01:40)
[2020-09-21 05:48] LABS: Basophils % 0.2 % (0.0-0.8); Hematocrit 43.2 VOL% (42.0-52.0); Hemoglobin 13.2 GM/DL (14.0-18.0); Immature Granulocytes % 0.7 %; Immature Granulocytes Absolute 0.06 #; Lymphocytes # 1.2 10*3/uL (1.4-4.0); Lymphocytes % 14.1 % (21.2-54.2); Mean Corpuscular HGB Conc 30.6 GM/DL (32-36); Mean Corpuscular Volume 76.1 FL (87-102); Platelet Count 374 T/CUMM (130-400); Red Blood Count 5.68 MC/CUMM (3.8-5.5); Red Cell Distribution Width 19.8 % (9.3-17.3); White Blood Count 8.4 T/CUMM (4-12)
[2020-09-21 06:05] LABS: Calcium 9.3 MG/DL (8.5-10.1)
[2020-09-21] MEDS ORDERED: methylPREDNISolone SOD SUC 125 MG/2 ML VIAL IV SCH (07:00)
[2020-09-21] MEDS: BUDESONIDE 0.5 MG/2 ML NEB RESP TX SCH ×2 (07:40→18:56)
[2020-09-21] MEDS: FORMOTEROL 20 MCG/2 ML NEB RESP TX SCH ×2 (07:40→18:56)
[2020-09-21] MEDS: GABAPENTIN 400 MG CAPSULE PO SCH ×3 (08:54→20:38)
[2020-09-21] MEDS: DILTIAZEM CD 180 MG CAPSULE PO SCH (08:54)
[2020-09-21] MEDS: CETIRIZINE 10 MG TABLET PO SCH (08:55)
[2020-09-21] MEDS: PANTOPRAZOLE 40 MG TABLET PO SCH (08:55)
[2020-09-21] MEDS: methylPREDNISolone SOD SUC 40 MG/1 ML VIAL IV SCH ×3 (08:55→23:52)
[2020-09-21] MEDS: RIVAROXABAN 20 MG TABLET PO SCH (08:55)
[2020-09-21] MEDS: FERROUS GLUCONATE 324 MG TABLET PO SCH (08:55)
[2020-09-21] MEDS ORDERED: NON-FORMULARY MEDICATION (Omeprazole 40 mg capsule,delayed release(DR/EC)) PO SCH (09:00)
[2020-09-21] MEDS ORDERED: LABETALOL 200 MG TABLET PO SCH (09:00)
[2020-09-21] MEDS ORDERED: LOSARTAN 50 MG TABLET PO SCH (09:00)
[2020-09-21] MEDS: DOCUSATE SODIUM 100 MG CAPSULE PO SCH ×2 (09:10→20:38)
[2020-09-21] MEDS: FLUTICASONE 50 MCG NASAL SPRAY 16 GM BOTTLE BOTH NARES SCH (10:30)
[2020-09-21] MEDS: DOXYCYCLINE HYCLATE 100 MG CAPSULE PO SCH ×2 (10:30→20:42)
[2020-09-21] MEDS ORDERED: ASPIRIN CHEW 81 MG TABLET PO ONE (13:11)
[2020-09-21] MEDS: oxyCODONE/ACETAMINOPHEN 5-325 MG TABLET PO PRN ×2 (13:18→23:52)
[2020-09-21] MEDS: ASPIRIN CHEW 81 MG TABLET PO SCH (13:18)
[2020-09-21] MEDS: METHOCARBAMOL 500 MG TABLET PO SCH ×2 (17:00→20:35)
[2020-09-21] MEDS: oxyCODONE ER 20 MG TABLET PO SCH (20:38)
[2020-09-21] MEDS ORDERED: TAMSULOSIN 0.4 MG CAPSULE PO SCH (21:00)
[2020-09-21] MEDS ORDERED: MONTELUKAST 10 MG TABLET PO SCH (21:00)
[2020-09-21] MEDS ORDERED: AMITRIPTYLINE 25 MG TABLET PO SCH (21:00)
[2020-09-21] MEDS ORDERED: ALBUTEROL INHALER 18 GM INH SCH (21:00)
[2020-09-22] MEDS: FORMOTEROL 20 MCG/2 ML NEB RESP TX SCH (07:15)
[2020-09-22] MEDS: ALBUTEROL/IPRATROPIUM 3 ML NEB RESP TX SCH ×2 (07:15)
[2020-09-22] MEDS: BUDESONIDE 0.5 MG/2 ML NEB RESP TX SCH (07:15)
[2020-09-22] MEDS ORDERED: BUDESONIDE/FORMOTEROL 160-4.5 INHALER 6 GM INH SCH (09:00)
[2020-09-22] MEDS ORDERED: hydroCHLOROthiazide 25 MG TABLET PO SCH (09:00)
[2020-09-22 09:29] LABS: Basophils % 0.1 % (0.0-0.8); Hemoglobin 12.9 GM/DL (14.0-18.0); Immature Granulocytes % 0.6 %; Immature Granulocytes Absolute 0.11 #; Lymphocytes # 1.4 10*3/uL (1.4-4.0); Lymphocytes % 7.4 % (21.2-54.2); Mean Corpuscular HGB Conc 30.7 GM/DL (32-36); Mean Corpuscular Volume 76.8 FL (87-102); Mean Platelet Volume 9.3 FL (9.6-12.0); Monocytes % 3.4 % (1.7-12.7); Neutrophils % 88.5 % (38.7-73.9); Platelet Count 379 T/CUMM (130-400); Red Blood Count 5.47 MC/CUMM (3.8-5.5); Red Cell Distribution Width 19.7 % (9.3-17.3); White Blood Count 18.4 T/CUMM (4-12)
[2020-09-22] MEDS: RIVAROXABAN 20 MG TABLET PO SCH (09:38)
[2020-09-22] MEDS: GABAPENTIN 400 MG CAPSULE PO SCH (09:38)
[2020-09-22] MEDS: ASPIRIN CHEW 81 MG TABLET PO SCH (09:38)
[2020-09-22] MEDS: DOCUSATE SODIUM 100 MG CAPSULE PO SCH (09:38)
[2020-09-22] MEDS: DILTIAZEM CD 180 MG CAPSULE PO SCH (09:39)
[2020-09-22] MEDS: PANTOPRAZOLE 40 MG TABLET PO SCH (09:39)
[2020-09-22] MEDS: FERROUS GLUCONATE 324 MG TABLET PO SCH (09:39)
[2020-09-22] MEDS: DOXYCYCLINE HYCLATE 100 MG CAPSULE PO SCH (09:39)
[2020-09-22] MEDS: CETIRIZINE 10 MG TABLET PO SCH (09:39)
[2020-09-22] MEDS: FLUTICASONE 50 MCG NASAL SPRAY 16 GM BOTTLE BOTH NARES SCH (09:40)
[2020-09-22] MEDS: methylPREDNISolone SOD SUC 40 MG/1 ML VIAL IV SCH (09:40)
[2020-09-22] MEDS: oxyCODONE ER 20 MG TABLET PO SCH (09:40)
[2020-09-22 09:45] LABS: Calcium 9.4 MG/DL (8.5-10.1)
[2020-09-22] MEDS: METHOCARBAMOL 500 MG TABLET PO SCH ×2 (11:15→13:19)
[2020-09-22 11:39] VITALS: BP 144/77
== END 2020-09-22 14:20 | disposition home or self-care (01) ==
LOC: N.EDINP 19:35 → N.ED 19:35 → SUATTDRO 22:43 → N.TELEN 23:57
PROVIDERS: ADMIT Internal Medicine; ATTEND Emergency Medicine

== ENCOUNTER 2020-12-22 15:56 | Inpatient (IN) ==
[2020-12-22 16:31] LABS: Basophils % 0.4 % (0.0-0.8); Eosinophils # 0.1 10*3/uL (0.0-0.87); Eosinophils % 1.3 % (0.00-10.9); Hematocrit 38.2 VOL% (42.0-52.0); Hemoglobin 11.4 GM/DL (14.0-18.0); Immature Granulocytes % 0.3 %; Immature Granulocytes Absolute 0.02 #; Lymphocytes # 2.3 10*3/uL (1.4-4.0); Lymphocytes % 28.9 % (21.2-54.2); Mean Corpuscular HGB Conc 29.8 GM/DL (32-36); Mean Corpuscular Volume 80.9 FL (87-102); Mean Platelet Volume 10.1 FL (9.6-12.0); Monocytes % 8.4 % (1.7-12.7); Neutrophils % 60.7 % (38.7-73.9); Platelet Count 210 T/CUMM (130-400); Red Blood Count 4.72 MC/CUMM (3.8-5.5); Red Cell Distribution Width 17.4 % (9.3-17.3); White Blood Count 7.9 T/CUMM (4-12)
[2020-12-22] MEDS ORDERED: ALBUTEROL 2.5 MG/3 ML NEB RESP TX STA (16:31)
[2020-12-22] MEDS ORDERED: methylPREDNISolone SOD SUC 125 MG/2 ML VIAL IV STA (16:31)
[2020-12-22 17:09] LABS: Alanine Aminotransferase 27 U/L (16-61); Albumin 3.4 G/DL (3.4-5.0); Alkaline Phosphatase 108 U/L (45-117); Aspartate Amino Transferase 16 U/L (0-37); Bilirubin,Total < 0.39 MG/DL (0.2-1.0); Blood Urea Nitrogen 13 MG/DL (7-18); Calcium 8.7 MG/DL (8.5-10.1); Carbon Dioxide 28 MMOL/L (21-32); Estimated Glom Filtration Rate 136 ML/MIN; Glucose 92 MG/DL (74-106); Osmolality,Calculated 278.4 MOS/KG (273-304); Potassium 3.6 MMOL/L (3.5-5.1); Sodium 140 MMOL/L (136-145); Total Protein 7.4 G/DL (6.4-8.3)
[2020-12-22] MEDS ORDERED: ONDANSETRON 4 MG/2 ML VIAL ONE (17:10)
[2020-12-22] MEDS ORDERED: HYDROmorphone 2 MG/1 ML VIAL ONE (17:11)
[2020-12-22] MEDS ORDERED: ONDANSETRON 4 MG/2 ML VIAL IV STA (17:20)
[2020-12-22] MEDS ORDERED: HYDROmorphone 2 MG/1 ML VIAL IV STA (17:20)
[2020-12-22] MEDS ORDERED: NICOTINE 21 MG/24 HR PATCH TRANSDERM PRN (17:34)
[2020-12-22] MEDS ORDERED: DEXTROSE 50% 25 GM/50 ML VIAL IV PRN (17:34)
[2020-12-22] MEDS ORDERED: BISACODYL 5 MG TABLET PO PRN (17:34)
[2020-12-22] MEDS ORDERED: ACETAMINOPHEN 325 MG TABLET PO PRN (17:34)
[2020-12-22] MEDS ORDERED: SIMETHICONE CHEW 125 MG TABLET PO PRN (17:34)
[2020-12-22] MEDS ORDERED: diphenhydrAMINE CAP 25 MG CAPSULE PO PRN (17:34)
[2020-12-22] MEDS ORDERED: ALUMINUM/MAGNES/SIMETH MAX STR 30 ML UDCUP PO PRN (17:34)
[2020-12-22] MEDS ORDERED: guaiFENesin/DM ER 600-30 MG TABLET PO PRN (17:34)
[2020-12-22] MEDS ORDERED: CALCIUM CARBONATE CHEW 500 MG TABLET PO PRN (17:34)
[2020-12-22] MEDS ORDERED: hydrALAZINE 20 MG/1 ML VIAL IV PRN (17:34)
[2020-12-22] MEDS ORDERED: GLUCAGON 1 MG VIAL IM PRN (17:34)
[2020-12-22] MEDS ORDERED: ALBUTEROL/IPRATROPIUM 3 ML NEB RESP TX SCH (18:00)
[2020-12-22] MEDS ORDERED: ALBUTEROL 2.5 MG/3 ML NEB RESP TX PRN (18:17)
[2020-12-22] MEDS ORDERED: PROMETHAZINE 25 MG TABLET PO PRN (18:17)
[2020-12-22] MEDS: ALBUTEROL 2.5 MG/3 ML NEB RESP TX SCH ×2 (19:37→23:50)
[2020-12-22] MEDS ORDERED: ENOXAPARIN 40 MG/0.4 ML SYRINGE SUBCUT SCH (21:00)
[2020-12-22] MEDS: TAMSULOSIN 0.4 MG CAPSULE PO SCH (21:23)
[2020-12-22] MEDS: LABETALOL 200 MG TABLET PO SCH (21:24)
[2020-12-22] MEDS: LOSARTAN 50 MG TABLET PO SCH (21:24)
[2020-12-22] MEDS: MELATONIN 3 MG TABLET PO PRN (21:24)
[2020-12-22] MEDS: AMITRIPTYLINE 25 MG TABLET PO SCH (21:24)
[2020-12-22] MEDS: GABAPENTIN 400 MG CAPSULE PO SCH (21:24)
[2020-12-22] MEDS: MONTELUKAST 10 MG TABLET PO SCH (21:24)
[2020-12-22] MEDS: methylPREDNISolone SOD SUC 40 MG/1 ML VIAL IV SCH (21:25)
[2020-12-22] MEDS: oxyCODONE/ACETAMINOPHEN 5-325 MG TABLET PO PRN (21:59)
[2020-12-23] MEDS: methylPREDNISolone SOD SUC 40 MG/1 ML VIAL IV SCH ×4 (03:04→21:01)
[2020-12-23] MEDS: ALBUTEROL 2.5 MG/3 ML NEB RESP TX SCH ×6 (03:13→23:15)
[2020-12-23 06:26] LABS: Basophils % 0.2 % (0.0-0.8); Hematocrit 37.3 VOL% (42.0-52.0); Hemoglobin 11.3 GM/DL (14.0-18.0); Immature Granulocytes % 0.7 %; Immature Granulocytes Absolute 0.07 #; Lymphocytes # 1.1 10*3/uL (1.4-4.0); Lymphocytes % 11.5 % (21.2-54.2); Mean Corpuscular HGB Conc 30.3 GM/DL (32-36); Mean Corpuscular Volume 79.7 FL (87-102); Mean Platelet Volume 10.3 FL (9.6-12.0); Monocytes % 0.6 % (1.7-12.7); Platelet Count 206 T/CUMM (130-400); Red Blood Count 4.68 MC/CUMM (3.8-5.5); Red Cell Distribution Width 17.6 % (9.3-17.3); White Blood Count 9.6 T/CUMM (4-12)
[2020-12-23 06:42] LABS: Osmolality,Calculated 280.8 MOS/KG (273-304); Potassium 4.1 MMOL/L (3.5-5.1)
[2020-12-23] MEDS: LABETALOL 200 MG TABLET PO SCH ×2 (09:17→20:56)
[2020-12-23] MEDS: GABAPENTIN 400 MG CAPSULE PO SCH ×3 (09:17→20:56)
[2020-12-23] MEDS: DILTIAZEM CD 180 MG CAPSULE PO SCH (09:18)
[2020-12-23] MEDS: ASPIRIN EC 81 MG TABLET PO SCH (09:18)
[2020-12-23] MEDS: CETIRIZINE 10 MG TABLET PO SCH (09:19)
[2020-12-23] MEDS: FERROUS GLUCONATE 324 MG TABLET PO SCH (09:19)
[2020-12-23] MEDS: LOSARTAN 50 MG TABLET PO SCH ×2 (09:21→20:57)
[2020-12-23] MEDS ORDERED: POLYETHYLENE GLYCOL POWDER 17 GM PACK PO PRN (09:54)
[2020-12-23] MEDS: FLUTICASONE 50 MCG NASAL SPRAY 16 GM BOTTLE BOTH NARES SCH ×2 (10:24→20:57)
[2020-12-23] MEDS: oxyCODONE/ACETAMINOPHEN 5-325 MG TABLET PO PRN ×2 (10:26→16:09)
[2020-12-23] MEDS: BUDESONIDE/FORMOTEROL 160-4.5 INHALER 6 GM INH SCH (10:27)
[2020-12-23] MEDS: METHOCARBAMOL 500 MG TABLET PO SCH ×3 (13:32→20:56)
[2020-12-23] MEDS: cefTRIAXone 1,000 MG in SYRINGE 1 EACH IV SCH (13:32)
[2020-12-23] MEDS: RIVAROXABAN 20 MG TABLET PO SCH (17:33)
[2020-12-23] MEDS: DOCUSATE SODIUM 100 MG CAPSULE PO SCH (20:55)
[2020-12-23] MEDS: AMITRIPTYLINE 25 MG TABLET PO SCH (20:56)
[2020-12-23] MEDS: TAMSULOSIN 0.4 MG CAPSULE PO SCH (20:56)
[2020-12-23] MEDS: MONTELUKAST 10 MG TABLET PO SCH (20:57)
[2020-12-23] MEDS: oxyCODONE ER 20 MG TABLET PO SCH (20:57)
[2020-12-23] MEDS: MELATONIN 3 MG TABLET PO PRN (20:57)
[2020-12-24] MEDS: ALBUTEROL 2.5 MG/3 ML NEB RESP TX SCH ×5 (03:04→19:48)
[2020-12-24] MEDS: methylPREDNISolone SOD SUC 40 MG/1 ML VIAL IV SCH ×4 (03:15→21:00)
[2020-12-24 05:37] LABS: Basophils % 0.1 % (0.0-0.8); Hematocrit 34.2 VOL% (42.0-52.0); Hemoglobin 10.3 GM/DL (14.0-18.0); Immature Granulocytes % 0.8 %; Immature Granulocytes Absolute 0.11 #; Lymphocytes # 1.1 10*3/uL (1.4-4.0); Lymphocytes % 7.6 % (21.2-54.2); Mean Corpuscular HGB Conc 30.1 GM/DL (32-36); Mean Corpuscular Volume 80.9 FL (87-102); Mean Platelet Volume 10.2 FL (9.6-12.0); Neutrophils % 88.5 % (38.7-73.9); Platelet Count 208 T/CUMM (130-400); Red Blood Count 4.23 MC/CUMM (3.8-5.5); Red Cell Distribution Width 17.9 % (9.3-17.3); White Blood Count 13.9 T/CUMM (4-12)
[2020-12-24] MEDS: oxyCODONE/ACETAMINOPHEN 5-325 MG TABLET PO PRN ×3 (05:45→18:39)
[2020-12-24 06:08] LABS: Calcium 8.6 MG/DL (8.5-10.1)
[2020-12-24] MEDS: METHOCARBAMOL 500 MG TABLET PO SCH ×4 (09:09→20:52)
[2020-12-24] MEDS: GABAPENTIN 400 MG CAPSULE PO SCH ×3 (09:10→20:54)
[2020-12-24] MEDS: FERROUS GLUCONATE 324 MG TABLET PO SCH (09:10)
[2020-12-24] MEDS: LOSARTAN 50 MG TABLET PO SCH ×2 (09:10→20:53)
[2020-12-24] MEDS: ASPIRIN EC 81 MG TABLET PO SCH (09:10)
[2020-12-24] MEDS: DOCUSATE SODIUM 100 MG CAPSULE PO SCH ×2 (09:10→20:52)
[2020-12-24] MEDS: DILTIAZEM CD 180 MG CAPSULE PO SCH (09:10)
[2020-12-24] MEDS: CETIRIZINE 10 MG TABLET PO SCH (09:13)
[2020-12-24] MEDS: PANTOPRAZOLE 40 MG TABLET PO SCH (09:13)
[2020-12-24] MEDS: [UNRECOGNIZED DRUG - OTHER] PO SCH (09:14)
[2020-12-24] MEDS: FLUTICASONE 50 MCG NASAL SPRAY 16 GM BOTTLE BOTH NARES SCH ×2 (09:15→21:00)
[2020-12-24] MEDS: LABETALOL 200 MG TABLET PO SCH ×2 (09:15→20:53)
[2020-12-24] MEDS: oxyCODONE ER 20 MG TABLET PO SCH ×2 (09:16→20:54)
[2020-12-24] MEDS: LIDOCAINE 5% PATCH TRANSDERM SCH (09:16)
[2020-12-24] MEDS: BUDESONIDE/FORMOTEROL 160-4.5 INHALER 6 GM INH SCH (09:22)
[2020-12-24] MEDS: cefTRIAXone 1,000 MG in SYRINGE 1 EACH IV SCH (12:13)
[2020-12-24] MEDS: INSULIN LISPRO 100 UNIT/ML SUBCUT SCH ×3 (12:13→20:55)
[2020-12-24] MEDS: RIVAROXABAN 20 MG TABLET PO SCH (15:56)
[2020-12-24] MEDS: MONTELUKAST 10 MG TABLET PO SCH (20:52)
[2020-12-24] MEDS: AMITRIPTYLINE 25 MG TABLET PO SCH (20:53)
[2020-12-24] MEDS: TAMSULOSIN 0.4 MG CAPSULE PO SCH (20:54)
[2020-12-24] MEDS: MELATONIN 3 MG TABLET PO PRN (20:55)
[2020-12-25] MEDS: ALBUTEROL 2.5 MG/3 ML NEB RESP TX SCH ×6 (00:36→20:26)
[2020-12-25] MEDS: methylPREDNISolone SOD SUC 40 MG/1 ML VIAL IV SCH (03:25)
[2020-12-25] MEDS: oxyCODONE/ACETAMINOPHEN 5-325 MG TABLET PO PRN (05:23)
[2020-12-25 07:14] LABS: Calcium 8.2 MG/DL (8.5-10.1); Osmolality,Calculated 286.8 MOS/KG (273-304); Potassium 3.8 MMOL/L (3.5-5.1)
[2020-12-25 07:44] LABS: Basophils % 0.1 % (0.0-0.8); Hematocrit 35.9 VOL% (42.0-52.0); Hemoglobin 10.6 GM/DL (14.0-18.0); Immature Granulocytes % 1.5 %; Immature Granulocytes Absolute 0.21 #; Lymphocytes % 6.9 % (21.2-54.2); Mean Corpuscular HGB Conc 29.5 GM/DL (32-36); Mean Platelet Volume 10.4 FL (9.6-12.0); NRBC # 0.02 10*3/uL; Neutrophils % 88.5 % (38.7-73.9); Platelet Count 219 T/CUMM (130-400); Red Blood Count 4.38 MC/CUMM (3.8-5.5); White Blood Count 13.8 T/CUMM (4-12)
[2020-12-25] MEDS: METHOCARBAMOL 500 MG TABLET PO SCH ×4 (10:21→21:25)
[2020-12-25] MEDS: INSULIN LISPRO 100 UNIT/ML SUBCUT SCH ×4 (10:22→21:29)
[2020-12-25] MEDS: FERROUS GLUCONATE 324 MG TABLET PO SCH (10:22)
[2020-12-25] MEDS: ASPIRIN EC 81 MG TABLET PO SCH (10:22)
[2020-12-25] MEDS: PANTOPRAZOLE 40 MG TABLET PO SCH (10:22)
[2020-12-25] MEDS: LOSARTAN 50 MG TABLET PO SCH ×2 (10:22→21:25)
[2020-12-25] MEDS: LABETALOL 200 MG TABLET PO SCH ×2 (10:23→21:23)
[2020-12-25] MEDS: oxyCODONE ER 20 MG TABLET PO SCH ×2 (10:23→21:30)
[2020-12-25] MEDS: DOCUSATE SODIUM 100 MG CAPSULE PO SCH ×2 (10:23→21:24)
[2020-12-25] MEDS: DILTIAZEM CD 180 MG CAPSULE PO SCH (10:23)
[2020-12-25] MEDS: CETIRIZINE 10 MG TABLET PO SCH (10:24)
[2020-12-25] MEDS: FLUTICASONE 50 MCG NASAL SPRAY 16 GM BOTTLE BOTH NARES SCH ×2 (10:24→21:36)
[2020-12-25] MEDS: GABAPENTIN 400 MG CAPSULE PO SCH ×3 (10:24→21:24)
[2020-12-25] MEDS: BUDESONIDE/FORMOTEROL 160-4.5 INHALER 6 GM INH SCH (10:25)
[2020-12-25] MEDS: LIDOCAINE 5% PATCH TRANSDERM SCH (10:25)
[2020-12-25] MEDS: [UNRECOGNIZED DRUG - OTHER] PO SCH (11:13)
[2020-12-25] MEDS: cefTRIAXone 1,000 MG in SYRINGE 1 EACH IV SCH (12:13)
[2020-12-25] MEDS ORDERED: hydrALAZINE 20 MG/1 ML VIAL IV PRN (15:23)
[2020-12-25] MEDS: methylPREDNISolone SOD SUC 125 MG/2 ML VIAL IV SCH ×2 (15:25→21:34)
[2020-12-25] MEDS: RIVAROXABAN 20 MG TABLET PO SCH (17:18)
[2020-12-25] MEDS: TAMSULOSIN 0.4 MG CAPSULE PO SCH (21:23)
[2020-12-25] MEDS: AMITRIPTYLINE 25 MG TABLET PO SCH (21:24)
[2020-12-25] MEDS: MONTELUKAST 10 MG TABLET PO SCH (21:24)
[2020-12-25] MEDS: MELATONIN 3 MG TABLET PO PRN (21:25)
[2020-12-26] MEDS: ALBUTEROL 2.5 MG/3 ML NEB RESP TX SCH ×6 (00:08→19:34)
[2020-12-26] MEDS: oxyCODONE/ACETAMINOPHEN 5-325 MG TABLET PO PRN ×2 (01:21→14:41)
[2020-12-26] MEDS: methylPREDNISolone SOD SUC 125 MG/2 ML VIAL IV SCH ×2 (05:51→14:56)
[2020-12-26 05:53] LABS: Basophils % 0.1 % (0.0-0.8); Hematocrit 36.1 VOL% (42.0-52.0); Hemoglobin 10.9 GM/DL (14.0-18.0); Immature Granulocytes Absolute 0.23 #; Lymphocytes # 0.9 10*3/uL (1.4-4.0); Mean Corpuscular HGB Conc 30.2 GM/DL (32-36); Mean Corpuscular Volume 80.8 FL (87-102); Mean Platelet Volume 10.1 FL (9.6-12.0); Monocytes % 5.9 % (1.7-12.7); NRBC # 0.02 10*3/uL; Platelet Count 209 T/CUMM (130-400); Red Blood Count 4.47 MC/CUMM (3.8-5.5); Red Cell Distribution Width 17.6 % (9.3-17.3); White Blood Count 11.6 T/CUMM (4-12)
[2020-12-26 06:25] LABS: Alanine Aminotransferase 29 U/L (16-61); Albumin 3.3 G/DL (3.4-5.0); Alkaline Phosphatase 96 U/L (45-117); Aspartate Amino Transferase 11 U/L (0-37); Bilirubin,Total < 0.39 MG/DL (0.2-1.0); Blood Urea Nitrogen 24 MG/DL (7-18); Calcium 8.1 MG/DL (8.5-10.1); Carbon Dioxide 24 MMOL/L (21-32); Estimated Glom Filtration Rate 88 ML/MIN; Glucose 370 MG/DL (74-106); Osmolality,Calculated 284.4 MOS/KG (273-304); Potassium 3.8 MMOL/L (3.5-5.1); Sodium 133 MMOL/L (136-145); Total Protein 7.5 G/DL (6.4-8.3)
[2020-12-26] MEDS: BUDESONIDE/FORMOTEROL 160-4.5 INHALER 6 GM INH SCH (09:48)
[2020-12-26] MEDS: FLUTICASONE 50 MCG NASAL SPRAY 16 GM BOTTLE BOTH NARES SCH ×2 (09:48→20:29)
[2020-12-26] MEDS: LIDOCAINE 5% PATCH TRANSDERM SCH (09:49)
[2020-12-26] MEDS: INSULIN LISPRO 100 UNIT/ML SUBCUT SCH ×4 (09:49→21:37)
[2020-12-26] MEDS: DILTIAZEM CD 180 MG CAPSULE PO SCH (09:50)
[2020-12-26] MEDS: oxyCODONE ER 20 MG TABLET PO SCH ×2 (09:50→20:28)
[2020-12-26] MEDS: GABAPENTIN 400 MG CAPSULE PO SCH ×3 (09:51→20:27)
[2020-12-26] MEDS: METHOCARBAMOL 500 MG TABLET PO SCH ×4 (09:51→20:28)
[2020-12-26] MEDS: LABETALOL 200 MG TABLET PO SCH ×2 (09:51→20:28)
[2020-12-26] MEDS: PANTOPRAZOLE 40 MG TABLET PO SCH (09:51)
[2020-12-26] MEDS: ASPIRIN EC 81 MG TABLET PO SCH (09:51)
[2020-12-26] MEDS: DOCUSATE SODIUM 100 MG CAPSULE PO SCH ×2 (09:51→20:27)
[2020-12-26] MEDS: FERROUS GLUCONATE 324 MG TABLET PO SCH (09:52)
[2020-12-26] MEDS: CETIRIZINE 10 MG TABLET PO SCH (09:52)
[2020-12-26] MEDS: LOSARTAN 50 MG TABLET PO SCH (09:52)
[2020-12-26] MEDS: [UNRECOGNIZED DRUG - OTHER] PO SCH (10:36)
[2020-12-26] MEDS: cefTRIAXone 1,000 MG in SYRINGE 1 EACH IV SCH (11:42)
[2020-12-26] MEDS: SPIRONOLACTONE 25 MG TABLET PO SCH (16:22)
[2020-12-26] MEDS: RIVAROXABAN 20 MG TABLET PO SCH (16:22)
[2020-12-26] MEDS: AMITRIPTYLINE 25 MG TABLET PO SCH (20:27)
[2020-12-26] MEDS: TAMSULOSIN 0.4 MG CAPSULE PO SCH (20:27)
[2020-12-26] MEDS: MONTELUKAST 10 MG TABLET PO SCH (20:27)
[2020-12-26] MEDS ORDERED: methylPREDNISolone SOD SUC 125 MG/2 ML VIAL IV SCH (21:00)
[2020-12-26] MEDS: MELATONIN 3 MG TABLET PO PRN (21:37)
[2020-12-27] MEDS: ALBUTEROL 2.5 MG/3 ML NEB RESP TX SCH ×4 (04:08→10:36)
[2020-12-27 05:41] LABS: Calcium 8.2 MG/DL (8.5-10.1); Osmolality,Calculated 285.8 MOS/KG (273-304)
[2020-12-27 06:01] LABS: Basophils % 0.1 % (0.0-0.8); Hematocrit 36.7 VOL% (42.0-52.0); Immature Granulocytes % 3.2 %; Immature Granulocytes Absolute 0.34 #; Lymphocytes # 1.3 10*3/uL (1.4-4.0); Lymphocytes % 12.2 % (21.2-54.2); Mean Corpuscular Volume 80.8 FL (87-102); Mean Platelet Volume 10.6 FL (9.6-12.0); Monocytes % 8.1 % (1.7-12.7); NRBC # 0.03 10*3/uL; Neutrophils % 76.4 % (38.7-73.9); Platelet Count 205 T/CUMM (130-400); Red Blood Count 4.54 MC/CUMM (3.8-5.5); Red Cell Distribution Width 17.7 % (9.3-17.3); White Blood Count 10.8 T/CUMM (4-12)
[2020-12-27] MEDS: oxyCODONE/ACETAMINOPHEN 5-325 MG TABLET PO PRN ×2 (06:48→15:02)
[2020-12-27] MEDS: INSULIN LISPRO 100 UNIT/ML SUBCUT SCH ×2 (07:46→11:49)
[2020-12-27] MEDS ORDERED: MIDAZOLAM 2 MG/2 ML VIAL ONE (07:52)
[2020-12-27] MEDS ORDERED: MIDAZOLAM 2 MG/2 ML VIAL IV ONE (08:20)
[2020-12-27] MEDS ORDERED: LIDOCAINE 2% VISCOUS 100 ML BOTTLE SWISH/SPIT ONE (08:20)
[2020-12-27] MEDS ORDERED: LIDOCAINE 1% 20 ML VIAL MISC INJ ONE (08:20)
[2020-12-27] MEDS ORDERED: LIDOCAINE 2% 20 ML VIAL RESP TX ONE (08:20)
[2020-12-27] MEDS ORDERED: GLYCOPYRROLATE 0.4 MG/2 ML VIAL IM ONE (08:45)
[2020-12-27] MEDS ORDERED: MEPERIDINE 50 MG/1 ML VIAL IM ONE (08:45)
[2020-12-27] MEDS ORDERED: PROMETHAZINE 25 MG/1 ML VIAL IM ONE (08:45)
[2020-12-27] MEDS ORDERED: FLUCONAZOLE 100 MG TABLET PO SCH (09:00)
[2020-12-27] MEDS ORDERED: methylPREDNISolone SOD SUC 40 MG/1 ML VIAL IV SCH (09:00)
[2020-12-27] MEDS: PANTOPRAZOLE 40 MG TABLET PO SCH (11:33)
[2020-12-27] MEDS: FERROUS GLUCONATE 324 MG TABLET PO SCH (11:33)
[2020-12-27] MEDS: DILTIAZEM CD 180 MG CAPSULE PO SCH (11:33)
[2020-12-27] MEDS: ASPIRIN EC 81 MG TABLET PO SCH (11:33)
[2020-12-27] MEDS: LABETALOL 200 MG TABLET PO SCH (11:34)
[2020-12-27] MEDS: GABAPENTIN 400 MG CAPSULE PO SCH ×2 (11:34→14:56)
[2020-12-27] MEDS: LOSARTAN 50 MG TABLET PO SCH (11:43)
[2020-12-27] MEDS: DOCUSATE SODIUM 100 MG CAPSULE PO SCH (11:43)
[2020-12-27] MEDS: SPIRONOLACTONE 25 MG TABLET PO SCH (11:43)
[2020-12-27] MEDS: LIDOCAINE 5% PATCH TRANSDERM SCH (11:44)
[2020-12-27] MEDS: FLUTICASONE 50 MCG NASAL SPRAY 16 GM BOTTLE BOTH NARES SCH (11:44)
[2020-12-27] MEDS: oxyCODONE ER 20 MG TABLET PO SCH (11:44)
[2020-12-27] MEDS: [UNRECOGNIZED DRUG - OTHER] PO SCH (11:44)
[2020-12-27] MEDS: CETIRIZINE 10 MG TABLET PO SCH (11:45)
[2020-12-27] MEDS: BUDESONIDE/FORMOTEROL 160-4.5 INHALER 6 GM INH SCH (11:45)
[2020-12-27] MEDS: METHOCARBAMOL 500 MG TABLET PO SCH ×2 (11:45→14:56)
[2020-12-27 11:56] VITALS: BP 160/91
[2020-12-27] MEDS ORDERED: FLUCONAZOLE 100 MG TABLET PO ONE (12:00)
[2020-12-27] MEDS: cefTRIAXone 1,000 MG in SYRINGE 1 EACH IV SCH (14:56)
[2020-12-28] MEDS ORDERED: CHOLECALCIFEROL 1,000 UNIT TABLET PO SCH (09:00)
== END 2020-12-27 17:19 | disposition home or self-care (01) | DRG 141 ==
LOC: N.EDINP 15:56 → N.ED 15:56 → SUATTDRO 17:34 → N.EDINP 20:04 → N.3E 20:13 → SUATTDRO 12-24 14:22
PROVIDERS: ADMIT Internal Medicine; ATTEND Internal Medicine

== ENCOUNTER 2022-10-30 11:12 | Observation (INO) ==
[2022-10-30] MEDS ORDERED: methylPREDNISolone SOD SUC 125 MG/2 ML VIAL IV STA (12:36)
[2022-10-30] MEDS ORDERED: ALBUTEROL 2.5 MG/3 ML NEB RESP TX ONE (12:48)
[2022-10-30] MEDS ORDERED: ALBUTEROL NEB SOLN 5 MG/ML 20 ML/BOTTLE CONT NEB SCH (13:00)
[2022-10-30 13:10] LABS: Basophils % 0.4 % (0.0-0.8); Eosinophils # 0.1 10*3/uL (0.0-0.87); Eosinophils % 1.2 % (0.00-10.9); Hematocrit 37.2 VOL% (42.0-52.0); Hemoglobin 11.5 GM/DL (14.0-18.0); Immature Granulocytes % 0.4 %; Immature Granulocytes Absolute 0.02 #; Lymphocytes # 1.9 10*3/uL (1.4-4.0); Lymphocytes % 33.1 % (21.2-54.2); Mean Corpuscular HGB Conc 30.9 GM/DL (32-36); Mean Corpuscular Volume 82.3 FL (87-102); Mean Platelet Volume 10.8 FL (9.6-12.0); Monocytes # 0.5 10*3/uL (0.11-0.8); Neutrophils % 56.9 % (38.7-73.9); Platelet Count 90 T/CUMM (130-400); Red Blood Count 4.52 MC/CUMM (3.8-5.5); Red Cell Distribution Width 17.2 % (9.3-17.3); White Blood Count 5.6 T/CUMM (4-12)
[2022-10-30 13:19] LABS: Anisocytosis Slight; Hypochromia Slight; Microcytosis Slight; Platelet Estimate Decreased; Polychromasia Slight
[2022-10-30 13:26] LABS: Albumin 3.8 G/DL (3.4-5.0); Bilirubin,Total 0.4 MG/DL (0.20-1.00); Calcium 9.2 MG/DL (8.5-10.1); Osmolality,Calculated 276.4 MOS/KG (273-304); Potassium 3.5 MMOL/L (3.5-5.1); Total Protein 7.5 G/DL (6.4-8.2)
[2022-10-30] MEDS ORDERED: ONDANSETRON 4 MG/2 ML VIAL IV PRN (15:15)
[2022-10-30] MEDS ORDERED: DOCUSATE SODIUM 100 MG CAPSULE PO PRN (15:15)
[2022-10-30] MEDS ORDERED: MORPHINE 2 MG/1 ML SYRINGE IV STA (16:05)
[2022-10-30] MEDS ORDERED: ALBUTEROL 2.5 MG/3 ML NEB RESP TX PRN (16:19)
[2022-10-30] MEDS: methylPREDNISolone SOD SUC 125 MG/2 ML VIAL IV SCH (17:02)
[2022-10-30] MEDS: MORPHINE 2 MG/1 ML SYRINGE IV PRN ×2 (17:05→22:55)
[2022-10-30] MEDS: ALBUTEROL 2.5 MG/3 ML NEB RESP TX SCH (18:59)
[2022-10-30] MEDS: TAMSULOSIN 0.4 MG CAPSULE PO SCH (20:49)
[2022-10-30] MEDS: MONTELUKAST 10 MG TABLET PO SCH (20:52)
[2022-10-30] MEDS: GABAPENTIN 400 MG CAPSULE PO SCH (20:52)
[2022-10-30] MEDS: RIVAROXABAN 20 MG TABLET PO SCH (20:52)
[2022-10-30] MEDS ORDERED: LOSARTAN 50 MG TABLET PO SCH (21:00)
[2022-10-30] MEDS: LABETALOL 200 MG TABLET PO SCH (21:19)
[2022-10-30] MEDS: oxyCODONE/ACETAMINOPHEN 5-325 MG TABLET PO PRN (21:20)
[2022-10-30] MEDS: BUDESONIDE/FORMOTEROL 160-4.5 INHALER 6 GM INH SCH (22:02)
[2022-10-30] MEDS: hydrALAZINE 20 MG/1 ML VIAL IV PRN (23:02)
[2022-10-31] MEDS: ALBUTEROL 2.5 MG/3 ML NEB RESP TX SCH ×4 (00:38→19:31)
[2022-10-31] MEDS: methylPREDNISolone SOD SUC 125 MG/2 ML VIAL IV SCH ×5 (00:51→23:39)
[2022-10-31 01:37] LABS: Bacteria,Urine Occasional /HPF (Few); Mucus,Urine Occasional /LPF (Occasional)
[2022-10-31 01:38] LABS: Bilirubin,Urine Negative (Negative); Blood, Urine Negative (Negative); Glucose,Urine (UA) Negative (Negative); Ketones,Urine Negative (Negative); Nitrite,Urine Negative (Negative); Protein,Urine 100 mg/dL (Negative); Urine Appearance Clear (Clear); Urine Color Yellow (Yellow); Urine Urobilinogen 0.2 eU/dL (<2.0)
[2022-10-31 01:45] LABS: Barbiturates Screen,Urine Negative (Negative); Benzodiazepines Screen,Urine Negative (Negative); Cannabinoid Screen,Urine Positive (Negative); Opiate Screen,Urine Positive (Negative); Phencyclidine Screen,Urine Negative (Negative)
[2022-10-31 05:50] LABS: Basophils % 0.1 % (0.0-0.8); Hematocrit 39.6 VOL% (42.0-52.0); Hemoglobin 12.3 GM/DL (14.0-18.0); Immature Granulocytes % 0.8 %; Immature Granulocytes Absolute 0.09 #; Lymphocytes # 1.4 10*3/uL (1.4-4.0); Lymphocytes % 12.6 % (21.2-54.2); Mean Corpuscular HGB Conc 31.1 GM/DL (32-36); Mean Platelet Volume 10.7 FL (9.6-12.0); Monocytes # 0.2 10*3/uL (0.11-0.8); Monocytes % 1.4 % (1.7-12.7); Neutrophils % 85.1 % (38.7-73.9); Platelet Count 290 T/CUMM (130-400); Red Blood Count 4.83 MC/CUMM (3.8-5.5); Red Cell Distribution Width 17.2 % (9.3-17.3); White Blood Count 11.1 T/CUMM (4-12)
[2022-10-31 06:21] LABS: Calcium 9.2 MG/DL (8.5-10.1); Osmolality,Calculated 280.4 MOS/KG (273-304); Potassium 3.6 MMOL/L (3.5-5.1); Risk Ratio 3.04; Thyroid Stimulating Hormone 0.133 uIU/ml (0.358-3.74); VLDL Cholesterol 17.2 MG/DL
[2022-10-31] MEDS: hydrALAZINE 20 MG/1 ML VIAL IV PRN (06:23)
[2022-10-31] MEDS: MORPHINE 2 MG/1 ML SYRINGE IV PRN ×2 (06:24→12:17)
[2022-10-31] MEDS ORDERED: MAGNESIUM SULF RIDER 4 GM/100 ML PREMIX IV ONE (07:37)
[2022-10-31] MEDS: CHOLECALCIFEROL 5,000 UNIT TABLET PO SCH (08:54)
[2022-10-31] MEDS: LOSARTAN 50 MG TABLET PO SCH ×2 (08:54→22:21)
[2022-10-31] MEDS: DILTIAZEM CD 180 MG CAPSULE PO SCH (08:54)
[2022-10-31] MEDS: FERROUS SULFATE 325 MG TABLET PO SCH (08:54)
[2022-10-31] MEDS: LABETALOL 200 MG TABLET PO SCH ×2 (08:54→22:23)
[2022-10-31] MEDS: GABAPENTIN 400 MG CAPSULE PO SCH ×3 (08:55→22:21)
[2022-10-31] MEDS: oxyCODONE/ACETAMINOPHEN 5-325 MG TABLET PO PRN ×3 (08:57→22:22)
[2022-10-31] MEDS: BUDESONIDE/FORMOTEROL 160-4.5 INHALER 6 GM INH SCH ×3 (09:41→22:23)
[2022-10-31] MEDS ORDERED: RACEPINEPHRINE 0.5 ML NEB RESP TX ONE (11:05)
[2022-10-31] MEDS: PANTOPRAZOLE 40 MG TABLET PO SCH (14:04)
[2022-10-31] MEDS ORDERED: ALUMINUM/MAGNES/SIMETH MAX STR 30 ML UDCUP PO PRN (15:41)
[2022-10-31] MEDS: TAMSULOSIN 0.4 MG CAPSULE PO SCH (22:22)
[2022-10-31] MEDS: RIVAROXABAN 20 MG TABLET PO SCH (22:22)
[2022-10-31] MEDS: MONTELUKAST 10 MG TABLET PO SCH (22:23)
[2022-11-01] MEDS: ALBUTEROL 2.5 MG/3 ML NEB RESP TX SCH ×2 (01:28→07:15)
[2022-11-01] MEDS: MORPHINE 2 MG/1 ML SYRINGE IV PRN ×2 (01:28→05:20)
[2022-11-01] MEDS: methylPREDNISolone SOD SUC 125 MG/2 ML VIAL IV SCH (05:16)
[2022-11-01 06:09] LABS: Calcium 9.2 MG/DL (8.5-10.1); Osmolality,Calculated 280.7 MOS/KG (273-304); Potassium 3.8 MMOL/L (3.5-5.1)
[2022-11-01 06:27] LABS: Basophils % 0.1 % (0.0-0.8); Hematocrit 39.7 VOL% (42.0-52.0); Hemoglobin 11.9 GM/DL (14.0-18.0); Immature Granulocytes % 0.8 %; Immature Granulocytes Absolute 0.13 #; Lymphocytes # 1.4 10*3/uL (1.4-4.0); Lymphocytes % 8.7 % (21.2-54.2); Mean Platelet Volume 10.4 FL (9.6-12.0); Monocytes # 0.5 10*3/uL (0.11-0.8); Monocytes % 3.4 % (1.7-12.7); Platelet Count 291 T/CUMM (130-400); Red Blood Count 4.67 MC/CUMM (3.8-5.5); Red Cell Distribution Width 17.8 % (9.3-17.3); White Blood Count 15.7 T/CUMM (4-12)
[2022-11-01] MEDS: DILTIAZEM CD 180 MG CAPSULE PO SCH (09:26)
[2022-11-01] MEDS: CHOLECALCIFEROL 5,000 UNIT TABLET PO SCH (09:26)
[2022-11-01] MEDS: LOSARTAN 50 MG TABLET PO SCH (09:26)
[2022-11-01] MEDS: LABETALOL 200 MG TABLET PO SCH (09:26)
[2022-11-01] MEDS: GABAPENTIN 400 MG CAPSULE PO SCH (09:27)
[2022-11-01] MEDS: PANTOPRAZOLE 40 MG TABLET PO SCH (09:27)
[2022-11-01] MEDS: FERROUS SULFATE 325 MG TABLET PO SCH (09:27)
[2022-11-01] MEDS: BUDESONIDE/FORMOTEROL 160-4.5 INHALER 6 GM INH SCH (09:28)
[2022-11-01] MEDS: oxyCODONE/ACETAMINOPHEN 5-325 MG TABLET PO PRN (09:32)
[2022-11-01 12:34] VITALS: BP 117/52
== END 2022-11-01 15:35 | disposition home or self-care (01) ==
LOC: N.EDINP 11:12 → N.ED 11:12 → SUATTDRO 15:15 → N.2W 16:13 → N.2E 10-31 16:23
PROVIDERS: ADMIT Internal Medicine Geriatric Medicine; ATTEND Internal Medicine

== ENCOUNTER 2022-11-08 04:32 | Observation (INO) ==
[2022-11-08] MEDS ORDERED: ALBUTEROL/IPRATROPIUM 3 ML NEB RESP TX STA (05:03)
[2022-11-08 05:24] LABS: Basophils % 0.2 % (0.0-0.8); Eosinophils % 0.2 % (0.00-10.9); Hematocrit 39.7 VOL% (42.0-52.0); Hemoglobin 12.1 GM/DL (14.0-18.0); Immature Granulocytes % 4.9 %; Immature Granulocytes Absolute 0.42 #; Lymphocytes # 1.2 10*3/uL (1.4-4.0); Lymphocytes % 13.6 % (21.2-54.2); Mean Corpuscular HGB Conc 30.5 GM/DL (32-36); Mean Platelet Volume 9.2 FL (9.6-12.0); Monocytes # 0.8 10*3/uL (0.11-0.8); Monocytes % 9.8 % (1.7-12.7); NRBC # 0.02 10*3/uL; Neutrophils % 71.3 % (38.7-73.9); Platelet Count 202 T/CUMM (130-400); Red Blood Count 4.84 MC/CUMM (3.8-5.5); Red Cell Distribution Width 18.1 % (9.3-17.3); White Blood Count 8.6 T/CUMM (4-12)
[2022-11-08 05:36] LABS: INR 0.9; PT Patient Result 10.5 SECS (10.1-12.1); Partial Thromboplastin Time 24.2 SECS (23.7-32.9)
[2022-11-08 05:50] LABS: Bilirubin,Total 0.5 MG/DL (0.20-1.00); Osmolality,Calculated 281.4 MOS/KG (273-304); Potassium 3.1 MMOL/L (3.5-5.1); Total Protein 6.6 G/DL (6.4-8.2)
[2022-11-08] MEDS ORDERED: MAGNESIUM SULF RIDER 1 GM/100 ML PREMIX IV STA (05:54)
[2022-11-08] MEDS ORDERED: methylPREDNISolone SOD SUC 125 MG/2 ML VIAL IV STA (05:54)
[2022-11-08] MEDS ORDERED: POTASSIUM CHLORIDE 20 MEQ TABLET PO STA (05:58)
[2022-11-08] MEDS ORDERED: MORPHINE 2 MG/1 ML SYRINGE IV STA (08:25)
[2022-11-08] MEDS ORDERED: MELATONIN 3 MG TABLET PO PRN (08:34)
[2022-11-08] MEDS: FERROUS SULFATE 325 MG TABLET PO SCH (09:25)
[2022-11-08] MEDS: METHOCARBAMOL 500 MG TABLET PO SCH ×4 (09:26→21:28)
[2022-11-08] MEDS: GABAPENTIN 400 MG CAPSULE PO SCH ×3 (09:26→21:29)
[2022-11-08] MEDS: CHOLECALCIFEROL 5,000 UNIT TABLET PO SCH (09:26)
[2022-11-08] MEDS: DOXYCYCLINE HYCLATE INJ 100 MG in SODIUM CHLORIDE 0.9% 100 ML IV SCH ×2 (09:26→21:20)
[2022-11-08] MEDS: CETIRIZINE 10 MG TABLET PO SCH (09:27)
[2022-11-08] MEDS: DILTIAZEM CD 180 MG CAPSULE PO SCH (10:15)
[2022-11-08] MEDS: BUDESONIDE/FORMOTEROL 160-4.5 INHALER 6 GM INH SCH ×2 (10:15→21:31)
[2022-11-08] MEDS: LABETALOL 200 MG TABLET PO SCH ×2 (10:15→21:29)
[2022-11-08] MEDS: CELECOXIB 200 MG CAPSULE PO SCH (10:15)
[2022-11-08] MEDS: oxyCODONE/ACETAMINOPHEN 5-325 MG TABLET PO PRN ×2 (10:47→16:42)
[2022-11-08] MEDS: methylPREDNISolone SOD SUC 125 MG/2 ML VIAL IV SCH ×2 (13:22→21:25)
[2022-11-08] MEDS: MORPHINE 2 MG/1 ML SYRINGE IV PRN ×2 (13:24→21:18)
[2022-11-08] MEDS: RIVAROXABAN 20 MG TABLET PO SCH (16:38)
[2022-11-08] MEDS: ALBUTEROL 2.5 MG/3 ML NEB RESP TX PRN (17:10)
[2022-11-08] MEDS: TAMSULOSIN 0.4 MG CAPSULE PO SCH (21:28)
[2022-11-08] MEDS: LOSARTAN 50 MG TABLET PO SCH (21:29)
[2022-11-08] MEDS: DOCUSATE SODIUM 100 MG CAPSULE PO SCH (21:30)
[2022-11-08] MEDS: MONTELUKAST 10 MG TABLET PO SCH (21:40)
[2022-11-08] MEDS: NYSTATIN 500,000 UNIT/5 ML UDCUP SWISH/SWAL PRN (23:58)
[2022-11-08] MEDS: ALUMINUM/MAGNES/SIMETH MAX STR 30 ML UDCUP PO PRN (23:59)
[2022-11-09] MEDS: ALBUTEROL 2.5 MG/3 ML NEB RESP TX PRN (01:05)
[2022-11-09 05:15] LABS: Hematocrit 37.3 VOL% (42.0-52.0); Hemoglobin 11.3 GM/DL (14.0-18.0); Immature Granulocytes % 2.9 %; Immature Granulocytes Absolute 0.35 #; Lymphocytes # 1.1 10*3/uL (1.4-4.0); Mean Corpuscular HGB Conc 30.3 GM/DL (32-36); Mean Corpuscular Volume 82.2 FL (87-102); Mean Platelet Volume 9.6 FL (9.6-12.0); Monocytes # 0.4 10*3/uL (0.11-0.8); Monocytes % 3.1 % (1.7-12.7); Platelet Count 190 T/CUMM (130-400); Red Blood Count 4.54 MC/CUMM (3.8-5.5); Red Cell Distribution Width 18.2 % (9.3-17.3); White Blood Count 12.2 T/CUMM (4-12)
[2022-11-09 05:30] LABS: Calcium 8.3 MG/DL (8.5-10.1); Osmolality,Calculated 282.5 MOS/KG (273-304); Potassium 3.5 MMOL/L (3.5-5.1)
[2022-11-09] MEDS: MORPHINE 2 MG/1 ML SYRINGE IV PRN ×2 (06:21→16:59)
[2022-11-09] MEDS: methylPREDNISolone SOD SUC 125 MG/2 ML VIAL IV SCH (06:21)
[2022-11-09] MEDS: NYSTATIN 500,000 UNIT/5 ML UDCUP SWISH/SWAL PRN (06:22)
[2022-11-09] MEDS: ALUMINUM/MAGNES/SIMETH MAX STR 30 ML UDCUP PO PRN (06:22)
[2022-11-09] MEDS ORDERED: hydrALAZINE 20 MG/1 ML VIAL IV PRN (08:51)
[2022-11-09] MEDS ORDERED: hydroCHLOROthiazide 25 MG TABLET PO SCH (09:00)
[2022-11-09] MEDS: OMEPRAZOLE ODT 20 MG TABLET PO SCH (09:22)
[2022-11-09] MEDS: oxyCODONE/ACETAMINOPHEN 5-325 MG TABLET PO PRN ×3 (09:22→21:34)
[2022-11-09] MEDS: DOCUSATE SODIUM 100 MG CAPSULE PO SCH ×2 (09:23→21:33)
[2022-11-09] MEDS: POLYETHYLENE GLYCOL POWDER 17 GM PACK PO SCH (09:24)
[2022-11-09] MEDS: FERROUS SULFATE 325 MG TABLET PO SCH (09:25)
[2022-11-09] MEDS: LABETALOL 200 MG TABLET PO SCH ×2 (09:25→21:34)
[2022-11-09] MEDS: LOSARTAN 50 MG TABLET PO SCH ×2 (09:25→21:33)
[2022-11-09] MEDS: DILTIAZEM CD 180 MG CAPSULE PO SCH (09:25)
[2022-11-09] MEDS: SPIRONOLACTONE 50 MG TABLET PO SCH (09:25)
[2022-11-09] MEDS: CELECOXIB 200 MG CAPSULE PO SCH (09:25)
[2022-11-09] MEDS: METHOCARBAMOL 500 MG TABLET PO SCH ×4 (09:25→21:34)
[2022-11-09] MEDS: GABAPENTIN 400 MG CAPSULE PO SCH ×3 (09:25→21:34)
[2022-11-09] MEDS: CHOLECALCIFEROL 5,000 UNIT TABLET PO SCH (09:26)
[2022-11-09] MEDS: CETIRIZINE 10 MG TABLET PO SCH (09:27)
[2022-11-09] MEDS: DOXYCYCLINE HYCLATE INJ 100 MG in SODIUM CHLORIDE 0.9% 100 ML IV SCH ×2 (10:08→21:37)
[2022-11-09] MEDS ORDERED: FLUCONAZOLE 150 MG TABLET PO ONE (10:12)
[2022-11-09] MEDS: BUDESONIDE/FORMOTEROL 160-4.5 INHALER 6 GM INH SCH ×2 (12:59→21:38)
[2022-11-09] MEDS: ALBUTEROL/IPRATROPIUM 3 ML NEB RESP TX SCH ×2 (13:30→18:57)
[2022-11-09] MEDS: methylPREDNISolone SOD SUC 40 MG/1 ML VIAL IV SCH ×2 (15:08→21:34)
[2022-11-09] MEDS: RIVAROXABAN 20 MG TABLET PO SCH (16:45)
[2022-11-09] MEDS: TAMSULOSIN 0.4 MG CAPSULE PO SCH (21:33)
[2022-11-09] MEDS: MONTELUKAST 10 MG TABLET PO SCH (21:34)
[2022-11-10] MEDS: MORPHINE 2 MG/1 ML SYRINGE IV PRN ×2 (00:39→08:38)
[2022-11-10] MEDS: ALBUTEROL/IPRATROPIUM 3 ML NEB RESP TX SCH ×2 (01:51→07:55)
[2022-11-10 04:31] LABS: Basophils % 0.2 % (0.0-0.8); Hematocrit 36.3 VOL% (42.0-52.0); Hemoglobin 11.3 GM/DL (14.0-18.0); Immature Granulocytes % 2.2 %; Lymphocytes # 1.3 10*3/uL (1.4-4.0); Lymphocytes % 6.9 % (21.2-54.2); Mean Corpuscular HGB Conc 31.1 GM/DL (32-36); Mean Corpuscular Volume 82.7 FL (87-102); Mean Platelet Volume 9.7 FL (9.6-12.0); Monocytes # 0.9 10*3/uL (0.11-0.8); Monocytes % 4.7 % (1.7-12.7); Platelet Count 201 T/CUMM (130-400); Red Blood Count 4.39 MC/CUMM (3.8-5.5); Red Cell Distribution Width 18.5 % (9.3-17.3)
[2022-11-10 04:47] LABS: Calcium 8.2 MG/DL (8.5-10.1); Osmolality,Calculated 283.7 MOS/KG (273-304); Potassium 3.6 MMOL/L (3.5-5.1)
[2022-11-10] MEDS: methylPREDNISolone SOD SUC 40 MG/1 ML VIAL IV SCH (05:24)
[2022-11-10] MEDS: oxyCODONE/ACETAMINOPHEN 5-325 MG TABLET PO PRN (05:29)
[2022-11-10 08:26] VITALS: BP 149/78
[2022-11-10] MEDS: POLYETHYLENE GLYCOL POWDER 17 GM PACK PO SCH (08:28)
[2022-11-10] MEDS: DOXYCYCLINE HYCLATE INJ 100 MG in SODIUM CHLORIDE 0.9% 100 ML IV SCH (08:28)
[2022-11-10] MEDS: DILTIAZEM CD 180 MG CAPSULE PO SCH (08:29)
[2022-11-10] MEDS: METHOCARBAMOL 500 MG TABLET PO SCH (08:29)
[2022-11-10] MEDS: SPIRONOLACTONE 50 MG TABLET PO SCH (08:30)
[2022-11-10] MEDS: LOSARTAN 50 MG TABLET PO SCH (08:30)
[2022-11-10] MEDS: CHOLECALCIFEROL 5,000 UNIT TABLET PO SCH (08:30)
[2022-11-10] MEDS: GABAPENTIN 400 MG CAPSULE PO SCH (08:30)
[2022-11-10] MEDS: LABETALOL 200 MG TABLET PO SCH (08:30)
[2022-11-10] MEDS: DOCUSATE SODIUM 100 MG CAPSULE PO SCH (08:30)
[2022-11-10] MEDS: OMEPRAZOLE ODT 20 MG TABLET PO SCH (08:31)
[2022-11-10] MEDS: CELECOXIB 200 MG CAPSULE PO SCH (08:31)
[2022-11-10] MEDS: FERROUS SULFATE 325 MG TABLET PO SCH (08:31)
[2022-11-10] MEDS: CETIRIZINE 10 MG TABLET PO SCH (08:31)
[2022-11-10] MEDS: BUDESONIDE/FORMOTEROL 160-4.5 INHALER 6 GM INH SCH (08:32)
== END 2022-11-10 11:52 | disposition home or self-care (01) ==
LOC: N.ED 04:32 → N.EDINP 04:32 → SUATTDRO 08:25 → N.3E 11:51
PROVIDERS: ADMIT Internal Medicine; ATTEND Family Medicine